=== PATIENT | female | born 1980 | race Caucasian/White ===

== ENCOUNTER 2023-06-21 20:51 | Outpatient (REF) | payer OTHER, SELFPAY ==
[2023-06-25 15:09] LABS: Age Gdln ACOG Testing Note (.); HPV Aptima Negative (Negative); IGP, Aptima HPV, rfx 16/18,45 Note (.)
== END 2023-06-21 20:52 | disposition home or self-care (01) ==
LOC: LAB 20:51
PROVIDERS: PCP Obstetrics & Gynecology; Visit Provider Obstetrics & Gynecology
DX: Z12.4 Encounter for screening for malignant neoplasm of cervix (principal)
CPT/HCPCS: G0145

== ENCOUNTER 2023-08-02 17:57 | Outpatient (OUT) | payer OTHER, SELFPAY ==
--- NOTE | 2023-08-02 | US_ITS ---
The [address] [address] Patient Name: JENNIFER KENDALL MRN: [id number] date: 1980 Sex: F Assigned Patient Location: US Current Patient Location: Accession/Order Number: [id number] Exam Date: 08/02/2023 18:02 Report Date: 08/03/2023 07:18 At the request of: SERGE DUBON Procedure: US pelvis transvaginal EXAM: US pelvis transvaginal HISTORY: Menorrhagia COMPARISON: 10/16/2019. TECHNIQUE: Pelvic sonography was performed utilizing grayscale and color Doppler technique. FINDINGS: Anteverted uterus measures 7.7 x 4.7 x 4.1 cm. Uterine endometrial stripe measures 0.8 cm in thickness. Myometrium is heterogeneous. No discrete mass. Right ovary measures 2.5 x 1.7 x 2.2 cm. Normal right ovarian parenchyma. Left ovary not visualized. No significant free fluid within the pelvis. US/US pelvis transvaginal IMPRESSION: 1. Nonthickened premenopausal endometrium. 2. Left ovary not visualized. 3. Normal right ovary. Electronically authenticated by: SALINAS ELIZONDO Date: 08/03/2023 07:18
== END 2023-08-02 17:58 | disposition home or self-care (01) ==
PROVIDERS: PCP Obstetrics & Gynecology; Visit Provider Obstetrics & Gynecology
DX: N92.0 Excessive and frequent menstruation with regular cycle (principal)
CPT/HCPCS: 76830

== ENCOUNTER 2023-08-06 07:55 | Outpatient (OUT) | payer OTHER, SELFPAY ==
--- NOTE | 2023-08-06 08:23 | ECG_ITS ---
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
== END 2023-08-06 07:56 | disposition home or self-care (01) ==
LOC: PST 07:55
PROVIDERS: PCP Obstetrics & Gynecology; Visit Provider Obstetrics & Gynecology
DX: Z01.810 Encounter for preprocedural cardiovascular examination (principal); N92.0 Excessive and frequent menstruation with regular cycle; N93.9 Abnormal uterine and vaginal bleeding, unspecified; R10.2 Pelvic and perineal pain
CPT/HCPCS: 93005

== ENCOUNTER 2023-08-20 06:56 | Day surgery (SDC) | payer OTHER, SELFPAY ==
[2023-08-06 08:30] VITALS: BP 105/64; PULSE 66; RESP 18; TEMP 36.2; O2SAT 98; BMI 32.5
[2023-08-20] VITALS (11 sets, daily range): BP systolic 90–124; BP diastolic 55–78; PULSE 68–87; RESP 12–18; TEMP 36.1–36.2; O2SAT 92–97; BMI 33.2
[2023-08-20 07:09] LABS: Hematocrit 41.9 % (36.0-48.0); Hemoglobin 13.3 g/dL (12.0-16.0); Mean Corpuscular HGB Conc 31.7 g/dL (29.9-35.2); Mean Corpuscular Hemoglobin 30.6 pg (26.7-34.0); Mean Corpuscular Volume 96.5 fL (81.0-99.0); Mean Platelet Volume 9.5 fL (9.5-13.5); Platelet Count 285 10^3/uL (150-450); Red Blood Count 4.34 10^6/uL (4.20-5.40); White Blood Count 6.3 10^3/uL (4.0-11.0)
[2023-08-20 07:12] LABS: Red Cell Distribution Width 12.7 % (11.0-15.0)
[2023-08-20 07:24] LABS: HCG Quantitative <1 mIU/mL
[2023-08-20] MEDS: LACTATED RINGER'S SOLUTION 1,000 ML 50 ML IV (07:39)
[2023-08-20 07:44] LABS: Segmented Neut Absolute Manual 3.02 10^3/uL (1.4-6.5)
[2023-08-20 07:45] LABS: Eosinophils Absolute Manual 0.06 10^3/uL (0.00-0.70)
--- NOTE | 2023-08-20 09:22 | PM.ONB ---
Brief Operative Note Date of procedure: 08/20/23 Pre-op diagnosis: menorrhagia, desires permenant sterilization Post-op diagnosis: same as pre-op Procedure: NAME OF PROCEDURE: [ ] Samantha endometrial ablation with hysteroscopy. robotic assisted bilateral laparoscopic salpingectomy PROCEDURE: The patient was taken back to the OR where she was prepped and draped in the normal sterile fashion after being placed in the dorsal lithotomy position, after being placed under general anesthesia without difficulty.? A weighted speculum was placed into the vagina. The anterior lip was grasped with a single tooth tenaculum. The patient was then sounded to approximated 8cm. The patient?s cervix was gently dilated using hegardilators. The hysteroscope was passed through the cervix into the uterus where both ostia were seen. No gross evidence of polyps, fibroids or malignancy. The cervical length was noted to be 4 cm. The total cavity length is 4cm.? The Samantha ablation apparatus was set to approximately 4cm in length. This was placed through the cervix and into the uterus. After the seal was tested, at that time the total ablation of 120 seconds was performed with the Samantha withoutdifficulty. All instruments were removed from the vagina. Excellent hemostasis noted.? A wet sponge stick was placed into the patient's vagina. Attention was then turned to the patient's abdomen, where a scalpel was used to make a small infraumbilical incision. The S retractors were then used to dissect the underlying layers until the fascia could be seen. The fascia was then grasped with Gricel clamps and tented up. A knife was then used to make a small incision to the fascia. The muscle was identified, at that time two sutures of #0 Vicryl on a GI needle was then used and placed through the fascia. the peritoneum was then identified and entered bluntly. The 10-4 Albaro was then placed into the patient's abdomen. This was confirmed with direct visualization of the bowel, using the laparoscope. The patient's abdomen was then insufflated using approximately 4 liters of CO2 gas. Survey of the patient's abdomen demonstrated ovaries were normal in appearance as well as both tubes and uterus. A second and third rt and lt lateral robotic ports which were 8 mm in size, was then placed after the skin incision was made under direct visualization . robotic arms were engaged. The patient's tube on the patient's right side was identified and tented up using a grasper, the ligasure apparatus was then used to come across the mesosalpingx from the fimbriated end to the insertion site at the uterus, the tube was then amputated and removed in its entirety. This was done on the contralateral side. The tubes were the removed from the patients abdomen. Excellent hemostasis was noted. The lateral ports were then moved under direct visualization with excellent hemostasis. All instruments were removed from the patient's abdomen. The fascia was closed using the #0 Vicryl on GI needle. The skin was closed using 4-0 Vicryl subcuticularly. All instruments were removed from the patient's vagina as well. The patient was taken out of the dorsal lithotomy position and placed in the supine position and taken to recovery in stable condition. Sponge, lap and needle counts were correct x2. Anesthesia: MADINA Surgeon: Kris Chan Battery Engineer: Bree Soares Estimated blood loss (mL): 5 Pathology: other (bilateral tubes) Condition: stable Disposition: PACU
[2023-08-20] MEDS: LACTATED RINGER'S SOLUTION 1,000 ML 150 ML IV (10:20)
[2023-08-20] MEDS: HYDROCODONE/ACET 5-325 MG TABLET 1 TAB PO (10:49)
[2023-08-20] MEDS: PROMETHAZINE HCL 25 MG TABLET PO (11:52)
--- NOTE | 2023-08-20 12:15 | PC.NURSE ---
pt voids at 1145 without difficulty. pt has complaint of nausea while ambulating PO phenergan given at 1152,pt wishes to be discharged even with nausea.
== END 2023-08-20 11:55 | disposition home or self-care (01) ==
PROVIDERS: PCP Obstetrics & Gynecology; Visit Provider Obstetrics & Gynecology
PROC: (CPT 58563; principal; 2023-08-20 08:20)
PROC: (CPT 58563; 2023-08-20 08:20)
DX: Z30.2 Encounter for sterilization (principal); N92.0 Excessive and frequent menstruation with regular cycle; N93.9 Abnormal uterine and vaginal bleeding, unspecified; R10.2 Pelvic and perineal pain; R35.0 Frequency of micturition; E88.819 Insulin resistance, unspecified; F32.A Depression, unspecified; E78.2 Mixed hyperlipidemia; E66.9 Obesity, unspecified; N94.10 Unspecified dyspareunia; Z68.37 Body mass index [BMI] 37.0-37.9, adult
CPT/HCPCS: 58563; 58661; 36415; 84702; 85027; 88304; J1170; J2704

== ENCOUNTER 2024-08-25 10:59 | Outpatient (OUT) | payer OTHER, SELFPAY ==
--- OUTSIDE RECORDS SUMMARY | 2024-08-25 11:04 | XMS_ITS | CCD ---
Author Organization [facility] Care Team Providers Care Director Voice Name Role Phone LENKA, CHANEL R Unavailable Unavailable LENKA, CHANEL R Unavailable Unavailable LENKA, CHANEL R Unavailable Unavailable LENKA, CHANEL R Unavailable Unavailable Dk Cummins Primary Care Provider Amina Del Rio Unavailable GANGA ., DR DEAN Admitting Unavailabl e KARASIK ., DR DEAN Attending Unavailabl e MISC, DR LIU Primary Care Unavailable KARASIK ., DR DEAN Consulting Unavailabl e KARASIK ., DR DEAN Admitting Unavailabl e KARASIK ., DR DEAN Attending Unavailabl e KARASIK ., DR DEAN Consulting Unavailabl e KARASIK ., DR DEAN Admitting Unavailabl e KARASIK ., DR DEAN Attending Unavailabl e MISC, DR LIU Primary Care Unavailable KARASIK ., DR DEAN Consulting Unavailabl e ZIEBER, DR ASHVIN Pak Consulting Unavailable Ish Anderson DO Primary Care Provider [phone] DO Ish Anderson Primary Care Provider [phone] CHENG Amaral Attending Provider Maty Amaral Attending Unavailable Maty Amaral Admitting Unavailable Ish Anderson Primary Care Unavailable Ish Anderson DO Primary Care Provider [phone] SERGE CHAN Attending Unavailable ISH ANDERSON Attending Unavailable SERGE CHAN Attending Unavailable ISH ANDERSON Attending Unavailable SERGE CHAN Attending Unavailable IHS ANDERSON Attending Unavailable CHANDANA MACK Attending Unavailable SERGE CHAN Attending Unavailable Medications Current Medications Medication Drug Class(es) Dates Sig (Normalized) Sig (Original) amoxicillin 875 mg oral tablet (1 source) Penicillin-class Antibacterial Start: 05-21-2022 take 1 tablet by mouth every twelve hours Amoxicillin 875 MG 1 capsule Orally Twice a day for 7 day(s) Apr, Active azithromycin 500 mg oral tablet (2 sources) Macrolide Antimicrobial Start: 11-08-2023 azithromycin (Zithromax) 500 MG tablet Indications: Vaginal discharge Take 2 tablets on DAY 1; then 1 tablet daily for 3 days. (2.5g total) 5 tablet 0 11/08/2023 Active biotin 5 mg oral capsule (1 source) take 1 capsule by mouth once daily biotin 5 MG capsule Take 5 mg by mouth Daily Active buPROPion hydrochloride 75 mg oral tablet (1 source) Aminoketone take 2 tablets by mouth every twelve hours buPROPion HCl 75 MG 2 tablets Orally Twice a day Active cetirizine hydrochloride 10 mg oral tablet (5 sources) Histamine-1 Receptor Antagonist Start: 05-21-2022 take 1 tablet by mouth once daily Cetirizine HCl 10 MG 1 tablet Orally Once a day for 14 days Apr, Active citalopram 40 mg oral tablet (1 source) Serotonin Reuptake Inhibitor take 1 tablet by mouth once daily citalopram 40 MG Tab take 40 mg by mouth daily. 0 Active d-biotin 2.5 mg oral tablet (2 sources) biotin 2.5 MG tablet Take by mouth 0 Active ethinyl estradiol 0.02 mg / ferrous fumarate 75 mg / norethindrone 1 mg oral tablet (2 sources) Estrogen Blisovi FE /20 1-20 MG-MCG Oral for 84 Days Active Ethinyl Estradiol / norgestimate (1 source) Progestin, Estrogen take 1 tablet by mouth once daily Norgestimate-Ethiny l Estradiol 0.18/0.215/0.25 MG-35 MCG Tab take 1 Tab by mouth daily. 0 Active fluticasone propionate 0.05 mg/actuat metered dose nasal spray (1 source) Corticosteroid Start: 05-21-2022 take 1 spray(s) nasal route twice daily Flonase Allergy Relief 50 MCG/ACT 1 spray in each nostril Nasally Twice a day for 14 day(s) Apr, Active Ibrexafungerp Citrate (Brexafemme) 150 MG tablet (2 sources) Start: 11-30-2023 End: 12-01-2023 take 2 tablets by mouth in the morning Ibrexafungerp Citrate (Brexafemme) 150 MG tablet Indications: Yeast infection Take 300 mg by mouth in the morning and 300 mg before bedtime. Do all this for 1 day. 4 tablet 0 11/30/2023 12/01/2023 Active naltrexone hydrochloride 50 mg oral tablet (1 source) Opioid Antagonist take 1 tablet by mouth every twenty-four hours Naltrexone HCl 50 MG 1 tablet Orally Once a day Active nitrofurantoin, macrocrystals 25 mg / nitrofurantoin, monohydrate 75 mg oral capsule (1 source) Nitrofuran Antibacterial Start: 02-14-2024 take 1 capsule by mouth every twelve hours at mealtime Nitrofurantoin Monohyd/M-Cryst (Macrobid) 100 mg capsule Active 100 MG PO Every 12 hours 10 February 14, 2024 12:00am must administer with a meal/food phentermine hydrochloride 37.5 mg oral tablet (7 sources) Sympathomimetic Amine Anorectic Start: 08-08-2024 take 33-33.9 tablets by mouth before mealtime phentermine (Adipex-P) 37.5 MG tablet Indications: Class 1 obesity due to excess calories without serious comorbidity with body mass index (BMI) of 33.0 to 33.9 in adult Take 1 tablet (37.5 mg) by mouth in the morning. Take before meals. 30 tablet 08/08/2024 Active Start: 02-14-2024 Phentermine Ac tive MG PO February 14, 2024 12:00am Start: 11-04-2023 End: 12-04-2023 take 33-33.9 tablets by mouth before mealtime phentermine (Adipex-P) 37.5 MG tablet Indications: Class 1 obesity due to excess calories without serious comorbidity with body mass index (BMI) of 33.0 to 33.9 in adult Take 1 tablet (37.5 mg) by mouth in the morning. Take before meals. 30 tablet 0 11/04/2023 12/04/2023 Active take 1 tablet by lillian once daily Phentermine HCl 37.5 MG take 1 tablet by mouth once daily Oral for 30 Days Not-Taking topiramate 50 mg oral tablet (3 sources) Start: 06-09-2024 topiramate 50 MG tablet Indications: Class 1 obesity due to excess calories without serious comorbidity with body mass index (BMI) of 33.0 to 33.9 in adult Take 50 mg by mouth Daily 90 tablet 1 06/09/2024 Active Start: 02-14-2024 Topiramate Act aurora MG PO February 14, 2024 12:00am Completed/Discontinued Medications Medication Drug Class(es) Dates Sig (Normalized) Sig (Original) terconazole 4 mg/ml vaginal cream (2 sources) Azole Antifungal Terconazole 0.4 % Vaginal for 7 Days Not-Taking Problems Active Problems Problem Classification Problem Date Documented Date Episodic/Chronic Abdominal pain (1 source) Pain in female pelvis; Translations: [Pelvic and perineal pain] 08-09-2024 Episodic Disorders of lipid metabolism (3 sources) Mixed hyperlipidemia; Translations: [Mixed hyperlipidemia] Onset: 05-26-2023 05-26-2023 Chronic Menstrual disorders (8 sources) Amenorrhea; Translations: [Amenorrhea, unspecified] Onset: 05-26-2023 Resolved: 03-06-2024 05-26-2023 Chronic Mood disorders (7 sources) Depressive disorder; Translations: [Single episode of major depression in full remission] Onset: 05-26-2023 Resolved: 03-06-2024 06-25-2015 Chronic Mycoses (2 sources) Mycosis; Translations: [Candidiasis, unspecified] 11-25-2023 Episodic Other female genital disorders (4 sources) Pain in female genitalia on intercourse; Translations: [Unspecified dyspareunia] Onset: 05-26-2023 Resolved: 03-06-2024 05-26-2023 Chronic Other female genital disorders (5 sources) Other specified noninflammatory disorders of vagina; Translations: [OTH SPEC NONINFLAMMATORY D/O VAGINA] Onset: 05-28-2022 Episodic Other female genital disorders (2 sources) Vaginal discharge; Translations: [Other specified noninflammatory disorders of vagina] 11-25-2023 Episodic Other nutritional; endocrine; and metabolic disorders (3 sources) Body mass index 30+ - obesity; Translations: [Obesity, unspecified] Onset: 05-26-2023 05-26-2023 Chronic Other screening for suspected conditions (not mental disorders or infectious disease) (8 sources) Encounter for screening mammogram for malignant neoplasm of breast; Translations: [Encounter for screening for malignant neoplasm of cervix] Onset: 05-25-2022 Episodic Other upper respiratory infections (2 sources) Acute pharyngitis, unspecified; Translations: [Acute nasopharyngitis [common cold]] Episodic Unclassified (2 sources) UTI SITE NOT SPECIFIED / N39.0(ICD-10) Onset: 09-13-2017 Urinary tract infections (2 sources) Acute urinary tract infection; Translations: [Urinary tract infection, site not specified] 02-14-2024 Episodic Past or Other Problems Problem Classification Problem Date Documented Date Episodic/Chronic Genitourinary symptoms and ill-defined conditions (8 sources) Dysuria; Translations: [Dysuria] Onset: 05-26-2023 Resolved: 03-06-2024 Episodic Immunizations and screening for infectious disease (1 source) Encounter for screening for human papillomavirus (HPV); Translations: [ENC SCREENING HUMAN PAPILLOMAVIRUS] Onset: 05-28-2022 Episodic Other eye disorders (4 sources) Strabismus; Translations: [Unspecified strabismus] Onset: 05-27-2023 06-25-2015 Episodic Other nutritional; endocrine; and metabolic disorders (3 sources) Insulin resistance; Translations: [Insulin resistance] Onset: 05-26-2023 Resolved: 03-06-2024 05-26-2023 Chronic Other nutritional; endocrine; and metabolic disorders (3 sources) Obesity caused by energy imbalance; Translations: [Other obesity due to excess calories] Onset: 05-26-2023 Resolved: 03-06-2024 05-26-2023 Chronic Other nutritional; endocrine; and metabolic disorders (3 sources) Body mass index 40+ - severely obese; Translations: [Body mass index (BMI) 40.0-44.9, adult] Onset: 01-18-2019 Resolved: 03-06-2024 05-27-2023 Chronic Otitis media and related conditions (1 source) Other acute nonsuppurative otitis media, left ear Onset: 05-21-2022 Resolved: 05-21-2022 Episodic Unclassified (1 source) UTI SITE NOT SPECIFIED; Translations: [UTI SITE NOT SPECIFIED] Onset: 09-06-2017 Results Test Name Value Interpretation Reference Range Facility Urine Cultureon 02-14-2024 Bacteria identified Cx Nom (U) 50,000 colonies/ml mixed bacterial skin contaminants 2 Days PERFORMED BY: [facility] [address] [place] [address] PATHOLOGIST SERVICENOW ADMINISTRATOR ELROY MANDUJANO M.D. Normal [facility] Comment on above: Performed By: #### C UU #### [facility] [address] [id number] [facility] Quick Strepon 03-23-2023 S. pyogenes Org specific cx Ql (Throat) Negative [employer] Other Quick Strep [employer] Other Urinalysis - AUTOMATEDon Appearance (U) clouy [employer] Other Bilirubin Ql (U) Negative [employer] Other Color (U) yellow [employer] Other Glucose Ql (U) Negative [employer] Other Hemoglobin Ql (U) Negative [employer] Other Ketones Ql (U) Negative [employer] Other Leukocyte esterase Test strip Ql (U) trace [employer] Other Nitrite Ql (U) Negative [employer] Other pH (U) 5.5 [pH] [employer] Other Protein Ql (U) Negative [employer] Other Specific gravity (U) [Rel density] 1.020 [employer] Other Urobilinogen (U) [Mass/Vol] 0.2 mg/dL [employer] Other Urinalysis - AUTOMATED [employer] Other VAGINITIS/VAGINOSIS DNA PROB Allan 01-10-2023 Krystin species Negative Normal Negative [facility] Comment on above: Performed By: #### V AGINT #### [facility] [address] [address] [address] Richard George Gardnerella vaginalis Negative Normal Negative [facility] Comment on above: Performed By: #### V AGINT #### [facility] [address] [address] [address] Richard George Trichomonas vaginalis Negative Normal Negative [facility] Comment on above: Performed By: #### V AGINT #### [facility] [address] [address] [address] Richard George MG MAMM SCREEN 3D OTONIEL CADon 12-02-2022 MG MAMM SCREEN 3D OTONIEL CAD Patient: CHANEL KENDALL Exam Date: 12/02/2022 : 1980 Gender:F Ordering : DR JERMAINE SCHULER . Admission #: [id number] Family : Order #: [id number] CLICK HERE TO VIEW EXAM RADIOLOGY REPORT PROCEDURE: MAMMOGRAM SCREENING 3D BILATERAL CAD COMPARISON: None. INDICATIONS: Screening mammography Calculator Name NCI Breast Cancer Risk Assessment Tool 5 Year Breast Cancer Risk 0.60% Lifetime Breast Cancer Risk 11.10% Personal Breast Cancer No Personal Ovarian Cancer No Treatments None Family Cancers None LOCATION: [facility] BREAST COMPOSITION: Scattered areas fibroglandular density. FINDINGS: DIAGNOSTIC CATEGORY 2--BENIGN FINDING: RIGHT BREAST: No significant suspicious finding. Scattered benign-appearing lymph nodes are present. LEFT BREAST: No significant suspicious finding. RECOMMENDATIONS: ROUTINE MAMMOGRAM AND CLINICAL EVALUATION IN 12 MONTHS. PLEASE NOTE: A NORMAL MAMMOGRAM DOES NOT EXCLUDE THE POSSIBILITY OF BREAST CANCER. A CLINICALLY SUSPICIOUS PALPABLE LUMP SHOULD BE BIOPSIED. Dictated by: Ashvin Breaux M.D. on 12/03/2022 at 08:32 Approved by: Ashvin Breaux M.D. on 12/03/2022 at 09:41 Normal [facility] PAP ACOG PANEL 2: 30 to 65on 05-29-2022 . . Normal [facility] Comment on above: Result Comment: Perf ormed at: WB Performed By: #### [id number] #### [facility] [address] [address] [address] Richard George Age Gdln ACOG Testing 30-65 Normal [facility] Comment on above: Performed By: #### [id number] #### [facility] [address] [address] [address] Richard George DIAGNOSIS: Comment Normal [facility] Comment on above: Result Comment: NEGA TIVE FOR INTRAEPITHELIAL LESION OR MALIGNANCY. Performed at: WB Performed By: #### [id number] #### [facility] [address] [address] [address] Richard George HPV Aptima Negative Normal Negative [facility] Comment on above: Result Comment: This nucleic acid amplification test detects fourteen high-risk HPV types (16,18,31,33,35,39,45,51,52,56,58,59,66,68) without differentiation. Performed at: =G Performed By: #### [id number] #### [facility] [address] [place] [address] Dr. Richard George Methodology: Comment Normal [facility] Comment on above: Result Comment: This liquid based ThinPrep(R) pap test was screened with the use of an image guided system. Performed at: WB Performed By: #### [id number] #### [facility] [address] [place] [address] Dr. Richard George Note: Comment Normal [facility] Comment on above: Result Comment: The Pap smear is a screening test designed to aid in the detection of premalignant and malignant conditions of the uterine cervix. It is not a diagnostic procedure and should not be used as the sole means of detecting cervical cancer. Both false-positive and false-negative reports do occur. . Performed at: WB Performed By: #### [id number] #### [facility] [address] [address] [address] Richard George Performed by: Comment Normal [facility] Comment on above: Result Comment: [employer] Manager (ASCP) Performed at: WB Performed By: #### [id number] #### [facility] [address] [address] [address] Richard George Specimen adequacy: Comment Normal [facility] Comment on above: Result Comment: Sati sfactory for evaluation. Endocervical and/or squamous metaplastic cells (endocervical component) are present. Performed at: WB Performed By: #### [id number] #### [facility] [address] [place] [address] Dr. Richard George VAGINITIS/VAGINOSIS DNA PROB Allan 05-27-2022 Krystin species Negative Normal Negative [facility] Comment on above: Performed By: #### V AGINT #### [facility] [address] [place] [address] Dr. Richard George Gardnerella vaginalis Positive Abnormal Negative [facility] Comment on above: Performed By: #### V AGINT #### [facility] [address] [place] [address] Dr. Richard George Trichomonas vaginalis Negative Normal Negative [facility] Comment on above: Performed By: #### V AGINT #### [facility] [address] [place] [address] Dr. Richard George Q - T4,TOTALon 10-28-2021 T4 [Mass/Vol] 6.3 ug/dL Normal 5.1-11.9 [facility] Aquatic Scientist Comment on above: Order Comment: [facility] Testing performed at: [place], [address] [place] [address], [address] [place] [address], [phone], Supervisor Heat Treating: Hema Dumont MD [facility] Collection Date/Time: [facility] Results Received Date/Time: [facility] Reported Date/Time: Performed By: #### 3 [id number], TSH reflex FT4 #### [facility] [address] [place] [address] TSH w/ Reflex to Free T4on 0 10-28-2021 TSH W/REFLEX TO FT4 0.84 mIU/L Normal [facility] Aquatic Scientist Comment on above: Order Comment: [facility] Testing performed at: [employer] [facility], [address] [facility], [address] [place] [address], [phone], Supervisor Heat Treating: Hema Dumont MD [facility] Collection Date/Time: [facility] Results Received Date/Time: [facility] Reported Date/Time: Result Comment: Refe rence Range > or = 20 Years 0.40-4.50 Ranges First trimester 0.26-2.66 Second trimester 0.55-2.73 Third trimester 0.43-2.91 Performed By: #### 3 [id number], TSH reflex FT4 #### [facility] [address] [place] [address] CULTURE-URINEon 09-06-2017 CULTURE-URINE PATIENT: CHANEL KENDALL LOCATION: [facility]#: [id number] : 1980 AGE: 37 SEX: F ORDER# [id number] ORDERED BY: CHANEL OG Source: URI Collected: 09/06/17 08:50 Site: UNK Received : 09/06/17 18:36CULTURE-URINE FINAL 09/08/17 06: NO GROWTH AFTER 35 HOURS Normal [facility] Comment on above: Performed By: #### C URIN ####[address] [id number] Vital Signs Date Time Vital Sign Value Performing Clinician Facility 08-09-2024 16:03-0400 Body mass index (BMI) [Ratio] 30.99 kg/m2 Serge Rocio DO Work Phone: [facility] 08-09-2024 16:03-0400 Body weight 87.09 kg Serge Rocio DO Work Phone: [facility] 08-09-2024 16:03-0400 Diastolic blood pressure 70 mm[Hg] Serge Rocio DO Work Phone: [facility] 08-09-2024 16:03-0400 Systolic blood pressure 120 mm[Hg] Serge Rocio DO Work Phone: [facility] 02-14-2024 17:01-0400 Body height 167.64 cm [facility] 02-14-2024 17:01-0400 Body mass index (BMI) [Ratio] 31.4 kg/m2 [facility] 02-14-2024 17:01-0400 Body temperature 97.5 [degF] [facility] 02-14-2024 17:01-0400 Body weight 88.45 kg [facility] 02-14-2024 17:01-0400 Diastolic blood pressure 91 mm[Hg] [facility] 02-14-2024 17:01-0400 Heart rate 81 /min [facility] 02-14-2024 17:01-0400 Respiratory rate 16 /min [facility] 02-14-2024 17:01-0400 SaO2% (BldA) [Mass fraction] 99 % [facility] 02-14-2024 17:01-0400 Systolic blood pressure 133 mm[Hg] [facility] 03-23-2023 17:25-0400 Body height 167.64 cm Amina Del Rio Other [facility] [email or web address] Other 03-23-2023 17:25-0400 Body mass index (BMI) [Ratio] 33.6 kg/m2 Amina Del Rio Other [employer] Other 03-23-2023 17:25-0400 Body temperature 98 [degF] Amina Del Rio Other [employer] Other 03-23-2023 17:25-0400 Body weight 94.44 kg Amina Del Rio Other [employer] Other 03-23-2023 17:25-0400 Respiratory rate 18 /min Amina Del Rio Other [employer] Other 03-23-2023 17:25-0400 SaO2% (BldA) [Mass fraction] 97 % Amina Del Rio Other [employer] Other 01-14-2023 15:35-0400 Body height 167.64 cm Amina Del Rio Other [employer] Other 01-14-2023 15:35-0400 Body mass index (BMI) [Ratio] 35.44 kg/m2 Amina Del Rio Other [employer] Other 01-14-2023 15:35-0400 Body temperature 97.8 [degF] Amina Del Rio Other [employer] Other 01-14-2023 15:35-0400 Body weight 99.61 kg Amina Del Rio Other [employer] Other 01-14-2023 15:35-0400 Diastolic blood pressure 62 mm[Hg] Amina Del Rio Other [employer] Other 01-14-2023 15:35-0400 SaO2% (BldA) [Mass fraction] 99 % Amina Del Rio Other [employer] Other 01-14-2023 15:35-0400 Systolic blood pressure 112 mm[Hg] Amina Del Rio Other [employer] Other 05-21-2022 14:55-0400 Body height 167.64 cm Amina Del Rio Other [employer] Other 05-21-2022 14:55-0400 Body mass index (BMI) [Ratio] 38.25 kg/m2 Amina Del Rio Other [employer] Other 05-21-2022 14:55-0400 Body temperature 97.7 [degF] Amina Del Rio Other [employer] Other 05-21-2022 14:55-0400 Body weight 107.5 kg Amina Del Rio Other [employer] Other 05-21-2022 14:55-0400 Diastolic blood pressure 54 mm[Hg] Amina Del Rio Other [employer] Other 05-21-2022 14:55-0400 Respiratory rate 18 /min Amina Del Rio Other [employer] Other 05-21-2022 14:55-0400 SaO2% (BldA) [Mass fraction] 99 % Amina Del Rio Other [employer] Other 05-21-2022 14:55-0400 Systolic blood pressure 109 mm[Hg] Amina Del Rio Other [employer] Other Encounters Encounter Date Encounter Type Care Provider Facility Start: 08-09-2024 End: 08-09-2024 ambulatory SERGE ROCIO Not Available Start: 08-09-2024 End: 08-09-2024 Office outpatient visit 15 minutes Serge Sanchezo DO Work Phone: [facility] Comment on above: Pre-op examination; Menorrhagia with regular cycle; Pelvic pain in female; Dyspareunia in female; Dysmenorrhea Start: 08-09-2024 End: 08-09-2024 Preprocedural examination done Serge Rocio DO Work Phone: [facility] Start: 06-07-2024 End: 06-07-2024 ambulatory ISH L CUTLER Not Available Start: 03-22-2024 End: 03-22-2024 ambulatory SERGE ROCIO Not Available Start: 03-07-2024 End: 03-07-2024 ambulatory ISH L CUTLER Not Available Start: 02-14-2024 End: 02-14-2024 ambulatory Maty Amaral Facility:[facility] Start: 02-14-2024 End: 02-14-2024 Departed Referred DO Ish Anderson Work Phone: [facility] [place] Work Phone: Start: 02-14-2024 End: 02-14-2024 ambulatory DO Ish Anderson Work Phone: [facility] Work Phone: Start: 02-14-2024 End: 02-14-2024 Patient encounter procedure [facility] Work Phone: Start: 01-05-2024 End: 01-05-2024 ambulatory SERGE ROCIO Not Available Start: 12-08-2023 End: 12-08-2023 ambulatory ISH ANDERSON Not Available Start: 11-30-2023 End: 11-30-2023 Phys/qhp telephone evaluation 5-10 min Serge Rocio DO Work Phone: [facility] Comment on above: Vaginal discharge; Yeast infection Start: 11-08-2023 End: 11-08-2023 ambulatory SERGE ROCIO Not Available Start: 09-06-2023 End: 09-06-2023 ambulatory CHANDANA MACK Not Available Start: 03-23-2023 End: 03-23-2023 ambulatory Amina Del Rio Other [employer] Other Start: 03-23-2023 Office outpatient vi sit 15 minutes Amina Del Rio [facility] Start: 01-14-2023 End: 01-14-2023 ambulatory Amina Del Rio Other [employer] Other Start: 01-14-2023 Office outpatient vi sit 15 minutes Amina Del Rio [facility] Start: 01-08-2023 End: 01-08-[address] JERMAINE SCHULER . Facility:[facility] Start: 12-01-2022 End: 12-02-[address] JERMAINE SCHULER . Facility:[facility] Start: 05-25-2022 End: 05-25-[address] JERMAINE SCHULER . Facility:[facility] Start: 05-21-2022 End: 05-21-2022 ambulatory Amina Del Rio Other [employer] Other Start: 05-21-2022 Office outpatient ne w 20 minutes Amina Del Rio [facility] Start: 12-07-2018 End: 12-07-2018 Letter encounter Dk SELF PROJECT TEAM Start: 09-06-2017 End: 09-07-2017 Ambulatory CHANEL OG Facility:01 Procedures Date Procedure Procedure Detail Performing Clinician Start: 06-21-2023 Microscopic observat ion [Identifier] in Cervix by Cyto stain Serge Rocio DO Work Phone: Start: 12-02-2022 Mammography Serge Fazi o DO Work Phone: Start: 05-27-2022 Microscopic observat ion [Identifier] in Cervix by Cyto stain Serge Rocio DO Work Phone: Plan of Treatment Date Care Activity Detail Author Start: 06-21-2028 Screening for malign ant neoplasm of cervix [facility] Start: 05-27-2027 Screening for malign ant neoplasm of cervix [facility] Start: 08-30-2024 End: 08-30-2024 Patient encounter procedure 08/30/2024 4:20 PM EST Office Visit [facility] [address] [place] [address] Ish Anderson L, DO [address] [place], [place] [id number] [facility] [address] Start: 06-25-2024 Influenza vaccination Influenza Vacc ine (#1) [facility] Start: 02-14-2024 Bacteria identified in Urine by Culture [facility] Start: 12-08-2023 End: 12-08-2023 Patient encounter procedure 12/08/2023 4:40 PM EST Office Visit [facility] [address] [place] [id number] Ish Anderson L, DO [address] [place], [place] [id number] [facility] [address] Start: 12-02-2023 Screening for malign ant neoplasm of breast Mammogram [facility] Start: 06-25-2023 Influenza vaccination Influenza Vacc ine (#1) [facility] Start: 06-25-2018 Influenza vaccination INFLUENZA VACC INE (#1) [facility] Start: 2003 Screening for malign ant neoplasm of cervix PAP SMEAR DISCUSSION [facility] Start: 2001 Third diphtheria, tetanus and acellular pertussis (DTaP) vaccination TDAP (ADULT) [facility] Start: 2000 Tetanus vaccination TETANUS [facility] Start: 1995 HIV screening HIV SCREENING DISCUSSION [facility] Payers Date Payer Category Payer Self-pay [id number] 2019 Private Health Insurance [id number] 2014 Unknown SHELBY MONROY xxxxxxxxxxx 2014-Present xxxxxxxxxxx [id number] 1982 Unknown [id number] .593 1982 Unknown [id number] .593 1982 Unknown [id number] [id number] .593 1982 Unknown [id number] 2.840.1.094573.3.579.2 .1259 1982 Unknown [id number] .1259 1982 Unknown [id number] 2.840.1.136116.3.579.2 .1259 1982 Unknown [id number] [id number] .1258 1982 Unknown [id number] [id number] .1258 1982 Unknown [id number] [id number] .1258 1982 Unknown [id number] [id number] .1258 1982 Unknown [id number] .1259 1959 [facility] [id number] 1959 Private Health Insurance [id number] Unknown HCAP/HFA/FAP Active [id number] Unknown [id number] Social History Date Type Detail Facility Start: 06-25-2015 Tobacco smoking status [facility] Current every day smoker [facility] Start: 2000 End: 08-20-2013 History of tobacco use Cigarette Smoker [facility] Start: 06-25-2015 End: 06-29-2023 Cigarettes smoked current (pack per day) - Reported [facility] Start: 04-02-2015 Tobacco Comment Uses Vuse smokeless tobacco on occasion. [facility] Start: 1980 Sex Assigned At Not on file [facility] Start: 06-29-2023 End: 12-08-2023 Sex Assigned At [facility] Start: 08-31-2023 End: 06-07-2024 Tobacco smoking status DCIS Ex-smoker [facility] Start: 2000 End: 08-20-2013 History of tobacco use Current smoker [facility] Start: 08-31-2023 End: 06-07-2024 Tobacco use and exposure Smokeless tobacco non-user [facility] Start: 11-08-2023 End: 08-09-2024 Alcohol intake Current drinker of alcohol (finding) [facility] Within the last year , have you been afraid of your partner or ex-partner? No [facility] Do you belong to any clubs or organizations such as amish groups, unions, fraternal or athletic groups, or school groups? Yes [facility] Are you now , , , , never or living with a partner? [facility] How often to you hav e a drink containing alcohol? Monthly or less [facility] How many standard dr inks containing alcohol do you have on a typical day? 1 or 2 [facility] How often do you hav e 6 or more drinks on 1 occasion? Less than monthly [facility] How hard is it for y ou to pay for the very basics like food, housing, medical care, and heating Not hard at all [facility] Do you feel stress - tense, restless, nervous, or anxious, or unable to sleep at night because your mind is troubled all the time - these days [OSQ] Rather much [facility] (I/We) worried wheshiloh er (my/our) food would run out before (I/we) got money to buy more. Never true [facility] Start: 06-14-2023 Alcohol Comment Caffeine: 1-2 cups/day [facility] Start: 01-06-2023 Gender identity Identifies as female gender (finding) [facility] Start: 1980 Sex Assigned At Female [facility] History of Present illness Narrative 08-09-2024 Samina Garcia - 08/09/2024 3:50 PM EDT Note Date & Type Note Facility 08-09-2024 History of Presen t illness Narrative Reason for Appointment: Patient ID: Chanel Kendall is a 44 y.o. female who presents for Pre-op Visit Patient presents today for Pre Op appointment. Patient is scheduled to undergo Da Dustin assisted Laparoscopic Hysterectomy, possible exploratory laparotomy, possible BSO, possible cystoscopy on 09/07/[address] Chan at [facility]. MEDICATIONS Current Outpatient Medications Medication Instructions phentermine (ADIPEX-P) 37.5 mg, Oral, Daily before breakfast topiramate 50 mg, Oral, Daily ALLERGIES No Known Allergies PROBLEMS Active Ambulatory Problems Diagnosis Date Noted Major depressive disorder with single episode, in full remission ([facility]) 05/26/2023 Menstrual cramp 05/26/2023 Mixed hyperlipidemia ([facility]) 05/26/2023 Obesity (BMI 30-39.9) 05/26/2023 Strabismus 05/27/2023 Resolved Ambulatory Problems Diagnosis Date Noted Amenorrhea 05/26/2023 Frequency of urination 05/26/2023 Insulin resistance 05/26/2023 Other obesity due to excess calories 05/26/2023 Pain in female genitalia on intercourse 05/26/2023 Reactive depression ([facility]) 05/26/2023 Body mass index 40.0-44.9, adult ([facility]) 01/18/2019 Past Medical History: Diagnosis Date Allergic rhinitis 1989 BMI 37.0-37.9, adult Body mass index (BMI) of 40.1 to 44.9 in adult ([facility]) Breast cancer screening by mammogram 12/02/2022 Dyspareunia in female Pneumonia HISTORY PAST MEDICAL HISTORY SOCIAL HISTORY Past Medical History: Diagnosis Date Allergic rhinitis 1989 Amenorrhea BMI 37.0-37.9, adult Body mass index (BMI) of 40.1 to 44.9 in adult ([facility]) Breast cancer screening by mammogram 12/02/2022 neg Dyspareunia in female Frequency of urination Insulin resistance Major depressive disorder with single episode, in full remission ([facility]) Menstrual cramp Mixed hyperlipidemia ([facility]) Obesity (BMI 30-39.9) Other obesity due to excess calories Pneumonia Reactive depression ([facility]) Social History Tobacco Use Smoking status: Former Current packs/day: 0.00 Average packs/day: 1 pack/day for 13.2 years (13.2 ttl pk-yrs) Types: Cigarettes Start date: 2000 Quit date: 08/20/2013 Years since quittin.9 Smokeless tobacco: Never Substance Use Topics Alcohol use: Yes Alcohol/week: 1.0 standard drink of alcohol Types: 1 Glasses of wine per week Comment: Caffeine: 1-2 cups/day Drug use: Never FAMILY HISTORY Family History Problem Relation Name Age of Onset Diabetes Mother Helene Del Toro No Known Problems Father Diabetes Sister Ericka Del Toro Asthma Sister Ericka Grieger Asthma Son Jaspal Kendall Heart disease Paternal Grandfather Brandon Del Toro SURGICAL HISTORY Past Surgical History: Procedure Laterality Date SECTION, CLASSIC x 2 SECTION, LOW TRANSVERSE 05/24/2007 08/20/2009 ENDOMETRIAL ABLATION 08/20/2023 EYE SURGERY 1985 PAP SMEAR (05/25/22) Normal, pending , (11/17/17) Neg DARIEL; HPV Neg TONSILLECTOMY WISDOM TOOTH EXTRACTION REVIEW OF SYSTEMS Review of Systems: Review of Systems Constitutional: Negative. HENT: Negative. Eyes: Negative. Respiratory: Negative. Cardiovascular: Negative. Gastrointestinal: Negative. Genitourinary: Positive for dyspareunia, menstrual problem and pelvic pain. Musculoskeletal: Negative. Skin: Negative. Neurological: Negative. All other systems reviewed and are negative. Hematological: Negative. Endocrine: Negative. Allergic/Immunologic: Negative. OBJECTIVE Objective: Physical Exam Constitutional: Appearance: Normal appearance. She is well-developed. Cardiovascular: Rate and Rhythm: Normal rate and regular rhythm. Pulmonary: Effort: Pulmonary effort is normal. Breath sounds: Normal breath sounds. Abdominal: General: Bowel sounds are normal. There is no distension. Palpations: Abdomen is soft. Tenderness: There is no abdominal tenderness. There is no guarding or rebound. Musculoskeletal: General: No swelling. Normal range of motion. Right lower leg: No edema. Left lower leg: No edema. Neurological: Mental Status: She is alert and oriented to person, place, and time. Skin: General: Skin is warm and dry. Psychiatric: Mood and Affect: Mood normal. Behavior: Behavior normal. Vitals and nursing note reviewed. Exam conducted with a green promotions specialist present. Vitals: Estimated body mass index is 31.22 kg/m as calculated from the following: Height as of 06/07/24: 5' 6 . Weight as of 06/07/24: 193 lb 6.4 oz. BP: No LMP recorded. ASSESSMENT & PLAN ICD-10-CM 1. Pre-op examination Z01.818 2. Menorrhagia with regular cycle N92.0 3. Pelvic pain in female R10.2 4. Dyspareunia in female N94.10 5. Dysmenorrhea N94.6 Pre Op: Patient is doing well but has complaints of pelvic pain, menorrhagia, dyspareunia, dysmenorrhea. I have discussed conservative management vs. surgical management with the patient in detail and patient desires surgical management at this time. Patient will undergo Da Dustin assisted Laparoscopic Hysterectomy, possible exploratory laparotomy, possible BSO, possible cystoscopy on 09/07/2024. Surgical consents were signed, mmc was reviewed, and patient is to proceed to [facility] OR. Follow Up: Patient is to follow up at 1 & 6 weeks post operative to assess proper healing and recovery from procedure. Documented by Marcy Elliott LPN on behalf of: Serge Chan DO documented in this encounter [facility] History of Present illness Narrative 11-30-2023 Marcy Elliott LPN - 11/30/2023 3:10 PM EST Note Date & Type Note Facility 11-30-2023 History of Presen t illness Narrative Reason for Appointment: Patient ID: Chanel Kendall is a 43 y.o. female who presents for Vaginitis/Bacterial Vaginosis Patient presents today via telephone call for a telehealth appointment. Patients Phone #: [phone] (mobile) Current Medications: has a current medication list which includes the following prescription(s): azithromycin, biotin, cetirizine, and phentermine. Medical History: Active Ambulatory Problems Diagnosis Date Noted Amenorrhea 05/26/2023 Frequency of urination 05/26/2023 Insulin resistance 05/26/2023 Major depressive disorder with single episode, in full remission ([facility]) 05/26/2023 Menstrual cramp 05/26/2023 Mixed hyperlipidemia ([facility]) 05/26/2023 Obesity (BMI 30-39.9) 05/26/2023 Other obesity due to excess calories 05/26/2023 Pain in female genitalia on intercourse 05/26/2023 Reactive depression ([facility]) 05/26/2023 Strabismus 05/27/2023 Body mass index 40.0-44.9, adult ([facility]) 01/18/2019 Resolved Ambulatory Problems Diagnosis Date Noted No Resolved Ambulatory Problems Past Medical History: Diagnosis Date Allergic rhinitis 1989 BMI 37.0-37.9, adult Body mass index (BMI) of 40.1 to 44.9 in adult ([facility]) Breast cancer screening by mammogram 12/02/2022 Dyspareunia in female Pneumonia Family History Problem Relation Name Age of Onset Diabetes Mother Helene Del Toro No Known Problems Father Diabetes Sister Ericka Del Toro Asthma Sister Ericka Del Toro Asthma Son Jaspal Kendall Heart disease Paternal Grandfather Brandon Del Toro Social History Tobacco Use Smoking status: Former Packs/day: 1.00 Years: 10.00 Additional pack years: 0.00 Total pack years: 10.00 Types: Cigarettes Start date: 2000 Quit date: 08/20/2013 Years since quittin.2 Smokeless tobacco: Never Substance Use Topics Alcohol use: Yes Alcohol/week: 1.0 standard drink of alcohol Types: 1 Glasses of wine per week Comment: Caffeine: 1-2 cups/day Drug use: Never Past Surgical History: Procedure Laterality Date SECTION, CLASSIC x 2 SECTION, LOW TRANSVERSE 05/24/2007 08/20/2009 ENDOMETRIAL ABLATION 08/20/2023 EYE SURGERY 1985 PAP SMEAR (05/25/22) Normal, pending , (11/17/17) Neg DARIEL; HPV Neg TONSILLECTOMY WISDOM TOOTH EXTRACTION No Known Allergies Vitals: Estimated body mass index is 32.89 kg/m as calculated from the following: Height as of 08/31/23: 5' 6 . Weight as of 11/08/23: 203 lb 12.8 oz. BP: No LMP recorded. Assessment/Plan Encounter Diagnoses Name Primary? Vaginal discharge Yeast infection Pt consented to telehealth- pt doing well on current medication regimen. Pt to try Brexafemme- rx faxed to pharmacy. Documented by Marcy Elliott LPN on behalf of: Serge Chan DO documented in this encounter [facility] Evaluation note 03-23-2023 Note Date & Type Note Facility 03-23-2023 Evaluation note Encounter Date Diagnosis Assessment Notes February, Sore throat (ICD-10 - J02.9) February, Acute nasopharyngitis (ICD-10 - J00) Rapid strep negative.Discus sed with patient exam and history is consistent with viral infection. Discussed viral nature of illness and typical duration of 7 to 14 days. Advised antibiotics unfortunately do not treat viral illnesses. May use symptomatic treatment such as Cepacol throat sprays or throat lozenges, warm salt water gargles, continue Zyrtec which will help with any postnasal drip. May use Tylenol/ibuprof en for any pain/fever. Follow-up with PCP if not improving over the next 7 days, sooner if significantly worsening symptoms. [facility] Other Evaluation note 01-14-2023 Note Date & Type Note Facility 01-14-2023 Evaluation note Encounter Date Diagnosis Assessment Notes Dec, Dysuria (ICD-10 - R30.0) Discussed diagnosis and dipstick findings with patient. Will hold off on treatment at this time. Patient does not wish to have culture sent. Refuses pelvic, STI testing. Patient instructed to push fluids. Patient symptoms should improve in the next 48 hours, if symptoms persist follow up with PCP or [facility]. Immediate eval by ER if back or flank pain, fever, chills, N/V, or any other concerning symptoms arise. Patient verbalizes understanding and is agreeable to treatment plan [facility] Other Evaluation note 05-21-2022 Note Date & Type Note Facility 05-21-2022 Evaluation note Encounter Date Diagnosis Assessment Notes Apr, Acute otitis media with effusion of left ear (ICD-10 - H65.192) Discussed diagnosis with patient. Take antibiotics as directed, complete entire course even if feeling better. Use rx Flonase and Cetirizine as directed. Supportive care, Tylenol/Motrin as needed for aches/fever, warm compress to affected ear, push fluids and rest. Follow up with PCP if symptoms do not improve in the next 2-3 days. Immediate eval for severe ear pain, severe headache, neck pain/stiffness, pain, erythema, or redness behind the ear, fever, N/V, hearing loss, fever, or any other new or concerning symptoms. Patient verbalizes understanding and is agreeable to treatment plan [facility] Other Evaluation note Note Date & Type Note Facility Evaluation note Diagnosis Vaginal discharge Leukorrhea, not specified as infective Yeast infection documented in this encounter [facility] Evaluation note Note Date & Type Note Facility Evaluation note No assessment information availa [facility] Work Phone: Evaluation note Note Date & Type Note Facility Evaluation note Diagnosis Onset Date Acute UTI (urinary tract infection) acute Frequency of urination nonea ctive [facility] Work Phone: Evaluation note Note Date & Type Note Facility Evaluation note Diagnosis Pre-op examination Menorrhagia with regular cycle Pelvic pain in female Unspecified symptom associated with female genital organs Dyspareunia in female Dysmenorrhea documented in this encounter [facility] Summary Purpose Family History No Family History Records Found Relationship Condition Age at Onset Recorded Date/T alyse brother Unknown sister Unknown Advance Directives No Advanced Directives Records Found Advance Directive Response Recorded Date/ Time Advance Directives No August 02, 2018 11:08am Chief Complaint and Reason for Visit Chief Complaint Dysuria Chief Complaint Dysuria Reason for Visit Acute UTI (urinary t ract infection) Frequency of urination Additional Source Comments INFORMATION SOURCE (unrecogn ized section and content) DATE CREATED AUTHOR 04/19/2018 [facility] DATE CREATED AUTHOR AUTHOR'S ORGANIZ ATION 10/31/2021 [facility] DATE CREATED AUTHOR AUTHOR'S ORGANIZ ATION 01/17/2023 [facility] DATE CREATED AUTHOR AUTHOR'S ORGANIZ ATION 02/22/2024 [facility] DATE CREATED AUTHOR AUTHOR'S ORGANIZ ATION 08/12/2024 [facility] dical Specialists EPIC REASON FOR VISIT (unrecogniz ed section and content) Reason Comments Vaginitis/Bacterial Vaginosis Reason Comments Pre-op Visit Care Teams (unrecognized sec tion and content) Director Voice Relationship Specialty Start Date End Date Ish Anderson DO PCP - General Family Medicine 05/24/23 Team Status: Active Member Role Status Dates Ish Anderson DO Primary Care Provider Active Team Status: Inactive Member Role Status Dates Maty Amaral APRN Attending Provider Active Start: February 14, 2024 End: February 14, 2024 Ish Anderson DO Primary Care Provider Active Start: February 14, 2024 End: February 14, 2024 Team Status: Inactive Member Role Status Dates Ish Anderson DO Primary Care Provider Active Start: February 14, 2024 End: February 14, 2024 Maty Amaral APRN Attending Provider Active Start: February 14, 2024 End: February 14, 2024 Director Voice Relationship Specialty Start Date End Date Ish Anderson DO [address] [place] [address] PCP - General Family Medicine 05/24/23 Goals (unrecognized section and content) Goals may be documented in a n alternate section FOR RECORDS PERTAINING TO PATIENTS WHO ARE OR HAVE BEEN ENROLLED IN A CHEMICAL DEPENDENCY/SUBSTANCEABUSE PROGRAM, SOME INFORMATION MAY BE OMITTED. This clinical summary was aggregated from multiple sources. Caution should be exercised in using it in the provision of clinical care. This summary normalizes information from multiple sources, and as a consequence, information in this document may materially change the coding, format and clinical context of patient data. In addition, data may be omitted in some cases. CLINICAL DECISIONS SHOULD BE BASED ON THE PRIMARY CLINICAL RECORDS. [employer] provides no warranty or guarantee of the accuracy or completeness of information in this document.
[2024-08-25 11:44] LABS: Basophils Percent Auto 0.8 % (0.2-2.0); Eosinophils Absolute Auto 0.1 10^3/uL (0.0-0.7); Hematocrit 42.6 % (36.0-48.0); Hemoglobin 13.7 g/dL (12.0-16.0); Immature Granulocytes Abs Auto 0.01 10^3/uL (0.00-0.03); Immature Granulocytes Pct Auto 0.2 % (0.0-0.5); Lymphocytes Percent Auto 38.1 % (20.5-60.0); Mean Corpuscular HGB Conc 32.2 g/dL (29.9-35.2); Mean Corpuscular Hemoglobin 31.2 pg (26.7-34.0); Mean Platelet Volume 9.4 fL (9.5-13.5); Monocytes Absolute Auto 0.4 10^3/uL (0.3-0.8); Monocytes Percent Auto 7.4 % (1.7-12.0); Neutrophils Absolute Auto 2.6 10^3/uL (1.4-6.5); Neutrophils Percent Auto 51.5 % (43.0-75.0); Platelet Count 268 10^3/uL (150-450); Red Blood Count 4.39 10^6/uL (4.20-5.40); White Blood Count 5.1 10^3/uL (4.0-11.0)
[2024-08-25 12:09] LABS: Alanine Aminotransferase 16 U/L (14-59); Albumin Level 3.5 g/dL (3.4-5.0); Alkaline Phosphatase 47 U/L (46-116); Aspartate Amino Transferase 19 U/L (15-37); BUN Creatinine Ratio 12.7; Bilirubin Direct 0.1 mg/dL (0.0-0.2); Bilirubin Total 0.4 mg/dL (0.2-1.0); Calcium 8.6 mg/dL (8.5-10.1); Chloride 106 mmol/L (98-107); Estimated GFR (African America >60 (>=60 mL/min/1.73m^2); Estimated GFR (Non-African Ame 54 (>=60 mL/min/1.73m^2); Globulin 3.6 g/dL; Glucose 89 mg/dL (74-106); Sodium 143 mmol/L (136-145); Total Protein 7.1 g/dL (6.4-8.2)
[2024-08-25 12:17] LABS: INR 0.98; Partial Thromboplastin Time 27.6 sec (22.3-36.2); Prothrombin Time 10.4 sec (9.0-11.6)
== END 2024-08-25 11:00 | disposition home or self-care (01) ==
LOC: PST 11:01
PROVIDERS: PCP Family Medicine; Visit Provider Obstetrics & Gynecology
DX: Z01.812 Encounter for preprocedural laboratory examination (principal); N92.0 Excessive and frequent menstruation with regular cycle; R10.2 Pelvic and perineal pain; N94.6 Dysmenorrhea, unspecified; N94.10 Unspecified dyspareunia
CPT/HCPCS: 36415; 80048; 80076; 85025; 85610; 85730; 86850; 86900; 86901

== ENCOUNTER 2024-09-07 18:35 | Inpatient (IN) | payer OTHER, SELFPAY ==
[2024-08-25 11:38] VITALS: BP 121/78; PULSE 75; TEMP 36.2; O2SAT 99; BMI 30.9
[2024-09-07] VITALS (16 sets, daily range): BP systolic 97–122; BP diastolic 63–77; PULSE 50–77; TEMP 36.3–36.8; O2SAT 89–100; BMI 31.6
[2024-09-07 14:04] LABS: Basophils Percent Auto 0.6 % (0.2-2.0); Eosinophils Absolute Auto 0.2 10^3/uL (0.0-0.7); Eosinophils Percent Auto 2.2 % (0.9-7.0); Hematocrit 39.8 % (36.0-48.0); Immature Granulocytes Abs Auto 0.02 10^3/uL (0.00-0.03); Immature Granulocytes Pct Auto 0.3 % (0.0-0.5); Lymphocytes Absolute Auto 2.5 10^3/uL (1.2-3.8); Lymphocytes Percent Auto 36.7 % (20.5-60.0); Mean Corpuscular HGB Conc 32.7 g/dL (29.9-35.2); Mean Corpuscular Hemoglobin 31.9 pg (26.7-34.0); Mean Corpuscular Volume 97.8 fL (81.0-99.0); Mean Platelet Volume 9.5 fL (9.5-13.5); Monocytes Absolute Auto 0.5 10^3/uL (0.3-0.8); Monocytes Percent Auto 7.3 % (1.7-12.0); Neutrophils Absolute Auto 3.6 10^3/uL (1.4-6.5); Neutrophils Percent Auto 52.9 % (43.0-75.0); Platelet Count 273 10^3/uL (150-450); Red Blood Count 4.07 10^6/uL (4.20-5.40); Red Cell Distribution Width 12.9 % (11.0-15.0); White Blood Count 6.9 10^3/uL (4.0-11.0)
--- OUTSIDE RECORDS SUMMARY | 2024-09-07 14:12 | XMS_ITS | CCD ---
Author Organization [facility] Care Team Providers Care Retirement Benefits Specialist Name Role Phone LENKA, CHANEL R Unavailable Unavailable LENKA, CHANEL R Unavailable Unavailable LENKA, CHANEL R Unavailable Unavailable LENKA, CHANEL R Unavailable Unavailable Dk Cummins Primary Care Provider [phone] Amina Del Rio Unavailable GANGA ., DR [...] KARASIK ., DR DEAN Consulting Unavailabl e ZIEBFLORA, DR ASHVIN Pak Consulting Unavailable Ish Anderson DO Primary Care Provider [phone] DO Ish Anderson Primary Care Provider CHENG Amaral Attending Provider [phone] Maty Amaral Attending Unavailable Maty Amaral Admitting Unavailable Ish Anderson Primary Care Unavailable Ish Anderson DO Primary Care Provider SERGE CHAN Attending Unavailable ISH ANDERSON Attending Unavailable SERGE CHAN Attending Unavailable ISH ANDERSON Attending Unavailable SERGE CHAN Attending Unavailable ISH ANDERSON Attending Unavailable CHANDANA MACK Attending Unavailable SERGE CHAN Attending Unavailable ISH ANDERSON Attending Unavailable ISH ANDERSON Referring Unavailable Medications Current Medications Medication Drug Class(es) [...] 11/08/2023 Active biotin 5 mg oral capsule (5 sources) take 1 capsule by mouth once daily [...] oral tablet (2 sources) Estrogen Blisovi FE 11/13 1-20 MG-MCG Oral for 84 Days Active [...] day. 4 tablet 0 11/30/2023 12/01/2023 Active metroNIDAZOLE 0.0075 mg/mg vaginal gel (1 source) Nitroimidazole Antimicrobial Start: 08-21-2024 End: 08-26-2024 metroNIDAZOLE (Metrogel) 0.75 % vaginal gel Indications: BV (bacterial vaginosis) Insert into the vagina Daily for 5 days 70 g 08/21/2024 08/26/2024 Active naltrexone hydrochloride 50 mg oral tablet [...] 100 MG PO Every 12 hours 10 5 February 14, 2024 12:00am must administer with a meal/food topiramate 50 mg oral tablet (7 sources) Start: 06-09-2024 topiramate 50 MG tablet Indications: Class 1 obesity due to excess calories without serious comorbidity with body mass index (BMI) of 33.0 to 33.9 in adult Take 50 mg by mouth Daily 90 tablet 1 06/09/2024 Active Start: 02-14-2024 Topiramate Act aurora MG PO February 14, 2024 12:00am Completed/Discontinued Medications Medication Drug Class(es) Dates Sig (Normalized) Sig (Original) phentermine hydrochloride 37.5 mg oral tablet (15 sources) Sympathomimetic Amine Anorectic Start: 08-08-2024 End: 08-31-2024 take 33-33.9 tablets by mouth before mealtime phentermine (Adipex-P) 37.5 MG tablet Indications: Class 1 obesity due to excess calories without serious comorbidity with body mass index (BMI) of 33.0 to 33.9 in adult Take 1 tablet (37.5 mg) by mouth in the morning. Take before meals. 30 tablet 08/30/2024 08/31/2024 Discontinued (Reorder) Start: 02-14-2024 Phentermine Ac tive MG PO [...] 11/04/2023 12/04/2023 Active take 1 tablet by once daily Phentermine HCl 37.5 MG take 1 tablet by mouth once daily Oral for 30 Days Not-Taking terconazole 4 mg/ml vaginal cream (2 sources) Azole Antifungal Terconazole 0.4 % Vaginal for 7 Days Not-Taking Problems Active Problems Problem Classification Problem Date Documented Date Episodic/Chronic Abdominal pain (1 source) Pain in female pelvis; Translations: [Pelvic and perineal pain] 08-09-2024 Episodic Disorders of lipid metabolism (7 sources) Mixed hyperlipidemia; Translations: [Mixed hyperlipidemia] Onset: 05-26-2023 05-26-2023 Chronic Menstrual disorders (16 sources) Amenorrhea; Translations: [Amenorrhea, unspecified] Onset: 05-26-2023 Resolved: 03-06-2024 05-26-2023 Chronic Mood disorders (15 sources) Depressive disorder; Translations: [Single episode of major depression in full remission] Onset: 05-26-2023 Resolved: 03-06-2024 06-25-2015 Chronic Mycoses (2 sources) Mycosis; Translations: [Candidiasis, unspecified] 11-25-2023 Episodic Other ear and sense organ disorders (2 sources) Otalgia, right ear; Translations: [Otalgia, unspecified] 09-03-2024 Episodic Other female genital disorders (5 sources) Other specified noninflammatory disorders of vagina; Translations: [OTH SPEC NONINFLAMMATORY D/O VAGINA] Onset: 08-04-2022 Episodic Other female genital disorders (2 sources) Vaginal discharge; Translations: [Other specified noninflammatory disorders of vagina] 11-25-2023 Episodic Other nutritional; endocrine; and metabolic disorders (7 sources) Body mass index 30+ - obesity; Translations: [Obesity, unspecified] Onset: 05-26-2023 05-26-2023 Chronic Other nutritional; endocrine; and metabolic disorders (9 sources) Obesity caused by energy imbalance; Translations: [Other obesity due to excess calories] Onset: 05-26-2023 Resolved: 03-06-2024 05-26-2023 Chronic Other screening for suspected conditions [...] Date Episodic/Chronic Genitourinary symptoms and ill-defined conditions (12 sources) Dysuria; Translations: [Dysuria] Onset: 05-26-2023 Resolved: 03-06-2024 Episodic Immunizations and screening for infectious disease (1 source) Encounter for screening for human papillomavirus (HPV); Translations: [ENC SCREENING HUMAN PAPILLOMAVIRUS] Onset: 05-28-2022 Episodic Other eye disorders (8 sources) Strabismus; Translations: [Unspecified strabismus] Onset: 05-27-2023 06-25-2015 Episodic Other female genital disorders (8 sources) Pain in female genitalia on intercourse; Translations: [Unspecified dyspareunia] Onset: 05-26-2023 Resolved: 03-06-2024 05-26-2023 Chronic Other nutritional; endocrine; and metabolic disorders (7 sources) Insulin resistance; Translations: [Insulin resistance] Onset: 05-26-2023 Resolved: 03-06-2024 05-26-2023 Chronic Other nutritional; endocrine; and metabolic disorders (7 sources) Body mass index 40+ - severely obese; Translations: [Body mass index (BMI) 40.0-44.9, adult] Onset: 01-18-2019 Resolved: 03-06-2024 05-27-2023 Chronic Otitis media and related conditions (1 source) Other acute nonsuppurative otitis media, left ear Onset: 05-21-2022 Resolved: 05-21-2022 Episodic Unclassified (1 source) UTI SITE NOT SPECIFIED; Translations: [UTI SITE NOT SPECIFIED] Onset: 09-06-2017 Results Test Name Value Interpretation Reference Range Facility ALL CBC WITH AUTO DIFFon BASOPHILS ABSOLUTE AUTO 0 [facility] Basophils/100 WBC (Bld) 0.8 % 0.2 - 2.0 % [facility] Eosinophils/100 WBC (Bld) 2 % 0.9 - 7.0 % [facility] Erythrocyte distribution width (RBC) [Ratio] 13 % 11.0 - 15.0 % [facility] Hematocrit (Bld) [Volume fraction] 42.6 % 36.0 - 48.0 % [facility] Hem[facility] (Bld) [Mass/Vol] 13.7 g/dL 12.0 - 16.0 g/dL [facility] IMMATURE GRANULOCYTES ABS AUTO 0.01 [facility] Immature granulocytes/100 WBC (Bld) 0.2 % 0.0 - 0.5 % [facility] Interpretation and review of laboratory results Abnormal [facility] LYMPHOCYTES ABSOLUTE AUTO 2 [facility] Lymphocytes/100 WBC (Bld) 38.1 % 20.5 - 60.0 % [facility] MCH (RBC) [Entitic mass] 31.2 pg 26.7 - 34.0 pg [facility] MCHC (RBC) [Mass/Vol] 32.2 g/dL 29.9 - 35.2 g/dL [facility] MCV (RBC) [Entitic vol] 97 fL 81.0 - 99.0 fL [facility] MONOCYTES ABSOLUTE AUTO 0.4 [facility] Monocytes/100 WBC (Bld) 7.4 % 1.7 - 12.0 % [facility] NEUTROPHILS ABSOLUTE AUTO 2.6 [facility] Neutrophils/100 WBC (Bld) 51.5 % 43.0 - 75.0 % [facility] Platelet mean volume (Bld) [Entitic vol] 9.4 fL Low 9.5 - 13.5 fL [facility] EO # 0.1 [facility] PLT 268 [facility] RBC 4.39 [facility] WBC 5.1 [facility] Urine Cultureon 02-14-2024 Bacteria identified Cx Nom (U) 50,000 colonies/ml mixed bacterial skin contaminants 2 Days PERFORMED BY: [facility] [address] [place] [address] PATHOLOGIST TRAFFIC ENUMERATOR ELROY MANDUJANO M.D. [place] [facility] Comment on above: Performed By: #### C UU #### [facility] [address] [place], [place] [id number] [facility] Quick Strepon 03-23-2023 S. pyogenes Org specific cx Ql (Throat) Negative [facility] Other Quick Strep [facility] Other Urinalysis - AUTOMATEDon Appearance (U) clouy [employer] Other Bilirubin Ql (U) Negative Geno Other Color (U) yellow [facility] Other Glucose Ql (U) Negative [employer] Other Hemoglobin Ql (U) Negative [employer] Other Ketones Ql (U) Negative [employer] Other Leukocyte esterase Test strip Ql (U) trace [facility] Other Nitrite Ql (U) Negative [employer] Other pH (U) 5.5 [pH] [facility] Other Protein Ql (U) Negative [employer] Other Specific gravity (U) [Rel density] 1.020 [facility] Other Urobilinogen (U) [Mass/Vol] 0.2 mg/dL [facility] Other Urinalysis - AUTOMATED [facility] Other VAGINITIS/VAGINOSIS DNA PROB Allan 01-10-2023 Krystin species Negative Normal Negative [facility] Comment on above: Performed By: #### V AGINT #### [facility] [address] [address] [address] Richard George Gardnerella vaginalis Negative Normal Negative [facility] Comment on above: Performed By: #### V AGINT #### [facility] [address] [address] [address] Richard George Trichomonas vaginalis Negative Normal Negative [facility] Comment on above: Performed By: #### V AGINT #### [facility] [address] [address] [address] Richard George MG MAMM SCREEN 3D OTONIEL CADon 12-02-2022 MG MAMM SCREEN 3D OTONIEL CAD Patient: CHANEL KENDALL Exam Date: 12/02/2022 : 1980 Gender:F Ordering : DR JERMAINE SCHULER . Admission #: [id number] Family : Order #: [id number] CLICK HERE TO VIEW EXAM RADIOLOGY REPORT PROCEDURE: MAMMOGRAM SCREENING 3D BILATERAL CAD COMPARISON: None. INDICATIONS: Screening mammography Calculator Name NCI Breast Cancer Risk Assessment Tool 5 Year Breast Cancer Risk 0.60% Lifetime Breast Cancer Risk 11.10% Personal Breast Cancer No Personal Ovarian Cancer No Treatments None Family Cancers None LOCATION: [facility] BREAST COMPOSITION: Scattered areas fibroglandular density. [...] Breaux M.D. on 12/03/2022 at 09:41 Normal [facility] PAP ACOG PANEL 2: 30 to 65on 05-29-2022 . . Normal [facility] Comment on above: Result Comment: Perf ormed at: WB Performed By: #### [id number] #### [facility] [address] [address] [address] Richard George Age Gdln ACOG Testing 30-65 Normal [facility] Comment on above: Performed By: #### [id number] #### [facility] [address] [address] [address] Richard George DIAGNOSIS: Comment Normal [facility] Comment on above: Result Comment: NEGA TIVE FOR INTRAEPITHELIAL LESION OR MALIGNANCY. Performed at: WB Performed By: #### [id number] #### [facility] [address] [address] [address] Richard George HPV Aptima Negative Normal Negative [facility] Comment on above: Result Comment: This nucleic acid amplification test detects fourteen high-risk HPV types (16,18,31,33,35,39,45,51,52,56,58,59,66,68) without differentiation. Performed at: =G Performed By: #### 4 [id number] #### [facility] [address] [address] [address] Richard George Methodology: Comment [facility] Comment on above: Result Comment: This liquid based ThinPrep(R) pap test was screened with the use of an image guided system. Performed at: WB Performed By: #### 4 [id number] #### [facility] [address] [address] [address] Richard George Note: Comment Normal [facility] Comment on above: Result Comment: The Pap smear is a screening test designed to aid in the detection of premalignant and malignant conditions of the uterine cervix. It is not a diagnostic procedure and should not be used as the sole means of detecting cervical cancer. Both false-positive and false-negative reports do occur. . Performed at: WB Performed By: #### [id number] #### [facility] [address] [address] [address] Richard George Performed by: Comment Normal [facility] Comment on above: Result Comment: Mark Knight Eyelet Operator (ASCP) Performed at: WB Performed By: #### [id number] #### [facility] [address] [place] [address] Dr. Richard George Specimen adequacy: Comment Normal [facility] Comment on above: Result Comment: Sati sfactory for evaluation. Endocervical and/or squamous metaplastic cells (endocervical component) are present. Performed at: WB Performed By: #### [id number] #### [facility] [address] [address] [address] Richard George VAGINITIS/VAGINOSIS DNA PROB Allan 05-27-2022 Krystin species Negative Normal Negative [facility] Comment on above: Performed By: #### V AGINT #### [facility] [address] [place] [address] Dr. Richard George Gardnerella vaginalis Positive Abnormal Negative [facility] Comment on above: Performed By: #### V AGINT #### [facility] [address] [place] [address] Dr. Richard George Trichomonas vaginalis Negative Normal Negative [facility] Comment on above: Performed By: #### V AGINT #### [facility] [address] [place] [address] Dr. Richard George Q - T4,TOTALon 10-28-2021 T4 [Mass/Vol] 6.3 ug/dL Normal 5.1-11.9 [facility] Dietitian Teacher Comment on above: Order Comment: [facility] Testing performed at: QPT, [facility], [address], [address] [facility], [place], [address], Director Of Business Continuity: Hema Dumont MD [facility] Collection Date/Time: [facility] Results Received Date/Time: [facility] Reported Date/Time: Performed By: #### 3 [id number], TSH reflex FT4 #### [facility] [address] [place] [address] TSH w/ Reflex to Free T4on 0 10-28-2021 TSH W/REFLEX TO FT4 0.84 mIU/L Normal [facility] Dietitian Teacher Comment on above: Order Comment: [facility] Testing performed at: QPT, [facility], [address], [address] [facility], [place], [address], Director Of Business Continuity: Hema Dumont MD [facility] Collection Date/Time: [id number] [facility] Results Received Date/Time: [facility] Reported Date/Time: Result Comment: Refe rence Range > or = 20 Years 0.40-4.50 Ranges First trimester 0.26-2.66 Second trimester 0.55-2.73 Third trimester 0.43-2.91 Performed By: #### 3 [id number], TSH reflex FT4 #### [facility] [address] [place] [address] CULTURE-URINEon 09-06-2017 CULTURE-URINE PATIENT: CHANEL KENDALL LOCATION: [facility]#: [id number] : 1980 AGE: 37 SEX: F ORDER# [id number] ORDERED BY: CHANEL OG Source: URI Collected: 09/06/17 08:50 Site: UNK Received : 09/06/17 18:36CULTURE-URINE FINAL 09/08/17 06: NO GROWTH AFTER [address] [facility] Comment on above: Performed By: #### C URIN ####[address] [id number] Vital Signs Date Time Vital Sign Value Performing Clinician Facility 08-30-2024 16:36-0500 Body height 167.6 cm Ish Greenville DO Work Phone: [facility] 08-30-2024 16:36-0500 Body mass index (BMI) [Ratio] 30.8 kg/m2 Ish Greenville DO Work Phone: [facility] 08-30-2024 16:36-0500 Body temperature 97.9 [degF] Ish Greenville DO Work Phone: [facility] 08-30-2024 16:36-0500 Body weight 86.55 kg Ish Greenville DO Work Phone: [facility] 08-30-2024 16:36-0500 Diastolic blood pressure 82 mm[Hg] Ish Greenville DO Work Phone: [facility] 08-30-2024 16:36-0500 Heart rate 92 /min Ish Greenville DO Work Phone: [facility] 08-30-2024 16:36-0500 SaO2% (BldA) [Mass fraction] 100 % Ish Greenville DO Work Phone: [facility] 08-30-2024 16:36-0500 Systolic blood pressure 124 mm[Hg] Ish Greenville DO Work Phone: [facility] 08-09-2024 16:03-0400 Body mass index (BMI) [Ratio] 30.99 kg/m2 Serge Rocio DO Work Phone: [facility] 08-09-2024 16:03-0400 Body weight 87.09 kg Serge Rocio DO Work Phone: [facility] 08-09-2024 16:03-0400 Diastolic blood pressure 70 mm[Hg] Serge Rocio DO Work Phone: [facility] 08-09-2024 16:03-0400 Systolic blood pressure 120 mm[Hg] Serge Rocio DO Work Phone: [facility] 02-14-2024 17:01-0400 Body height 167.64 cm [facility] 02-14-2024 17:01-0400 Body mass index (BMI) [Ratio] 31.4 kg/m2 [facility] 02-14-2024 17:01-0400 Body temperature 97.5 [degF] [facility] 02-14-2024 17:01-0400 Body weight 88.45 kg [facility] 02-14-2024 17:01-0400 Diastolic blood pressure 91 mm[Hg] [facility] 02-14-2024 17:01-0400 Heart rate 81 /min [facility] 02-14-2024 17:01-0400 Respiratory rate 16 /min [facility] 02-14-2024 17:01-0400 SaO2% (BldA) [Mass fraction] 99 % [facility] 02-14-2024 17:01-0400 Systolic blood pressure 133 mm[Hg] [facility] 03-23-2023 17:25-0400 Body height 167.64 cm Amina Del Rio Other [facility] [employer] Other 03-23-2023 17:25-0400 Body mass index (BMI) [Ratio] 33.6 kg/m2 Amina Del Rio Other [facility] Other 03-23-2023 17:25-0400 Body temperature 98 [degF] Amina Del Rio Other [facility] Other 03-23-2023 17:25-0400 Body weight 94.44 kg Amina Del Rio Other [facility] Other 03-23-2023 17:25-0400 Respiratory rate 18 /min Amina Del Rio Other [facility] Other 03-23-2023 17:25-0400 SaO2% (BldA) [Mass fraction] 97 % Amina Del Rio Other [facility] Other 01-14-2023 15:35-0400 Body height 167.64 cm Amina Del Rio Other [facility] Other 01-14-2023 15:35-0400 Body mass index (BMI) [Ratio] 35.44 kg/m2 Amina Del Rio Other [facility] Other 01-14-2023 15:35-0400 Body temperature 97.8 [degF] Amina Del Rio Other [facility] Other 01-14-2023 15:35-0400 Body weight 99.61 kg Amina Del Rio Other [facility] Other 01-14-2023 15:35-0400 Diastolic blood pressure 62 mm[Hg] Amina Del Rio Other [facility] Other 01-14-2023 15:35-0400 SaO2% (BldA) [Mass fraction] 99 % Amina Del Rio Other [facility] Other 01-14-2023 15:35-0400 Systolic blood pressure 112 mm[Hg] Amina Del Rio Other [facility] Other 05-21-2022 14:55-0400 Body height 167.64 cm Amina Del Rio Other [facility] Other 05-21-2022 14:55-0400 Body mass index (BMI) [Ratio] 38.25 kg/m2 Amina Del Rio Other [facility] Other 05-21-2022 14:55-0400 Body temperature 97.7 [degF] Amina Del Rio Other [facility] Other 05-21-2022 14:55-0400 Body weight 107.5 kg Amina Del Rio Other [facility] Other 05-21-2022 14:55-0400 Diastolic blood pressure 54 mm[Hg] Amina Del Rio Other [facility] Other 05-21-2022 14:55-0400 Respiratory rate 18 /min Amina Del Rio Other [facility] Other 05-21-2022 14:55-0400 SaO2% (BldA) [Mass fraction] 99 % Amina Del Rio Other [facility] Other 05-21-2022 14:55-0400 Systolic blood pressure 109 mm[Hg] Amina Del Rio Other [facility] Other Encounters Encounter Date Encounter Type Care Provider Facility Start: 08-30-2024 End: 08-30-2024 Office outpatient visit 15 minutes Ish L Greenville DO Work Phone: [facility] Comment on above: Otalgia of right ear (Primary Dx); Class 1 obesity due to excess calories without serious comorbidity with body mass index (BMI) of 33.0 to 33.9 in adult Start: 08-30-2024 End: 08-30-2024 ambulatory ISH L CUTLER Not Available Start: 08-30-2024 End: 08-30-2024 Bamboo flowsheet Ish L Greenville DO Work Phone: [facility] Start: 08-30-2024 End: 08-30-2024 Bamboo flowsheet Ish L Greenville DO Work Phone: [facility] Start: 08-25-2024 End: 08-25-2024 Clinisync Result Encounter Serge Rocio DO Work Phone: [facility] Unsolicited Start: 08-25-2024 End: 08-25-2024 Clinisync Result Encounter Serge Rocio DO Work Phone: [facility] Unsolicited Start: 08-09-2024 End: 08-09-2024 ambulatory SERGE ROCIO Not Available Start: 08-09-2024 End: 08-09-2024 Office outpatient visit 15 minutes Serge Rocio DO Work Phone: [facility] Comment on above: Pre-op examination; Menorrhagia with regular cycle; Pelvic pain in female; Dyspareunia in female; Dysmenorrhea Start: 08-09-2024 End: 08-09-2024 Preprocedural examination done Serge Rocio DO Work Phone: [facility] Start: 06-07-2024 End: 06-07-2024 ambulatory ISH L CUTLER Not Available Start: 03-22-2024 End: 03-22-2024 ambulatory SERGE ROCIO Not Available Start: 03-07-2024 End: 03-07-2024 ambulatory ISH L CUTLER Not Available Start: 02-14-2024 End: 02-14-2024 ambulatory Maty Amaral Facility:[facility] Start: 02-14-2024 End: 02-14-2024 Departed Referred DO Ish Greenville Work Phone: [facility] [place] Work Phone: Start: 02-14-2024 End: 02-14-2024 ambulatory DO Ish L Greenville Work Phone: [facility] Work Phone: Start: 02-14-2024 End: 02-14-2024 Patient encounter procedure [facility] Work Phone: Start: 01-05-2024 End: 01-05-2024 ambulatory SERGE ROCIO Not Available Start: 12-08-2023 End: 12-08-2023 ambulatory ISH L CUTLER Not Available Start: 11-30-2023 End: 11-30-2023 Phys/qhp telephone evaluation 5-10 min Serge Rocio DO Work Phone: [facility] Comment on above: Vaginal discharge; Yeast infection Start: 11-08-2023 End: 11-08-2023 ambulatory SERGE ROCIO Not Available Start: 09-06-2023 End: 09-06-2023 ambulatory CHANDANA MACK Not Available Start: 03-23-2023 End: 03-23-2023 ambulatory Amina Del Rio Other [facility] Other Start: 03-23-2023 Office outpatient vi sit 15 minutes Amina Del Rio [facility] Start: 01-14-2023 End: 01-14-2023 ambulatory Amina Del Rio Other [facility] Other Start: 01-14-2023 Office outpatient vi sit 15 minutes Amina Del Rio [facility] Start: 01-08-2023 End: 01-08-[address] JERMAINE SCHULER . Facility:[facility] Start: 12-01-2022 End: 12-02-[address] JERMAINE SCHULER . Facility:[facility] Start: 05-25-2022 End: 05-25-[address] JERMAINE SCHULER . Facility: Start: 05-21-2022 End: 05-21-2022 ambulatory Amina Del Rio Other [facility] Other Start: 05-21-2022 Office outpatient ne w 20 minutes Amina Del Rio [facility] Start: 12-07-2018 End: 12-07-2018 Letter encounter Dk Placido [employer] Start: 09-06-2017 End: 09-07-2017 Ambulatory CHANEL OG Facility:01 Procedures Date Procedure Procedure Detail Performing Clinician Start: 08-25-2024 ALL CBC WITH AUTO DIFF Serge Rocio DO Work Phone: Start: 06-21-2023 Microscopic observat ion [Identifier] in Cervix by Cyto stain Serge Rocio DO Work Phone: Start: 12-02-2022 Mammography Serge Fazi o DO Work Phone: Start: 05-27-2022 Microscopic observat ion [Identifier] in Cervix by Cyto stain Serge Rocio DO Work Phone: Plan of Treatment Date Care Activity Detail Author Start: 06-21-2028 Screening for malign ant neoplasm of cervix [facility] Start: 05-27-2027 Screening for malign ant neoplasm of cervix [facility] Start: 12-27-2024 End: 12-27-2024 Patient encounter procedure 12/27/2024 5:00 PM EST Office Visit [facility] [address] [place] [id number] Ish Anderson, DO [address] [place] [address] [facility] 230 Start: 08-30-2024 End: 08-30-2024 Patient encounter procedure [facility] 230 Comment on above: Arrived Start: 06-25-2024 Influenza vaccination Influenza Vacc ine (#1) [facility] Start: 02-14-2024 Bacteria identified in Urine by Culture [facility] Start: 12-08-2023 End: 12-08-2023 Patient encounter procedure 12/08/2023 4:40 PM EST Office Visit [facility] [address] [place] [id number] Ish Anderson, DO [address] [place] [address] [facility] 230 Start: 12-02-2023 Screening for malign ant neoplasm of breast Mammogram [facility] Start: 06-25-2023 Influenza vaccination Influenza Vacc ine (#1) [facility] Start: 06-25-2018 Influenza vaccination INFLUENZA VACC INE (#1) [facility] Start: 2003 Screening for malign ant neoplasm of cervix PAP SMEAR DISCUSSION [facility] Start: 2001 Third diphtheria, tetanus and acellular pertussis (DTaP) vaccination TDAP (ADULT) [facility] Start: 2000 Tetanus vaccination TETANUS [facility] Start: 1995 HIV screening HIV SCREENING DISCUSSION [facility] Payers Date Payer Category Payer Self-pay [id number] 2019 Private Health Insurance [id number] 2014 Unknown [employer] xxxxxxxxxxx 2014-Present xxxxxxxxxxx [id number] 1982 Unknown [id number] 1982 Unknown [id number] [id number] .593 1982 Unknown [id number] [id number] .593 1982 Unknown [id number] [id number] .1259 1982 Unknown [id number] [id number] .1259 1982 Unknown [id number] [id number] .1259 1982 Unknown [id number] .1259 1982 Unknown [id number] [id number] .1259 1982 Unknown [id number] [id number] .1259 1982 Unknown [id number] [id number] .1259 1982 Unknown [id number] [id number] .1259 1982 Unknown [id number] [id number] .1259 1957 [facility] [id number] 1959 Private Health Insurance [id number] Unknown HCAP/HFA/FAP Active [id number] Unknown [id number] Social History Date Type Detail Facility Start: 06-25-2015 Tobacco smoking status PAIS Current every day smoker [facility] Start: 2000 End: 08-20-2013 History of tobacco use Cigarette Smoker [facility] Start: 06-25-2015 End: 06-29-2023 Cigarettes smoked current (pack per day) - Reported [facility] Start: 04-02-2015 Tobacco Comment Uses Vuse smokeless tobacco on occasion. [facility] Start: 1980 Sex Assigned At Not on file [facility] Start: 06-29-2023 End: 12-08-2023 Sex Assigned At [facility] Start: 08-31-2023 End: 06-07-2024 Tobacco smoking status PAIS Ex-smoker [facility] Start: 2000 End: 08-20-2013 History of tobacco use Current smoker [facility] Start: 08-31-2023 End: 06-07-2024 Tobacco use and exposure Smokeless tobacco non-user [facility] Start: 11-08-2023 End: 08-09-2024 Alcohol intake Current drinker of alcohol (finding) [facility] Within the last year , have you been afraid of your partner or ex-partner? No [facility] Do you belong to any clubs or organizations such as worship groups, unions, fraternal or athletic groups, or [...] [OSQ] Rather much [facility] (I/We) worried [facility] er (my/our) food would run out before (I/we) got money to buy more. Never true [facility] Start: 06-14-2023 Alcohol Comment Caffeine: 1-2 cups/day [facility] Start: 01-06-2023 Gender identity Identifies as female gender (finding) [facility] Start: 1980 Sex Assigned At Female [facility] Clinical Notes 05-21-2022 to 08-30-2024 Ish Anderson, - 08/30/2024 4:20 PM ESTMijuan carlos Garcia - 08/09/2024 3:50 PM Chung Elliott LPN - 11/30/2023 3:10 PM EST Note Date & Type Note Facility 08-30-2024 History of Presen t illness Narrative Images from the original note were not included. [facility] REHANA Nieto SUBJECTIVE: HPI: Chanel Kendall is a 44 y.o. female who presents with chief complaint of No chief complaint on file. Pt presents for her medication check in for Adipex and Toprimate. Pt states that she is doing well with these medications and has no concerns. Pt notes that she is having some pain in her left ear and would like to have this checked. I have reviewed and reconciled the history and medication list with the patient today. Depression: Not at risk (12/08/2023) PHQ-2 PHQ-2 Score: 0 reports that she quit smoking about 11 years ago. Her smoking use included cigarettes. She started smoking about 24 years ago. She has a 13.2 pack-year smoking history. She has never used smokeless tobacco. She reports current alcohol use of about 1.0 standard drink of alcohol per week. She reports that she does not use drugs. OBJECTIVE: 12/08/2023 4:43 PM 01/05/2024 11:05 AM 03/07/2024 3:59 PM 03/22/2024 2:22 PM 06/07/2024 4:26 PM 08/09/2024 4:03 PM 08/30/2024 4:36 PM Vitals BMI 33.18 kg/m2 32.12 kg/m2 31.8 kg/m2 31.54 kg/m2 31.22 kg/m2 30.99 kg/m2 30.8 kg/m2 BSA (m2) 2.08 m2 2.05 m2 2.04 m2 2.03 m2 2.02 m2 2.01 m2 2.01 m2 Systolic 120 124 122 120 110 120 124 Diastolic 78 80 86 70 80 70 82 Heart Rate 83 98 89 92 SpO2 100 % 100 % 99 % 100 % Temp 98.8 F 97.3 F 98.9 F 97.9 F Height (in) 5' 6 5' 6 5' 6 5' 6 Weight (lb) 205.6 199 197 195.4 193.4 192 190.8 Visit Report Report Report Report Report Report Report Physical Exam Constitutional: General: She is not in acute distress. Appearance: She is not ill-appearing. HENT: Head: Normocephalic. Right Ear: Tympanic membrane and ear canal normal. Left Ear: Tympanic membrane and ear canal normal. Cardiovascular: Rate and Rhythm: Normal rate and regular rhythm. Heart sounds: No murmur heard. Pulmonary: Effort: Pulmonary effort is normal. Breath sounds: Normal breath sounds. No wheezing. Abdominal: General: Abdomen is flat. There is no distension. Tenderness: There is no abdominal tenderness. Musculoskeletal: General: No deformity. Normal range of motion. Cervical back: Normal range of motion. Skin: General: Skin is warm and dry. Neurological: General: No focal deficit present. Mental Status: She is alert and oriented to person, place, and time. Psychiatric: Mood and Affect: Mood normal. Behavior: Behavior normal. Thought Content: Thought content normal. Judgment: Judgment normal. Recent Results (from the past 4 weeks) ALL CBC WITH AUTO DIFF Collection Time: 08/25/24 11:40 AM Result Value Ref Range [facility] WBC 5.1 4.0 - 11.0 10 3/uL [facility] RBC 4.39 4.20 - 5.40 10 6/uL [facility] HGB 13.7 12.0 - 16.0 g/dL [facility] HCT 42.6 36.0 - 48.0 % [facility] MCV 97.0 81.0 - 99.0 fL [facility] MCH 31.2 26.7 - 34.0 pg [facility] MCHC 32.2 29.9 - 35.2 g/dL [facility] RDW 13.0 11.0 - 15.0 % [facility] PLT 268 150 - 450 10 3/uL [facility] MPV 9.4 (L) 9.5 - 13.5 fL NEUTROPHILS PERCENT AUTO 51.5 43.0 - 75.0 % LYMPHOCYTES PERCENT AUTO 38.1 20.5 - 60.0 % MONOCYTES PERCENT AUTO 7.4 1.7 - 12.0 % TBH EO % 2.0 0.9 - 7.0 % BASOPHILS PERCENT AUTO 0.8 0.2 - 2.0 % IMMATURE GRANULOCYTES PCT AUTO 0.2 0.0 - 0.5 % NEUTROPHILS ABSOLUTE AUTO 2.6 1.4 - 6.5 10 3/uL LYMPHOCYTES ABSOLUTE AUTO 2.0 1.2 - 3.8 10 3/uL MONOCYTES ABSOLUTE AUTO 0.4 0.3 - 0.8 10 3/uL TBH EO # 0.1 0.0 - 0.7 10 3/uL BASOPHILS ABSOLUTE AUTO 0.0 0.0 - 0.1 10 3/uL IMMATURE GRANULOCYTES ABS AUTO 0.01 0.00 - 0.03 10 3/uL [facility] LIVER PANEL Collection Time: 08/25/24 11:40 AM Result Value Ref Range BILIRUBIN TOTAL 0.4 0.2 - 1.0 mg/dL BILIRUBIN DIRECT 0.1 0.0 - 0.2 mg/dL ASPARTATE AMINO TRANSFERASE 19 15 - 37 U/L ALANINE AMINOTRANSFERASE 16 14 - 59 U/L ALKALINE PHOSPHATASE 47 46 - 116 U/L TOTAL PROTEIN 7.1 6.4 - 8.2 g/dL ALBUMIN LEVEL 3.5 3.4 - 5.0 g/dL GLOBULIN 3.6 g/dL ALBUMIN GLOBULIN RATIO 1.0 ALL BASIC METABOLIC PANEL Collection Time: 08/25/24 11:40 AM Result Value Ref Range SODIUM 143 136 - 145 mmol/L POTASSIUM 4.0 3.5 - 5.1 mmol/L CHLORIDE 106 98 - 107 mmol/L CARBON DIOXIDE 26.0 21.0 - 32.0 mmol/L ANION GAP 15.0 GLUCOSE 89 74 - 106 mg/dL BLOOD UREA NITROGEN 14.0 7.0 - 18.0 mg/dL CREATININE 1.10 (H) 0.55 - 1.02 mg/dL [facility] EGFR-AF [place] >60 >=60 mL/min/1.73m 2 TB EGFR-NON AF [place] 54 (L) >=60 mL/min/1.73m 2 BUN CREATININE RATIO 12.7 CALCIUM 8.6 8.5 - 10.1 mg/dL [facility] PROTHROMBIN TIME INR W/O COUM Collection Time: 08/25/24 11:40 AM Result Value Ref Range PROTHROMBIN TIME 10.4 9.0 - 11.6 sec TBH INR 0.98 [facility] APTT Collection Time: 08/25/24 11:40 AM Result Value Ref Range PARTIAL THROMBOPLASTIN TIME 27.6 22.3 - 36.2 sec ALL TYPE AND SCREEN Collection Time: 08/25/24 11:40 AM Result Value Ref Range BLOOD TYPE AB Positive ANTIBODY SCREEN NEGATIVE ASSESSMENT AND PLAN: Assessment/Plan Diagnoses and all orders for this visit: Class 1 obesity due to excess calories without serious comorbidity with body mass index (BMI) of 33.0 to 33.9 in adult - phentermine (Adipex-P) 37.5 MG tablet; Take 1 tablet (37.5 mg) by mouth in the morning. Take before meals. After review of vitals including weight trend and discussion of board of pharmacy regulations, the patient is making satisfactory progress in weight loss on adipex. @GENDER@ will continue on the current tx. No intolerable side effects noted. Discussed continued lifestyle modifications to ensure she continues to lose weight. No infectious etiology noted of ears - allergies possible, also discussed TMJ Ish Anderson DO Patient Active Problem List Diagnosis Major depressive disorder with single episode, in full remission (CMS/HCC) Menstrual cramp Mixed hyperlipidemia (CMS/HCC) Obesity (BMI 30-39.9) Strabismus Past Medical History: Diagnosis Date Allergic rhinitis 1989 Amenorrhea BMI 37.0-37.9, adult Body mass index (BMI) of 40.1 to 44.9 in adult (CMS/HCC) Breast cancer screening by mammogram 12/02/2022 neg Dyspareunia in female Frequency of urination Insulin resistance Major depressive disorder with single episode, in full remission (CMS/HCC) Menstrual cramp Mixed hyperlipidemia (CMS/HCC) Obesity (BMI 30-39.9) Other obesity due to excess calories Pneumonia Reactive depression (CMS/HCC) documented in this encounter [facility] 08-09-2024 History of Presen t illness Narrative Reason for Appointment: Patient ID: Chanel Kendall is a 44 y.o. female who presents for Pre-op Visit Patient presents today for Pre Op appointment. Patient is scheduled to undergo Da Dustin assisted Laparoscopic Hysterectomy, possible exploratory laparotomy, possible BSO, possible cystoscopy on 09/07/[address] Chan at [facility]. MEDICATIONS Current Outpatient Medications Medication Instructions phentermine (ADIPEX-P) 37.5 mg, Oral, Daily before breakfast topiramate 50 mg, Oral, Daily ALLERGIES No Known Allergies PROBLEMS Active Ambulatory Problems Diagnosis Date Noted Major depressive disorder with single episode, in full remission ([facility]) 05/26/2023 Menstrual cramp 05/26/2023 Mixed hyperlipidemia ([facility]) 05/26/2023 Obesity (BMI 30-39.9) 05/26/2023 Strabismus 05/27/2023 Resolved Ambulatory Problems Diagnosis Date Noted Amenorrhea 05/26/2023 Frequency of urination 05/26/2023 Insulin resistance 05/26/2023 Other obesity due to excess calories 05/26/2023 Pain in female genitalia on intercourse 05/26/2023 Reactive depression ([facility]) 05/26/2023 Body mass index 40.0-44.9, adult ([facility]) 01/18/2019 Past Medical History: Diagnosis Date Allergic rhinitis 1989 BMI 37.0-37.9, adult Body mass index (BMI) of 40.1 to 44.9 in adult ([facility]) Breast cancer screening by mammogram 12/02/2022 Dyspareunia in female Pneumonia HISTORY PAST MEDICAL HISTORY SOCIAL HISTORY Past Medical History: Diagnosis Date Allergic rhinitis 1989 Amenorrhea BMI 37.0-37.9, adult Body mass index (BMI) of 40.1 to 44.9 in adult ([facility]) Breast cancer screening by mammogram 12/02/2022 neg Dyspareunia in female Frequency of urination Insulin resistance Major depressive disorder with single episode, in full remission ([facility]) Menstrual cramp Mixed hyperlipidemia ([facility]) Obesity (BMI 30-39.9) Other obesity due to excess calories Pneumonia Reactive depression ([facility]) Social History Tobacco Use Smoking status: Former [...] Sister Ericka Del Toro Asthma Son Jaspal [place] Heart disease Paternal Grandfather Brandon Del Toro [...] nursing note reviewed. Exam conducted with a mechanic chief present. Vitals: Estimated body mass index is [...] reviewed, and patient is to proceed to [facility]. Follow Up: Patient is to follow up at 1 & 6 weeks post operative to assess proper healing and recovery from procedure. Documented by Marcy Elliott LPN on behalf of: Serge Chan DO documented in this encounter [facility] 11-30-2023 History of Presen t illness Narrative Reason for Appointment: Patient ID: Chanel Kendall is a 43 y.o. female who presents for Vaginitis/Bacterial Vaginosis Patient presents today via telephone call for a telehealth appointment. Patients Phone #: [phone] (mobile) Current Medications: has a current medication list which includes the following prescription(s): azithromycin, biotin, cetirizine, and phentermine. Medical History: Active Ambulatory Problems Diagnosis Date Noted Amenorrhea 05/26/2023 Frequency of urination 05/26/2023 Insulin resistance 05/26/2023 Major depressive disorder with single episode, in full remission ([facility]) 05/26/2023 Menstrual cramp 05/26/2023 Mixed hyperlipidemia ([facility]) 05/26/2023 Obesity (BMI 30-39.9) 05/26/2023 Other obesity due to excess calories 05/26/2023 Pain in female genitalia on intercourse 05/26/2023 Reactive depression ([facility]) 05/26/2023 Strabismus 05/27/2023 Body mass index 40.0-44.9, adult ([facility]) 01/18/2019 Resolved Ambulatory Problems Diagnosis Date Noted No Resolved Ambulatory Problems Past Medical History: Diagnosis Date Allergic rhinitis 1989 BMI 37.0-37.9, adult Body mass index (BMI) of 40.1 to 44.9 in adult ([facility]) Breast cancer screening by mammogram 12/02/2022 Dyspareunia [...] Serge Chan DO documented in this encounter [facility] 03-23-2023 Evaluation note Encounter Date Diagnosis Assessment [...] 7 days, sooner if significantly worsening symptoms. [facility] 03-23-2023 Evaluation note* Encounter Date Diagnosis Assessment Notes Treatment Notes Treatment Clinical Notes Dec, Dysuria (ICD-10 - R30.0) Discussed diagnosis and dipstick findings with patient. Will hold off on treatment at this time. Patient does not wish to have culture sent. Refuses pelvic, STI testing. Patient instructed to push fluids. Patient symptoms should improve in the next 48 hours, if symptoms persist follow up with PCP or OPERATOR HELPER. Immediate eval by ER if back or flank pain, fever, chills, N/V, or any other concerning symptoms arise. Patient verbalizes understanding and is agreeable to treatment plan [facility] Other 07-28-2022 Evaluation note* Encounter Date Diagnosis Assessment Notes Treatment Notes Treatment Clinical Notes Apr, Acute otitis media with effusion [...] understanding and is agreeable to treatment plan [facility] Other Evaluation note* Diagnosis Vaginal discharge Leukorrhea, not specified as infective Yeast infection [facility] noteNo assessment information available[facility] Work Phone: Evaluation note* Diagnosis Onset Date Resolution Status Acute UTI (urinary tract infection) acute Frequency of urination nonea ctive [facility] Work Phone: Evaluation note* Diagnosis Pre-op examination Menorrhagia with regular cycle Pelvic pain in female Unspecified symptom associated with female genital organs Dyspareunia in female Dysmenorrhea documented in this encounter [facility] Diagnosis Otalgia of right ear- Primary Class 1 obesity due to excess calories without serious comorbidity with body mass index (BMI) of 33.0 to 33.9 in adult documented in this encounter [facility] Summary Purpose Family History Relationship Condition Age at Onset Recorded Date/T alyse brother Unknown sister Unknown Advance Directives Advance Directive Response Recorded Date/ Time Advance Directives No August 02, 2018 11:08am Chief Complaint and Reason for Visit Chief Complaint Dysuria Chief Complaint Dysuria Reason for Visit Acute UTI (urinary t ract infection) Frequency of urination Additional Source Comments INFORMATION SOURCE (unrecogn ized section and content) DATE CREATED AUTHOR 04/19/2018 [facility] DATE CREATED AUTHOR AUTHOR'S ORGANIZ ATION 10/31/2021 [facility] dical Specialist DATE CREATED AUTHOR AUTHOR'S ORGANIZ ATION 01/17/2023 [facility] pital DATE CREATED AUTHOR AUTHOR'S ORGANIZ ATION 02/22/2024 [facility] y[facility] DATE CREATED AUTHOR AUTHOR'S ORGANIZ ATION 09/01/2024 [facility] dical Specialists EPIC REASON FOR VISIT (unrecogniz ed section and content) Reason Comments Vaginitis/Bacterial Vaginosis Reason Comments Pre-op Visit Care Teams (unrecognized sec tion and content) Retirement Benefits Specialist Relationship Specialty Start Date End Date Ish [...] 2024 End: February 14, 2024 Maty Amaral , ENTRY LEVEL ACCOUNT EXECUTIVE Attending Provider Active Start: February 14, 2024 End: February 14, 2024 Retirement Benefits Specialist Relationship Specialty Start Date End Date Ish Anderson DO [address] [place] [address] PCP - General Family Medicine 05/24/23 Retirement Benefits Specialist Relationship Specialty Start Date End Date Ish Anderson DO [address] [place] [address] PCP - General Family Medicine 05/24/23 Retirement Benefits Specialist Relationship Specialty Start Date End Date Ish Anderson DO [address] [place] [address] PCP - General Family Medicine 05/24/23 Retirement Benefits Specialist Relationship Specialty Start Date End Date Ish Anderson DO [address] [place] [address] PCP - General Family Medicine 05/24/23 Goals [...] BE BASED ON THE PRIMARY CLINICAL RECORDS. [employer] [facility]. provides no warranty or guarantee of the accuracy or completeness of information in this document.
[2024-09-07] MEDS: SCOPOLAMINE 1 MG/3 DAYS TRANSDERM PATCH 1 PATCH TD (15:13)
[2024-09-07] MEDS: LACTATED RINGER'S SOLUTION 1,000 ML 50 ML IV ×2 (15:14→16:37)
[2024-09-07 15:33] LABS: HCG Quantitative <1 mIU/mL
[2024-09-07] MEDS: CEFAZOLIN SODIUM 2 GM/50 ML D5W PREMIX IV (15:33)
--- NOTE | 2024-09-07 17:19 | PM.ONB ---
Brief Operative Note Date of procedure: 09/07/24 Pre-op diagnosis general: menorrhagia, dysmenorrhea, failed ablation, dyspareunia Post-op diagnosis: same as pre-op Procedure: NAME OF PROCEDURE: [ ]Total abdominal hysterectomy, with cystoscopy. PROCEDURE: Patient was taken back to the Operating Room where she was given general anesthesia without difficulty. She was then prepped and draped in the normal sterile fashion. A Pfannenstiel skin incision was then made 2 cm above the symphysis and pubis and carried down to underlying rectus fascia using a Bovie. The fascia was incised in the midline and extended bilaterally using Combs scissors. Two Gricel clamps were placed on the superior aspect of the fascia and dissected off the underlying rectus muscle. The same was performed on the inferior aspect as well. The muscle was then in the midline. The peritoneum was identified and entered bluntly. Peritoneum was then extended superiorly and inferiorly with good visualization of the bladder. An O'Kubufdwf-F-Gtxtfd retractor was placed into the patient's abdomen. The bowel was packed away with moist laparotomy sponges and the bladder blade was inserted. A Leahey tenaculum was placed on the patient's uterus and used for retraction. LigaSure apparatus was then used to come across the uteroovarian ligament on the patient's right side which was then cauterized and transected. This was carried down serially through the broad ligament and across the round ligament. The bladder flap was then created using the Metzenbaum scissors, and thebladder was easily dissected off the patient's lower uterine segment. A curved Medardo was placed across the uterine artery on the right side which was clamped, transected, and suture ligated using #0 Monocryl. This was performed on the contralateral side as well. The bladder was further dissected and a Zeppelin clamp was then placed across the uterosacral and cardinal ligaments. This was transected and suture ligated using #0 Monocryl. This was performed on the contralateral side as well. The uterus was then amputated using Carson scissors. The patient's cuff was closed using #0 PDS in a running locked fashion and this was transfixed to the ipsilateral uterosacral and cardinal ligaments. Excellent hemostasis was assured. The patient's abdomen wascopiously irrigated using warm saline. Cystoscopy was performed. Bladder was intact. Efflux was noted from both ostia. Cystoscope was removed.After excellent hemostasis was assured, all instruments were removed from the patient's abdomen. The patient's peritoneum was closed using 3-0 Vicryl in a running fashion. The patient's fascia was closed using #0 Vicryl in a running fashion. The patient's skin was closed using 4-0 vicryl on a marcos needle. The patient tolerated the procedure well. Sponge, lap, and needle counts were correct times two. Patient taken to the Recovery Room in stable condition Anesthesia: MADINA Surgeon: Kris Chan Flight Control Tower Operator: Lisa Saxena Estimated blood loss (mL): 150 Pathology: other (uterus and cervix) Condition: stable Disposition: PACU Urinary Catheter Management Urinary Catheter Management Urethral: Cath placed during this visit: no
[2024-09-07] MEDS: KETOROLAC TROMETHAMINE 30 MG/ML VIAL IVP (17:56)
[2024-09-07] MEDS: HYDROMORPHONE HCL 0.5 MG/0.5 ML SYRINGE IV (18:02)
--- NOTE | 2024-09-07 18:06 | PC.NURSE ---
1806: pt resting comfortably.
[2024-09-07] MEDS: LACTATED RINGER'S SOLUTION 1,000 ML 125 ML IV (18:10)
[2024-09-07] MEDS: OXYCODONE HCL/ACETAMINOPHEN 5MG/325MG 2 TAB PO (18:28)
[2024-09-07] MEDS: CEFAZOLIN SODIUM/DEXTROSE,ISO 2 GM/50 ML PIGGYBACK IV (21:05)
[2024-09-07] MEDS: IBUPROFEN 400 MG TABLET 800 MG PO (21:11)
[2024-09-08] VITALS (7 sets, daily range): BP systolic 101–134; BP diastolic 59–77; PULSE 57–91; TEMP 36.8–37.2; O2SAT 95–98
[2024-09-08] MEDS: TEMAZEPAM 15 MG CAPSULE 30 MG PO ×2 (00:42→21:18)
[2024-09-08] MEDS: OXYCODONE HCL/ACETAMINOPHEN 5MG/325MG 2 TAB PO (00:42)
[2024-09-08] MEDS: IBUPROFEN 400 MG TABLET 800 MG PO (03:43)
[2024-09-08] MEDS: CEFAZOLIN SODIUM/DEXTROSE,ISO 2 GM/50 ML PIGGYBACK IV (03:44)
[2024-09-08] MEDS: LACTATED RINGER'S SOLUTION 1,000 ML 125 ML IV (03:44)
[2024-09-08] MEDS: ENOXAPARIN SODIUM 40 MG/0.4 ML SYRINGE SUBQ (06:02)
[2024-09-08 06:05] LABS: Basophils Percent Auto 0.2 % (0.2-2.0); Hematocrit 33.4 % (36.0-48.0); Hemoglobin 10.7 g/dL (12.0-16.0); Immature Granulocytes Abs Auto 0.03 10^3/uL (0.00-0.03); Immature Granulocytes Pct Auto 0.3 % (0.0-0.5); Lymphocytes Absolute Auto 1.2 10^3/uL (1.2-3.8); Lymphocytes Percent Auto 10.7 % (20.5-60.0); Mean Corpuscular Hemoglobin 31.1 pg (26.7-34.0); Mean Corpuscular Volume 97.1 fL (81.0-99.0); Mean Platelet Volume 9.9 fL (9.5-13.5); Monocytes Absolute Auto 0.8 10^3/uL (0.3-0.8); Monocytes Percent Auto 7.6 % (1.7-12.0); Neutrophils Absolute Auto 8.9 10^3/uL (1.4-6.5); Neutrophils Percent Auto 81.2 % (43.0-75.0); Platelet Count 238 10^3/uL (150-450); Red Blood Count 3.44 10^6/uL (4.20-5.40); Red Cell Distribution Width 12.7 % (11.0-15.0)
--- OUTSIDE RECORDS SUMMARY | 2024-09-08 06:36 | XMS_ITS | CCD ---
Author Organization [facility] Care Team Providers Care Pipe Chipper Name Role Phone LENKA, CHANEL R Unavailable [...] Unavailable Ish Anderson DO Primary Care Provider DO Ish Anderson Primary Care Provider CHENG Amaral Attending Provider Maty Amaral Attending [...] WITH AUTO DIFFon BASOPHILS ABSOLUTE AUTO 0 [facility] Basophils/100 WBC (Bld) 0.8 % 0.2 - 2.0 % [facility] Eosinophils/100 WBC (Bld) 2 % 0.9 - 7.0 % [facility] Erythrocyte distribution width (RBC) [Ratio] 13 % 11.0 - 15.0 % [facility] Hematocrit (Bld) [Volume fraction] 42.6 % 36.0 - 48.0 % [facility] Hem[facility] (Bld) [Mass/Vol] 13.7 g/dL 12.0 - 16.0 g/dL [facility] IMMATURE GRANULOCYTES ABS AUTO 0.01 [facility] Immature granulocytes/100 WBC (Bld) 0.2 % 0.0 - 0.5 % [facility] Interpretation and review of laboratory results Abnormal [facility] LYMPHOCYTES ABSOLUTE AUTO 2 [facility] Lymphocytes/100 WBC (Bld) 38.1 % 20.5 - 60.0 % [facility] MCH (RBC) [Entitic mass] 31.2 pg 26.7 - 34.0 pg [facility] MCHC (RBC) [Mass/Vol] 32.2 g/dL 29.9 - 35.2 g/dL [facility] MCV (RBC) [Entitic vol] 97 fL 81.0 - 99.0 fL [facility] MONOCYTES ABSOLUTE AUTO 0.4 [facility] Monocytes/100 WBC (Bld) 7.4 % 1.7 - 12.0 % [facility] NEUTROPHILS ABSOLUTE AUTO 2.6 [facility] Neutrophils/100 WBC (Bld) 51.5 % 43.0 - 75.0 % [facility] Platelet mean volume (Bld) [Entitic vol] 9.4 fL Low 9.5 - 13.5 fL [facility] EO # 0.1 [facility] PLT 268 [facility] RBC 4.39 [facility] WBC 5.1 [facility] Urine Cultureon 02-14-2024 Bacteria identified Cx Nom (U) 50,000 colonies/ml mixed bacterial skin contaminants 2 Days PERFORMED BY: [facility] [address] [place] [address] PATHOLOGIST DATA TECHNICAL LEAD ELROY MANDUJANO M.D. [place] [facility] Comment on above: Performed By: #### C UU #### [facility] [address] [place], [place] [id number] [facility] Quick Strepon 03-23-2023 S. pyogenes Org specific cx Ql (Throat) Negative [facility] Other Quick Strep [facility] Other Urinalysis - AUTOMATEDon Appearance (U) clouy [employer] Other Bilirubin Ql (U) Negative [email or web address] Other Color (U) yellow [facility] Other Glucose Ql (U) Negative [employer] Other Hemoglobin Ql (U) Negative [employer] Other Ketones Ql (U) Negative [employer] Other Leukocyte esterase Test strip Ql (U) trace [facility] Other Nitrite Ql (U) Negative [employer] Other pH (U) 5.5 [pH] [facility] Other Protein Ql (U) Negative [employer] Other Specific gravity (U) [Rel density] 1.020 [facility] Other Urobilinogen (U) [Mass/Vol] 0.2 mg/dL [facility] Other Urinalysis - AUTOMATED [facility] Other VAGINITIS/VAGINOSIS DNA PROB Allan 01-10-2023 Krystin species Negative Normal Negative [facility] Comment on above: Performed By: #### V AGINT #### [facility] [address] [address] [address] Richard George Gardnerella vaginalis Negative Normal Negative [facility] Comment on above: Performed By: #### V AGINT #### [facility] [address] [address] [address] Richard George Trichomonas vaginalis Negative Normal Negative [facility] Comment on above: Performed By: #### V AGINT #### [facility] [address] [address] [address] Richard George MG MAMM SCREEN 3D OTONIEL CADon 12-02-2022 MG MAMM SCREEN 3D OTONIEL CAD Patient: CHANEL KENDALL Exam Date: 12/02/2022 : 1980 Gender:F Ordering : DR JERMAINE SCHULER . Admission #: [id number] Family : Order #: [id number] CLICK HERE TO VIEW EXAM RADIOLOGY REPORT PROCEDURE: MAMMOGRAM SCREENING 3D BILATERAL CAD COMPARISON: None. INDICATIONS: Screening mammography Calculator Name NCI Breast Cancer Risk Assessment Tool 5 Year Breast Cancer Risk 0.60% Lifetime Breast Cancer Risk 11.10% Personal Breast Cancer No Personal Ovarian Cancer No Treatments None Family Cancers None LOCATION: [facility] BREAST COMPOSITION: Scattered areas fibroglandular density. FINDINGS: [...] M.D. on 12/03/2022 at 09:41 Normal [facility] PAP ACOG PANEL 2: 30 to 65on 05-29-2022 . . Normal [facility] Comment on above: Result Comment: Perf ormed at: WB Performed By: #### [id number] #### [facility] [address] [address] [address] Richard George Age Gdln ACOG Testing 30-[address] [facility] Comment on above: Performed By: #### [id number] #### [facility] [address] [address] [address] Richard George DIAGNOSIS: Comment Normal [facility] Comment on above: Result Comment: NEGA TIVE FOR INTRAEPITHELIAL LESION OR MALIGNANCY. Performed at: WB Performed By: #### 4 [id number] #### [facility] [address] [address] [address] Richard George HPV Aptima Negative Normal Negative [facility] Comment on above: Result Comment: This nucleic acid amplification test detects fourteen high-risk HPV types (16,18,31,33,35,39,45,51,52,56,58,59,66,68) without differentiation. Performed at: =G Performed By: #### 4 [id number] #### [facility] [address] [address] [address] Richard George Methodology: Comment [facility] Comment on above: Result Comment: This liquid based ThinPrep(R) pap test was screened with the use of an image guided system. Performed at: WB Performed By: #### 4 [id number] #### [facility] [address] [address] [address] Richard George Note: Comment Normal [facility] Comment on above: Result Comment: The Pap smear is a screening test designed to aid in the detection of premalignant and malignant conditions of the uterine cervix. It is not a diagnostic procedure and should not be used as the sole means of detecting cervical cancer. Both false-positive and false-negative reports do occur. . Performed at: WB Performed By: #### [id number] #### [facility] [address] [address] [address] Richard George Performed by: Comment Normal [facility] Comment on above: Result Comment: Mark Knight Patient Registration Rep (ASCP) Performed at: WB Performed By: #### [id number] #### [facility] [address] [place] [address] Dr. Richard George Specimen adequacy: Comment Normal [facility] Comment on above: Result Comment: Sati sfactory for evaluation. Endocervical and/or squamous metaplastic cells (endocervical component) are present. Performed at: WB Performed By: #### 4 [id number] #### [facility] [address] [address] [address] Richard George VAGINITIS/VAGINOSIS DNA PROB Allan 05-27-2022 Krystin species Negative Normal Negative [facility] Comment on above: Performed By: #### V AGINT #### [facility] [address] [place] [address] Dr. Richard George Gardnerella vaginalis Positive Abnormal Negative [facility] Comment on above: Performed By: #### V AGINT #### [facility] [address] [place] [address] Dr. Richard George Trichomonas vaginalis Negative Normal Negative [facility] Comment on above: Performed By: #### V AGINT #### [facility] [address] [place] [address] Dr. Richard George Q - T4,TOTALon 10-28-2021 T4 [Mass/Vol] 6.3 ug/dL Normal 5.1-11.9 [facility] Security Systems Engineer Comment on above: Order Comment: [facility] Testing performed at: QPT, [facility], [address] [facility], [address] [facility], [place], [address], Knife Sharpener: Hema Dumont MD [facility] Collection Date/Time: [facility] Results Received Date/Time: [facility] Reported Date/Time: Performed By: #### 3 [id number], TSH reflex FT4 #### [facility] [address] [place] [address] TSH w/ Reflex to Free T4on 0 10-28-2021 TSH W/REFLEX TO FT4 0.84 mIU/L Normal [facility] Security Systems Engineer Comment on above: Order Comment: [facility] Testing performed at: QPT, [facility], [address], [address] [facility], [place], [address], Knife Sharpener: Hema Dumont MD [facility] Collection Date/Time: [id number] [facility] Results Received Date/Time: [facility] Reported Date/Time: Result Comment: Refe rence Range > or = 20 Years 0.40-4.50 Ranges First trimester 0.26-2.66 Second trimester 0.55-2.73 Third trimester 0.43-2.91 Performed By: #### 3 [id number], TSH reflex FT4 #### [facility] [address] [place] [address] CULTURE-URINEon 09-06-2017 CULTURE-URINE PATIENT: CHANEL KENDALL LOCATION: [facility]#: [id number] : 1980 AGE: 37 SEX: F ORDER# [id number] ORDERED BY: CHANEL OG Source: URI Collected: 09/06/17 08:50 Site: UNK Received : 09/06/17 18:36CULTURE-URINE FINAL 09/08/17 06: NO GROWTH AFTER 35 HOURS Normal [facility] Comment on above: Performed By: #### C URIN ####[address] [id number] Vital Signs Date Time Vital Sign Value Performing Clinician Facility 08-30-2024 16:36-0500 Body height 167.6 cm Ish Horton DO Work Phone: [facility] 08-30-2024 16:36-0500 Body mass index (BMI) [Ratio] 30.8 kg/m2 Ish Horton DO Work Phone: [facility] 08-30-2024 16:36-0500 Body temperature 97.9 [degF] Ish Horton DO Work Phone: [facility] 08-30-2024 16:36-0500 Body weight 86.55 kg Ish Horton DO Work Phone: [facility] 08-30-2024 16:36-0500 Diastolic blood pressure 82 mm[Hg] Ish Horton DO Work Phone: [facility] 08-30-2024 16:36-0500 Heart rate 92 /min Ish Horton DO Work Phone: [facility] 08-30-2024 16:36-0500 SaO2% (BldA) [Mass fraction] 100 % Ish Horton DO Work Phone: [facility] 08-30-2024 16:36-0500 Systolic blood pressure 124 mm[Hg] Ish Horton DO Work Phone: [facility] 08-09-2024 16:03-0400 Body mass index (BMI) [Ratio] 30.99 kg/m2 Serge Rocio DO Work Phone: [facility] 08-09-2024 16:03-0400 Body weight 87.09 kg Serge Rocio DO Work Phone: [facility] 08-09-2024 16:03-0400 Diastolic blood pressure 70 mm[Hg] Serge Rocio DO Work Phone: [facility] 08-09-2024 16:03-0400 Systolic blood pressure 120 mm[Hg] Serge Rocio DO Work Phone: [facility] 02-14-2024 17:01-0400 Body height 167.64 cm [facility] 02-14-2024 17:01-0400 Body mass index (BMI) [Ratio] 31.4 kg/m2 [facility] 02-14-2024 17:01-0400 Body temperature 97.5 [degF] [facility] 02-14-2024 17:01-0400 Body weight 88.45 kg [facility] 02-14-2024 17:01-0400 Diastolic blood pressure 91 mm[Hg] [facility] 02-14-2024 17:01-0400 Heart rate 81 /min [facility] 02-14-2024 17:01-0400 Respiratory rate 16 /min [facility] 02-14-2024 17:01-0400 SaO2% (BldA) [Mass fraction] 99 % [facility] 02-14-2024 17:01-0400 Systolic blood pressure 133 mm[Hg] [facility] 03-23-2023 17:25-0400 Body height 167.64 cm Amina Del Rio Other [facility] [employer] Other 03-23-2023 17:25-0400 Body mass index (BMI) [Ratio] 33.6 kg/m2 Amina Del Rio Other [facility] Other 03-23-2023 17:25-0400 Body temperature 98 [degF] Amina Del Rio Other [facility] Other 03-23-2023 17:25-0400 Body weight 94.44 kg Amina Del Rio Other [facility] Other 03-23-2023 17:25-0400 Respiratory rate 18 /min Amina Del Rio Other [facility] Other 03-23-2023 17:25-0400 SaO2% (BldA) [Mass fraction] 97 % Amina Del Rio Other [facility] Other 01-14-2023 15:35-0400 Body height 167.64 cm Amina Del Rio Other [facility] Other 01-14-2023 15:35-0400 Body mass index (BMI) [Ratio] 35.44 kg/m2 Amina Del Rio Other [facility] Other 01-14-2023 15:35-0400 Body temperature 97.8 [degF] Amina Del Rio Other [facility] Other 01-14-2023 15:35-0400 Body weight 99.61 kg Amina Del Rio Other [facility] Other 01-14-2023 15:35-0400 Diastolic blood pressure 62 mm[Hg] Amina Del Rio Other [facility] Other 01-14-2023 15:35-0400 SaO2% (BldA) [Mass fraction] 99 % Amina Del Rio Other [facility] Other 01-14-2023 15:35-0400 Systolic blood pressure 112 mm[Hg] Amina Del Rio Other [facility] Other 05-21-2022 14:55-0400 Body height 167.64 cm Amina Del Rio Other [facility] Other 05-21-2022 14:55-0400 Body mass index (BMI) [Ratio] 38.25 kg/m2 Amina Del Rio Other [facility] Other 05-21-2022 14:55-0400 Body temperature 97.7 [degF] Amina Del Rio Other [facility] Other 05-21-2022 14:55-0400 Body weight 107.5 kg Amina Del Rio Other [facility] Other 05-21-2022 14:55-0400 Diastolic blood pressure 54 mm[Hg] Amina Del Rio Other [facility] Other 05-21-2022 14:55-0400 Respiratory rate 18 /min Amina Del Rio Other [facility] Other 05-21-2022 14:55-0400 SaO2% (BldA) [Mass fraction] 99 % Amina Del Rio Other [facility] Other 05-21-2022 14:55-0400 Systolic blood pressure 109 mm[Hg] Amina Del Rio Other [facility] Other Encounters Encounter Date Encounter Type Care Provider Facility Start: 08-30-2024 End: 08-30-2024 Office outpatient visit 15 minutes Ihs L Horton DO Work Phone: [facility] 230 Comment on above: Otalgia of right ear (Primary Dx); Class 1 obesity due to excess calories without serious comorbidity with body mass index (BMI) of 33.0 to 33.9 in adult Start: 08-30-2024 End: 08-30-2024 ambulatory ISH L CUTLER Not Available Start: 08-30-2024 End: 08-30-2024 Bamboo flowsheet Ish L Horton DO Work Phone: [facility] [address] Start: 08-30-2024 End: 08-30-2024 Bamboo flowsheet Ish L Horton DO Work Phone: [facility] Start: 08-25-2024 End: 08-25-2024 Clinisync [...] examination done Serge Rocio DO Work Phone: [facility] Start: 06-07-2024 End: 06-07-2024 ambulatory ISH L CUTLER Not Available Start: 03-22-2024 End: 03-22-2024 ambulatory SERGE ROCIO Not Available Start: 03-07-2024 End: 03-07-2024 ambulatory ISH L CUTLER Not Available Start: 02-14-2024 End: 02-14-2024 ambulatory Maty Amaral Facility:[facility] Start: 02-14-2024 End: 02-14-2024 Departed Referred DO Ish Horton Work Phone: [facility] [place] Work Phone: Start: 02-14-2024 End: 02-14-2024 ambulatory DO Ish L Horton Work Phone: [facility] Work Phone: Start: 02-14-2024 End: 02-14-2024 Patient encounter procedure [facility] [place] Work Phone: Start: 01-05-2024 End: 01-05-2024 ambulatory SERGE ROCIO Not Available Start: 12-08-2023 End: 12-08-2023 ambulatory ISH L CUTLER Not Available Start: 11-30-2023 End: 11-30-2023 Phys/qhp telephone evaluation 5-10 min Serge Rocio DO Work Phone: [facility] OB Comment on above: Vaginal discharge; Yeast infection Start: 11-08-2023 End: 11-08-2023 ambulatory SERGE ROCIO Not Available Start: 09-06-2023 End: 09-06-2023 ambulatory CHANDANA MACK Not Available Start: 03-23-2023 End: 03-23-2023 ambulatory Amina Del Rio Other [facility] Other Start: 03-23-2023 Office outpatient vi sit 15 minutes Amina Del Rio [facility] Start: 01-14-2023 End: 01-14-2023 ambulatory Amina Del Rio Other [facility] Other Start: 01-14-2023 Office outpatient vi sit 15 minutes Amina Del Rio [facility] Start: 01-08-2023 End: 01-08-[address] JERMAINE SCHULER . Facility:[facility] Start: 12-01-2022 End: 12-02-[address] JERMAINE SCHULER . Facility:[facility] Start: 05-25-2022 End: 05-25-[address] JERMAINE SCHULER . Facility: Start: 05-21-2022 End: 05-21-2022 ambulatory Amina Del Rio Other [facility] Other Start: 05-21-2022 Office outpatient ne w [...] 12/27/2024 5:00 PM EST Office Visit [facility] [address] [place] [phone] Ish Anderson, DO [address] [place] [address] [facility] 230 Start: 08-30-2024 End: 08-30-2024 Patient encounter procedure [facility] 230 Comment on above: Arrived Start: 06-25-2024 Influenza vaccination Influenza Vacc ine (#1) [facility] Start: 02-14-2024 Bacteria identified in Urine by Culture [facility] Start: 12-08-2023 End: 12-08-2023 Patient encounter procedure 12/08/2023 4:40 PM EST Office Visit [facility] [address] [place] [id number] Ish Anderson, DO [address] [place] [address] [facility] 230 Start: 12-02-2023 Screening for malign ant neoplasm of breast Mammogram [facility] Start: 06-25-2023 Influenza vaccination Influenza Vacc ine (#1) [facility] Start: 06-25-2018 Influenza vaccination INFLUENZA VACC INE (#1) [facility] Start: 2003 Screening for malign ant neoplasm of cervix PAP SMEAR DISCUSSION [facility] Start: 2001 Third diphtheria, tetanus and acellular pertussis (DTaP) vaccination TDAP (ADULT) [facility] Start: 2000 Tetanus vaccination TETANUS [facility] Start: 1995 HIV screening HIV SCREENING DISCUSSION [facility] Payers Date Payer Category Payer Self-pay [id number] 2019 Private Health Insurance [id number] 2014 Unknown [employer] xxxxxxxxxxx 2014-Present xxxxxxxxxxx [id number] 1980 Unknown [id number] .593 1980 Unknown [id number] [id number] .593 1980 Unknown [id number] [id number] .593 1980 Unknown [id number] [id number] .1259 1980 Unknown [id number] [id number] .1259 1980 Unknown [id number] [id number] .1259 1980 Unknown [id number] [id number] .1259 1980 Unknown [id number] [id number] .1259 1980 Unknown [id number] [id number] .1259 1980 Unknown [id number] [id number] .1259 1980 Unknown [id number] [id number] .1259 1980 Unknown [id number] [id number] .1259 1957 [facility] [id number] 1957 Private Health Insurance [id number] Unknown HCAP/HFA/FAP Active [id number] Unknown [id number] Social History Date Type Detail Facility Start: 06-25-2015 Tobacco smoking status CAIS Current every day smoker [facility] Start: 2000 End: 08-20-2013 History of tobacco use Cigarette Smoker [facility] Start: 06-25-2015 End: 06-29-2023 Cigarettes smoked current (pack per day) - Reported [facility] Start: 04-02-2015 Tobacco Comment Uses Vuse smokeless tobacco on occasion. [facility] Start: 1980 Sex Assigned At Not on file [facility] Start: 06-29-2023 End: 12-08-2023 Sex Assigned At [facility] Start: 08-31-2023 End: 06-07-2024 Tobacco smoking status CAIS Ex-smoker [facility] Start: 2000 End: 08-20-2013 [...] to any clubs or organizations such as yazidism groups, unions, fraternal or athletic groups, or [...] [OSQ] Rather much [facility] (I/We) worried [facility] (my/our) food would run out before (I/we) got money to buy more. Never true [facility] Start: 06-14-2023 Alcohol Comment Caffeine: 1-2 cups/day [facility] Start: 01-06-2023 Gender identity Identifies as female gender (finding) [facility] Start: 1980 Sex Assigned At Female [facility] Clinical Notes 05-21-2022 to 08-30-2024 Ish Anderson, - 08/30/2024 4:20 PM ESTMijuan carlos Garcia - 08/09/2024 3:50 PM Chung Elliott LPN - 11/30/2023 3:10 PM EST Note Date & Type Note Facility 08-30-2024 History of Presen t illness Narrative Images from the original note were not included. [facility] REHANA Nieto SUBJECTIVE: HPI: Chanel Kendall is [...] AUTO 0.01 0.00 - 0.03 10 3/uL [facility] LIVER PANEL Collection Time: 08/25/24 [...] CREATININE 1.10 (H) 0.55 - 1.02 mg/dL [facility] EGFR-AF AFGHAN >60 >=60 mL/min/1.73m 2 TB EGFR-NON AF AFGHAN 54 (L) >=60 mL/min/1.73m 2 BUN CREATININE [...] Reactive depression (CMS/HCC) documented in this encounter [facility] 08-09-2024 History of Presen t illness Narrative Reason for Appointment: Patient ID: Chanel Kendall is a 44 y.o. female who presents for Pre-op Visit Patient presents today for Pre Op appointment. Patient is scheduled to undergo Da Dustin assisted Laparoscopic Hysterectomy, possible exploratory laparotomy, possible BSO, possible cystoscopy on 09/07/[address] Chan at [facility]. MEDICATIONS Current Outpatient Medications Medication Instructions phentermine (ADIPEX-P) 37.5 mg, Oral, Daily before breakfast topiramate 50 mg, Oral, Daily ALLERGIES No Known Allergies PROBLEMS Active Ambulatory Problems Diagnosis Date Noted Major depressive disorder with single episode, in full remission ([facility]) 05/26/2023 Menstrual cramp 05/26/2023 Mixed hyperlipidemia ([facility]) 05/26/2023 Obesity (BMI 30-39.9) 05/26/2023 Strabismus 05/27/2023 Resolved Ambulatory Problems Diagnosis Date Noted Amenorrhea 05/26/2023 Frequency of urination 05/26/2023 Insulin resistance 05/26/2023 Other obesity due to excess calories 05/26/2023 Pain in female genitalia on intercourse 05/26/2023 Reactive depression ([facility]) 05/26/2023 Body mass index 40.0-44.9, adult ([facility]) 01/18/2019 Past Medical History: Diagnosis Date Allergic rhinitis 1989 BMI 37.0-37.9, adult Body mass index (BMI) of 40.1 to 44.9 in adult ([facility]) Breast cancer screening by mammogram 12/02/2022 Dyspareunia in female Pneumonia HISTORY PAST MEDICAL HISTORY SOCIAL HISTORY Past Medical History: Diagnosis Date Allergic rhinitis 1989 Amenorrhea BMI 37.0-37.9, adult Body mass index (BMI) of 40.1 to 44.9 in adult ([facility]) Breast cancer screening by mammogram 12/02/2022 neg Dyspareunia in female Frequency of urination Insulin resistance Major depressive disorder with single episode, in full remission ([facility]) Menstrual cramp Mixed hyperlipidemia ([facility]) Obesity (BMI 30-39.9) Other obesity due to excess calories Pneumonia Reactive depression ([facility]) Social History Tobacco Use Smoking status: Former [...] Sister Ericka Del Toro Asthma Son Jaspal Callender Heart disease Paternal Grandfather Brandon Del Toro [...] nursing note reviewed. Exam conducted with a photograph printer present. Vitals: Estimated body mass index is [...] reviewed, and patient is to proceed to [facility]. Follow Up: Patient is to follow up at 1 & 6 weeks post operative to assess proper healing and recovery from procedure. Documented by Marcy Elliott LPN on behalf of: Serge Chan DO documented in this encounter [facility] 11-30-2023 History of Presen t illness Narrative Reason for Appointment: Patient ID: Chanel Kendall is a 43 y.o. female who presents for Vaginitis/Bacterial Vaginosis Patient presents today via telephone call for a telehealth appointment. Patients Phone #: [phone] (mobile) Current Medications: has a current medication list which includes the following prescription(s): azithromycin, biotin, cetirizine, and phentermine. Medical History: Active Ambulatory Problems Diagnosis Date Noted Amenorrhea 05/26/2023 Frequency of urination 05/26/2023 Insulin resistance 05/26/2023 Major depressive disorder with single episode, in full remission ([facility]) 05/26/2023 Menstrual cramp 05/26/2023 Mixed hyperlipidemia ([facility]) 05/26/2023 Obesity (BMI 30-39.9) 05/26/2023 Other obesity due to excess calories 05/26/2023 Pain in female genitalia on intercourse 05/26/2023 Reactive depression ([facility]) 05/26/2023 Strabismus 05/27/2023 Body mass index 40.0-44.9, adult ([facility]) 01/18/2019 Resolved Ambulatory Problems Diagnosis Date Noted No Resolved Ambulatory Problems Past Medical History: Diagnosis Date Allergic rhinitis 1989 BMI 37.0-37.9, adult Body mass index (BMI) of 40.1 to 44.9 in adult ([facility] Breast cancer screening by mammogram 12/02/2022 Dyspareunia [...] Serge Chan DO documented in this encounter [facility] 03-23-2023 Evaluation note Encounter Date Diagnosis Assessment [...] 7 days, sooner if significantly worsening symptoms. [facility] Other 03-23-2023 Evaluation note* Encounter Date Diagnosis [...] symptoms persist follow up with PCP or BRANCH OPERATION EVALUATION MANAGER. Immediate eval by ER if back or flank pain, fever, chills, N/V, or any other concerning symptoms arise. Patient verbalizes understanding and is agreeable to treatment plan [facility] Other 07-28-2022 Evaluation note* Encounter Date Diagnosis [...] understanding and is agreeable to treatment plan [facility] Other Evaluation note* Diagnosis Vaginal discharge Leukorrhea, not specified as infective Yeast infection documented in this encounter [facility]* Diagnosis Onset Date Resolution Status Acute UTI (urinary tract infection) acute Frequency of urination nonea ctive [facility] Work Phone: Evaluation note* Diagnosis Pre-op examination Menorrhagia with regular cycle Pelvic pain in female Unspecified symptom associated with female genital organs Dyspareunia in female Dysmenorrhea documented in this encounter [facility] HealthcareEvaluation note* Diagnosis Otalgia of right ear- Primary Class 1 obesity due to excess calories without serious comorbidity with body mass index (BMI) of 33.0 to 33.9 in adult documented in this encounter [facility] Healthcare Summary Purpose Family History Relationship Condition [...] section and content) DATE CREATED AUTHOR 04/19/2018 [facility] DATE CREATED AUTHOR AUTHOR'S ORGANIZ ATION 10/31/2021 [facility] dical Specialist DATE CREATED AUTHOR AUTHOR'S ORGANIZ ATION 01/17/2023 [facility] pital DATE CREATED AUTHOR AUTHOR'S ORGANIZ ATION 02/22/2024 [facility] y[facility] DATE CREATED AUTHOR AUTHOR'S ORGANIZ ATION 09/01/2024 [facility] dical Specialists EPIC REASON FOR VISIT (unrecogniz ed section and content) Reason Comments Vaginitis/Bacterial Vaginosis Reason Comments Pre-op Visit Care Teams (unrecognized sec tion and content) Pipe Chipper Relationship Specialty Start Date End Date Ish [...] End: February 14, 2024 Maty Amaral , SECOND CLASS WELDER Attending Provider Active Start: February 14, 2024 End: February 14, 2024 Pipe Chipper Relationship Specialty Start Date End Date Ish Anderson DO [address] [place] [address] PCP - General Family Medicine 05/24/23 Pipe Chipper Relationship Specialty Start Date End Date Ish Anderson DO [address] [place] [address] PCP - General Family Medicine 05/24/23 Pipe Chipper Relationship Specialty Start Date End Date Ish Anderson DO [address] [place] [address] PCP - General Family Medicine 05/24/23 Pipe Chipper Relationship Specialty Start Date End Date Ish Anderson DO [address] [place] [address] PCP - General Family Medicine 05/24/23 Goals [...] BE BASED ON THE PRIMARY CLINICAL RECORDS. [facility]. provides no warranty or guarantee of the accuracy or completeness of information in this document.
[2024-09-08] MEDS: MAGNESIUM HYDROXIDE 2,400 MG/10 ML ORAL.SUSP 2400 MG PO (08:54)
[2024-09-08] MEDS: KETOROLAC TROMETHAMINE 30 MG/ML VIAL IVP ×3 (09:29→21:17)
[2024-09-08] MEDS: OXYCODONE HCL/ACETAMINOPHEN 5MG/325MG 1 TAB PO ×2 (09:29→15:18)
--- NOTE | 2024-09-08 11:24 | PM.GYNPN2 ---
RETAIL SHIFT SUPERVISOR - PN: Subj Post-Op Interval history: pt denies cp sob ct ambulating and tolerating diet well denies cp sob ct neg flatus neg bm Subjective: patient has no complaints, pain is well controlled and patient is tolerating oral intake Exam Constitutional Vital Signs, click to edit/add: Last Vital Signs Temp 98.8 F 09/08/24 07:39 Pulse 91 H 09/08/24 07:39 Resp 16 09/08/24 04:00 BP 101/61 09/08/24 07:39 Pulse Ox 95 09/08/24 07:39 O2 Del Method Room Air 09/08/24 07:39 Documenting provider has reviewed patient's vital signs: yes Common normals: no apparent distress Respiratory Common normals: normal respiratory effort and clear to auscultation bilaterally Cardio Common normals: regular rate and regular rhythm GI Common normals: Normal to inspection, nondistended, normoactive bowel sounds present Extremity Common normals: no calf tenderness Results Labs Labs: Short CBC 09/07/24 09/08/24 Range/Units 14:00 05:43 WBC 6.9 11.0 (4.0-11.0) 10^3/uL Hgb 13.0 10.7 L (12.0-16.0) g/dL Hct 39.8 33.4 L (36.0-48.0) % Plt Count 273 238 (150-450) 10^3/uL RETAIL SHIFT SUPERVISOR - A/P Postoperative Procedures: Procedures Operation Date: 09/07/24 12:30 Actual Procedure Side Surgeon p WALE,Cysto Not Applicable Kris Chan DO Postoperative day: 1 Postoperative status RETAIL SHIFT SUPERVISOR: doing well and other (will dc home once passing gas, precautions given, rx on chart, fu 1wk) Post-operative plan RETAIL SHIFT SUPERVISOR: routine post-op care Fall Risk Details Schmitt fall scale risk level: Low Fall Risk Current medications: Current Medications Docusate Sodium (Docusate Sodium 100 Mg Capsule) 100 mg PO BID PRN PRN Reason: Constipation Enoxaparin Sodium (Enoxaparin Sodium 40 Mg/0.4 Ml Syringe) 40 mg SUBQ Q24H [facility] Last Admin: 09/08/24 06:02 Dose: 40 mg Lactated Ringer's (Lactated Ringers) 1,000 mls @ 50 mls/hr IV .Q20H [facility] Last Admin: 09/08/24 02:14 Dose: Not Given Lactated Ringer's (Lactated Ringers) 1,000 mls @ 125 mls/hr IV .Q8H [facility] Last Infusion: 09/08/24 11:15 Dose: Infused Promethazine HCl 25 mg/ Sodium (Chloride) 51 mls @ 204 mls/hr IV Q6H PRN PRN Reason: Nausea And Vomiting Ibuprofen (Ibuprofen 400 Mg Tablet) 800 mg PO Q6H PRN PRN Reason: Pain Last Admin: 09/08/24 03:43 Dose: 800 mg Ketorolac Tromethamine (Ketorolac Tromethamine 30 Mg/Ml Vial) 30 mg IVP Q6H PRN PRN Reason: Pain Last Admin: 09/08/24 09:29 Dose: 30 mg Ondansetron HCl (Ondansetron Pf 4 Mg/2 Ml Vial) 4 mg IV Q6H PRN PRN Reason: Nausea Oxycodone/Acetaminophen (Oxycodone Hcl/Acetaminophen 5mg/325mg) 2 tab PO Q6H PRN PRN Reason: Pain Last Admin: 09/08/24 00:42 Dose: 2 tab Oxycodone/Acetaminophen (Oxycodone Hcl/Acetaminophen 5mg/325mg) 1 tab PO Q6H PRN PRN Reason: Pain Last Admin: 09/08/24 09:29 Dose: 1 tab Simethicone (Simethicone 80 Mg Tab.Chew) 80 mg PO PCHS PRN PRN Reason: Abdominal Distention Temazepam (Temazepam 15 Mg Capsule) 30 mg PO QHS PRN PRN Reason: Sleep Last Admin: 09/08/24 00:42 Dose: 30 mg Time Spent With Patient Time: Total time spent is greater than 50% in coordination of care (as documented) at patient's floor/unit and/or counseling patient: Time with patient: less than 15 minutes Urinary Catheter Management Urinary Catheter Management Urethral: Cath placed during this visit: yes, but has since been removed by the nurse Removal date: 09/08/24 Removal time: 09:09
--- NOTE | 2024-09-08 17:07 | PC.NURSE ---
Rx for percocet, zofran ,and Ibuprofen given to ...is taking them to [facility] now in case is discharged tonight
[2024-09-08] MEDS: ONDANSETRON PF 4 MG/2 ML VIAL IV (21:17)
[2024-09-08] MEDS: DOCUSATE SODIUM 100 MG CAPSULE PO (21:18)
[2024-09-09] MEDS: KETOROLAC TROMETHAMINE 30 MG/ML VIAL IVP (03:31)
[2024-09-09] MEDS: ONDANSETRON PF 4 MG/2 ML VIAL IV (03:32)
[2024-09-09 03:35] VITALS: BP 130/86; PULSE 84; TEMP 37; O2SAT 94
[2024-09-09 08:29] VITALS: BP 100/70; PULSE 76; TEMP 37.1; O2SAT 95
--- NOTE | 2024-09-09 09:54 | P.GYNPN_ITS ---
TANNING WHEEL FILLER - PN: Subj Non-OR Interval history: pt denies cp sob ct ambulating and tolerating diet well denies cp sob ct neg flatus neg bm Post-Op Interval history: pt denies cp sob ct ambulating and tolerating diet well denies cp sob ct neg flatus neg bm Subjective: patient reports feeling better, patient has no complaints, patient desires discharge, pain is well controlled and patient is tolerating oral intake (positive flatus, positive bm) Exam Constitutional Vital Signs, click to edit/add: Last Vital Signs Temp 98.8 F 09/09/24 08:29 Pulse 76 09/09/24 08:29 Resp 18 09/09/24 08:29 BP 100/70 09/09/24 08:29 Pulse Ox 95 09/09/24 08:29 O2 Del Method Room Air 09/09/24 08:29 Documenting provider has reviewed patient's vital signs: yes Common normals: no apparent distress Respiratory Common normals: normal respiratory effort and clear to auscultation bilaterally Cardio Common normals: regular rate and regular rhythm GI Common normals: Normal to inspection, nondistended, normoactive bowel sounds present Extremity Common normals: no calf tenderness TANNING WHEEL FILLER - A/P Postoperative Procedures: Procedures Operation Date: 09/07/24 12:30 Actual Procedure Side Surgeon p WALE,Sydnee Not Applicable Kris Chan DO Postoperative day: 2 Postoperative status TANNING WHEEL FILLER: doing well Post-operative plan TANNING WHEEL FILLER: routine post-op care and discharge Fall Risk Details Schmitt fall scale risk level: Low Fall Risk Current medications: Current Medications Docusate Sodium (Docusate Sodium 100 Mg Capsule) 100 mg PO BID PRN PRN Reason: Constipation Last Admin: 09/08/24 21:18 Dose: 100 mg Enoxaparin Sodium (Enoxaparin Sodium 40 Mg/0.4 Ml Syringe) 40 mg SUBQ Q24H [facility] Last Admin: 09/08/24 06:02 Dose: 40 mg Lactated Ringer's (Lactated Ringers) 1,000 mls @ 125 mls/hr IV .Q8H [facility] Last Admin: 09/09/24 03:12 Dose: Not Given Promethazine HCl 25 mg/ Sodium (Chloride) 51 mls @ 204 mls/hr IV Q6H PRN PRN Reason: Nausea And Vomiting Ibuprofen (Ibuprofen 400 Mg Tablet) 800 mg PO Q6H PRN PRN Reason: Pain Last Admin: 09/08/24 03:43 Dose: 800 mg Ketorolac Tromethamine (Ketorolac Tromethamine 30 Mg/Ml Vial) 30 mg IVP Q6H PRN PRN Reason: Pain Last Admin: 09/09/24 03:31 Dose: 30 mg Ondansetron HCl (Ondansetron Pf 4 Mg/2 Ml Vial) 4 mg IV Q6H PRN PRN Reason: Nausea Last Admin: 09/09/24 03:32 Dose: 4 mg Oxycodone/Acetaminophen (Oxycodone Hcl/Acetaminophen 5mg/325mg) 2 tab PO Q6H PRN PRN Reason: Pain Last Admin: 09/08/24 00:42 Dose: 2 tab Oxycodone/Acetaminophen (Oxycodone Hcl/Acetaminophen 5mg/325mg) 1 tab PO Q6H PRN PRN Reason: Pain Last Admin: 09/08/24 15:18 Dose: 1 tab Simethicone (Simethicone 80 Mg Tab.Chew) 80 mg PO PCHS PRN PRN Reason: Abdominal Distention Temazepam (Temazepam 15 Mg Capsule) 30 mg PO QHS PRN PRN Reason: Sleep Last Admin: 09/08/24 21:18 Dose: 30 mg Time Spent With Patient Time: Total time spent is greater than 50% in coordination of care (as documented) at patient's floor/unit and/or counseling patient: Time with patient: less than 15 minutes Urinary Catheter Management Urinary Catheter Management Urethral: Cath placed during this visit: yes, but has since been removed by the nurse Removal date: 09/08/24 Removal time: 09:09
[2024-09-09] MEDS: IBUPROFEN 400 MG TABLET 800 MG PO (10:11)
[2024-09-09] MEDS: ENOXAPARIN SODIUM 40 MG/0.4 ML SYRINGE SUBQ (10:12)
[2024-09-09] MEDS: OXYCODONE HCL/ACETAMINOPHEN 5MG/325MG 1 TAB PO (10:12)
[2024-09-09] MEDS: SIMETHICONE 80 MG TAB.CHEW PO (10:12)
[2024-09-09] MEDS: DOCUSATE SODIUM 100 MG CAPSULE PO (10:12)
--- NOTE | 2024-09-09 10:52 | DS_ITS ---
DISCHARGE DATE: ??09/09/2024 ? PRIMARY DIAGNOSES: 1.? Menorrhagia. 2.? Dysmenorrhea. 3.? Failed ablation. 4.? Dyspareunia. ? PROCEDURE:? Total abdominal hysterectomy with cystoscopy. ? HOSPITAL COURSE: ?As expected.? Please see chart for full details.? ? LABORATORY DATA:? Please see chart. ? COMPLICATIONS:? None. ? DISCHARGE CONDITION:? Stable. ? CONSULTATION:? Anesthesia. ? DISCHARGE INSTRUCTIONS: 1.? Diet:? Regular. 2.? Medications: a.? Percocet 5/325 one to two p.o. every 4-6 hours p.r.n. pain. b.? Motrin 800 one p.o. every 8 hours p.r.n. pain. 3.? Followup in one week.Restrictions:? Pelvic rest for 6 weeks.? No heavy lifting.? May drive when pain free and no longer on narcotics. MTDD
== END 2024-09-09 10:52 | disposition home or self-care (01) | DRG 743 ==
LOC: MS 09-08 06:33
PROVIDERS: Admitting Provider Obstetrics & Gynecology; PCP Family Medicine; Visit Provider Obstetrics & Gynecology
PROC: 0UT90ZZ Resection of Uterus, Open Approach (ICD-10-PCS; principal; 2024-09-07 12:30)
DX: N92.0 Excessive and frequent menstruation with regular cycle (principal); N94.6 Dysmenorrhea, unspecified; N94.10 Unspecified dyspareunia; Z87.891 Personal history of nicotine dependence; R10.2 Pelvic and perineal pain; Z98.890 Other specified postprocedural states
CPT/HCPCS: 36415; 84702; 85025; 88307; 94667; 94668; J0690; J1100; J1171; J1650; J1885; J2250; J2405; J2704; J3010

== ENCOUNTER 2024-09-12 09:58 | Outpatient (OUT) | payer OTHER, SELFPAY ==
--- NOTE | 2024-09-12 10:00 | MM_ITS ---
Patient Name: JENNIFER KENDALL MR#: [id number] : 1980 Exam Date: 09/12/2024 Ordering Doctor: Ish Anderson RADIOLOGY REPORT PROCEDURE: MM TOMOSYNTHESIS SCREENING BI COMPARISON: MG MAMM SCREEN 3D OTONIEL CAD, 12/02/2022. INDICATIONS: Screening Calculator Name NCI Breast Cancer Risk Assessment Tool 5 Year Breast Cancer Risk 0.70% Lifetime Breast Cancer Risk 10.90% Personal Breast Cancer No Personal Ovarian Cancer No Treatments None Family Cancers None LOCATION: [facility] BREAST COMPOSITION: There are scattered areas of fibroglandular density. FINDINGS: DIAGNOSTIC CATEGORY 2--BENIGN FINDING. NO CHANGE FROM COMPARISON. Scattered benign-appearing calcifications are present. Scattered benign-appearing lymph nodes are present. RIGHT BREAST: No significant suspicious finding. LEFT BREAST: No significant suspicious finding. RECOMMENDATIONS: ROUTINE MAMMOGRAM AND CLINICAL EVALUATION IN 12 MONTHS. PLEASE NOTE: A NORMAL MAMMOGRAM DOES NOT EXCLUDE THE POSSIBILITY OF BREAST CANCER. A CLINICALLY SUSPICIOUS PALPABLE LUMP SHOULD BE BIOPSIED. Dictated by: Zaheer Velez MD on 09/13/2024 at 08:17 Approved by: Zaheer Velez MD on 09/13/2024 at 08:18
--- OUTSIDE RECORDS SUMMARY | 2024-09-12 10:11 | XMS_ITS | CCD ---
Author Organization [facility] Team Providers Care Gastroenterologist Name Role Phone LENKA, CHANEL R Unavailable Unavailable LENKA, CHANEL R Unavailable Unavailable LENKA, CHANEL R Unavailable Unavailable LENKA, CHANEL R Unavailable Unavailable Dk Cummins Primary Care Provider Amina Del iRo Unavailable GANGA ., DR DEAN Admitting Unavailabl [...] e ZIEBFLORA, DR ASHVIN Pak Consulting Unavailable Napoleon DO Ish L Primary Care Provider DO Justin Ish L Primary Care Provider CHENG Amaral Attending Provider Napoleonjess CRUZ Ish L Primary Care Provider SERGE CHAN Attending Unavailable CUTLER, ISH L Attending Unavailable ROCIO, SERGE Attending Unavailable CUTLER, ISH L Attending Unavailable ROCIO, SERGE Attending Unavailable CUTLER, ISH L Attending Unavailable CHANDANA MACK Attending Unavailable ROCIO, SERGE Attending Unavailable CUTLER, ISH L Attending Unavailable CUTLER, ISH L Referring Unavailable Napoleon DO Ish L Primary Care Provider [phone] Serge Chan DO Attending Provider Serge Chan Admitting Unavailable Ish Anderson Primary Care Unavailable Serge Chan Attending Unavailable Maty Amaral Attending Unavailable Maty Amaral Admitting Unavailable Ish Anderson Primary Care Unavailable Medications Current Medications Medication Drug Class(es) [...] / nitrofurantoin, monohydrate 75 mg oral capsule (2 sources) Nitrofuran Antibacterial Start: 02-14-2024 take 1 capsule by mouth every twelve hours at mealtime Nitrofurantoin Monohyd/M-Cryst (Macrobid) 100 mg capsule Active 100 MG PO Every 12 hours 10 5 February 13, 2024 11:00pm must administer with a meal/food topiramate 50 mg oral tablet (8 sources) Start: 02-14-2024 topiramate 50 MG tablet Indications: Class 1 [...] (Original) phentermine hydrochloride 37.5 mg oral tablet (16 sources) Sympathomimetic Amine Anorectic Start: 02-14-2024 End: 08-31-2024 take 33-33.9 tablets by mouth [...] / N39.0(ICD-10) Onset: 09-13-2017 Urinary tract infections (3 sources) Acute urinary tract infection; Translations: [Urinary [...] WITH AUTO DIFFon BASOPHILS ABSOLUTE AUTO 0 [facility] Basophils/100 WBC (Bld) 0.8 % 0.2 - 2.0 % [facility] Eosinophils/100 WBC (Bld) 2 % 0.9 - 7.0 % [facility] Erythrocyte distribution width (RBC) [Ratio] 13 % 11.0 - 15.0 % [facility] Hematocrit (Bld) [Volume fraction] 42.6 % 36.0 - 48.0 % [facility] (Bld) [Mass/Vol] 13.7 g/dL 12.0 - 16.0 g/dL [facility] IMMATURE GRANULOCYTES ABS AUTO 0.01 [facility] Immature granulocytes/100 WBC (Bld) 0.2 % 0.0 - 0.5 % [facility] Interpretation and review of laboratory results Abnormal [facility] LYMPHOCYTES ABSOLUTE AUTO 2 [facility] Lymphocytes/100 WBC (Bld) 38.1 % 20.5 - 60.0 % [facility] MCH (RBC) [Entitic mass] 31.2 pg 26.7 - 34.0 pg [facility] MCHC (RBC) [Mass/Vol] 32.2 g/dL 29.9 - 35.2 g/dL [facility] MCV (RBC) [Entitic vol] 97 fL 81.0 - 99.0 fL [facility] MONOCYTES ABSOLUTE AUTO 0.4 [facility] Monocytes/100 WBC (Bld) 7.4 % 1.7 - 12.0 % [facility] NEUTROPHILS ABSOLUTE AUTO 2.6 [facility] Neutrophils/100 WBC (Bld) 51.5 % 43.0 - 75.0 % [facility] Platelet mean volume (Bld) [Entitic vol] 9.4 fL Low 9.5 - 13.5 fL [facility] EO # [facility].1 [facility] PLT 268 [facility] RBC 4.39 [facility] WBC 5.1 [facility] Urine Cultureon 02-14-2024 Bacteria identified Cx Nom (U) 50,000 colonies/ml mixed bacterial skin contaminants 2 Days PERFORMED BY: [place] [address] PATHOLOGIST RN NEW GRADUATE ELROY MANDUJANO M.D. Normal [facility] Comment on above: Performed By: #### C UU #### [address] Quick Strepon 03-23-2023 S. pyogenes Org specific cx Ql (Throat) Negative [employer] Other Quick Strep [employer] Other Urinalysis - AUTOMATEDon Appearance (U) clouy [employer] Other Bilirubin Ql (U) Negative Mo[employer] Other Color (U) yellow [employer] Other Glucose Ql (U) Negative [employer] Other Hemoglobin Ql (U) Negative [employer] Other Ketones Ql (U) Negative [employer] Other Leukocyte esterase Test strip Ql (U) trace [employer] Other Nitrite Ql (U) Negative [employer] Other pH (U) 5.5 [pH] [employer] Other Protein Ql (U) Negative [employer] Other Specific gravity (U) [Rel density] 1.020 [employer] [facility] [employer] Other Urobilinogen (U) [Mass/Vol] 0.2 mg/dL [employer] Other Urinalysis - AUTOMATED [employer] [facility] [employer] Other VAGINITIS/VAGINOSIS DNA PROB Allan 01-10-2023 Krystin species Negative Normal Negative [facility] Comment on above: Performed By: #### V AGINT #### [facility] [address] [place] [address] Dr. Richard George Gardnerella vaginalis Negative Normal Negative [facility] Comment on above: Performed By: #### V AGINT #### [facility] [address] [place] [address] Dr. Richard George Trichomonas vaginalis Negative Normal Negative [facility] Comment on above: Performed By: #### V AGINT #### [facility] [address] [place] [address] Dr. Richard George MG MAMM SCREEN 3D OTONIEL CADon 12-02-2022 MG MAMM SCREEN 3D OTONIEL CAD Patient: CHANEL KENDALL Exam Date: 12/02/2022 : 1980 Gender:F Ordering : DR JERMAINE SCHULER . Admission #: [id number] Family : Order #: [id number] CLICK HERE TO VIEW EXAM RADIOLOGY REPORT PROCEDURE: MAMMOGRAM SCREENING 3D BILATERAL CAD COMPARISON: None. INDICATIONS: Screening mammography Calculator Name NCI Breast Cancer Risk Assessment Tool 5 Year Breast Cancer Risk 0.60% Lifetime Breast Cancer Risk 11.10% Personal Breast Cancer No Personal Ovarian Cancer No Treatments None Family Cancers None LOCATION: [facility] BREAST COMPOSITION: Scattered areas fibroglandular density. [...] Breaux M.D. on 12/03/2022 at 09:41 Normal [facility] PAP ACOG PANEL 2: 30 to 65on 05-29-2022 . . Normal [facility] Comment on above: Result Comment: Perf ormed at: WB Performed By: #### [id number] #### [facility] [address] [place] [address] Dr. Richard George Age Gdln ACOG Testing 30-65 Normal [facility] Comment on above: Performed By: #### 4 [id number] #### [facility] [address] [place] [address] Dr. Richard George DIAGNOSIS: Comment Normal [facility] Comment on above: Result Comment: NEGA TIVE FOR INTRAEPITHELIAL LESION OR MALIGNANCY. Performed at: WB Performed By: #### 4 [id number] #### [facility] [address] [place] [address] Dr. Richard George HPV Aptima Negative Normal [facility] Comment on above: Result Comment: This nucleic acid amplification test detects fourteen high-risk HPV types (16,18,31,33,35,39,45,51,52,56,58,59,66,68) without differentiation. Performed at: =G Performed By: #### 4 [id number] #### [facility] [address] [place] [address] Dr. Richard George Methodology: Comment Normal [facility] Comment on above: Result Comment: This liquid based ThinPrep(R) pap test was screened with the use of an image guided system. Performed at: WB Performed By: #### 4 [id number] #### [facility] [address] [place] [address] Dr. Richard George Note: Comment Normal [facility] Comment on above: Result Comment: The Pap smear is a screening test designed to aid in the detection of premalignant and malignant conditions of the uterine cervix. It is not a diagnostic procedure and should not be used as the sole means of detecting cervical cancer. Both false-positive and false-negative reports do occur. . Performed at: WB Performed By: #### [id number] #### [facility] [address] [place] [address] Dr. Richard George Performed by: Comment Normal [facility] Comment on above: Result Comment: [employer] Operations Manager (ASCP) Performed at: WB Performed By: #### 4 [id number] #### [facility] [address] [place] [address] Dr. Richard George Specimen adequacy: Comment Normal [facility] Comment on above: Result Comment: Sati sfactory for evaluation. Endocervical and/or squamous metaplastic cells (endocervical component) are present. Performed at: WB Performed By: #### 4 [id number] #### [facility] [address] [place] [address] Dr. Richard George VAGINITIS/VAGINOSIS DNA PROB Allan 05-27-2022 Krystin species Negative Normal Negative [facility] Comment on above: Performed By: #### V AGINT #### [facility] [address] [place] [address] Dr. iRchard George Gardnerella vaginalis Positive Abnormal Negative [facility] Comment on above: Performed By: #### V AGINT #### [facility] [address] [place] [address] Dr. Richard George Trichomonas vaginalis Negative Normal Negative [facility] Comment on above: Performed By: #### V AGINT #### [facility] [address] [place] [address] Dr. Richard George Q - T4,TOTALon 10-28-2021 T4 [Mass/Vol] 6.3 ug/dL Normal 5.1-11.9 [facility] [employer] Comment on above: Order Comment: [facility] Testing performed at: QPT, [facility], [address], [address] [place] [address], [place], [address], Climatologist: Hema Dumont MD [facility] Collection Date/Time: [id number] [facility] Results Received Date/Time: [facility] Reported Date/Time: Performed By: #### 3 [id number], TSH reflex FT4 #### [facility] [address] [place] [address] TSH w/ Reflex to Free T4on 0 10-28-2021 TSH W/REFLEX TO FT4 0.84 mIU/L Normal [facility] [employer] Comment on above: Order Comment: [facility] Testing performed at: [facility], [facility], [address], [address] [place], [address], Climatologist: Hema Dumont MD [facility] Collection Date/Time: [id number] [facility] Results Received Date/Time: [facility] Reported Date/Time: Result Comment: Refe rence Range > or = 20 Years 0.40-4.50 Ranges First trimester 0.26-2.66 Second trimester 0.55-2.73 Third trimester 0.43-2.91 Performed By: #### 3 0262E, TSH reflex FT4 #### [facility] [address] [place] [address] CULTURE-URINEon 09-06-2017 CULTURE-URINE PATIENT: CHANEL KENDALL LOCATION: [facility]#: [id number] : 1980 AGE: 37 SEX: F ORDER# [id number] ORDERED BY: CHANEL OG Source: URI Collected: 09/06/17 08:50 Site: [facility] Received : 09/06/17 18:36CULTURE-URINE FINAL 09/08/17 06: NO GROWTH AFTER 35 HOURS Normal [facility] Comment on above: Performed By: #### C URIN ####[address] [address] Vital Signs Date Time Vital Sign Value Performing Clinician Facility 08-30-2024 16:36-0500 Body height 167.6 cm Ish Nuxeo DO Work Phone: [facility] 08-30-2024 16:36-0500 Body mass index (BMI) [Ratio] 30.8 kg/m2 Ish Napoleon DO Work Phone: [facility] 08-30-2024 16:36-0500 Body temperature 97.9 [degF] Ish Napoleon DO Work Phone: [facility] 08-30-2024 16:36-0500 Body weight 86.55 kg Ish Napoleon DO Work Phone: [facility] 08-30-2024 16:36-0500 Diastolic blood pressure 82 mm[Hg] Ish Napoleon DO Work Phone: [facility] 08-30-2024 16:36-0500 Heart rate 92 /min Ish Napoleon DO Work Phone: [facility] 08-30-2024 16:36-0500 SaO2% (BldA) [Mass fraction] 100 % Ish Napoleon DO Work Phone: [facility] 08-30-2024 16:36-0500 Systolic blood pressure 124 mm[Hg] Ish Napoleon DO Work Phone: [facility] 08-09-2024 16:03-0400 Body mass index (BMI) [Ratio] 30.99 kg/m2 Serge Rocio DO Work Phone: [facility] 08-09-2024 16:03-0400 Body weight 87.09 kg Serge Rocio DO Work Phone: [facility] 08-09-2024 16:03-0400 Diastolic blood pressure 70 mm[Hg] Serge Rocio DO Work Phone: [facility] 08-09-2024 16:03-0400 Systolic blood pressure 120 mm[Hg] Serge Rocio DO Work Phone: [facility] 02-14-2024 17:01-0400 Body height 167.64 cm [facility] 02-14-2024 17:01-0400 Body mass index (BMI) [Ratio] 31.4 kg/m2 [facility] 02-14-2024 17:01-0400 Body temperature 97.5 [degF] [facility] 02-14-2024 17:010400 Body weight 88.45 kg [facility] 02-14-2024 17:01-0400 Diastolic blood pressure 91 mm[Hg] [facility] 02-14-2024 17:01-0400 Heart rate 81 /min [facility] 02-14-2024 17:01-0400 Respiratory rate 16 /min [facility] 02-14-2024 17:01-0400 SaO2% (BldA) [Mass fraction] 99 % [facility] 02-14-2024 17:01-0400 Systolic blood pressure 133 mm[Hg] [facility] 03-23-2023 17:25-0400 Body height 167.64 cm Amina Del Rio Other [facility] [employer] Other 03-23-2023 17:25-0400 Body mass index (BMI) [Ratio] 33.6 kg/m2 Amina Del Rio Other [employer] Other 03-23-2023 17:25-0400 Body temperature 98 [degF] Amina Del Rio Other [employer] Other 03-23-2023 17:25-0400 Body weight 94.44 kg Amina Del Rio Other [employer] Other 03-23-2023 17:25-0400 Respiratory rate 18 /min Amina Del Rio Other [employer] Other 03-23-2023 17:25-0400 SaO2% (BldA) [Mass fraction] 97 % Amina Del Rio Other [employer] Other 01-14-2023 15:35-0400 Body height 167.64 cm Amina Del Rio Other [employer] Other 01-14-2023 15:35-0400 Body mass index (BMI) [Ratio] 35.44 kg/m2 Amina Del Rio Other [employer] Other 01-14-2023 15:35-0400 Body temperature 97.8 [degF] Amina Del Rio Other [employer] Other 01-14-2023 15:35-0400 Body weight 99.61 kg Amina Del Rio Other [employer] Other 01-14-2023 15:35-0400 Diastolic blood pressure 62 mm[Hg] Amina Del Rio Other [employer] Other 01-14-2023 15:35-0400 SaO2% (BldA) [Mass fraction] 99 % Amina Del Rio Other [employer] Other 01-14-2023 15:35-0400 Systolic blood pressure 112 mm[Hg] Amina Del Rio Other [employer] Other 05-21-2022 14:55-0400 Body height 167.64 cm Amina Del Rio Other [employer] Other 05-21-2022 14:55-0400 Body mass index (BMI) [Ratio] 38.25 kg/m2 Amina Del Rio Other [employer] Other 05-21-2022 14:55-0400 Body temperature 97.7 [degF] Amina Del Rio Other [employer] Other 05-21-2022 14:55-0400 Body weight 107.5 kg Amina Del Rio Other [employer] Other 05-21-2022 14:55-0400 Diastolic blood pressure 54 mm[Hg] Amina Del Rio Other [employer] Other 05-21-2022 14:55-0400 Respiratory rate 18 /min Amina Del Rio Other [employer] Other 05-21-2022 14:55-0400 SaO2% (BldA) [Mass fraction] 99 % Amina Del Rio Other [employer] Other 05-21-2022 14:55-0400 Systolic blood pressure 109 mm[Hg] Amina Del Rio Other [employer] Other Encounters Encounter Date Encounter Type Care Provider Facility Start: 09-07-2024 End: 09-07-2024 ambulatory Ish L Napoleon DO Work Phone: [facility] Work Phone: Start: 09-07-2024 End: 09-07-2024 Departed Referred Ish Napoleon DO Work Phone: [facility] Start: 08-30-2024 End: 08-30-2024 Office outpatient visit 15 minutes Ish L Napoleon DO Work Phone: [facility] Comment on above: Otalgia of right ear (Primary Dx); Class 1 obesity due to excess calories without serious comorbidity with body mass index (BMI) of 33.0 to 33.9 in adult Start: 08-30-2024 End: 08-30-2024 ambulatory ISH L CUTLER Not Available Start: 08-30-2024 End: 08-30-2024 Bamboo flowsheet Ish L Napoleon DO Work Phone: [facility] Start: 08-30-2024 End: 08-30-2024 Bamboo flowsheet Ish L Napoleon DO Work Phone: [facility] Start: 08-25-2024 End: 08-25-2024 Clinisync [...] examination done Serge Rocio DO Work Phone: [facility] Start: 06-07-2024 End: 06-07-2024 ambulatory ISH L CUTLER Not Available Start: 03-22-2024 End: 03-22-2024 ambulatory SERGE ROCIO Not Available Start: 03-07-2024 End: 03-07-2024 ambulatory ISH L CUTLER Not Available Start: 02-14-2024 End: 02-14-2024 Departed Referred DO Ish Napoleon Work Phone: [facility] [place] Work Phone: Start: 02-14-2024 End: 02-14-2024 ambulatory DO Ish L Napoleon Work Phone: [facility] Work Phone: Start: 02-14-2024 End: 02-14-2024 Patient encounter procedure [facility] Work Phone: Start: 01-05-2024 End: 01-05-2024 ambulatory SERGE ROCIO Not Available Start: 12-08-2023 End: 12-08-2023 ambulatory ISH L CUTLER Not Available Start: 11-30-2023 End: 11-30-2023 Phys/qhp telephone evaluation 5-10 min Serge Rocio DO Work Phone: [facility] Comment on above: Vaginal discharge; Yeast infection Start: 11-08-2023 End: 11-08-2023 ambulatory SERGEMart LOPESO Not Available Start: 09-06-2023 End: 09-06-2023 ambulatory CHANDANA MACK Not Available Start: 03-23-2023 End: 03-23-2023 ambulatory Amina Del Rio Other [employer] Other Start: 03-23-2023 Office outpatient vi sit 15 minutes Amina Del Rio [facility] Start: 01-14-2023 End: 01-14-2023 ambulatory Amina Del Rio Other [employer] Other Start: 01-14-2023 Office outpatient vi sit 15 minutes Amina Quang [facility] Start: 01-08-2023 End: 01-08-[address] JERMAINE SCHULER . Facility:[facility] Start: 12-01-2022 End: 12-02-[address] JERMAINE SCHULER . Facility:[facility] Start: 05-25-2022 End: 05-25-[address] JERMAINE SCHULER . Facility:[facility] Start: 05-21-2022 End: 05-21-2022 ambulatory Amina Del Rio Other [employer] Other Start: 05-21-2022 Office outpatient ne w 20 minutes Amina Del Rio [facility] Start: 12-07-2018 End: 12-07-2018 Letter encounter Dk SELF [employer] TEAM Start: 09-06-2017 End: 09-07-2017 Ambulatory CHANEL OG Facility: Procedures Date Procedure Procedure Detail Performing Clinician Start: 08-25-2024 ALL CBC WITH AUTO DIFF Serge Rocio DO Work Phone: Start: 06-21-2023 Microscopic observat ion [Identifier] in Cervix by Cyto stain Serge Rocio DO Work Phone: Start: 12-02-2022 Mammography Serge Fazi o DO Work Phone: Start: 05-27-2022 Microscopic observat ion [Identifier] in Cervix by Cyto stain Serge Chan DO Work Phone: Plan of Treatment Date Care Activity Detail Author Start: 06-21-2028 Screening for malign ant neoplasm of cervix [facility] Start: 05-27-2027 Screening for malign ant neoplasm of cervix [facility] Start: 12-27-2024 End: 12-27-2024 Patient encounter procedure 12/27/2024 5:00 PM EST Office Visit [facility] [address] [place] [address] NapoleonIsh mercado L, DO [address] [place] [address] [facility] Start: 08-30-2024 End: 08-30-2024 Patient encounter procedure [facility] 230 Comment on above: Arrived Start: 06-25-2024 Influenza vaccination Influenza Vacc ine (#1) [facility] Start: 02-14-2024 Bacteria identified in Urine by Culture [facility] Start: 12-08-2023 End: 12-08-2023 Patient encounter procedure 12/08/2023 4:40 PM EST Office Visit [facility] [address] [place] [address] Tee Andersonothy L, DO [address] [place] [address] [facility] 230 Start: 12-02-2023 Screening for malign ant neoplasm of breast Mammogram [facility] Start: 06-25-2023 Influenza vaccination Influenza Vacc ine (#1) [facility] Start: 06-25-2018 Influenza vaccination INFLUENZA VACC INE (#1) [facility] Start: 2003 Screening for malign ant neoplasm of cervix PAP SMEAR DISCUSSION [facility] Start: 2001 Third diphtheria, tetanus and acellular pertussis (DTaP) vaccination TDAP (ADULT) [facility] Start: 2000 Tetanus vaccination TETANUS [facility] Start: 1995 HIV screening HIV SCREENING DISCUSSION [facility] Payers Date Payer Category Payer Self-pay [id number] 2019 Private Health Insurance [id number] 2014 Unknown SHELBY MONROY xxxxxxxxxxx 2014-Present xxxxxxxxxxx [id number] 1980 Unknown [id number] [id number] .593 1980 Unknown [id number] 2..[id number] .593 1980 Unknown [id number] 2..840.1.666497.3.579.2 .593 1980 Unknown [id number] 2.16.840.1.115757.3.579.2 .1259 1980 Unknown [id number] 2.16.840.1.725820.3.579.2 .1259 1980 Unknown [id number] 2.16.840.1.427193.3.579.2 .1259 1980 Unknown [id number] 2.16.840.1.546912.3.579.2 .1259 1980 Unknown [id number] 2.16.840.1.335674.3.579.2 .1259 1980 Unknown [id number] 2.16.840.1.621537.3.579.2 .1259 1980 Unknown [id number] 2.16.840.1.120680.3.579.2 .1259 1980 Unknown [id number] 2.16.840.1.138046.3.579.2 .1259 1982 Unknown [id number] 2.16.840.1.336048.3.579.2 .1259 1957 [facility] AMILCAR [id number] 1957 Private Health Insurance [id number] Unknown HCAP/HFA/FAP Active [id number] Unknown [id number] [id number] .531 Unknown [id number] [id number] .531 Social History Date Type Detail Facility Start: 06-25-2015 Tobacco smoking status [facility] Current every day smoker [facility] Start: 2000 End: 08-20-2013 History of tobacco use Cigarette Smoker [facility] Start: 06-25-2015 End: 06-29-2023 Cigarettes smoked current (pack per day) - Reported [facility] Start: 04-02-2015 Tobacco Comment Uses Vuse smokeless tobacco on occasion. [facility] Start: 1980 Sex Assigned At Not on file [facility] Start: 06-29-2023 End: 12-08-2023 Sex Assigned At [facility] Start: 08-31-2023 End: 02-14-2024 Tobacco smoking status [facility] Ex-smoker [facility] Start: 2000 End: 08-20-2013 History of [...] to any clubs or organizations such as islam groups, unions, fraternal or athletic groups, or [...] time - these days [OSQ] Rather much [facility] (I/We) worried wheth er (my/our) food would run out before (I/we) got money to buy more. Never true [facility] Start: 06-14-2023 Alcohol Comment Caffeine: 1-2 cups/day [facility] Start: 01-06-2023 Gender identity Identifies as female gender (finding) [facility] Start: 1980 Sex Assigned At Female [facility] Start: 09-09-2024 Sex Female (finding) [facility] Clinical Notes 05-21-2022 to 08-30-2024 Ish Anderson, - 08/30/2024 4:20 PM Vazquez Garcia - 08/09/2024 3:50 PM Chung Elliott LPN - 11/30/2023 3:10 PM EST Note Date & Type Note Facility 08-30-2024 History of Presen t illness Narrative Images from the original note were not included. [facility] REHANA Nieto SUBJECTIVE: HPI: Chanel Kendall is [...] AUTO 0.01 0.00 - 0.03 10 3/uL [facility] LIVER PANEL Collection Time: 08/25/24 11:40 AM [...] CREATININE 1.10 (H) 0.55 - 1.02 mg/dL TB EGFR-AF [place]IZ[place] >60 >=60 mL/min/1.73m 2 TBH EGFR-NON AF [place]IZ[place] 54 (L) >=60 mL/min/1.73m 2 BUN CREATININE RATIO 12.7 CALCIUM 8.6 8.5 - 10.1 mg/dL [facility] PROTHROMBIN TIME INR W/O COUM Collection Time: 08/25/24 11:40 AM Result Value Ref Range PROTHROMBIN TIME 10.4 9.0 - 11.6 sec [facility] INR 0.98 [facility] APTT Collection Time: 08/25/24 [...] Past Medical History: Diagnosis Date Allergic rhinitis 1990 Amenorrhea BMI 37.0-37.9, adult Body mass index (BMI) of 40.1 to 44.9 in adult ([facility]) Breast cancer screening by mammogram 12/02/2022 neg Dyspareunia in female Frequency of urination Insulin resistance Major depressive disorder with single episode, in full remission ([facility]) Menstrual cramp Mixed hyperlipidemia ([facility]) Obesity (BMI 30-39.9) Other obesity due to excess calories Pneumonia Reactive depression ([facility]) documented in this encounter [facility] 08-09-2024 History of Presen t illness Narrative Reason for Appointment: Patient ID: Chanel Kendall is a 44 y.o. female who presents for Pre-op Visit Patient presents today for Pre Op appointment. Patient is scheduled to undergo Da Dustin assisted Laparoscopic Hysterectomy, possible exploratory laparotomy, possible BSO, possible cystoscopy on 09/07/[address] [facility]. MEDICATIONS Current Outpatient Medications Medication Instructions phentermine (ADIPEX-P) 37.5 mg, Oral, Daily before breakfast topiramate 50 mg, Oral, Daily ALLERGIES No Known Allergies PROBLEMS Active Ambulatory Problems Diagnosis Date Noted Major depressive disorder with single episode, in full remission ([facility]) 05/26/2023 Menstrual cramp 05/26/2023 Mixed hyperlipidemia ([facility]) 05/26/2023 Obesity (BMI 30-39.9) 05/26/2023 Strabismus 05/27/2023 Resolved Ambulatory Problems Diagnosis Date Noted Amenorrhea 05/26/2023 Frequency of urination 05/26/2023 Insulin resistance 05/26/2023 Other obesity due to excess calories 05/26/2023 Pain in female genitalia on intercourse 05/26/2023 Reactive depression ([facility]) 05/26/2023 Body mass index 40.0-44.9, adult ([facility]) 01/18/2019 Past Medical History: Diagnosis Date Allergic rhinitis 1989 BMI 37.0-37.9, adult Body mass index (BMI) of 40.1 to 44.9 in adult ([facility]) Breast cancer screening by mammogram 12/02/2022 Dyspareunia in female Pneumonia HISTORY PAST MEDICAL HISTORY SOCIAL HISTORY Past Medical History: Diagnosis Date Allergic rhinitis 1989 Amenorrhea BMI 37.0-37.9, adult Body mass index (BMI) of 40.1 to 44.9 in adult ([facility]) Breast cancer screening by mammogram 12/02/2022 neg Dyspareunia in female Frequency of urination Insulin resistance Major depressive disorder with single episode, in full remission ([facility]) Menstrual cramp Mixed hyperlipidemia ([facility]) Obesity (BMI 30-39.9) Other obesity due to excess calories Pneumonia Reactive depression ([facility]) Social History Tobacco Use Smoking [...] Sister Ericka Del Toro Asthma Son Jaspal [place] Heart disease Paternal Grandfather Brandon Del Toro [...] nursing note reviewed. Exam conducted with a insurance salesperson present. Vitals: Estimated body mass index is [...] reviewed, and patient is to proceed to [facility]. Follow Up: Patient is to follow up at 1 & 6 weeks post operative to assess proper healing and recovery from procedure. Documented by Marcy Elliott LPN on behalf of: Serge Chan DO documented in this encounter [facility] 11-30-2023 History of Presen t illness Narrative Reason for Appointment: Patient ID: Chanel Kendall is a 43 y.o. female who presents for Vaginitis/Bacterial Vaginosis Patient presents today via telephone call for a telehealth appointment. Patients Phone #: [phone] (mobile) Current Medications: has a current medication list which includes the following prescription(s): azithromycin, biotin, cetirizine, and phentermine. Medical History: Active Ambulatory Problems Diagnosis Date Noted Amenorrhea 05/26/2023 Frequency of urination 05/26/2023 Insulin resistance 05/26/2023 Major depressive disorder with single episode, in full remission ([facility]) 05/26/2023 Menstrual cramp 05/26/2023 Mixed hyperlipidemia ([facility]) 05/26/2023 Obesity (BMI 30-39.9) 05/26/2023 Other obesity due to excess calories 05/26/2023 Pain in female genitalia on intercourse 05/26/2023 Reactive depression ([facility]) 05/26/2023 Strabismus 05/27/2023 Body mass index 40.0-44.9, adult ([facility]) 01/18/2019 Resolved Ambulatory Problems Diagnosis Date Noted No Resolved Ambulatory Problems Past Medical History: Diagnosis Date Allergic rhinitis 1989 BMI 37.0-37.9, adult Body mass index (BMI) of 40.1 to 44.9 in adult ([facility]) Breast cancer screening by mammogram 12/02/2022 Dyspareunia in female Pneumonia Family History Problem Relation Name Age of Onset Diabetes Mother Helene Del Toro No Known Problems Father Diabetes Sister Ericka Del Toro Asthma Sister Ericka Del Toro Asthma Son Jaspal [place] Heart disease Paternal Grandfather Brandon Del Toro [...] Serge Chan DO documented in this encounter [facility] 03-23-2023 Evaluation note Encounter Date Diagnosis [...] 7 days, sooner if significantly worsening symptoms. [employer] Other 03-23-2023 Evaluation note* Encounter Date Diagnosis [...] symptoms persist follow up with PCP or [employer]. Immediate eval by ER if back or flank pain, fever, chills, N/V, or any other concerning symptoms arise. Patient verbalizes understanding and is agreeable to treatment plan [employer] Other 07-28-2022 Evaluation note* Encounter Date Diagnosis [...] understanding and is agreeable to treatment plan [employer] Other Evaluation note* Diagnosis Vaginal discharge Leukorrhea, not specified as infective Yeast infection documented in this encounter [facility] HealthcareEvaluation noteNo assessment information [facility] Work Phone: evaluation note* Diagnosis Onset Date Resolution Status Acute UTI (urinary tract infection) acute Frequency of urination nonea [facility] Work Phone: Evaluation note* Diagnosis Pre-op examination Menorrhagia with regular cycle Pelvic pain in female Unspecified symptom associated with female genital organs Dyspareunia in female Dysmenorrhea documented in this encounter [facility] HealthcareEvaluation note* Diagnosis Otalgia of right ear- Primary Class 1 obesity due to excess calories without serious comorbidity with body mass index (BMI) of 33.0 to 33.9 in adult documented in this encounter [facility] Healthcare Summary Purpose Family History No Family History Records Found Relationship Condition Age at Onset Recorded Date/T alyse brother Unknown sister Unknown Advance Directives No Advanced Directives Records Found Advance Directive Response Recorded Date/ Time Advance Directives No August 02, 2018 11:08am Advance Directive Response Recorded Date/ Time Advance Directives No August 02, 2018 10:08am Chief Complaint and Reason for Visit Chief Complaint Dysuria Chief Complaint Dysuria Reason for Visit Acute UTI (urinary t ract infection) Frequency of urination Chief Complaint Admit Date Unknown September 07, 2024 5:18pm Additional Source Comments INFORMATION SOURCE (unrecogn ized section and content) DATE CREATED AUTHOR 04/19/2018 [facility] DATE CREATED AUTHOR AUTHOR'S ORGANIZ ATION 10/31/2021 [facility] DATE CREATED AUTHOR AUTHOR'S ORGANIZ ATION 01/17/2023 [facility] DATE CREATED AUTHOR AUTHOR'S ORGANIZ ATION 09/01/2024 [facility] EPIC DATE CREATED AUTHOR AUTHOR'S ORGANIZ ATION 09/11/2024 [facility] REASON FOR VISIT (unrecogniz ed section and content) Reason Comments Vaginitis/Bacterial Vaginosis Reason Comments Pre-op Visit Care Teams (unrecognized sec tion and content) Gastroenterologist Relationship Specialty Start Date End Date NapoleonIsh mercadoDO PCP - General Family Medicine 05/24/23 Team [...] February 14, 2024 End: February 14, 2024 Gastroenterologist Relationship Specialty Start Date End Date NapoleonIsh mercadoDO [address] [place] [address] PCP - General Family Medicine 05/24/23 Gastroenterologist Relationship Specialty Start Date End Date NapoleonIsh mercadoDO [address] [place] [address] PCP - General Family Medicine 05/24/23 Gastroenterologist Relationship Specialty Start Date End Date NapoleonIsh mercadoDO [address] [place] [address] PCP - General Family Medicine 05/24/23 Gastroenterologist Relationship Specialty Start Date End Date Ish Anderson DO [address] [place] [address] PCP - General Family Medicine 05/24/23 Team Status: Inactive Member Role Status Dates Ish Anderson DO Primary Care Provider Active Start: September 07, 2024 End: September 07, 2024 Serge Chan DO Attending Provider Active Start : September 07, 2024 End: September 07, 2024 Goals (unrecognized section and content) Goals may [...] BE BASED ON THE PRIMARY CLINICAL RECORDS. [employer] [facility]. provides no warranty or guarantee of the accuracy or completeness of information in this document.
== END 2024-09-12 09:59 | disposition home or self-care (01) ==
LOC: MAMMO 09:58
PROVIDERS: PCP Family Medicine; Visit Provider Family Medicine
DX: Z12.31 Encounter for screening mammogram for malignant neoplasm of breast (principal)
CPT/HCPCS: 77063; 77067

== ENCOUNTER 2025-05-16 15:16 | Outpatient (REF) | payer OTHER, SELFPAY ==
--- OUTSIDE RECORDS SUMMARY | 2025-05-16 10:00 | XMS_ITS | Encounter Summary ---
Author Organization [facility] Address [address] [place] [address] Care Team Providers Care Forms Builder Name Role Phone Ish Anderson DO Primary Care Provider Reason for Visit * Reason Comments Well Women Visit Encounter Details Date Type Department Care Team (Late st Contact Info) Description 05/16/2025 10:00 AM EDT Office Visit [facility] [address] [place] [id number] Mary Faulkner PA [address] [place] [address] Well woman exam with routine gynecological exam; Breast cancer screening by mammogram; Exposure to STD; Vaginal discharge Social History Tobacco Use Types Packs/Day Years Used Date Smoking Tobacco: Former Cigarettes 1 13.2 0 2000 - 08/20/2013 Smokeless Tobacco: Never Alcohol Use Standard Drinks/Week Comments Yes 1 (1 standard drink = 0.6 oz pur e alcohol) Caffeine: 1-2 cups/day Humiliation, Afraid, Rape, and Kick questionnair e Answer Date Recorded Within the last year, have y ou been afraid of your partner or ex-partner? No 06/29/2023 Within the last year, have y ou been humiliated or emotionally abused in other ways by your partner or ex-partner? No Within the last year, have y ou been kicked, hit, slapped, or otherwise physically hurt by your partner or ex-partner? No 06/29/2023 Within the last year, have y ou been raped or forced to have any kind of sexual activity by your partner or ex-partner? No 06/29/2023 Social Connection and Isolat ion Panel [NHANES] Answer Date Recorded In a typical week, how many times do you talk on the phone with family, friends, or neighbors? Three times a week 06/29/2023 How often do you get togethe r with friends or relatives? Once a week 06/29/2023 How often do you attend chur ch or confucianism services? More than 4 times per year 06/29/2023 Do you belong to any clubs o r organizations such as confucianism groups, unions, fraternal or athletic groups, or school groups? Yes 06/29/2023 How often do you attend meet ings of the clubs or organizations you belong to? More than 4 times per year 06/29/2023 Are you , , di vorced, , never , or living with a partner? 06/29/2023 AUDIT-C Answer Date Recorded Q1: How often do you have a drink containing alc ohol? Monthly or less 06/29/2023 Q2: How many drinks containi ng alcohol do you have on a typical day when you are drinking? 1 or 2 06/29/2023 Q3: How often do you have si x or more drinks on one occasion? Less than monthly 06/29/2023 Overall Financial Resource Strain (CARDIA) Answe r Date Recorded How hard is it for you to pa y for the very basics like food, housing, medical care, and heating? Not hard at all 06/29/2023 PHQ-2 Answer Date Recorded Patient Health Questionnaire-2 Score 0 [facility] Answer Date Recorded Do you feel stress - tense, restless, nervous, or anxious, or unable to sleep at night because your mind is troubled all the time - these days? Rather much 06/29/2023 Exercise Vital Sign Answer Date Recorde d On average, how many days pe r week do you engage in moderate to strenuous exercise (like a brisk walk)? 3 days 06/29/2023 On average, how many minutes do you engage in exercise at this level? 30 min 06/29/2023 Hunger Vital Sign Answer Date Recorded Within the past 12 months, y ou worried that your food would run out before you got the money to buy more. Never true 06/29/20 Within the past 12 months, t he food you bought just didn't last and you didn't have money to get more. Never true 06/29/2023 PRAPARE - Transportation Answer Date Re corded In the past 12 months, has l ack of transportation kept you from medical appointments or from getting medications? No 02/2023 In the past 12 months, has l ack of transportation kept you from meetings, work, or from getting things needed for daily living? No 06/29/2023 Housing Stability Vital Sign Answer Gareth e Recorded In the last 12 months, was t here a time when you were not able to pay the mortgage or rent on time? No 06/29/2023 In the last 12 months, how many places have you lived? 1 06/29/2023 In the last 12 months, was t here a time when you did not have a steady place to sleep or slept in a residential (including now)? No 06/29/2023 Comments No Sex and Gender Information Value Date Recorded Sex Assigned at Not on file Legal Sex Female 7:10 PM EDT Gender Identity Female 01/06/2023 7:10 PM EDT Sexual Orientation Not on file documented as of this encounter Last Filed Vital Signs Vital Sign Reading Time Taken Comments Blood Pressure 120/70 05/16/2025 10:15 AM EDT Pulse - - Temperature - - Respiratory Rate - - Oxygen Saturation - - Inhaled Oxygen Concentration - - Weight 89.7 kg (197 lb 12.8 oz) 025 10:15 AM EDT Height - - Body Mass Index 31.93 03/28/2025 4:45 PM EDT documented in this encounter Progress Notes * NEO Tam - 05/16/2025 10:00 AM EDT Reason for Appointment: Patient ID: Chanel Bullock is a 44 y.o. female who presents for Well Women Visit Patient presents today for Annual Exam. MEDICATIONS Current Outpatient Medications Medication Instructions phentermine (ADIPEX-P) 37.5 mg, Oral, Daily before breakfast topiramate 50 mg, Oral, Daily ALLERGIES Allergies Allergen Reactions Oxycodone Other Intolerance PROBLEMS Active Ambulatory Problems Diagnosis Date Noted Major depressive disorder with single episode, in full remission 05/26/2023 Menstrual cramp 05/26/2023 Mixed hyperlipidemia 05/26/2023 Obesity (BMI 30-39.9) 05/26/2023 Strabismus 05/27/2023 Resolved Ambulatory Problems Diagnosis Date Noted Amenorrhea 05/26/2023 Frequency of urination 05/26/2023 Insulin resistance 05/26/2023 Other obesity due to excess calories 05/26/2023 Pain in female genitalia on intercourse 05/26/2023 Reactive depression 05/26/2023 Body mass index 40.0-44.9, adult ([facility] 01/18/2019 Past Medical History: Diagnosis Date Allergic rhinitis 1989 BMI 37.0-37.9, adult Body mass index (BMI) of 40.1 to 44.9 in adult ([facility]) Breast cancer screening by mammogram 12/02/2022 Dyspareunia in female Pneumonia HISTORY PAST MEDICAL HISTORY SOCIAL HISTORY Past Medical History: Diagnosis Date Allergic rhinitis 1989 Amenorrhea BMI 37.0-37.9, adult Body mass index (BMI) of 40.1 to 44.9 in adult ([facility]) Breast cancer screening by mammogram 12/02/2022 neg Dyspareunia in female Frequency of urination Insulin resistance Major depressive disorder with single episode, in full remission Menstrual cramp Mixed hyperlipidemia Obesity (BMI 30-39.9) Other obesity due to excess calories Pneumonia Reactive depression Social History Tobacco Use Smoking status: Former Current packs/day: 0.00 Average packs/day: 1 pack/day for 13.2 years (13.2 ttl pk-yrs) Types: Cigarettes Start date: 2000 Quit date: 08/20/2013 Years since quittin.7 Smokeless tobacco: Never Substance Use Topics Alcohol use: Yes Alcohol/week: 1.0 standard drink of alcohol Types: 1 Glasses of wine per week Comment: Caffeine: 1-2 cups/day Drug use: Never FAMILY HISTORY Family History Problem Relation Name Age of Onset Diabetes Mother Helene Del Toro No Known Problems Father Diabetes Sister Ericka Del Toro Asthma Sister Ericka Del Toro Asthma Son Jaspal [place] Heart disease Paternal Grandfather Brandon Del Toro SURGICAL HISTORY Past Surgical History: Procedure Laterality Date SECTION, CLASSIC x 2 SECTION, LOW TRANSVERSE 05/24/2007 08/20/2009 ENDOMETRIAL ABLATION 08/20/2023 EYE SURGERY 1986 HYSTERECTOMY 09/07/2024 PAP SMEAR (05/25/22) Normal, pending , (11/17/17) Neg DARIEL; HPV Neg TONSILLECTOMY WISDOM TOOTH EXTRACTION REVIEW OF SYSTEMS Review of Systems: Review of Systems Constitutional: Negative. HENT: Negative. Eyes: Negative. Respiratory: Negative. Cardiovascular: Negative. Gastrointestinal: Negative. Genitourinary: Negative. Musculoskeletal: Negative. Skin: Negative. Neurological: Negative. All other systems reviewed and are negative. Hematological: Negative. Endocrine: Negative. Allergic/Immunologic: Negative. OBJECTIVE Objective: Physical Exam Constitutional: Appearance: Normal appearance. Genitourinary: Right Adnexa: not tender and no mass present. Left Adnexa: not tender and no mass present. Cervix is absent. Uterus is absent. Breasts: Breasts are soft. Right: Normal. Left: Normal. HENT: Head: Normocephalic. Nose: Nose normal. Mouth/Throat: Mouth: Mucous membranes are moist. Cardiovascular: Rate and Rhythm: Normal rate. Pulmonary: Effort: Pulmonary effort is normal. Abdominal: General: Bowel sounds are normal. Palpations: Abdomen is soft. Musculoskeletal: General: Normal range of motion. Cervical back: Normal range of motion. Neurological: General: No focal deficit present. Mental Status: She is alert. Skin: General: Skin is warm and dry. Psychiatric: Mood and Affect: Mood normal. Vitals and nursing note reviewed. Exam conducted with a guest request runner present. Vitals: Estimated body mass index is 31.93 kg/m?? as calculated from the following: Height as of 03/28/25: 5' 6 . Weight as of this encounter: 197 lb 12.8 oz. BP: 120/70 No LMP recorded (lmp unknown). Patient has had a hysterectomy. ASSESSMENT & PLAN ICD-10-CM 1. Well woman exam with routine gynecological exam Z01.419 THIN PREP TIS PAP AND HR HPV DNA 2. Breast cancer screening by mammogram Z12.31 Bilateral screening mammogram Bilateral screening mammogram 3. Exposure to STD Z20.2 SURESWAB(R) ADVANCED VAGINITIS PLUS, TMA CHLAMYDIA TRACHOMATIS (GENITO/STI) Neisseria gonorrhea DNA probe, direct 4. Vaginal discharge N89.8 SURESWAB(R) ADVANCED VAGINITIS PLUS, TMA CHLAMYDIA TRACHOMATIS (GENITO/STI) Neisseria gonorrhea DNA probe, direct Annual Exam: Patient presents today for an annual exam. Patient states she is doing well and has no complaints. Pap was obtained without difficulty. Orders Placed This Encounter Procedures Bilateral screening mammogram CHLAMYDIA TRACHOMATIS (GENITO/STI) Neisseria gonorrhea DNA probe, direct Cultures obtained to rule out yeast infection, pt asymptomatic at this time Follow Up: Patient is to return in one year for annual unless needed otherwise. Documented by NEO Tam on behalf of: NEO Tam documented in this encounter Plan of Treatment Upcoming Encounters Date Type Department Care Team (Late st Contact Info) Description 06/27/2025 4:40 PM EDT Office Visit [facility] [address] [place] [address] Ish Anderson DO [address] [place] [address] Scheduled Orders Name Type Priority Associated Diagnoses Orde r Schedule Bilateral screening mammogram Imaging Routine Breast cancer screening by mammogram Expected: 05/16/2025 (Approximate), Expires: 07/17/2026 THIN PREP TIS PAP AND HR HPV DNA Pathology and Cytology Routine Well woman exam with routine gynecological exam Ordered: 05/16/2025 SURESWAB(R) ADVANCED VAGINITIS PLUS, TMA Pathology and Cytology Routine Exposure to STD Vaginal discharge Ordered: 05/16/2025 CHLAMYDIA TRACHOMATIS (GENITO/STI) Lab Routine Exposure to STD Vaginal discharge Ordered: 05/16/2025 Neisseria gonorrhea DNA probe, direct Lab Routine Exposure to STD Vaginal discharge Ordered: 05/16/2025 documented as of this encounter Visit Diagnoses Diagnosis Well woman exam with routine gynecological exam Routine gynecological examination Breast cancer screening by mammogram Exposure to STD Vaginal discharge Leukorrhea, not specified as infective documented in this encounter Care Teams Forms Builder Relationship Specialty Start Date End Date Ish Anderson DO [address] [place] [address] PCP - General Family Medicine 05/24/23 documented as of this encounter
--- OUTSIDE RECORDS SUMMARY | 2025-05-16 15:26 | XMS_ITS | Encounter Summary ---
Author Organization [facility] Address [address] [place] [address] Care Team Providers Care Director Security Management Name Role Phone Ish Anderson Primary Care Provider Encounter Details Date Type Department Care Team (Late st Contact Info) Description 09/07/2024 Abstract [facility] [address] [place] [id number] Kris Chan DO [address] [place], [place] [id number] Social History Tobacco Use Types Packs/Day Years [...] often do you attend chur ch or presybeterian services? More than 4 times per year 06/29/2023 Do you belong to any clubs o r organizations such as shinto groups, unions, fraternal or athletic groups, or [...] Date Recorded Patient Health Questionnaire-2 Score 0 12/08/2023 [facility] Occupational Stress Questionnaire Answer Date Recorded [...] money to buy more. Never true 06/29/20 23 Within the past 12 months, t he [...] place to sleep or slept in a jail (including now)? No 06/29/2023 Comments No Sex and Gender Information Value Date Recorded Sex Assigned at Not on file Legal Sex Female 7:10 PM EDT Gender Identity Female 01/06/2023 7:10 PM EDT Sexual Orientation Not on file documented as of this encounter Plan of Treatment Upcoming Encounters Date Type Department Care Team (Late st Contact Info) Description 06/27/2025 4:40 PM EDT Office Visit [facility] [address] [place] [address] Ish Anderson DO [address] [place] [address] documented as of this encounter Visit Diagnoses Not on filedocumented in this encounter Care Teams Director Security Management Relationship Specialty Start Date End Date Ish Anderson DO [address] [place] [address] PCP - General Family Medicine 05/24/23 documented as of this encounter
--- OUTSIDE RECORDS SUMMARY | 2025-05-16 15:26 | XMS_ITS | Encounter Summary ---
Author Organization [facility] Address [address] [place] [address] Care Team Providers Care Water Manager Name Role Phone Ish Anderson DO Primary Care Provider Encounter Details Date Type Department Care Team (Late st Contact Info) Description 03/15/2025 Abstract [facility] FM [address] [facility] [address] [place] [address] Ish Anderson DO [address] [facility] [address] [place] [address] Social History Tobacco Use Types Packs/Day Years [...] often do you attend chur ch or jehovah's witness services? More than 4 times per year 06/29/2023 Do you belong to any clubs o r organizations such as mu-ism groups, unions, fraternal or athletic groups, or [...] Date Recorded Patient Health Questionnaire-2 Score 0 03/05/2025 [facility] - Occupational Stress Questionnaire Answer Date [...] place to sleep or slept in a prison (including now)? No 06/29/2023 Comments No Sex [...] [address] [place] [phone] Ish Anderson DO [address] [place] [address] documented as of this encounter Visit Diagnoses Not on filedocumented in this encounter Care Teams Water Manager Relationship Specialty Start Date End Date Ish Anderson DO [address] [place] [address] PCP - General Family Medicine 05/24/23 documented as of this encounter
--- OUTSIDE RECORDS SUMMARY | 2025-05-16 15:26 | XMS_ITS | Encounter Summary ---
Author Organization [facility] Address [address] [place] [address] Care Team Providers Care Plant Health Care Technician Name Role Phone Ish Anderson Primary Care Provider [phone] Encounter Details Date Type Department Care Team (Late st Contact Info) Description 09/07/2024 Abstract [facility] OB [address] [place] [phone] Kris Chan DO [address] [facility] [address] [place] [place], [place] [id number] Social History Tobacco Use Types Packs/Day Years [...] often do you attend chur ch or jew services? More than 4 times per year 06/29/2023 Do you belong to any clubs o r organizations such as religion groups, unions, fraternal or athletic groups, or [...] Recorded Patient Health Questionnaire-2 Score 0 12/08/2023 [facility] Occupational Stress Questionnaire Answer Date [...] place to sleep or slept in a intermediate (including now)? No 06/29/2023 Comments No Sex [...] [address] [place] [address] Ish Anderson DO [address] [place] [address] documented as of this encounter Visit Diagnoses Not on filedocumented in this encounter Care Teams Plant Health Care Technician Relationship Specialty Start Date End Date Ish Anderson DO [address] [place] [address] PCP - General Family Medicine 05/24/23 documented as of this encounter
--- OUTSIDE RECORDS SUMMARY | 2025-05-16 15:26 | XMS_ITS | Encounter Summary ---
Author Organization [facility] Address [address] [place] [address] Care Team Providers Care Furnace Operator Name Role Phone Ish Anderson Primary Care Provider Encounter Details Date Type Department Care Team (Late st Contact Info) Description 01/06/2024 Abstract [facility] [address] [place] [phone] Sejal Ashton LPN [address] [place], [place] [id number] Social History Tobacco Use Types Packs/Day Years [...] often do you attend chur ch or voodoo services? More than 4 times per year 06/29/2023 Do you belong to any clubs o r organizations such as sikhism groups, unions, fraternal or athletic groups, or [...] Recorded Patient Health Questionnaire-2 Score 0 12/08/2023 [facility] - Occupational Stress Questionnaire Answer Date [...] place to sleep or slept in a fci (including now)? No 06/29/2023 Comments No Sex [...] [address] [place] [address] Ish Anderson DO [address] [place] [address] documented as of this encounter Visit Diagnoses Not on filedocumented in this encounter Care Teams Furnace Operator Relationship Specialty Start Date End Date Ish Anderson DO [address] [place] [address] PCP - General Family Medicine 05/24/23 documented as of this encounter
--- OUTSIDE RECORDS SUMMARY | 2025-05-16 15:26 | XMS_ITS | Encounter Summary ---
Author Organization [facility] Address [address] [place] [address] Care Team Providers Care Neurology Stroke Physician Name Role Phone Ish Anderson DO Primary Care Provider [phone] Encounter Details Date Type Department Care Team (Late Contact Info) Description 05/27/2023 Abstract [facility] FM [address] [facility] [address] [place] [address] Ish Anderson DO [address] [facility] [address] [place] [address] Social History Tobacco Use Types Packs/Day Years Used Date Smoking Tobacco: Never Smokeless Tobacco: Never Alcohol Use Standard Drinks/Week Comments Yes 0 (1 standard drink = 0.6 oz pur e alcohol) PHQ-2 Answer Date Recorded Patient Health Questionnaire-2 Score 0 05/27/2023 Comments Unknown Sex and Gender Information Value Date Recorded Sex Assigned at Not on file Legal Sex Female 7:10 PM EDT Gender Identity Female 01/06/2023 7:10 PM EDT Sexual Orientation Not on file documented as of this encounter Functional Status * Over the past 2 weeks, how often have you been bothered by any of the following problems? Question Answer Date of Assessment Author Little interest or pleasure in doing things Not at all 05/27/2023 4:19 PM EDT Bettina Powers MA Feeling down, depressed, or hopeless Not at all 05/27/2023 4:19 PM EDT Bettina Powers MA Patient Health Questionnaire-2 Score 0 05/27/2023 4:19 PM EDT Jason Powers MA documented as of this encounter Plan of Treatment Upcoming Encounters Date Type Department Care Team (Late Contact Info) Description 06/27/2025 4:40 PM EDT Office Visit [facility] FM [address] [facility] 230 [place] [phone] Ish Anderson DO [address] [facility] [address] [place] [address] documented as of this encounter Visit Diagnoses Not on filedocumented in this encounter Care Teams Neurology Stroke Physician Relationship Specialty Start Date End Date Ish Anderson DO [address] [facility] 230 [place] [address] PCP - General Family Medicine 05/24/23 documented as of this encounter
--- OUTSIDE RECORDS SUMMARY | 2025-05-16 15:26 | XMS_ITS | Encounter Summary ---
Author Organization [facility] Address [address] [place] [address] Care Team Providers Care Senior It Project Manager Name Role Phone Ish Anderson DO Primary Care Provider [phone] Reason for Visit * Reason Comments Med Refill Encounter Details Date Type Department Care Team (Late st Contact Info) Description 01/29/2025 Refill [facility] FM [address] [facility] [address] [place] [address] Ish Anderson DO [address] [facility] 230 [place] [address] Class 1 obesity due to excess calories without serious comorbidity with body mass index (BMI) of 33.0 to 33.9 in adult Social History Tobacco Use Types Packs/Day Years [...] often do you attend chur ch or pentecostalism services? More than 4 times per year 06/29/2023 Do you belong to any clubs o r organizations such as protestant groups, unions, fraternal or athletic groups, or [...] Date Recorded Patient Health Questionnaire-2 Score 0 12/27/2024 [facility] Answer Date [...] place to sleep or slept in a custodial (including now)? No 06/29/2023 Comments No Sex [...] [address] [place] [address] Ish Anderson DO [address] [place] [address] documented as of this encounter Visit Diagnoses Diagnosis Class 1 obesity due to excess calories without serious comorbidity with body mass index (BMI) of 33.0 to 33.9 in adult documented in this encounter Care Teams Senior It Project Manager Relationship Specialty Start Date End Date Ish Anderson DO [address] [place] [address] PCP - General Family Medicine 05/24/23 documented as of this encounter
--- OUTSIDE RECORDS SUMMARY | 2025-05-16 15:26 | XMS_ITS | Encounter Summary ---
Author Organization [facility] Address [address] [place] [address] Care Team Providers Care Insurance Marketing Specialist Name Role Phone Ish Anderson Primary Care Provider [phone] Encounter Details Date Type Department Care Team (Late st Contact Info) Description 08/06/2023 Clinisync Result Encounter [facility] External Department Unsolicited Serge Chan DO [address] [facility] [place] [address] Social History Tobacco Use Types Packs/Day Years [...] often do you attend chur ch or religion services? More than 4 times per year 06/29/2023 Do you belong to any clubs o r organizations such as orthodox groups, unions, fraternal or athletic groups, or [...] Date Recorded Patient Health Questionnaire-2 Score 0 06/29/2023 [facility] - Occupational Stress Questionnaire Answer [...] place to sleep or slept in a [facility] (including now)? No 06/29/2023 Comments No Sex and Gender Information Value Date Recorded Sex Assigned at Not on file Legal Sex Female 7:10 PM EDT Gender Identity Female 01/06/2023 7:10 PM EDT Sexual Orientation Not on file COVID-19 Exposure Response Date Recorded In the last 10 days, have yo u been in contact with someone who was confirmed or suspected to have Coronavirus/COVID-19? No / Unsure 07/26/2023 12:10 PM EDT documented as of this encounter Plan of Treatment Upcoming Encounters Date Type Department Care Team (Late st Contact Info) Description 06/27/2025 4:40 PM EDT Office Visit [facility] [address] [place] [phone] Ish Anderson, DO [address] [place] [address] documented as of this encounter Procedures Procedure Name Priority Date/Time Associated Diagnosis Comments ECG 12-LEAD 08/06/2023 8:31 AM EDT documented in this encounter Results * ECG 12-LEAD (08/06/2023 8:31 AM EDT) Anatomical Region Laterality Modality Other 08/06/2023 8:31 AM EDT Narrative 08/06/2023 8:31 AM EDT The [address] [address] Electrocardiograph Report Signed Patient: JENNIFER BULLOCK MR#: [id number] : 1980 Acct:[id number] Age/Sex: 43 / F ADM Date: 08/06/23 Loc: PST Attending Dr: Serge Chan D.O. Ordering Physician: Serge Chan D.O. Date of Service: 08/06/23 Procedure(s): ECG 12 lead Accession Number(s): [id number] cc: [facility] Test Date: 2023-08-06 Pat Name: JENNIFER BULLOCK Department: Room: - Gender: Female Rn Urgent Care: : 1980 Requested By: SERGE CHAN Order Number: [id number] Reading MD: EVERETT EPPS Measurements Intervals [place] Rate: 57 P: 60 NH: 154 QRS: 42 QRSD: 94 T: 26 QT: 396 QTc: 387 Interpretive Statements SINUS BRADYCARDIA No previous ECG available for comparison Electronically Signed On 08-08-2023 9:14:07 EDT by EVERETT EPPS Dictated By: Everett Epps D.O. Signed By: 08/08/2314 DD/ 0831 TD/TT: Box Coverer Hand: Procedure Note Radiology, Radiologist, MD - 08/08/2023 [place] [address] Electrocardiograph Report Signed Patient: JENNIFER BULLOCK SMR#: [id number] : 1980Acct:[id number] Age/Sex: 43 / FADM Date: 08/06/23 Loc: PST Attending Dr: Serge Chan D.O. Ordering Physician: Serge Chan D.O. Date of Service: 08/06/23 Procedure(s): ECG 12 lead Accession Number(s): [id number] cc: [facility] Test Date: 2023-08-06 Pat Name: JENNIFER BULLOCK Department: Room: - Gender: Female Rn Urgent Care: : 1980 Requested By: SERGE CHAN Order Number: [id number] Reading MD: EVERETT EPPS Measurements Intervals [place] Rate: 57 P: 60 NH: 154 QRS: 42 QRSD: 94 T: 26 QT: 396 QTc: 387 Interpretive Statements SINUS BRADYCARDIA No previous ECG available for comparison Electronically Signed On 08-08-2023 9:14:07 EDT by EVERETT EPPS Dictated By: Everett Epps D.O. Signed By:08/08/23913 DD/ 0 TD/TT: Box Coverer Hand: us Serge Chan DO [facility] Final Result documented in this encounter Visit Diagnoses Not on filedocumented in this encounter Care Teams Insurance Marketing Specialist Relationship Specialty Start Date End Date Ish nAderson DO [address] [place] [id number] PCP - General Family Medicine 05/24/23 documented as of this encounter
--- OUTSIDE RECORDS SUMMARY | 2025-05-16 15:26 | XMS_ITS | Clinical Summary ---
Author Organization [facility] Healthcare Address [address] [place] [address] Care Team Providers Care Barber Instructor Name Role Phone [place]ucketIsh mercado DO Primary Care Provider Allergies Active Allergy Reactions Criticality Noted Date Comments Oxycodone Other 12/27/2024 Intolerance Medications topiramate 50 MG tabletIndication s:Class 1 obesity due to excess calories without serious comorbidity with body mass index (BMI) of 33.0 to 33.9 in adult Take 50 mg by mouth Daily 90 tablet 1 5 Active phentermine (Adipex-P) 37.5 MG tabletIndication s:Class 1 obesity due to excess calories without serious comorbidity with body mass index (BMI) of 33.0 to 33.9 in adult Take 1 tablet (37.5 mg) by mouth in the morning. Take before meals. 30 tablet 5 Active phentermine (Adipex-P) 37.5 MG tabletIndication s:Class 1 obesity due to excess calories without serious comorbidity with body mass index (BMI) of 33.0 to 33.9 in adult Take 1 tablet (37.5 mg) by mouth in the morning. Take before meals. 30 tablet 5 05/07/20 25 Discontinue d(Reorder) fluconazole (Diflucan) 150 MG tabletIndication s:Yeast infection Take 1 tablet (150 mg) by mouth 1 (one) time for 1 dose This is a 1 time dose, take single tablet by mouth. 1 tablet 1 5 04/30/20 25 Active Problems Problem Noted Date Diagnosed Date Strabismus 05/27/2023 Major depressive disorder wi th single episode, in full remission 05/26/2023 Menstrual cramp 05/26/2023 Mixed hyperlipidemia 05/26/2023 Obesity (BMI 30-39.9) 05/26/2023 Resolved Problems Problem Noted Date Diagnosed Date Resolved Date Amenorrhea 05/26/2023 03/06/2024 Frequency of urination 05/26/202303/06 Insulin resistance 05/26/2023 Other obesity due to excess calories 05/26/2023 03/06/2024 Pain in female genitalia on intercourse 05/26/2023 03/06/2024 Reactive depression 05/26/2023 03/06/20 24 Body mass index 40.0-44.9, adult 01/18/2019 03/06/2024 Encounters Date Type Department Care Team Description 05/16/2025 10:00 AM EDT Office Visit [facility] [address] [place] [address] Mary Faulkner PA Well woman exam with routine gynecological exam; Breast cancer screening by mammogram; Exposure to STD; Vaginal discharge 05/16/2025 Bamboo flowsheet [facility] [address] [place] [address] Mary Faulkner PA 05/07/2025 Refill [facility] [address] [place] [address] Bettina Powers MA Class 1 obesity due to excess calories without serious comorbidity with body mass index (BMI) of 33.0 to 33.9 in adult 04/30/[address] [facility] [address] [place] [address] Iza Wilson MA 04/24/2025 Telephone [facility] [address] [place] [phone] Bettina Powers MA Error (VOID this visit) 04/03/20[address] [facility] [address] [place] [address] Iza Wilson MA 03/28/2025 5:00 PM EDT Office Visit [facility] [address] [place] [phone] Ish Anderson, DO Class 1 obesity due to excess calories without serious comorbidity with body mass index (BMI) of 33.0 to 33.9 in adult 03/28/2025 10:00 AM EDT Office Visit [facility] [address] [place] [address] Yeltiza Coleman NP Urination frequency; Hematuria, unspecified type; Vaginal discomfort; Vaginal discharge; STD exposure 03/28/2025 Travel 03/28/2025 Results Follow-Up [facility] [address] [place] [address] Nara Dallas MA 03/26/[address] [facility] [address] [place] [address] Kris Chan DO 03/24/2025 10:35 AM EDT Office Visit [facility] [address] [place] [phone] Yony Jean DO Acute cystitis without hematuria; Urinary frequency 03/24/2025 Travel 03/20/2025 Telephone [facility] [address] [place] [phone] Ceci Doherty MA 03/15/2025 Abstract [facility] [address] [place] [phone] Ish Anderson DO 03/15/2025 Results Follow-Up [facility] [address] [place] [phone] Jennifer Hickey NP 03/05/2025 11:40 AM EDT Office Visit [facility] [address] [place] [address] Jennifer Hickey, МАРИЯ Acute cystitis with hematuria (Primary Dx); Flank pain 03/05/2025 Refill [facility] [address] [place] [address] Ish Anderson DO Class 1 obesity due to excess calories without serious comorbidity with body mass index (BMI) of 33.0 to 33.9 in adult 03/05/2025 Telephone [facility] [address] [place] [address] Jennifer Hickey, ENGINE REPAIRER Medication Question 03/05/2025 Bamboo flowsheet [facility] [address] [place] [address] Jennifer Hickey, ENGINE REPAIRER 03/05/2025 Travel 02/26/[address] [facility] [address] [place] [address] Kris Chan DO from Last 3 Months Family History Medical History Relation Name Comments No Known Problems Father Diabetes Mother Helene Murphyger Heart disease Paternal Grandfather Brandon Del Toro Asthma Sister Ericka Del Toro Diabetes Sister Ericka Murphyger Asthma Son Jaspal Bullock Relation Name Status Comments Brother 1 Daughter 1 Father Alive Mother Helene Del Toro Alive Paternal Grandfather Brandon Murphyger Sister Ericka Del Toro Son Jaspal Bullock Social History Tobacco Use Types Packs/Day Years Used Date Smoking Tobacco: Former Cigarettes 1 13.2 0 2000 - 08/20/2013 Smokeless Tobacco: Never Tobacco Cessation:Counseling Given: Yes Alcohol Use Standard Drinks/Week Comments Yes 1 [...] often do you attend chur ch or buddhist services? More than 4 times per year [...] Recorded Patient Health Questionnaire-2 Score 0 [facility] Questionnaire Answer Date [...] place to sleep or slept in a nursing home (including now)? No 06/29/2023 Comments No Sex and Gender Information Value Date Recorded Sex Assigned at Not on file Legal Sex Female 7:10 PM EDT Gender Identity Female 01/06/2023 7:10 PM EDT Sexual Orientation Not on file Last Filed Vital Signs Vital Sign Reading Time Taken Comments Blood Pressure 120/70 05/16/2025 10:15 AM EDT Pulse 92 03/28/2025 4:45 PM EDT Temperature 36.9 C (98.5 F) 03/28/2025 4:45 PM EDT Respiratory Rate - - Oxygen Saturation 99% 03/28/2025 4:45 PM EDT Inhaled Oxygen Concentration - - Weight 89.7 kg (197 lb 12.8 oz) 025 10:15 AM EDT Height 167.6 cm (5' 6 ) 03/28/2025 4:45 PM EDT Body Mass Index 31.93 03/28/2025 4:45 PM EDT Plan of Treatment Upcoming Encounters Date Type Department Care Team (Late st Contact Info) Description 06/27/2025 4:40 PM EDT Office Visit [facility] [address] [place] [address] Ish Anderson DO [address] [place] [address] Health Maintenance Due Date Last Done Comments Mammogram 12/02/2023 12/02/2022 Influenza Vaccine (#1) 2025 Cervical Cancer Screening Discontinued Pap Smear Discontinued 06/21/2023, 05/27/2022, 04/0 02/2016 HPV/Cotest Discontinued Procedures Procedure Name Priority Date/Time Associated Diagnosis Comments RECURRENT VAGINITIS (HTRX) Routine 03/28/2025 12:12 PM EDT URINARY TRACT INFECTION (HTRX) Routine 03/24/2025 11:11 AM EDT Acute cystitis without hematuria URINALYSIS ANALYZER TEST Routine 03/24/2025 11:10 AM EDT Urinary frequency POCT URINALYSIS DIPSTICK Routine 03/05/2025 12:05 PM EDT Flank pain URINE CULTURE CLEAN CATCH REFLEX Routine 03/05/2025 12:00 AM EDT CULTURE, URINE, ROUTINE Routine 03/05/2025 12:00 AM EDT Flank pain PAP SMEAR Routine 06/21/2023 12:00 AM EDT BI MAMMOGRAM SCREENING TOMOSYNTHESIS BILATERAL Routine 12/02/2022 from Last 3 Months or Most Recently Relevant to Health Maintenance Results * RECURRENT VAGINITIS (HTRX) (03/28/2025 12:12 PM EDT) ATOPOBIUM VAGINAE 0.000 19.961 - 24.689 ppm 03/29/2025 7:23 AM EDT [facility] ATOPOBIUM VAGINAE Not Detected 19.961 - 24.689 ppm 03/29/2025 7:23 AM EDT [facility] BVAB 2,3 (BACTERIAL VAGINOSIS ASSOCIATED BACTERIA 2, 3); MOBILUNCUS SPP 0.000 19.961 - 24.689 ppm 03/29/2025 7:23 AM EDT [facility] BVAB 2,3 (BACTERIAL VAGINOSIS ASSOCIATED BACTERIA 2, 3); MOBILUNCUS SPP Not Detected 19.961 - 24.689 ppm 03/29/2025 7:23 AM EDT [facility] TIERRA ALBICANS, PARAPSILOSIS, TROPICALIS 0.000 19.961 - 30.770 ppm 03/29/2025 7:23 AM EDT [facility] TIERRA ALBICANS, PARAPSILOSIS, TROPICALIS Not Detected 19.961 - 30.770 ppm 03/29/2025 7:23 AM EDT [facility] TIERRA GLABRATA 0.000 23.000 - 32.138 ppm 03/29/2025 7:23 AM EDT [facility] TIERRA GLABRATA Not Detected 23.000 - 32.138 ppm 03/29/2025 7:23 AM EDT [facility] TIERRA KRUSEI 0.000 23.000 - 32.271 ppm 03/29/2025 7:23 AM EDT [facility] TIERRA KRUSEI Not Detected 23.000 - 32.271 ppm 03/29/2025 7:23 AM EDT [facility] CHLAMYDIA TRACHOMATIS 0.000 23.000 - 31.467 ppm 03/29/2025 7:23 AM EDT [facility] CHLAMYDIA TRACHOMATIS Not Detected 23.000 - 31.467 ppm 03/29/2025 7:23 AM EDT [facility] GARDNERELLA VAGINALIS 0.000 19.961 - 24.689 ppm 03/29/2025 7:23 AM EDT [facility] GARDNERELLA VAGINALIS Not Detected 19.961 - 24.689 ppm 03/29/2025 7:23 AM EDT [facility] MEGASPHAERA (TYPES 1, 2) 0.000 19.961 - 24.689 ppm 03/29/2025 7:23 AM EDT [facility] MEGASPHAERA (TYPES 1, 2) Not Detected 19.961 - 24.689 ppm 03/29/2025 7:23 AM EDT [facility] NEISSERIA GONORRHOEAE 0.000 23.000 - 32.117 ppm 03/29/2025 7:23 AM EDT [facility] NEISSERIA GONORRHOEAE Not Detected 23.000 - 32.117 ppm 03/29/2025 7:23 AM EDT [facility] TRICHOMONAS VAGINALIS 0.000 23.000 - 32.119 ppm 03/29/2025 7:23 AM EDT [facility] TRICHOMONAS VAGINALIS Not Detected 23.000 - 32.119 ppm 03/29/2025 7:23 AM EDT [facility] MYCOPLASMA GENITALIUM 0.000 19.961 - 24.689 ppm 03/29/2025 7:23 AM EDT [facility] MYCOPLASMA GENITALIUM Not Detected 19.961 - 24.689 ppm 03/29/2025 7:23 AM EDT [facility] Tissue 03/28/2025 12:1 2 PM EDT 03/29/2025 2:09 AM EDT us Yelitza Coleman ENGINE REPAIRER LAB BLOOD ORDERABLES Final Re sult [facility] [address] [place] [address] * URINARY TRACT INFECTION (HTRX) (03/24/2025 11:11 AM EDT) Pathologist [facility] ACINETOBACTER BAUMANII 0.000 19.961 - 24.689 ppm 03/27/2025 7:52 AM EDT [facility] ACINETOBACTER BAUMANII Not Detected 19.961 - 24.689 ppm 03/27/2025 7:52 AM EDT [facility] CITROBACTER FREUNDII 0.000 23.000 - 31.881 ppm 03/27/2025 7:52 AM EDT [facility] CITROBACTER FREUNDII Not Detected 23.000 - 31.881 ppm 03/27/2025 7:52 AM EDT [facility] ENTEROBACTER AEROGENES, CLOACAE 0.000 23.000 - 31.535 ppm 03/27/2025 7:52 AM EDT [facility] ENTEROBACTER AEROGENES, CLOACAE Not Detected 23.000 - 31.535 ppm 03/27/2025 7:52 AM EDT [facility] ENTEROCOCCUS FAECALIS, FAECIUM 0.000 26.000 - 31.575 ppm 03/27/2025 7:52 AM EDT [facility] ENTEROCOCCUS FAECALIS, FAECIUM Not Detected 26.000 - 31.575 ppm 03/27/2025 7:52 AM EDT [facility] ESCHERICHIA COLI 0.000 23.000 - 28.500 ppm 03/27/2025 7:52 AM EDT [facility] ESCHERICHIA COLI Not Detected 23.000 - 28.500 ppm 03/27/2025 7:52 AM EDT [facility] KLEBSIELLA PNEUMONIAE, OXYTOCA 0.000 23.000 - 30.500 ppm 03/27/2025 7:52 AM EDT [facility] KLEBSIELLA PNEUMONIAE, OXYTOCA Not Detected 23.000 - 30.500 ppm 03/27/2025 7:52 AM EDT [facility] MORGANELLA MORGANII 0.000 19.961 - 24.689 ppm 03/27/2025 7:52 AM EDT [facility] MORGANELLA MORGANII Not Detected 19.961 - 24.689 ppm 03/27/2025 7:52 AM EDT [facility] PROTEUS MIRABILIS, VULGARIS 0.000 23.000 - 28.500 ppm 03/27/2025 7:52 AM EDT [facility] PROTEUS MIRABILIS, VULGARIS Not Detected 23.000 - 28.500 ppm 03/27/2025 7:52 AM EDT [facility] PSEUDOMONAS AERUGINOSA 0.000 23.000 - 28.500 ppm 03/27/2025 7:52 AM EDT [facility] PSEUDOMONAS AERUGINOSA Not Detected 23.000 - 28.500 ppm 03/27/2025 7:52 AM EDT [facility] STAPHYLOCOCCUS AUREUS 0.000 26.000 - 30.902 ppm 03/27/2025 7:52 AM EDT [facility] STAPHYLOCOCCUS AUREUS Not Detected 26.000 - 30.902 ppm 03/27/2025 7:52 AM EDT [facility] STREPTOCOCCUS AGALACTIAE (GROUP B STREP) 0.000 26.000 - 32.222 ppm 03/27/2025 7:52 AM EDT [facility] STREPTOCOCCUS AGALACTIAE (GROUP B STREP) Not Detected 26.000 - 32.222 ppm 03/27/2025 7:52 AM EDT [facility] TIERRA ALBICANS, PARAPSILOSIS, TROPICALIS 0.000 19.961 - 30.770 ppm 03/27/2025 7:52 AM EDT [facility] TIERRA ALBICANS, PARAPSILOSIS, TROPICALIS Not Detected 19.961 - 30.770 ppm 03/27/2025 7:52 AM EDT [facility] TIERRA GLABRATA 0.000 23.000 - 32.138 ppm 03/27/2025 7:52 AM EDT [facility] TIERRA GLABRATA Not Detected 23.000 - 32.138 ppm 03/27/2025 7:52 AM EDT [facility] TIERRA KRUSEI 0.000 23.000 - 32.271 ppm 03/27/2025 7:52 AM EDT [facility] TIERRA KRUSEI Not Detected 23.000 - 32.271 ppm 03/27/2025 7:52 AM EDT [facility] SERRATIA MARCESCENS 0.000 23.000 - 31.204 ppm 03/27/2025 7:52 AM EDT [facility] SERRATIA MARCESCENS Not Detected 23.000 - 31.204 ppm 03/27/2025 7:52 AM EDT [facility] STREPTOCOCCUS PYOGENES (GROUP A STREP) 0.000 19.961 - 24.689 ppm 03/27/2025 7:52 AM EDT [facility] STREPTOCOCCUS PYOGENES (GROUP A STREP) Not Detected 19.961 - 24.689 ppm 03/27/2025 7:52 AM EDT [facility] STAPHYLOCOCCUS EPIDERMIDIS, HAEMOLYTICUS, LUGDUNENSIS, SAPROPHYTICUS (URINA 0.000 19.961 - 24.689 ppm 03/27/2025 7:52 AM EDT [facility] STAPHYLOCOCCUS EPIDERMIDIS, HAEMOLYTICUS, LUGDUNENSIS, SAPROPHYTICUS (URINA Not Detected 19.961 - 24.689 ppm 03/27/2025 7:52 AM EDT [facility] STAPHYLOCOCCUS EPIDERMIDIS, HAEMOLYTICUS, LUGDUNENSIS, SAPROPHYTICUS (URINA 0.000 19.961 - 24.689 ppm 03/27/2025 7:52 AM EDT [facility] STAPHYLOCOCCUS EPIDERMIDIS, HAEMOLYTICUS, LUGDUNENSIS, SAPROPHYTICUS (URINA Not Detected 19.961 - 24.689 ppm 03/27/2025 7:52 AM EDT [facility] Urine 03/24/2025 11:1 1 AM EDT 03/27/2025 2:45 AM EDT Yony Jean DO LAB BLOOD ORDERABLES Final Result [facility] [address] [place] [address] * URINALYSIS ANALYZER TEST (03/24/2025 11:10 AM EDT) LEUKOCYTES negative Negative NITRITES negative Negative UROBILINOGEN negative 0.2 - 1.0 PROTEIN negative Negative PH 6.0 5.0 - 6.0 BLOOD negative Negative SPECIFIC GRAVITY 1.015 1.001 - 1.035 KETONES negative Negative BILIRUBIN negative Negative GLUCOSE negative Negative Urine 03/24/2025 11:1 0 AM EDT Yony Jean DO POINT OF CARE TEST ENTER/ED IT ORDERABLES Final Result * (ABNORMAL) POCT urinalysis dipstick manually resulted (03/05/2025 12:05 PM EDT) Color, UA Sarpy Clarity, UA Turbid Glucose, UA Negative Negative - 2000(110) ++++ mg/dL Bilirubin, UA Positive Negative - 4(70) +++ mg/dL Comment:small Ketones, UA Positive Negative - 160(16) ++++ mg/dL Comment:small Spec Grav, UA 1.015 1 - 1.03 Blood, UA Positive Negative - 50 Som/mcL Comment:trace pH, UA 6.0 5 - 9 Protein, UA Positive Negative - 2000(20) ++++ mg/dL Comment:30 Urobilinogen, UA 0.2 0.2 - 12 mg/dL Leukocytes, UA Positive Negative - 500+++ Harpreet/mcL Comment:trace Nitrite, UA Negative Negative - Positive Urine 03/05/2025 12:0 5 PM EDT Jennifer Hickey NP POINT OF CARE TEST ENTER/EDIT OR DERABLES Final Result * Urine Culture Clean Catch Reflex (03/05/2025 12:00 AM EDT) Ur Cult 1 Comment [facility] Comment: Mixed urogenital jackelyn 10,000-25,000 colony forming units per mL 03/05/2025 03/05/2025 Narrative [facility] - 03/15/2025 9:07 AM EDT Performed at: [address] [place] [id number] Lithographic Proofer Apprentice: Chuck Nichols PhD, Phone: [phone] us Jennifer Hickey NP LAB URINE ORDERABLES Final Resul t [facility] * Urine culture (03/05/2025 12:00 AM EDT) Urine Cult Rt Status Final report [facility] Urine Urine specimen obtained by clean catch procedure / Unknown 03/05/2025 03/05/2025 Comment:URINE Narrative [facility] - 03/15/2025 9:07 AM EDT Performed at: - [facility] [address] [id number] Lithographic Proofer Apprentice: Chuck Nichols PhD, Phone: [phone] Specimen Comment: A courtesy copy of this report has been sent to [phone] us Jennifer Hickey ENGINE REPAIRER LAB MICROBIOLOGY - GENERAL ORDER INDIGO Final Result [facility] * Pap Smear (06/21/2023 12:00 AM EDT) Swab Cervical swab / Unknown us Kris Chan DO LAB CYTOLOGY ORDERABLES Final Re sult Performing Organization Address City/[facility] Co de Phone Number EXTERNAL LAB * Bilateral screening mammogram with tomosynthesis (12/02/2022) Anatomical Region Laterality Modality Breast Bilateral Mammography Narrative 12/02/2022 12:00 AM EST PERFORMED AT W LOCATION:[address] Patient: FAIZA Gomez Exam Date: 12/02/2022 : 1980 Gender:F Ordering : DR GIOVANI BRUNER . Admission #: [id number] Family : Order #: [id number] CLICK HERE TO VIEW EXAM RADIOLOGY REPORT PROCEDURE: MAMMOGRAM SCREENING 3D BILATERAL CAD COMPARISON: None. INDICATIONS: Screening mammography Calculator Name NCI Breast Cancer Risk Assessment Tool 5 Year Breast Cancer Risk 0.60% Lifetime Breast Cancer Risk 11.10% Personal Breast Cancer No Personal Ovarian Cancer No Treatments None Family Cancers None LOCATION: [facility] BREAST COMPOSITION: Scattered areas fibroglandular density. [...] Ashvin Breaux M.D. on 12/03/2022 at 09:41 Procedure Note CONVERSION, GENERIC - 04/30/2023 PERFORMED AT [facility] LOCATION:[address] Patient: FAIZA Cornejo. Exam Date: 12/02/2022 : 1980 Gender:F Ordering : DR GIOVANI BRUNER . Admission #: [id number] Family : Order #: [id number] CLICK HERE TO VIEW EXAM RADIOLOGY REPORT PROCEDURE: MAMMOGRAM SCREENING 3D BILATERAL CAD COMPARISON: None. INDICATIONS: Screening mammography Calculator Name NCI Breast Cancer Risk Assessment Tool 5 Year Breast Cancer Risk 0.60% Lifetime Breast Cancer Risk 11.10% Personal Breast Cancer No Personal Ovarian Cancer No Treatments None Family Cancers None LOCATION: [facility] BREAST COMPOSITION: Scattered areas fibroglandular density. FINDINGS: DIAGNOSTIC CATEGORY 2--BENIGN FINDING: RIGHT BREAST: No significant suspicious finding. Scatteredbenign-appearing lymph nodes are present. LEFT BREAST: No significant suspicious finding. RECOMMENDATIONS: ROUTINE MAMMOGRAM AND CLINICAL EVALUATION IN 12 MONTHS. PLEASE NOTE: A NORMAL MAMMOGRAM DOES NOT EXCLUDE THE POSSIBILITY OFBREAST CANCER. A CLINICALLY SUSPICIOUS PALPABLE LUMP SHOULD BE BIOPSIED. Dictated by: Ashvin Breaux M.D. on 12/03/2022 at 08:32 Approved by: Ashvin Breaux M.D. on 12/03/2022 at 09:41 Giovani Bruner MD IMG BI PROCEDURES Final Resul t from Last 3 Months or Most Recently Relevant to Health Maintenance Insurance [employer] Care Teams Barber Instructor Relationship Specialty Start Date End Date Ish Anderson DO [address] [place] [address] PCP - General Family Medicine 05/24/23
--- OUTSIDE RECORDS SUMMARY | 2025-05-16 15:26 | XMS_ITS | Encounter Summary ---
Author Organization [facility] Address [address] [place] [address] Care Team Providers Care Senior Product Development Engineer Name Role Phone Ish Anderson Primary Care Provider [phone] Encounter Details Date Type Department Care Team (Late st Contact Info) Description 05/07/2025 Refill [facility] [address] [facility] [address] [place] [address] Bettina Powers MA Class 1 obesity due [...] 06/29/2023 How often do you attend chur or anglican services? More than 4 times per year [...] Recorded Patient Health Questionnaire-2 Score 0 03/28/2025 [facility] - Occupational Stress [...] place to sleep or slept in a correction (including now)? No 06/29/2023 Comments No Sex and Gender Information Value Date Recorded Sex Assigned at Not on file Legal Sex Female 7:10 PM EDT Gender Identity Female 01/06/2023 7:10 PM EDT Sexual Orientation Not on file documented as of this encounter Miscellaneous Notes * Addendum Note - Bettina Powers MA - 05/07/2025 2:15 PM EDTAddended by: BETTINA POWERS on: 05/07/2025 02:15 PM Modules accepted: Orders * Telephone Encounter - Bettina Powers MA - 05/07/2025 2:13 PM EDT Pt left a requesting her phentermine sent to [facility] in [place] documented in this encounter Plan of Treatment Upcoming Encounters Date Type Department Care Team (Late st Contact Info) Description 06/27/2025 4:40 PM EDT Office Visit [facility] [address] [place] [address] Ish Anderson, [address] [place] [address] documented as of this encounter Visit Diagnoses Diagnosis Class 1 obesity due to excess calories without serious comorbidity with body mass index (BMI) of 33.0 to 33.9 in adult documented in this encounter Care Teams Senior Product Development Engineer Relationship Specialty Start Date End Date Ish Anderson DO [address] [place] [address] PCP - General Family Medicine 05/24/23 documented as of this encounter
--- OUTSIDE RECORDS SUMMARY | 2025-05-16 15:26 | XMS_ITS | Encounter Summary ---
Author Organization [facility] Address [address] [place] [address] Care Team Providers Care Nuclear Spectroscopist Name Role Phone Ish Anderson Primary Care Provider [phone] Encounter Details Date Type Department Care Team (Late st Contact Info) Description 08/03/2023 Clinisync Result Encounter [facility] External Department Unsolicited Serge Chan DO [address] [facility] [place] [address] Social History Tobacco Use Types Packs/Day Years [...] any clubs o r organizations such as yazidi groups, unions, fraternal or athletic groups, or [...] Recorded Patient Health Questionnaire-2 Score 0 06/29/2023 [facility] - Occupational Stress [...] place to sleep or slept in a fpc (including now)? No 06/29/2023 Comments No Sex [...] [facility] [address] [facility] 230 [place] [phone] Ish Anderson, DO [address] [place] [address] documented as of this encounter Procedures Procedure Name Priority Date/Time Associated Diagnosis Comments US PELVIS TRANSVAGINAL 08/03/2023 7:18 AM EDT documented in this encounter Results * US PELVIS TRANSVAGINAL (08/03/2023 7:18 AM EDT) Anatomical Region Laterality Modality Other 08/03/2023 7:18 AM EDT Narrative 08/03/2023 7:18 AM EDT The [address] [address] Ultrasound Report Signed Patient: JENNIFER BULLOCK MR#: [id number] : 1980 Acct:[id number] Age/Sex: 43 / F ADM Date: 08/02/23 Loc: US Attending Dr: Serge Chan D.O. Ordering Physician: Serge Chan D.O. Date of Service: 08/02/23 Procedure(s): US pelvis transvaginal Accession Number(s): [id number] cc: Serge Chan D.O. The [place] [address] Patient Name: JENNIFER BULLOCK MRN: [id number] date: 1980 Sex: F Assigned Patient Location: US Current Patient Location: Accession/Order Number: [id number] Exam Date: 08/02/2023 18:02 Report Date: 08/03/2023 07:18 At the request of: SERGE CHAN Procedure: US pelvis transvaginal EXAM: US pelvis transvaginal HISTORY: Menorrhagia COMPARISON: 10/16/2019. TECHNIQUE: Pelvic sonography was performed utilizing grayscale and color Doppler technique. FINDINGS: Anteverted uterus measures 7.7 x 4.7 x 4.1 cm. Uterine endometrial stripe measures 0.8 cm in thickness. Myometrium is heterogeneous. No discrete mass. Right ovary measures 2.5 x 1.7 x 2.2 cm. Normal right ovarian parenchyma. Left ovary not visualized. No significant free fluid within the pelvis. US/US pelvis transvaginal IMPRESSION: 1. Nonthickened premenopausal endometrium. 2. Left ovary not visualized. 3. Normal right ovary. Electronically authenticated by: SALINAS STILES Date: 08/03/2023 07:18 Dictated By: Salinas Stiles Signed By: 08/03/23719 DD/ 7 TD/TT: C Software Developer: Procedure Note Radiology, Radiologist, MD - 08/03/2023 [place] [address] Ultrasound Report Signed Patient: JENNIFER BULLOCK SMR#: [id number] : 1980Acct:[id number] Age/Sex: 43 / FADM Date: 08/02/23 Loc: US Attending Dr: Serge Chan D.O. Ordering Physician: Serge Chan D.O. Date of Service: 08/02/23 Procedure(s): US pelvis transvaginal Accession Number(s): [id number] cc: Serge Chan D.O. [place] [id number] Patient Name: JENNIFER BULLOCK MRN: [id number] date: 1980 Sex: F Assigned Patient Location: US Current Patient Location: Accession/Order Number: [id number] Exam Date: 08/02/2023 18:02 Report Date: 08/03/2023 07:18 At the request of: SERGE CHAN Procedure: US pelvis transvaginal EXAM: US pelvis transvaginal HISTORY: Menorrhagia COMPARISON: 10/16/2019. TECHNIQUE: Pelvic sonography was performed utilizing grayscale and color Doppler technique. FINDINGS: Anteverted uterus measures 7.7 x 4.7 x 4.1 cm. Uterineendometrial stripe measures 0.8 cm in thickness. Myometrium is heterogeneous. Nodiscrete mass. Right ovary measures 2.5 x 1.7 x 2.2 cm. Normal right ovarian parenchyma. Left ovary not visualized. No significant free fluid within the pelvis. US/US pelvis transvaginal IMPRESSION: 1. Nonthickened premenopausal endometrium. 2. Left ovary not visualized. 3. Normal right ovary. Electronically authenticated by: SALINAS STILES Date: 08/03/2023 07:18 Dictated By: Salinas Stiles Signed By:08/03/23719 DD/ 7 TD/TT: C Software Developer: us Serge Chan DO [facility] Final Result documented in this encounter Visit Diagnoses Not on filedocumented in this encounter Care Teams Nuclear Spectroscopist Relationship Specialty Start Date End Date Ish Anderson DO [address] [facility] 230 [place] [id number] PCP - General Family Medicine 05/24/23 documented as of this encounter
--- OUTSIDE RECORDS SUMMARY | 2025-05-16 15:26 | XMS_ITS | Encounter Summary ---
Author Organization [facility] Address [address] [place] [address] Care Team Providers Care Asset Coordinator Name Role Phone Ish Anderson DO Primary Care Provider Encounter Details Date Type Department Care Team (Late st Contact Info) Description 06/08/2024 Orders Only [facility] FM [address] [facility] [address] [place] [address] Ish Anderson DO [address] [facility] 230 [place] [address] Social History Tobacco Use Types Packs/Day Years [...] often do you attend chur ch or shinto services? More than 4 times per year [...] Recorded Patient Health Questionnaire-2 Score 0 12/08/2023 [facility]ational Stress Questionnaire Answer [...] place to sleep or slept in a skilled nursing (including now)? No 06/29/2023 Comments No Sex [...] [address] [place] [address] Ish Anderson DO [address] [place] [address] documented as of this encounter Visit Diagnoses Not on filedocumented in this encounter Care Teams Asset Coordinator Relationship Specialty Start Date End Date Ish Anderson DO [address] [place] [address] PCP - General Family Medicine 05/24/23 documented as of this encounter
--- OUTSIDE RECORDS SUMMARY | 2025-05-16 15:26 | XMS_ITS | Encounter Summary ---
Author Organization [facility] Address [address] [place] [address] Care Team Providers Care Real Estate Accountant Name Role Phone Ish Anderson DO Primary Care Provider Encounter Details Date Type Department Care Team (Late st Contact Info) Description 05/16/2025 Bamboo flowsheet [facility] OB [address] [place] [phone] Mary Faulkner PA [address] [facility] [address] [place], [facility] Social History Tobacco Use Types Packs/Day Years [...] How often do you attend chur or uatsdin services? More than 4 times per year 06/29/2023 Do you belong to any clubs o r organizations such as hindu groups, unions, fraternal or athletic groups, or [...] Recorded Patient Health Questionnaire-2 Score 0 03/28/2025 [facility] of Occupat ional [facility] - Occupational Stress Questionnaire Answer Date [...] place to sleep or slept in a group home (including now)? No 06/29/2023 Comments No [...] [address] [place] [address] Ish Anderson DO [address] [place] [address] documented as of this encounter Visit Diagnoses Not on filedocumented in this encounter Care Teams Real Estate Accountant Relationship Specialty Start Date End Date Ish Anderson DO [address] [place] [address] PCP - General Family Medicine 05/24/23 documented as of this encounter
--- OUTSIDE RECORDS SUMMARY | 2025-05-16 15:26 | XMS_ITS | Data Portability ---
Author Organization [facility] Address [address] [address] Assessment Encounter Date Assessment Date Assessment LastModified by Organization Details LastModified Time 04/09/2021 04/09/2021 Pt with obesity related to undesirable food choices as evidenced by food recall of several processed/conven ience foods. Intervention: not discussed- pt had to leave call early. Will f/up Wednesday for diet education. carol ann Not available 04/10/2021 16:16:21 04/11/2021 04/11/2021 Pt with obesity related to undesirable food choices as evidenced by food recall of several processed/conven ience foods. Intervention: Discussed IP [employer] Healthy Plate for building healthy meals consisting of carbohydrates, proteins and fats. Emphasized high fiber foods for increased satiety. Monitoring/Evalu ation: weight, food recall, energy levels, exercise routine. Pt expressed understanding of the education provided. Pt felt confident that she could increase vegetables at lunch and dinner. Encouraged pt to f/u in two weeks. [email or web address] Not available 04/11/2021 15:07:53 04/24/2021 04/24/2021 Pt with obesity related to undesirable food choices as evidenced by food recall of several processed/conven ience foods. Intervention: Reviewed nutriquiz results together. Obseved categories for improvement: added sugar, vegetables, fruit, healthy fats. Reviewed meal planning feature in brock. Monitoring/Evalu ation: weight, food recall, energy levels, exercise routine. Pt expressed understanding of the education provided. Pt felt confident that she could increase vegetables at lunch and dinner. Encouraged pt to f/u in two weeks. [email or web address] Not available 04/24/2021 17:28:29 05/29/2021 05/29/2021 Pt with obesity related to undesirable food choices as evidenced by food recall of several processed/conven ience foods. Intervention: Discussed strategies for choosing healthy meals when eating out. Talked through options at frequent restaurants: cracker barrel, Kyler Culp, Kirk. Reviewed mindfulness strategies for eating larger meals and options of sharing or taking half a meal home. Monitoring/Evalu ation: weight, food recall, energy levels, exercise routine. Pt expressed understanding of the education provided. Pt felt confident that she could increase vegetables at lunch and dinner. Encouraged pt to f/u in two weeks. carol ann Not available 05/29/2021 17:53:17 06/12/2021 06/12/2021 Pt with obesity related to undesirable food choices as evidenced by food recall of several processed/conven ience foods. Intervention: Discussed strategies for choosing healthy meals when eating out. Reviewed benefits of high fiber meals. Monitoring/Evalu ation: weight, food recall, energy levels, exercise routine. Pt expressed understanding of the education provided. Pt felt confident that she could increase vegetables at lunch and dinner. Encouraged pt to f/u in two weeks. carol ann Not available 06/12/2021 17:28:08 Plan of Treatment Reminders Order Date Submit Date Provider Last Modified By Organization Details Last Modified Time Details Appointments None record ed. Lab None record ed. Referral None record ed. Procedures None record ed. Surgeries None record ed. Imaging None record ed. Medication Orders None record ed. Patient Targets Encounter Date Encounter Id Patient Goals Patient Target Last Modified By Organization Details Last Modified Time 04/11/2021 [id number] 1. I will increase my vegetables to fill half of my plate with vegetables at lunch and dinner 2. I will continue to go to the gym at least 3 days per week and do aerobic and strength training 3. I will download the [employer] brock and complete the Nutriquiz carol ann Not available 04/11/2021 08:51:35 04/24/2021 [id number] 1. I will increase my vegetables to fill half of my plate with vegetables at lunch and dinner 2. I will continue to go to the gym at least 3 days per week and do aerobic and strength training carol ann Not available 04/24/2021 17:31:07 05/29/2021 [id number] 1. I will increase my vegetables to fill half of my plate with vegetables at lunch and dinner. 2. When eating out I will pause care home through the meal to assess hunger fullness and consider taking half home. 3. I will continue to go to the gym at least 3 days per week and do aerobic and strength training. carol ann Not available 05/29/2021 17:24:22 06/12/2021 8030 1. I will increase my vegetables to fill half of my plate with vegetables at lunch and dinner. 2. When eating out I will pause care home through the meal to assess hunger fullness and consider taking half home. 3. I will continue to go to the gym at least 2 days per week and do aerobic and strength training. 4. I will walk 20 minutes per day 2 times per week. carol ann Not available 06/12/2021 17:20:05 Patient Instructions Encounter Date Encounter Id Patient Instructions Last Modified By Organization Details Last Modified Time 04/09/2021 [id number] 1. Complete Nutritquiz in [employer] brock 2. Follow up call scheduled for 04/10 to complete initial assessment carol ann Not available 04/10/2021 16:17:06 04/11/2021 [id number] [employer] y Plate carol ann Not available 04/11/2021 09:03:43 1. Download the [employer] brock and complete the Nutriquiz. See the recommended recipes for recipes specific to your Nutriquiz results. 2. Follow healthy plate guidelines for balanced meals: -- 1/2 plate non-starchy vegetables -- 1/4 plate lean protein -- 1/4 plate carbs -- Small serving healthy fat (thumbtip size) carol ann Not available 04/11/2021 15:12:56 04/24/2021 6300 1. Utilize the meal planning and grocery list feature in the [employer] brock. See the recommended recipes for recipes specific to improve your Nutrquiz results. 2. Follow healthy plate guidelines for balanced meals: -- 1/2 plate non-starchy vegetables -- 1/4 plate lean protein -- 1/4 plate carbs -- Small serving healthy fat (thumbtip size) carol ann Not available 04/24/2021 17:32:42 05/29/2021 [id number] 1. Utilize the meal planning and grocery list feature in the [employer] brock. See the recommended recipes for recipes specific to improve your Nutrquiz results. 2. Follow healthy plate guidelines for balanced meals: -- 1/2 plate non-starchy vegetables -- 1/4 plate lean protein -- 1/4 plate carbs -- Small serving healthy fat (thumbtip size) 3. Try adding an extra veggie side and limiting carbohydrate appetizers when eating out. Assess hunger and fullness care home through meals. 4. Try different dip recipes. You can make a big batch and enjoy throughout the week for lunches or at snacks. Nonfat Belizean yogurt and beans often make a good base for various dips. Below are some dip recipes found on the [employer] Brock: - Creamy Spinach Dip - Edamame-Frida Dip - Spinach-Artichoke Dip - Roasted Eggplant Dip - Roasted Eggplant Feta Dip - Carrot with Hummus Dip - Ranch Dip & Crunchy Vegetables - Belizean Yogurt Spinach Dip [email or web address] Not available 05/29/2021 17:50:59 06/12/2021 8030 [employer] y Plate [email or web address] Not available 06/12/2021 17:28:35 1. Utilize the meal planning and grocery list feature in the [employer] brock. See the recommended recipes for recipes specific to improve your Nutrquiz results. 2. Follow healthy plate guidelines for balanced meals: -- 1/2 plate non-starchy vegetables -- 1/4 plate lean protein -- 1/4 plate carbs -- Small serving healthy fat (thumbtip size) 3. Try adding an extra veggie side and limiting carbohydrate appetizers when eating out. Assess hunger and fullness care home through meals. 4. Try different dip recipes. You can make a big batch and enjoy throughout the week for lunches or at snacks. Nonfat Belizean yogurt and beans often make a good base for various dips. Below are some dip recipes found on the [employer] Brock: - Creamy Spinach Dip - Edamame-Frida Dip - Spinach-Artichoke Dip - Roasted Eggplant Dip - Roasted Eggplant Feta Dip - Carrot with Hummus Dip [email or web address] Not available 06/12/2021 17:21:08 Reason for Referral None Reported. Medical Equipment None Reported. Medications Name Sig Start Date Stop Date Status Note LastModified by Organization Details LastModified Time fluconazole 150 mg tablet active Not Available Not Available No t Available metronidazole 500 mg tablet active Not Available Not Availabl e Not Available Estarylla 0.25 mg-0.035 mg tablet active Not Available Not Available Not Available Volnea (28) 0.15 mg-0.02 mg (21)/0.01 mg (5) tablet active Not Available Not Available N ot Available Vitals Date Recorded Body height Body mass index (BMI) Body weight Provider Name and Address Organization Details Last Updated DateTime 04/09/2021 167.64 cm 39.5 kg/m2 145571.[address] [facility], [place], [address] 04/09/2021 16:43:00 Social History Question Answer Notes LastModified by Organizat ion Details LastModified Time Tobacco Smoking Status Former Smoker Mi Walsh RD [address] [place] [place] [address], [place], [address], [facility] 04/09/2021 16:45:13 How Many Years Have You Smoked Tobacco? 6 [email or web address] Information not available 04/09/2021 Sex: Unknown Functional Status None recorded. Mental Status None recorded. Family History Relationship Description Onset Age of this Age Resolved Age Notes LastModified by Organization Details LastModified Time Mother Type 2 diabetes mellitus [email or web address] Not available 2020 16:44:51 Father Heart disease [email or web address] Not available 2020 16:45:02 Medical History No medical history recorded. Gynecological HistoryNo gynecological history recorded. Obstetrics History GPAL:G 0 P 0 0 0 0 Past Encounters Encounter ID Performer Location Encounter Start Date Encounter Closed Date Diagnosis/Indication Diagnosis SNOMED-CT Code Diagnosis ICD10 Code Diagnosis Note [id number] [facility] [place] [address] [facility],[address] [place] [address] 04/09/2021 16:30:43 04/09/2021 17:06:59 Diet education 84572572 Z71.3 [id number] [facility] [place] [address] [facility],[address] [place] [address] 04/11/2021 08:31:23 04/11/2021 09:05:27 Diet education 64596764 Z71.3 Reviewed [employer] Healthy plate method for building balanced meals [id number] [facility] [place] [address] [facility],[address] [address] 04/24/2021 16:31:38 05/09/2021 10:30:37 Diet education 29577509 Z71.3 Reviewed [employer] Healthy plate method for building balanced meals [id number] [facility] [place] [address] [facility],[address] [place] [address] 05/29/2021 16:58:51 05/29/2021 18:02:25 Diet education 34445561 Z71.3 Reviewed [employer] Healthy plate method for building balanced meals [id number] [facility] [place] [address] [facility],[address] [address] 06/12/2021 16:50:04 06/12/2021 17:29:07 Diet education 39340445 Z71.3 Reviewed [employer] Healthy plate method for building balanced meals Health Concerns Section Related Observation LastModified by Organization Detai ls LastModified Time None Recorded Concern Status LastModified by Organization Details LastModified Time None Recorded Advance Directives Directive None Recorded Payers Insurance Date Sequence Insurance Name Policy Number Policy Zhao Covered Member ID Zhao Member ID Guarantor Name 06/12/2021 1 [facility] [id number] Chanel Bullock [id number] Chanel Bullock Notes Date Note Type Note Provider Name and Address Organization Details Recorded Time 04/09/2021 text/html [employer] ADIMEReported bypatient.Labs:all good at last blood work, had A1c and thyroid checked Diet Recall:breakfast notes: (2 cups coffee, 2 teaspoon splenda, cream fat free, sometimes skips or toast with PB, white bread, boiled egg, protein bars (low fat, gama or aldi brand)); lunch notes: (usually leftovers: serving beef stroganoff, turkey burger, musroom soup, with broccoli etc); PM snack notes: (nuts or cheezits, fig newtons); dinner notes: (shrimp pasta with zucchini and garlic sauce); evening snack notes: (snacks before bed- popsicles); beverage notes: (coffee, does not feel thirst- makes herself drink water); eats out 2x per week Appetite:good Food Allergies or Intolerances:no food allergies; no aversions/dislikes (does not like tropical fruit, brussels);lactose intolerance(has hemmorhoids and watches her dairy, tries to keep her fiber up) GI:constipation Supplements:current ly taking dietary supplement (ran out of probiotic) Activity:exercises 3 times per week (walks dog, weight and elliptical); active gym membership Social:cooks meals Pt seen by RD regarding nutrition counseling for weight loss. Pt reports a roller coaster of weight changes recently. She wants to lose 30-50lbs. She has tried several diets in the past but none have led to lasting weight loss. Mi Walsh RD [address] [facility], [place], [address], [place] [employer] 04/10/2021 16:17:20 04/11/2021 text/html [employer] ADIMEReported bypatient.Labs:all good at last blood work, had A1c and thyroid checked Diet Recall:breakfast notes: (2 cups coffee, 2 teaspoon splenda, cream fat free, sometimes skips or toast with PB, white bread, boiled egg, protein bars (low fat, gama or aldi brand)); lunch notes: (usually leftovers: serving beef stroganoff, turkey burger, musroom soup, with broccoli etc); PM snack notes: (nuts or cheezits, fig newtons); dinner notes: (shrimp pasta with zucchini and garlic sauce); evening snack notes: (snacks before bed- popsicles); beverage notes: (coffee, does not feel thirst- makes herself drink water); eats out 2x per week Appetite:good Food Allergies or Intolerances:no food allergies; no aversions/dislikes (does not like tropical fruit, brussels);lactose intolerance(has hemmorhoids and watches her dairy, tries to keep her fiber up) GI:constipation Supplements:current ly taking dietary supplement (ran out of probiotic) Activity:exercises 3 times per week (walks dog, weight and elliptical); active gym membership Social:cooks meals Pt seen by RD regarding nutrition counseling for weight loss. Pt reports a roller coaster of weight changes recently. She wants to lose 30-50lbs. She has tried several diets in the past but none have led to lasting weight loss. Mi Walsh RD [address] [place] [place] [address], [place], [address], [facility] [employer] 04/11/2021 15:13:10 04/24/2021 text/html Pt seen by RD regarding nutrition counseling for weight loss. Pt reports using the plate method consistently for her lunches and dinners. She has increased her overall vegetable intake. She did not get to the gym as much this week but she is trying to at least walk for some movement. Mi Walsh RD [address] [facility], [place], [address], [facility] [employer] 04/24/2021 17:33:25 05/29/2021 text/html Pt seen by RD regarding nutrition counseling for weight loss. Pt reports some bowel movement issues related to control. She feels ok with her health goals, did not eat the best while on vacation. They walked alot on vacation but also ate out. She feels better about exercise this week, consistently walking or going to gym. Mi Walsh RD [address] [facility], [place], [address], [facility] - [employer] 05/29/2021 18:02:13 06/12/2021 text/html Pt seen by RD regarding nutrition counseling for weight loss. Pt reports maybe stopping her control soon. She has felt in a funk the past few weeks. She has been taking a dog for 20 minute walks. They went to [place] this weekend and did a lot of walking. She is still stocking up on fresh produce. She went to [employer] and brought half of her meal home. She is paying attention to serving sizes and trying to add in more plant based foods. Mi Walsh, RD [address] [facility], [place], [address], [place] 06/12/2021 17:28:59 OBGyn Episode No OBEpisode recorded.
--- OUTSIDE RECORDS SUMMARY | 2025-05-16 15:27 | XMS_ITS | Encounter Summary ---
Author Organization [facility] Address [address] [place] [address] Care Team Providers Care Sand Molder Name Role Phone Ish Anderson DO Primary Care Provider Encounter Details Date Type Department Care Team (Late st Contact Info) Description 09/08/2024 Abstract [facility] [address] [facility] [address] [place] [address] Ish Anderson DO [address] [facility] [address] [place] [address] Social History Tobacco Use Types Packs/Day Years [...] often do you attend chur ch or worship services? More than 4 times per year 06/29/2023 Do you belong to any clubs o r organizations such as oriental orthodox groups, unions, fraternal or athletic groups, [...] Recorded Patient Health Questionnaire-2 Score 0 12/08/2023 [facility] - Occupational Stress Questionnaire [...] place to sleep or slept in a retirement (including now)? No 06/29/2023 Comments No Sex [...] [address] [place] [phone] Ish Anderson DO [address] [place] [address] documented as of this encounter Visit Diagnoses Not on filedocumented in this encounter Care Teams Sand Molder Relationship Specialty Start Date End Date Ish Anderson DO [address] [place] [address] PCP - General Family Medicine 05/24/23 documented as of this encounter
--- OUTSIDE RECORDS SUMMARY | 2025-05-16 15:27 | XMS_ITS | Encounter Summary ---
Author Organization [facility] Address [address] [place] [address] Care Team Providers Care Gasoline Power Shovel Operator Name Role Phone Ish Anderson Primary Care Provider Encounter Details Date Type Department Care Team (Late st Contact Info) Description 09/08/2024 Abstract [facility] [address] [place] [id number] Kris Chan DO [address] [place], [place] [id number] Social History Tobacco Use Types Packs/Day Years [...] any clubs o r organizations such as jehovah's witness groups, unions, fraternal or athletic groups, or [...] Recorded Patient Health Questionnaire-2 Score 0 12/08/2023 [facility] - Occupational Stress Questionnaire [...] place to sleep or slept in a long-term (including now)? No 06/29/2023 Comments No Sex [...] [address] [place] [address] Ish Anderson DO [address] [place] [address] documented as of this encounter Visit Diagnoses Not on filedocumented in this encounter Care Teams Gasoline Power Shovel Operator Relationship Specialty Start Date End Date Ish Anderson DO [address] [place] [address] PCP - General Family Medicine 05/24/23 documented as of this encounter
--- OUTSIDE RECORDS SUMMARY | 2025-05-16 15:27 | XMS_ITS | Clinical Summary ---
Author Organization [facility] Address [address] [place] [address] Care Team Providers Care Engine Assembler Name Role Phone Dk Cummins MD Primary Care Provider [phone] Allergies No known active allergies Medications Norgestimate-Eth inyl Estradiol 0.18/0.215/0.25 MG-35 MCG Tab take 1 Tab by mouth daily. Active cetirizine 10 MG Tab take 10 mg by mouth daily. Active citalopram 40 MG Tab take 40 mg by mouth daily. Active Active Problems Patient Care Coordination No te Formatting of this note migh t be different from the original. Changing PCP's to [facility] [address] [place] [address] Problem Noted Date Diagnosed Date Depression Strabismus Family History Medical History Relation Name Comments Other - Specify Father + Snores, sl eep study ruled out sleep apnea. Diabetes Mother Insomnia Mother Heart Disease - Other Paternal Grandfather Diabetes Sister Hypertension Sister Relation Name Status Comments Father Mother Paternal Grandfather Sister Social History Tobacco Use Types Packs/Day Years Used Date Smoking Tobacco: Every Day Cigarettes Smokeless Tobacco: Current Tobacco Cessation:Ready to Q uit: No; Counseling Given: No Comments:Uses Vuse smokeless tobacco on occasion. Alcohol Use Standard Drinks/Week Comments Yes 0.8 (1 standard drink = 0.6 oz p ure alcohol) Comments No Sex and Gender Information Value Date Recorded Sex Assigned at Not on file Legal Sex Female 12:50 PM EDT Gender Identity Not on file Sexual Orientation Not on file Last Filed Vital Signs Vital Sign Reading Time Taken Comments Blood Pressure 116/78 06/25/2015 1:52 PM EDT left arm large cuff Pulse 74 06/25/2015 1:52 PM EDT pulse ox Temperature - - Respiratory Rate 16 04/02/2015 11:3 4 AM EDT Oxygen Saturation 97% 06/25/2015 1:5 2 PM EDT Inhaled Oxygen Concentration - - Weight 123 kg (271 lb 3.2 oz) 06/25/2015 1:52 PM EDT Height 165.1 cm (5' 5 ) 06/25/2015 1:52 PM EDT Body Mass Index 45.13 06/25/2015 1:52 PM EDT Plan of Treatment Health Maintenance Due Date Last Done Comments HEPATITIS C VIRUS SCREENING 1982 TETANUS 1982 HIV SCREENING DISCUSSION 1997 HEP B VACCINE (1 of 3 - 19+ 3-dose series) 2001 TDAP (ADULT) 2001 CERVICAL CANCER SCREENING DISCUSSION 01/27/2017 01/28/2016 LIPID SCREENING 2022 MAMMOGRAM SCREENING DISCUSSION 2022 COVID-19 VACCINE ( - 2023-2 5 season) 2024 INFLUENZA VACCINE (#1) 2025 HPV VACCINE Aged Out No longer eligi ble based on patient's age to complete this topic PNEUMOCOCCAL VACCINE SERIES Aged Out No longer eligible based on patient's age to complete this topic Procedures Procedure Name Priority Date/Time Associated Diagnosis Comments CYTOLOGY-VICE PRESIDENT NETWORK DEVELOPMENT, LIQUID BASED Routine 01/28/2016 1:05 PM EDT from Last 3 Months or Most Recently Relevant to Health Maintenance Results * CYTOLOGY-VICE PRESIDENT NETWORK DEVELOPMENT, LIQUID BASED (01/28/2016 1:05 PM EDT) Historical Case Report Cytology Report Patient Name: JENNIFER KENDALL Med. Rec. #: [id number] Submitting Physician: JENNIFER OG Clinical History: Date of Last Menstrual Period: NA Treatment History: HPV HR with genotype if ASCUS Source of Specimen(s): A: Cytology, VICE PRESIDENT NETWORK DEVELOPMENT, Site Not Specified, Surepath Pap Stain x 4 Statement of Adequacy: Satisfactory For Evaluation; Endocervical/Trans formation Zone Component Absent. ---Cytologic Interpretation--- - Negative For Intraepithelial Lesion Or Malignancy. - HPV Testing Was Not Performed Due To The Results Of This Pap Test. vsg/VS01/31/2016 Electronically Signed Out By SHUKRI Beach (ASCP) Procedures/Ad denda HPV High Risk, with Genotyping Date Ordered: 02/04/2016 Status: Signed Out Date Reported: 02/05/2016 Interpretation HPV Genotype 16: Negative HPV Genotype 18: Negative HPV other High Risk types, PCR: Negative HPV DNA detection performed by Real-Time PCR. The assay detects HPV 16, 18, 31, 33, 35, 39, 45, 51, 52, 56, 58, 59, 66, 68. The [employer] [address]00 is FDA approved for Thin Prep sample testing. Sure Path sample testing was developed and its performance characteristics determined by the [facility] at [facility]. This assay has not been cleared or approved by the FDA for Sure Path samples. The laboratory is regulated under CLIA as qualified to perform high complexity testing. This test is used for clinical purposes. It should not be regarded as investigational or for research. CLINICAL LABORATORY Pathologic Diagnosis Statement of Adequacy: Satisfactory For Evaluation; Endocervical/Trans formation Zone Component Absent. ---Cytologic Interpretation--- - Negative For Intraepithelial Lesion Or Malignancy. - HPV Testing Was Not Performed Due To The Results Of This Pap Test. CLINICAL LABORATORY SURG PATH 01/28/2016 1:05 PM EDT 01/30/2016 1:05 PM EDT us Other Other CYTOLOGY Final Result Performing Organization Address City/State/[facility] Co de Phone Number CLINICAL LABORATORY [address] [address] from Last 3 Months or Most Recently Relevant to Health Maintenance Care Teams Engine Assembler Relationship Specialty Start Date End Date Dk Cummins MD PCP - General Internal Medicine 03/27/15
--- OUTSIDE RECORDS SUMMARY | 2025-05-16 15:27 | XMS_ITS | Clinical Summary ---
Author Organization [facility] Address [address] [place] [address], [address] [place] [address] Care Team Providers Care Hatchery Attendant Name Role Phone Chanel Bailey Primary Care Provider [phone] Allergies No known active allergies Medications amoxicillin (AMOXIL) 500 MG capsule Take 500 mg by mouth 3 times daily Active FLUoxetine (PROZAC) 20 MG capsule Take 20 mg by mouth daily Active Norgestim-Eth Estrad Triphasic (ORTHO TRI-CYCLEN, 28, PO) Take by mouth Active cetirizine (ZYRTEC) 10 MG tablet Take 10 mg by mouth daily Active ibuprofen (ADVIL;MOTRIN) 200 MG tablet Take 400 mg by mouth every 6 hours as needed for Pain Active HYDROcodone-acet aminophen (NORCO) 5-325 MG per tablet Take 1 tablet by mouth every 4 hours as needed for Pain 4 tablet 07/06/2016 Active Social History Tobacco Use Types Packs/Day Years Used Date Smoking Tobacco: Never Smokeless Tobacco: Never Alcohol Use Standard Drinks/Week Comments Yes 0 (1 standard drink = 0.6 oz pur e alcohol) occassionally Comments No Sex and Gender Information Value Date Recorded Sex Assigned at Not on file Legal Sex Female 4:01 PM EST Gender Identity Not on file Sexual Orientation Not on file Last Filed Vital Signs Vital Sign Reading Time Taken Comments Blood Pressure 128/83 09/09/2016 3:07 PM EST Pulse 82 09/09/2016 3:07 PM EST Temperature 37.6 C (99.6 F) 07/06/2016 12:35 AM EDT Respiratory Rate 16 07/06/2016 12:35 AM EDT Oxygen Saturation 96% 07/06/2016 12:35 AM EDT Inhaled Oxygen Concentration - - Weight 113.4 kg (250 lb) 09/09/2016 3:07 PM EST Height 167.6 cm (5' 6 ) 09/09/2016 3:07 PM EST Body Mass Index 40.35 09/09/2016 3:07 PM EST Plan of Treatment Not on file Insurance Care Teams Hatchery Attendant Relationship Specialty Start Date End Date Chanel Bailey PA PCP - General 07/06/16
--- OUTSIDE RECORDS SUMMARY | 2025-05-16 15:27 | XMS_ITS | Encounter Summary ---
Author Organization [facility] Address [address] [place] [address] Care Team Providers Care Architectural Job Captain Name Role Phone Ish Anderson Primary Care Provider Encounter Details Date Type Department Care Team (Late st Contact Info) Description 03/24/2024 Abstract [facility] [address] [place] [phone] Kris Chan DO [address] [facility] [address] [place], [place] [id number] Social History Tobacco Use Types Packs/Day Years [...] often do you attend chur ch or bahai services? More than 4 times per year 06/29/2023 Do you belong to any clubs o r organizations such as anabaptist groups, unions, fraternal or athletic groups, or [...] Recorded Patient Health Questionnaire-2 Score 0 12/08/2023 [facility] - Occupational Stress Questionnaire Answer Date [...] place to sleep or slept in a mcc (including now)? No 06/29/2023 Comments No Sex [...] [address] [place] [address] Ish Anderson DO [address] [place] [address] documented as of this encounter Visit Diagnoses Not on filedocumented in this encounter Care Teams Architectural Job Captain Relationship Specialty Start Date End Date Ish Anderson DO [address] [place] [address] PCP - General Family Medicine 05/24/23 documented as of this encounter
[2025-05-18 19:07] LABS: Age Gdln ACOG Testing Note (.); IGP, Aptima HPV, rfx 16/18,45 Note (.)
== END 2025-05-16 15:17 | disposition home or self-care (01) ==
LOC: LAB 15:16
PROVIDERS: PCP Family Medicine; Visit Provider Physician Assistant
DX: Z01.419 Encounter for gynecological examination (general) (routine) without abnormal findings (principal)
CPT/HCPCS: 87624; 88175

== ENCOUNTER 2025-09-25 17:14 | Outpatient (OUT) | payer OTHER, SELFPAY ==
--- OUTSIDE RECORDS SUMMARY | 2025-09-25 17:17 | XMS_ITS | Clinical Summary ---
Author Organization [facility] Healthcare Address [address] [place] [address] Care Team Providers Care Endoscopy Specialty Technician Name Role Phone Ish Anderson Primary Care Provider [phone] Allergies Active AllergyReactionsCriticalityNoted XqcuWhpzjmdmGafmrekaqDuilz51/05/2025 Intolerance Medications MedicationSigDispense QuantityRefillsLast FilledStart DateEnd DateStatus topiramate 50 MG tablet Indications:Class 1 obesity due to excess calories without serious comorbidity with body mass index (BMI) of 33.0 to 33.9 in adultTake 1 tablet by mouth Daily 90 tablet 5Active metroNIDAZOLE (Metrogel) 0.75 % vaginal gel Indications:BV (bacterial vaginosis)Use vaginally nightly for 5 days, then twice weekly thereafter for 3-6 months 140 g 5Active metroNIDAZOLE (Metrogel) 0.75 % vaginal gel Indications:BV (bacterial vaginosis)Insert vaginally twice weekly on Wednesday and for 3-6 months. 70 g 3075111/05/2024Discontinued metroNIDAZOLE (Flagyl) 500 MG tablet Indications:BV (bacterial vaginosis)Take 1 tablet (500 mg) by mouth in the morning and 1 tablet (500 mg) before bedtime. Do all this for 7 days. Do not drink alcohol while taking this medication. 14 tablet /Expired fluconazole (Diflucan) 150 MG tablet Indications:Yeast infectionTake 1 tablet (150 mg) by mouth every 3rd (third) day for 2 doses 2 tablet /Expired Active Problems ProblemNoted DateDiagnosed RwtkGsrgcexoww73/03/2023Major depressive disorder with single episode, in full flpimxsho74/02/2023Menstrual cramp05/26/2023Mixed /02/2023Obesity (BMI 30-39.9)05/26/2023 Resolved Problems ProblemNoted DateDiagnosed DateResolved GthnNrhlphsamc25 Frequency of vcdxhbdcp25Insulin phbroqcxns48 Other obesity due to excess xgkekewp77ain in female genitalia on xvapfjahqlt41eactive ohuvpidpwx17ody mass index 40.0-44.9, adult Encounters DateTypeDepartmentCare ZuljOubjparywtt56/12/2025bstract [facility] [address] [place] [address] Kris Chan DO 09/05/2025Telephone [facility] [address] [place] [address] Iza Wilson MA 09/04/2025 1:50 PM ESTOffice Visit [facility] [address] [place] [address] [place] [address] Mary Faulkner, PA Vaginal itching; Vaginal mcveuwdeb94/11/2025amboo flowsheet [facility] [address] [facility] [place] [address] Mary Faulkner, PA 08/20/2025Telephone [facility] [address] [facility] [address] Jeanie Collado MA 07/13/2025Telephone [facility] [address] [facility] [place] [address] Jeanie Collado MA 06/27/2025 4:40 PM EDTOffice Visit [facility] [address] [place] [address] Ish Anderson, DO Class 1 obesity due to excess calories without serious comorbidity with body mass index (BMI) of 33.0 to 33.9 in adult06/27/2025amboo flowsheet [facility] [address] [place] [address] Ish Anderson, DO 06/27/2025Travelfrom Last 3 Months Family History Medical HistoryRelationNameCommentsNo Known ProblemsFatherDiabetesMotherSusanna GriegerHeart diseasePaternal GrandfatherDonald GriegerAsthmaSisterSara Grieger DiabetesSisterSara GriegerAsthmaSonDominic SholesRelationNameStatusComments Qizswhr9Xznguzpa5VfebgsJsdssDxgrffIhauafk GriegerAlivePaternal GrandfatherDonald GriegerSisterSara GriegerDeceasedSonDominic [place] Social History Tobacco UseTypesPacks/DayYears UsedDateSmoking Tobacco: GnmufeNahawtskxd849.2 2000 - 08/20/2013Smokeless Tobacco: Never Tobacco Cessation:Counseling Given: Yes Alcohol UseStandard Drinks/WeekCommentsYes1 (1 standard drink = 0.6 oz pure alcohol)Caffeine: 1-2 cups/dayHumiliation, Afraid, Rape, and Kick questionnaire AnswerDate RecordedWithin the last year, have you been afraid of your partner or ex-partner?No06/29/2023Within the last year, have you been humiliated or emotionally abused in other ways by your partner or ex-partner?No06/29/2023 Within the last year, have you been kicked, hit, slapped, or otherwise physically hurt by your partner or ex-partner?06/29/2023Within the last year, have you been raped or forced to have any kind of sexual activity by your part ner or ex-partner?No06/29/2023Social Connection and Isolation PanelAnswerDate RecordedIn a typical week, how many times do you talk on the phone with family, friends, or neighbors?Three times a week06/29/2023How often do you get together with friends or relatives?Once a week06/29/2023How often do you attend mandaen or lutheran services?More than 4 times per year06/29/2023o you belong to any clubs or organizations such as mandaen groups, unions, fraternal or athletic mattie ups, or school groups?Yes06/29/2023How often do you attend meetings of the clubs or organizations you belong to?More than 4 times per year06/29/2023re you , , , , never , or living with a partner? Ylkvgwix78/05/2023UDIT-CAnswerDate RecordedQ1: How often do you have a drink containing alcohol?Monthly or less06/29/2023Q2: How many drinks containing alcohol do you have on a typical day when you are drinking?1 or Q3: How often do you have six or more drinks on one occasion?Less than monthly 06/29/2023Overall Financial Resource Strain (CARDIA)AnswerDate RecordedHow hard is it for you to pay for the very basics like food, housing, medical care, and heating?Not hard at all06/29/2023HQ-2AnswerDate RecordedPatient Health Questionnaire-2 [facility]ol815[facility] [place] [facility] - Occupational Stress QuestionnaireAnswerDate RecordedDo you feel stress - tense, restless, nervous, or anxious, or unable to sleep at night because yourmind is troubled all the time - these days?Rather much06/29/2023Exercise Vital Sign AnswerDate RecordedOn average, how many days per week do you engage in moderate to strenuous exercise (like a brisk walk)?3 days06/29/2023On average, how many minutes do you engage in exercise at this level?30 min06/29/2023Hunger Vital SignAnswerDate RecordedWithin the past 12 months, you worried that your food would run out before you got the money to buymore.Never true06/29/2023Within the past 12 months, the food you bought just didn't last and you didn't have money to get more.Never true06/29/2023RAPARE - TransportationAnswerDate RecordedIn the past 12 months, has lack of transportation kept you from medical appointments or from getting medications?No06/29/2023In the past 12 months, has lack of transportation kept you from meetings, work, or from getting things needed for daily living?No06/29/2023Housing Stability Vital SignAnswerDate RecordedIn the last 12 months, was there a time when you were not able to pay the mortgage or rent on time?No06/29/2023In the last 12 months, how many places have you lived?In the last 12 months, was there a time when you did not have a steady place to sleep or slept in ashelter (including now)?No 06/29/2023CommentsNoSex and Gender InformationValueDate RecordedSex Assigned at BirthNot on fileLegal DliMbnqsu94/15/2023 7:10 PM EDTGender Identity Chkqws3601/06/2023 7:10 PM EDTSexual OrientationNot on file Last Filed Vital Signs Vital SignReadingTime TakenCommentsBlood Giwzpsng672/7011 2:02 PM EST Zattm2943 4:42 PM MRARvefncgfsic87.9 ??C (98.4 ??F)06/27/2025 4:42 PM EDTRespiratory Rate--Oxygen Mkfbmkksln09%06/27/2025 4:42 PM EDTInhaled Oxygen Concentration--Nuarba91.1 kg (203 lb)09/04/2025 2:02 PM RVAHkagbd389.6 cm (5' 6 )06/27/2025 4:42 PM EDTBody Mass Index32.7709 4:42 PM EDT Plan of Treatment DateTypeDepartmentCare Team (Latest Contact Info)Eglomxujcct55/21/2026 5:00 PM ESTOffice Visit [facility] [address] [place] [address] Ish Anderson, [address] [place] [address] Health MaintenanceDue DateLast BpnzAycdxfrkLhzbolyti20/08/399012/3COVID-19 Vaccine ( season)2025Influenza Vaccine (#1)5Cervical Cancer ScreeningDiscontinuedPap OmomnEzeuuenwwzwi03/23/2025, 06/21/2023, 05/27/2022, Additional history existsHPV/CotestDiscontinuedPneumococcal Vaccine: Pediatrics (0 to 5 Years) and At-Risk Patients (6 to 64 Years)Aged OutNo longer eligible based on patient's age to complete this topic Procedures Procedure NamePriorityDate/TimeAssociated DiagnosisCommentsRECURRENT VAGINITIS (HTRX)Sxylaol9709/04/2025 3:06 PM EST PAP CZHUXWskqcpu51/23/2025 12:00 AM EDTBI MAMMOGRAM SCREENING TOMOSYNTHESIS IVUOXHOWVFzzxbvn57/08/2023 from Last 3 Months or Most Recently Relevant to Health Maintenance Results * (ABNORMAL) RECURRENT VAGINITIS (HTRX) (09/04/2025 3:06 PM EST)ComponentValue Ref RangeTest MethodAnalysis TimePerformed AtPathologist SignatureATOPOBIUM JSDUCXM484.961 - 24.689 ppm09/05/2025 7:24 AM ESTHealthTrackRx at [facility]Ind[facility] ATOPOBIUM VAGINAENot Vxodunss46.961 - 24.689 ppm09/05/2025 7:24 AM EST [facility] HospitalBVAB 2,3 (BACTERIAL VAGINOSIS ASSOCIATED BACTERIA 2, 3); MOBILUNCUS SPP20.971(A)19.961 - 24.689 ppm09/05/2025 7:24 AM EST [facility] at LabPortBVAB 2,3 (BACTERIAL VAGINOSIS ASSOCIATED BACTERIA 2, 3); MOBILUNCUS SPPDetected(A)19.961 - 24.689 ppm09/05/2025 7:24 AM EST [facility] ALBICANS, PARAPSILOSIS, AVIKOQAZBT512.000 - 30.347 ppm09/05/2025 7:24 AM ESTHealthTrackRx at LabPortCANDIDA ALBICANS, PARAPSILOSIS, TROPICALISNot Aroqitdh79.000 - 30.347 ppm09/05/2025 7:24 AM EST [facility] at LabPortCANDIDA GDSFXCQX342.000 - 31.618 ppm09/05/2025 7:24 AM ESTHealthTrackRx at LabPortCANDIDA GLABRATANot Pcnyacux23.000 - 31.618 ppm 09/05/2025 7:24 AM ESTHealthTrackRx at LabPortCANDIDA GVZPHA593.000 - 30.873 ppm09/05/2025 7:24 AM ESTHealthTrackRx at LabPortCANDIDA KRUSEINot Detected 23.000 - 30.873 ppm09/05/2025 7:24 AM ESTHealthTrackRx at LabPortCHLAMYDIA EEBEAKLJBIM684.000 - 31.586 ppm09/05/2025 7:24 AM ESTHealthTrackRx at LabPort CHLAMYDIA TRACHOMATISNot Oypqxpbs01.000 - 31.586 ppm09/05/2025 7:24 AM EST [facility] at LabPortGARDNERELLA QRARCQBSH735.961 - 24.689 ppm09/05/2025 7:24 AM ESTHealthTrackRx at LabPortGARDNERELLA VAGINALISNot Nsuphpbi25.961 - 24.689 ppm09/05/2025 7:24 AM ESTHealthTrackRx at LabPortMEGASPHAERA (TYPES 1, 2)019.961 - 24.689 ppm09/05/2025 7:24 AM ESTHealthTrackRx at LabPort MEGASPHAERA (TYPES 1, 2)Not Tvqinpji47.961 - 24.689 ppm11 7:24 AM EST [facility] at LabPortNEISSERIA PJZQUQFVRMG414.000 - 32.587 ppm09/05/2025 7:24 AM ESTHealthTrackRx at LabPortNEISSERIA GONORRHOEAENot Hmuqrrml56.000 - 32.587 ppm09/05/2025 7:24 AM ESTHealthTrackRx at LabPortTRICHOMONAS VAGINALIS0 23.000 - 31.995 ppm09/05/2025 7:24 AM ESTHealthTrackRx at LabPortTRICHOMONAS VAGINALISNot Cxbqirtw87.000 - 31.995 ppm09/05/2025 7:24 AM ESTHealthTrackRx at LabPortMYCOPLASMA WYQUDBRCCR404.961 - 24.689 ppm09/05/2025 7:24 AM EST [facility] at LabPortMYCOPLASMA GENITALIUMNot Nkelubvh44.961 - 24.689 ppm 09/05/2025 7:24 AM ESTHealthTrackRx at LabPortSpecimen (Source)Anatomical Location / LateralityCollection Method / VolumeCollection TimeReceived Time Pnrndk4109/04/2025 3:06 PM EST09/05/2025 2:22 AM EST Narrative Authorizing ProviderResult TypeResult StatusAmy Lucie PALAB BLOOD ORDERABLES Final ResultPerforming OrganizationAddressCity/State/ZIP CodePhone Number [facility] [address] [place] [address] * Pap Smear (05/16/2025 12:00 AM EDT)Specimen (Source)Anatomical Location / LateralityCollection Method / VolumeCollection TimeReceived TimeSwabCervical swab / Unknown Narrative Authorizing ProviderResult TypeResult StatusAmy Lucie PALAB CYTOLOGY ORDERABLES Final ResultPerforming OrganizationAddressCity/State/ZIP CodePhone Number EXTERNAL LAB * Bilateral screening mammogram with tomosynthesis (12/02/2022)Anatomical Region LateralityModalityBreastBilateralMammographySpecimen (Source)Anatomical Location / LateralityCollection Method / VolumeCollection TimeReceived Time Narrative 12/02/2022 12:00 AM EST PERFORMED AT [facility] LOCATION:[address] Patient: ? FAIZA Gomez ? Exam Date: ? 12/02/2022 : ? 1980 ?Gender:F ? Ordering : ? DR JERMAINE BRUNER . ? Admission #: ? [id number] Family : ?Order #: ? [id number] ? CLICK HERE TO VIEW EXAM RADIOLOGY REPORT PROCEDURE: ? MAMMOGRAM SCREENING 3D BILATERAL CAD COMPARISON: ? None. INDICATIONS: ? Screening mammography Calculator Name ? NCI Breast Cancer Risk Assessment Tool 5 Year Breast Cancer Risk ? 0.60% Lifetime Breast Cancer Risk ? 11.10% Personal Breast Cancer ?No Personal Ovarian Cancer ? No Treatments ? None Family Cancers ? None LOCATION: ? [facility] BREAST COMPOSITION: ? Scattered areas fibroglandular density. FINDINGS: DIAGNOSTIC CATEGORY 2--BENIGN FINDING: RIGHT BREAST: ??No significant suspicious finding. ??Scattered benign-appearing lymph nodes are present. LEFT BREAST: ??No significant suspicious finding. RECOMMENDATIONS: ROUTINE MAMMOGRAM AND CLINICAL EVALUATION IN 12 MONTHS. PLEASE NOTE: ??A NORMAL MAMMOGRAM DOES NOT EXCLUDE THE POSSIBILITY OF BREAST CANCER. ??A CLINICALLY SUSPICIOUS PALPABLE LUMP SHOULD BE BIOPSIED. Dictated by: Ashvin Breaux M.D. on 12/03/2022 at 08:32 Approved by: Ashvin Breaux M.D. on 12/03/2022 at 09:41 Procedure Note CONVERSION, GENERIC - 04/30/2023 PERFORMED AT [facility] LOCATION:[address] Patient: FAIZA Gomez Exam Date: 12/02/2022 : 1980 Gender:F Ordering : DR JERMAINE BRUNER . Admission #: [id number] Family : Order #: [id number] CLICK HERE TO VIEW EXAM RADIOLOGY REPORT PROCEDURE: MAMMOGRAM SCREENING 3D BILATERAL CAD COMPARISON: None. INDICATIONS: Screening mammography Calculator Name NCI Breast Cancer Risk Assessment Tool 5 Year Breast Cancer Risk 0.60% Lifetime Breast Cancer Risk 11.10% Personal Breast Cancer No Personal Ovarian Cancer No Treatments None Family Cancers None LOCATION: [facility] BREAST COMPOSITION: Scattered areas fibroglandular [...] Ashvin Breaux M.D. on 12/03/2022 at 09:41 Authorizing ProviderResult TypeResult StatusDiamond Grove Centerlolly Bruner MDMary BI PROCEDURES Final Result from Last 3 Months or Most Recently Relevant to Health Maintenance Insurance Care Teams Team MemberRelationshipSpecialtyStart DateEnd Date Ish Anderson DO [address] [place] [address] PCP - GeneralFamily Medicine05/24/23
--- OUTSIDE RECORDS SUMMARY | 2025-09-25 17:17 | XMS_ITS | Clinical Summary ---
Author Organization [facility] Address [address] [place] [address] Care Team Providers Care Document Analyst Name Role Phone Dk Cummins MD Primary Care Provider [phone] Allergies No known active allergies Medications MedicationSigDispense QuantityRefillsLast FilledStart DateEnd DateStatus Norgestimate-Ethinyl Estradiol 0.18/0.215/0.25 MG-35 MCG Tab take 1 Tab by mouth daily.Active cetirizine 10 MG Tab take 10 mg by mouth daily.Active citalopram 40 MG Tab take 40 mg by mouth daily.Active Active Problems Patient Care Coordination No te Formatting of this note migh t be different from the original. Changing PCP's to NE[facility] Andres [address] [place] [address] ProblemNoted DateDiagnosed DateDepressionStrabismus Family History Medical HistoryRelationNameCommentsOther - SpecifyFather+ Snores, sleep study ruled out sleep apnea.DiabetesMotherInsomniaMotherHeart Disease - OtherPaternal GrandfatherDiabetesSisterHypertensionSisterRelationNameStatusCommentsFather MotherPaternal GrandfatherSister Social History Tobacco UseTypesPacks/DayYears UsedDateSmoking Tobacco: Every DayCigarettes Smokeless Tobacco: Current Tobacco Cessation:Ready to Q uit: No; Counseling Given: No Comments:Uses Vuse smokeless tobacco on occasion. Alcohol UseStandard Drinks/WeekCommentsYes0.8 (1 standard drink = 0.6 oz pure alcohol)CommentsNoSex and Gender InformationValueDate RecordedSex Assigned at BirthNot on fileLegal JbxHgsotz33/03/2015 12:50 PM EDTGender IdentityNot on fileSexual OrientationNot on file Last Filed Vital Signs Vital SignReadingTime TakenCommentsBlood Szefsbfh525/7809 1:52 PM EDT left arm large izmjBrdtv1992/01/2015 1:52 PM EDTpulse oxTemperature--Respiratory Ghsj6139 11:34 AM EDTOxygen Dnyorylmmq78%06/25/2015 1:52 PM EDTInhaled Oxygen Concentration--Kyotld810 kg (271 lb 3.2 oz)06/25/2015 1:52 PM EDTHeight 165.1 cm (5' 5 )06/25/2015 1:52 PM EDTBody Mass Index45.1309 1:52 PM EDT Plan of Treatment Health MaintenanceDue DateLast DoneCommentsHEPATITIS C VIRUS FRYYRZGHR1982 WICZYUV45 1982HIV SCREENING ZJEKEJNKBE49/29/1997HEP B VACCINE (1 of 3 - 19+ 3-dose series)2001TDAP (ADULT)2001HPV VACCINE (1 - 3-dose SCDM series)2009CERVICAL CANCER SCREENING RXLTWQMFZA63LIPID EZDTFATBV25/29/2022MAMMOGRAM SCREENING EWJZZUGKFM34/29/2022OVID-19 VACCINE (2024- season)2025INFLUENZA VACCINE (#1)2025PNEUMOCOCCAL VACCINE SERIESAged OutNo longer eligible based on patient's age to complete this topic Procedures Procedure NamePriorityDate/TimeAssociated DiagnosisCommentsCYTOLOGY-FEDERAL LAW CLERK, LIQUID CQBEHJafsdox75/05/2016 1:05 PM EDT from Last 3 Months or Most Recently Relevant to Health Maintenance Results * CYTOLOGY-FEDERAL LAW CLERK, LIQUID BASED (01/28/2016 1:05 PM EDT)ComponentValueRef RangeTest MethodAnalysis TimePerformed AtPathologist SignatureHistorical Case Report Cytology Report Patient Name: JENNIFER KENDALL Med. Rec. #: [id number] Submitting Physician: ??JENNIFER OG Clinical History: Date of Last Menstrual Period: ??NA Treatment History: HPV HR with genotype if ASCUS Source of Specimen(s): A: Cytology, FEDERAL LAW CLERK, Site Not Specified, Surepath ? Pap Stain x 4 Statement of Adequacy: ? Satisfactory For Evaluation; Endocervical/Transformation Zone Component Absent. ---Cytologic Interpretation--- ? - ??Negative For Intraepithelial Lesion Or Malignancy. ? - ??HPV Testing Was Not Performed Due To The Results Of This Pap Test. vsg/VS01/31/2016 Electronically Signed Out By SHUKRI Beach (ASCP) ? Procedures/Addenda HPV High Risk, with Genotyping ? Date Ordered: ? 02/04/2016 ? Status: Signed Out ?Date Reported: ? 02/05/2016 ? Interpretation HPV Genotype 16: Negative HPV Genotype 18: Negative HPV other High Risk types, PCR: Negative HPV DNA detection performed by Real-Time PCR. The assay detects HPV 16, 18, 31, 33, 35, 39, 45, 51, 52, 56, 58, 59, 66, 68. The [employer] [address] is FDA approved for Thin Prep sample testing. ??Sure Path sample testing was developed and its performance characteristics determined by the [facility] at [facility]. This assay has not been cleared or approved by the FDA for Sure Path samples. The laboratory is regulated under CLIA as qualified to perform high complexity testing. This test is used for clinical purposes. It should not be regarded as investigational or for research. ? CLINICAL LABORATORY UHPathologic DiagnosisStatement of Adequacy: ? Satisfactory For Evaluation; Endocervical/Transformation Zone Component Absent. ---Cytologic Interpretation--- ? - ??Negative For Intraepithelial Lesion Or Malignancy. ? - ??HPV Testing Was Not Performed Due To The Results Of This Pap Test. CLINICAL LABORATORY UHSpecimen (Source)Anatomical Location / Laterality Collection Method / VolumeCollection TimeReceived TimeSURG PATH01/28/2016 1:05 PM EDT01/30/2016 1:05 PM EDT Narrative Authorizing ProviderResult TypeResult StatusOther OtherCYTOLOGYFinal Result Performing OrganizationAddressCity/State/ZIP CodePhone Number CLINICAL LABORATORY [address] [phone] from Last 3 Months or Most Recently Relevant to Health Maintenance Care Teams Team MemberRelationshipSpecialtyStart DateEnd Date Dk Cummins MD PCP - GeneralInternal Medicine03/27/15
--- OUTSIDE RECORDS SUMMARY | 2025-09-25 17:17 | XMS_ITS | Clinical Summary ---
Author Organization [facility] Address [address] [place] [address], [address] [place] [address] Care Team Providers Care Urinalysis Technician Name Role Phone Chanel Bailey Primary Care Provider [phone] Allergies No known active allergies Medications MedicationSigDispense QuantityRefillsLast FilledStart DateEnd DateStatus amoxicillin (AMOXIL) 500 MG capsule Take 500 mg by mouth 3 times dailyActive FLUoxetine (PROZAC) 20 MG capsule Take 20 mg by mouth dailyActive Norgestim-Eth Estrad Triphasic (ORTHO TRI-CYCLEN, 28, PO) Take by mouthActive cetirizine (ZYRTEC) 10 MG tablet Take 10 mg by mouth dailyActive ibuprofen (ADVIL;MOTRIN) 200 MG tablet Take 400 mg by mouth every 6 hours as needed for PainActive HYDROcodone-acetaminophen (NORCO) 5-325 MG per tablet Take 1 tablet by mouth every 4 hours as needed for Pain 4 tablet 07/06/2016Active Social History Tobacco UseTypesPacks/DayYears UsedDateSmoking Tobacco: NeverSmokeless Tobacco: NeverAlcohol UseStandard Drinks/WeekCommentsYes0 (1 standard drink = 0.6 oz pure alcohol)occassionallyCommentsNoSex and Gender InformationValueDate RecordedSex Assigned at BirthNot on fileLegal HpkUhdyxo20/20/2015 4:01 PM EST Gender IdentityNot on fileSexual OrientationNot on file Last Filed Vital Signs Vital SignReadingTime TakenCommentsBlood Mwvdkkmn848/8311 3:07 PM EST Ifdrw2334 3:07 PM VQXYfehazubvrv18.6 ??C (99.6 ??F)07/06/2016 12:35 AM EDTRespiratory Qytw6043/09/2016 12:35 AM EDTOxygen Cducnyvzbn77%07/06/2016 12:35 AM EDTInhaled Oxygen Concentration--Ejxtvd235.4 kg (250 lb)09/09/2016 3:07 PM HHODudbdo081.6 cm (5' 6 )09/09/2016 3:07 PM ESTBody Mass Index40.35111/09/2015 3:07 PM EST Plan of Treatment Not on file Insurance Care Teams Team MemberRelationshipSpecialtyStart DateEnd Chanel Bailey PA [facility]07/06/16
--- OUTSIDE RECORDS SUMMARY | 2025-09-25 17:18 | XMS_ITS | CCD ---
Author Organization [facility] CliniSyma Care Team Providers Care Sr Account Executive Name Role Phone LENKA, JENNIFER R Unavailable Unavailable LENKA, JENNIFER R Unavailable Unavailable LENKA, JENNIFER R Unavailable Unavailable LENKA, JENNIFER R Unavailable Unavailable Dk Cummins Primary Care [...] DR DEAN Consulting Unavailabl e ZIEBFLORA, DR CÉSAR Pak Consulting Unavailable [place] DO, Henrry L Primary Care Provider [phone] DO Henrry Anderson L Primary Care Provider [phone] CHENG Amaral Attending Provider [phone] [place] DO, Henrry L Primary Care Provider [place] DO, Henrry L Primary Care Provider Kris Chan DO Attending Provider Kris Chan Admitting Unavailable Kris Chan Attending Unavailable [place], Henrry L Primary Care Unavailable Maty Amaral Admitting Unavailable Maty Amaral Attending Unavailable [place], Henrry L Primary Care Unavailable MARGARET SWENSON Attending Unavailable MARY MACK Attending Unavailable CUTZENA, HENRRY Casiano Attending Unavailable JENNIFER THORPE Attending Unavailable YONY JEAN Attending Unavailable MARIA DEL CARMEN COLEMAN Attending Unavailable HENRRY ANDERSON Attending Unavailable LUCIE, MARY Attending Unavailable HENRRY ANDERSON Attending Unavailable HENRRY ANDERSON Referring Unavailable MARY MACK Attending Unavailable LUCIE, MARY Attending Unavailable LUCIE, MARY Attending Unavailable Allergies Allergy ClassificationReported Allergen(s)Allergy TypeDate of OnsetReaction(s) Facility (20 sources)oxyCODONEDrug [id number] Healthcare Work Phone: Medications Current Medications MedicationDrug Class(es)DatesSig (Normalized)Sig (Original)amoxicillin 875 mg oral tablet (1 source)Penicillin-class AntibacterialStart: 00-17-9728vtkr 1 tablet by mouth every twelve hoursAmoxicillin 875 MG 1 capsule Orally Twice a day for 7 day(s) Apr, Activeamoxicillin 875 mg / clavulanate 125 mg oral tablet (4 sources)Penicillin-class AntibacterialStart: 12-12-2024 End: 67-51-8920igbi 1 tablet by mouth in the morningamoxicillin-clavulanate (Augmentin) 875-125 MG tablet Indications: Acute non-recurrent frontal sinusitis Take 1 tablet (875 mg) by mouth in the morning and 1 tablet (875 mg) before bedtime. Do all this for 10 days. 20 tablet 12/12/2024 12/25/2024 Discontinued ()azithromycin 500 mg oral tablet (2 sources)Macrolide AntimicrobialStart: 89-78-2768bltchhixctpl (Zithromax) 500 MG tablet Indications: Vaginal discharge Take 2 tablets on DAY 1; then1 tablet daily for 3 days. (2.5g total) 5 tablet 0 11/08/2023 Activebiotin 5 mg oral capsule (18 sources) End: 17-72-3844jqer 1 capsule by mouth once dailybiotin 5 MG capsule Take 5 mg by mouth Daily 12/25/2024 Discontinued (Other)bisacodyl 10 mg rectal suppository (3 sources)Stimulant LaxativeStart: 09-13-2024 End: 51-06-4085dmyrnhvot (Dulcolax) 10 MG suppository Indications: Constipation, unspecified constipation type Insert 1 suppository (10 mg) into the rectum Daily for 10 days 12 suppository 09/13/2024 09/23/2024 ActivebuPROPion hydrochloride 75 mg oral tablet (1 source)Aminoketonetake 2 tablets by mouth every twelve hoursbuPROPion HCl 75 MG 2 tablets Orally Twice a day Activecetirizine hydrochloride 10 mg oral tablet (5 sources)Histamine-1 Receptor AntagonistStart: 29-29-0749ojad 1 tablet by mouth once dailyCetirizine HCl 10 MG 1 tablet Orally Once a day for 14 days Apr, Activeciprofloxacin 250 mg oral tablet (3 sources)Quinolone AntimicrobialStart: 03-05-2025 End: 22-41-9351veyb 1 tablet by mouth in the morningciprofloxacin (Cipro) 250 MG tablet Indications: Acute cystitis with hematuria Take 1 tablet (250 mg) by mouth in the morning and 1 tablet (250 mg) before bedtime. Do all this for 5 days. 10 tablet 03/05/2025 03/10/2025 Activecitalopram 40 mg oral tablet (1 source)Serotonin Reuptake Inhibitortake 1 tablet by mouth once daily citalopram 40 MG Tab take 40 mg by mouth daily. 0 Actived-biotin 2.5 mg oral tablet (2 sources)biotin 2.5 MG tablet Take by mouth 0 Activeethinyl estradiol 0.02 mg / ferrous fumarate 75 mg / norethindrone 1 mg oral tablet (2 sources)EstrogenBlisovi FE 11/13 1-20 MG-MCG Oral for 84 Days ActiveEthinyl Estradiol / norgestimate (1 source)Progestin, Estrogentake 1 tablet by mouth once dailyNorgestimate- Ethinyl Estradiol 0.18/0.215/0.25 MG-35 MCG Tab take 1 Tab by mouth daily. 0 Activefluticasone propionate 0.05 mg/actuat metered dose nasal spray (1 source)CorticosteroidStart: 78-51-8175tucd 1 spray(s) nasal route twice daily Flonase Allergy Relief 50 MCG/ACT 1 spray in each nostril Nasally Twice a day for 14 day(s) ActiveIbrexafungerp Citrate (Brexafemme) 150 MG tablet (2 sources)Start: 11-30-2023 End: 25-19-7539eqet 2 tablets by mouth in the morningIbrexafungerp Citrate (Brexafemme) 150 MG tablet Indications: Yeast infection Take 300 mg by mouth in the morning and 300 mg before bedtime. Do all this for 1 day. 4 tablet 0 11/30/2023 12/01/2023 Activeibuprofen 800 mg oral tablet (11 sources)Nonsteroidal Anti-inflammatory DrugStart: 09-08-2024 End: 29-86-2560texw 1 tablet by mouth every eight hoursibuprofen 800 MG tablet Take 800 mg by mouth every 8 (eight) hours 09/08/2024 12/25/2024 Discontinued (Other)metroNIDAZOLE 0.0075 mg/mg vaginal gel (14 sources)Nitroimidazole AntimicrobialStart: 30-19-1224fqjhzLLRIFNID (Metrogel) 0.75 % vaginal gel Indications: BV (bacterial vaginosis) Insert vaginally twice weekly on Wednesday and for 3-6 months. 70 g 3 05/17/2025 ActiveStart: 03-24-2025 End: 74-05-0814mjuv 1 tablet by mouth in the morning, then take 1 tablet by mouth in the evening, then take 1 tablet by mouth at bedtimemetroNIDAZOLE (Flagyl) 500 MG tablet Indications: Acute cystitis without hematuria Take 1 tablet (500 mg) by mouth in the morning and 1 tablet (500 mg) in the evening and 1 tablet (500 mg) before bedtime. Do all this for 10 days. 30 tablet 03/24/2025 04/03/2025 ActiveStart: 08-21-2024 End: 73-96-9697bhjxfVTVATNPJ (Metrogel) 0.75 % vaginal gel Indications: BV (bacterial vaginosis) Insert into the vagina Daily for 5 days 70 g 08/21/2024 08/26/2024 Activenaltrexone hydrochloride 50 mg oral tablet (1 source)Opioid Antagonisttake 1 tablet by mouth every twenty-four hours Naltrexone HCl 50 MG 1 tablet Orally Once a day Activenitrofurantoin, macrocrystals 25 mg / nitrofurantoin, monohydrate 75 mg oral capsule (2 sources)Nitrofuran AntibacterialStart: 68-14-1000mrtc 1 capsule by mouth every twelve hours at mealtimeNitrofurantoin Monohyd/M-Cryst (Macrobid) 100 mg capsule Active 100 MG PO Every 12 hours 10 5 2023 11:00pm must administer with a meal/foodtopiramate 50 mg oral tablet (20 sources)Start: 06-26-2025 End: 33-72-3027esnq 33-33.9 tablets by mouth once dailytopiramate 50 MG tablet Indications: Class 1 obesity due to excess calories without serious comorbidity with body mass index (BMI) of 33.0 to 33.9 in adult Take 1 tablet by mouth Daily 90 tablet 3 06/27/2025 ActiveStart: 85-73-9595tusfrxmffr 50 MG tablet Indications: Class 1 obesity due to excess calories without serious comorbidity with body mass index (BMI) of 33.0 to 33.9 in adult Take 50 mg by mouth Daily 90 tablet 1 12/27/2024 ActiveStart: 54-22-0952Snchvmtodg Active MG PO February 14, 2024 12:00am Completed/Discontinued Medications MedicationDrug Class(es)DatesSig (Normalized)Sig (Original)cefdinir 300 mg oral capsule (6 sources)Cephalosporin AntibacterialStart: 03-24-2025 End: 01-90-1620eiau 1 capsule by mouth in the morningcefdinir (Omnicef) 300 MG capsule Indications: Acute cystitis without hematuria Take 1 capsule (300mg) by mouth in the morning and 1 capsule (300 mg) before bedtime. Do all this for 10 days. 20 capsule 03/24/2025 03/28/2025 Discontinuedclindamycin 300 mg oral capsule (2 sources)Lincosamide AntibacterialStart: 09-01-2024 End: 10-95-2213etec 1 capsule by mouth in the morningclindamycin (Cleocin) 300 MG capsule Indications: Vaginal discharge Take 1 capsule (300 mg) by mouth in the morning and 1 capsule (300 mg) before bedtime. Do all this for 7 days. 14 capsule 09/01/2024 09/08/2024 Expiredfluconazole 150 mg oral tablet (11 sources)Azole AntifungalStart: 03-05-2025 End: 65-81-1208xlxskiktwsi (Diflucan) 150 MG tablet Indications: Yeast infection One tablet today, may repeat in 3days if needed 2 tablet 03/05/2025 03/28/2025 DiscontinuedStart: 02-26-2025 End: 77-90-8005uggc 1 tablet by mouth once, then take 1 tablet by mouth once fluconazole (Diflucan) 150 MG tablet Indications: Yeast infection Take 1 tablet (150 mg) by mouth 1(one) time for 1 dose This is a 1 time dose, take single tablet by mouth. 1 tablet 1 02/26/2025 03/05/2025 ActiveStart: 12-25-2024 End: 14-09-2337bhri 1 tablet by mouth once, then take 1 tablet by mouth once fluconazole (Diflucan) 150 MG tablet Indications: Yeast infection Take 1 tablet (150 mg) by mouth 1(one) time for 1 dose This is a 1 time dose, take single tablet by mouth. 1 tablet 1 12/25/2024 12/25/2024 Activephentermine hydrochloride 37.5 mg oral tablet (20 sources)Sympathomimetic Amine AnorecticStart: 05-07-2025 End: 70-65-3874imtn 33-33.9 tablets by mouth before mealtimephentermine (Adipex- P) 37.5 MG tablet Indications: Class 1 obesity due to excess calories without se rious comorbidity with body mass index (BMI) of 33.0 to 33.9 in adult TAKE 1 TABLET (37.5 MG) BY MOUTH IN THE MORNING. TAKE BEFORE MEALS. 30 tablet 06/06/2025 06/27/2025 DiscontinuedStart: 11-28-2024 End: 89-92-2869xyrq 33-33.9 tablets by mouth before mealtimephentermine (Adipex- P) 37.5 MG tablet Indications: Class 1 obesity due to excess calories without se rious comorbidity with body mass index (BMI) of 33.0 to 33.9 in adult TAKE 1 TABLET BY MOUTH IN THEMORNING BEFORE A MEAL 30 tablet 03/06/2025 ActiveStart: 95-20-8188xoxv 33-33.9 tablets by mouth before mealtimephentermine (Adipex-P) 37.5 MG tablet Indications: Class 1 obesity due to excess calories without se rious comorbidity with body mass index (BMI) of 33.0 to 33.9 in adult Take 1 tablet (37.5 mg) by mouth in the morning. Take before meals. 30 tablet 08/31/2024 ActiveStart: 37-61-9201ukuq 33-33.9 tablets by mouth once daily before mealtimephentermine (Adipex-P) 37.5 MG tablet Indications: Class 1 obesity due to excess calories without serious comorbidity with body mass index (BMI) of 33.0 to 33.9 in adult TAKE 1 TABLET BY MOUTH EVERY MORNING, BEFORE MEALS 30 tablet 07/07/2024 ActiveStart: 02-14-2024 End: 10-71-3904imjg 33-33.9 tablets by mouth before mealtimephentermine (Adipex- P) 37.5 MG tablet Indications: Class 1 obesity due to excess calories without se rious comorbidity with body mass index (BMI) of 33.0 to 33.9 in adult Take 1 tablet (37.5 mg) by mouth in the morning. Take before meals. 30 tablet 06/07/2024 07/07/2024 DiscontinuedStart: 02-69-6812Vzmdepcxqfr Active MG PO February 14, 2024 12:00amStart: 11-04-2023 End: 33-20-8643hxuj 33-33.9 tablets by mouth before mealtimephentermine (Adipex- P) 37.5 MG tablet Indications: Class 1 obesity due to excess calories without se rious comorbidity with body mass index (BMI) of 33.0 to 33.9 in adult Take 1 tablet (37.5 mg) by mouth in the morning. Take before meals. 30 tablet 0 11/04/2023 12/04/2023 Activetake 1 tablet by mouth once dailyPhentermine HCl 37.5 MG take 1 tablet by mouth once daily Oral for 30 Days Not-Takingterconazole 4 mg/ml vaginal cream (2 sources)Azole AntifungalTerconazole 0.4 % Vaginal for 7 Days Not-Taking Problems Active Problems Problem ClassificationProblemDateDocumented DateEpisodic/ChronicAbdominal pain (3 sources)Pain in female pelvis; Translations: [Pelvic and perineal pain] 87-58-1530ImfpuiqwEuluqqruw of lipid metabolism (20 sources)Mixed hyperlipidemia; Translations: [Mixed hyperlipidemia]Onset: 713070-75-2161XerdhynTyulnjavqdevh and screening for infectious disease (5 sources)Encounter for screening for human papillomavirus (HPV); Translations: [Exposure to sexually transmissible disorder]Onset: 636737-07-1515Ccngcsxp Menstrual disorders (20 sources)Amenorrhea; Translations: [Amenorrhea, unspecified]Onset: 05-26-2023 Resolved: 145224-90-2406RhlianqCizu disorders (20 sources)Depressive disorder; Translations: [Single episode of major depression in full remission]Onset: 05-26-2023 Resolved: 371783-34-6593KcmhacqIgzqudi (4 sources)Mycosis; Translations: [Candidiasis, unspecified]58-16-5377Qtaskphw Other aftercare (4 sources)Postoperative visit; Translations: [Encounter for other specified surgical aftercare]94-11-2262UeeensygRzagd ear and sense organ disorders (2 sources)Otalgia, right ear; Translations: [Otalgia, unspecified]09-03-2024 EpisodicOther female genital disorders (5 sources)Other specified noninflammatory disorders of vagina; Translations: [OTH SPEC NONINFLAMMATORY D/O VAGINA]Onset: 66-33-1151WfrfkljrRfzvw female genital disorders (10 sources)Vaginal discharge; Translations: [Other specified noninflammatory disorders of vagina]13-17-9800IbvdbegkLostu female genital disorders (2 sources)Vaginal irritation; Translations: [Other specified noninflammatory disorders of vagina]67-73-3059UaosvaqbKrjyb female genital disorders (2 sources)Vaginal discomfort; Translations: [Unspecified condition associated with female genital organs and menstrual cycle]88-19-8874RqjroucbRmpyf female genital disorders (2 sources)Pruritus of vagina; Translations: [Other specified noninflammatory disorders of vagina]90-01-4317CbbhllwbMyibl nutritional; endocrine; and metabolic disorders (20 sources)Body mass index 30+ - obesity; Translations: [Obesity, unspecified] Onset: 787969-26-4809SnvpnemBglxd screening for suspected conditions (not mental disorders or infectious disease) (10 sources)Encounter for screening mammogram for malignant neoplasm of breast; Translations: [Encounter for screening for malignant neoplasm of cervix]Onset: 25-51-1392ScbcjavaZksvg upper respiratory infections (4 sources)Acute pharyngitis, unspecified; Translations: [Acute nasopharyngitis [common cold]]EpisodicUnclassified (2 sources)UTI SITE NOT SPECIFIED / N39.0(ICD-10)Onset: 28-31-5207Ykyrhhe tract infections (7 sources)Acute urinary tract infection; Translations: [Urinary tract infection, site not specified]54-04-2753Vspqtnui Past or Other Problems Problem ClassificationProblemDateDocumented DateEpisodic/ChronicGenitourinary symptoms and ill-defined conditions (20 sources)Dysuria; Translations: [Dysuria]Onset: 05-26-2023 Resolved: 28-20-0528IofpphvzSgqvy eye disorders (20 sources)Strabismus; Translations: [Unspecified strabismus]Onset: 05-27-2023 81-17-9269LxrruulpPokfl female genital disorders (20 sources)Pain in female genitalia on intercourse; Translations: [Unspecified dyspareunia]Onset: 05-26-2023 Resolved: 120952-50-0958RivdctmLboab nutritional; endocrine; and metabolic disorders (20 sources)Insulin resistance; Translations: [Insulin resistance]Onset: 05-26-2023 Resolved: 163238-73-6898FzfpsyxEcuim nutritional; endocrine; and metabolic disorders (20 sources)Obesity caused by energy imbalance; Translations: [Other obesity due to excess calories]Onset: 05-26-2023 Resolved: 049906-86-1114PdwyihkOcube nutritional; endocrine; and metabolic disorders (20 sources)Body mass index 40+ - severely obese; Translations: [Body mass index (BMI) 40.0-44.9, adult]Onset: 01-18-2019 Resolved: 231880-43-0754PnszjbjRkpneq media and related conditions (1 source)Other acute nonsuppurative otitis media, left earOnset: 05-21-2022 Resolved: 69-56-9273JvmxrmjoSmgzcpgfengo (1 source)UTI SITE NOT SPECIFIED; Translations: [UTI SITE NOT SPECIFIED]Onset: 09-06-2017 Results Test NameValueInterpretationReference RangeFacilityIGP,APTIMA HPV,AGE GDLNon 55-15-4108XPV GDLN ACOG TESTINGNote.NOMS HealthcareComment on above:TESTS RESULT FLAG UNITS REF RANGE LAB Clinician Provided Cytology Information Source.............Vagina No. of containers..01 ThinPrep Vial Age Algo ACOG Shaye... FLAG LEGEND: L-Low Normal,H-High Normal,LL-Alert Low,HH-Alert High <-Panic Low,>-Panic High,A-Abnormal,AA-Critical Abnormal Performed at: 01 =G [address] [address] Eli Campbell MD, HPV APTIMANegativeNegativeNOMS HealthcareComment on above:This nucleic acid amplification test detects fourteen high- risk HPV types (16,18,31,33,35,39,45,51,52,56,58,59,66,68) without differentiation. Performed at: =[address] [id number] [place] Attendant: Eli Campbell MD, Phone: [phone] Performed at: [address] [id number] [place] Attendant: Eli Campbell MD, Phone: [phone] IGP, APTIMA HPV, RFX 16/18,45Note.NOMS HealthcareComment on above:TESTS RESULT FLAG UNITS REF RANGE LAB DIAGNOSIS: 02 NEGATIVE FOR INTRAEPITHELIAL LESION OR MALIGNANCY. Specimen adequacy: 02 Satisfactory for evaluation. Performed by: 02 Analy [employer] Development Consultant ([facility]) . 02 Note: Note 02 The Pap smear is a screening test designed to aid in the detection of premalignant and malignant conditions of the uterine cervix. It is not a diagnostic procedure and should not be used as the sole means of detecting cervical cancer. Both false-positive and false-negative reports do occur. Test Methodology: Note 02 This liquid based ThinPrep(R) pap test was screened with the use of an image guided system. HPV Genotype Reflex Note 02 Criteria not met, HPV Genotype not performed. FLAG LEGEND: L-Low Normal,H-High Normal,LL-Alert Low,HH-Alert High <-Panic Low,>-Panic High,A-Abnormal,AA-Critical Abnormal Performed at: [address] [place] [address] Eli Campbell MD, SPATULA-ALONE VAGINA CLINISYNCNOMS HealthcareLaboratory - Chemistry and Chemistry - challengeon 30-81-5940Lbtqwdqrc Ql (U)NegativeNegativeNOMS HealthcareGlucose [Mass/Vol] NegativeNegativeNOMS HealthcareKetones Ql (U)NegativeNegativeNOMS HealthcarepH (U)6 [pH]5.0 - 6.0NOMS HealthcareSpecific gravity (U) [Rel density]1.0151.001 - 1.035NOKY HealthcareUrobilinogen (U) [Mass/Vol]Negative0.2 - 1.0[facility] Healthcare Laboratory - Hematology and Cell countson 26-86-5833Dqxjjkupqr Ql (U)Negative NegativeNOKY HealthcareLaboratory - Urinalysison 84-96-4721Xwkwivg Ql (U) NegativeNegativeNOMS HealthcareProtein Ql (U)NegativeNegativeNOKY HealthcareNo Panel Informationon 79-56-4113Iebttbscilzlkh and review of laboratory results NormalNOKY HealthcareLEUKOCYTESNegativeNegativeNOTwo Rivers Psychiatric HospitalNOKY Healthcare Urinalysis macro (dipstick) panel (U)on 90-15-9580Cmkrrgado, UAPositiveNegative - 4(70) +++ mg/dLNOKY HealthcareComment on above:smallBlood, UAPositiveNegative - 50 Som/mcLNOKY HealthcareComment on above:traceClarity, UATurbidNOKY HealthcareColor, UAOrangeNOKY HealthcareGlucose, UANegativeNegative - 2000(110) ++++ mg/dLNOKY HealthcareInterpretation and review of laboratory resultsAbnormal NOMS HealthcareKetones, UAPositiveNegative - 160(16) ++++ mg/dLNOKY Healthcare Comment on above:smallLeukocytes, UAPositiveNegative - 500+++ Harpreet/mcLNOMS HealthcareComment on above:traceNitrite, UANegativeNegative - PositiveNOMS HealthcarepH, UA65 - 9NOKY HealthcareProtein, UAPositiveNegative - 2000(20) ++++ mg/dLNOKY HealthcareComment on above:30Spec Grav, UA1.0151 - 1.03NOKY HealthcareUrobilinogen, UA0.20.2 - 12 mg/dLNOKY HealthcareNOKY Healthcare RECURRENT VAGINITIS (HTRX)on 41-61-0079JIOCRQKIG TKPNDYN4AFSZ Healthcare ATOPOBIUM VAGINAENot detectedNOKY HealthcareBVAB 2,3 (BACTERIAL VAGINOSIS ASSOCIATED BACTERIA 2, 3); MOBILUNCUS RIW9JYAE HealthcareBVAB 2,3 (BACTERIAL VAGINOSIS ASSOCIATED BACTERIA 2, 3); MOBILUNCUS SPPNot detectedNOKY Healthcare TIERRA ALBICANS, PARAPSILOSIS, NUWFVQHCDT9MLMC HealthcareCANDIDA ALBICANS, PARAPSILOSIS, TROPICALISNot detectedNOMS HealthcareCANDIDA BHKGGQNL9BLNG HealthcareCANDIDA GLABRATANot detectedNOMS HealthcareCANDIDA FWLUKN9VLYB HealthcareCANDIDA KRUSEINot detectedNOMS HealthcareCHLAMYDIA DARQIXVCIEB7QAJG HealthcareCHLAMYDIA TRACHOMATISNot detectedNOMS HealthcareGARDNERELLA VAGINALIS0 NOMS HealthcareGARDNERELLA VAGINALISNot detectedNOMS HealthcareMEGASPHAERA (TYPES 1, 2)0NOMS HealthcareMEGASPHAERA (TYPES 1, 2)Not detectedNOMS Healthcare MYCOPLASMA WDRYFADRJY6PHHW HealthcareMYCOPLASMA GENITALIUMNot detectedNOMS HealthcareNEISSERIA EXXHSTZEAJL8PTYD HealthcareNEISSERIA GONORRHOEAENot detected NOMS HealthcareTRICHOMONAS KXPUBUBAN4PXDF HealthcareTRICHOMONAS VAGINALISNot detectedNOMS HealthcareNOMS HealthcareALL CBC WITH AUTO DIFFon 09-08-2024 BASOPHILS ABSOLUTE NMBB0KHHGTwo Rivers Psychiatric HospitalBasophils/100 WBC (Bld)0.2 %0.2 - 2.0 % [facility] HospitalEosinophils/100 WBC (Bld)0 %Low0.9 - 7.0 %[facility] Erythrocyte distribution width (RBC) [Ratio]12.7 %11.0 - 15.0 %[facility] Hematocrit (Bld) [Volume fraction]33.4 %Low36.0 - 48.0 %[facility] Hemoglobin (Bld) [Mass/Vol]10.7 g/dLLow12.0 - 16.0 g/dLNOTwo Rivers Psychiatric HospitalIMMATURE GRANULOCYTES ABS AUTO0.03NOTwo Rivers Psychiatric HospitalImmature granulocytes/100 WBC (Bld)0.3 % 0.0 - 0.5 %[facility] HospitalInterpretation and review of laboratory results AbnormalNOTwo Rivers Psychiatric HospitalLYMPHOCYTES ABSOLUTE AUTO1.2N[facility] Healthcare Lymphocytes/100 WBC (Bld)10.7 %Low20.5 - 60.0 %[facility] HospitalMCH (RBC) [Entitic mass]31.1 pg26.7 - 34.0 pgNOTwo Rivers Psychiatric HospitalMCHC (RBC) [Mass/Vol]32 g/dL29.9 - 35.2 g/dLRay County Memorial HospitalMCV (RBC) [Entitic vol]97.1 fL81.0 - 99.0 fLNOMS HealthcareMONOCYTES ABSOLUTE AUTO0.8NOKY HealthcareMonocytes/100 WBC (Bld)7.6 % 1.7 - 12.0 %NOMS HealthcareNEUTROPHILS ABSOLUTE AUTO8.9HighRay County Memorial Hospital Neutrophils/100 WBC (Bld)81.2 %High43.0 - 75.0 %NOMFulton Medical Center- FultonPlatelet mean volume (Bld) [Entitic vol]9.9 fL9.5 - 13.5 fLRay County Memorial HospitalTBH EO #0NOMS [facility] HospitalTBH [id number] Hospital Washington RBC3.44LowNOMercy Hospital Washington SNZ30EUEKTwo Rivers Psychiatric HospitalCLINISYNCNOMS HealthcareALL CBC WITH AUTO DIFFon 04-15-3150AORMOOZWN ABSOLUTE BWST5XQKFTwo Rivers Psychiatric HospitalBasophils/100 WBC (Bld)0.6 %0.2 - 2.0 %NOMS HealthcareEosinophils/100 WBC (Bld)2.2 %0.9 - 7.0 %[facility] HospitalErythrocyte distribution width (RBC) [Ratio]12.9 %11.0 - 15.0 %[facility] HospitalHematocrit (Bld) [Volume fraction]39.8 %36.0 - 48.0 %[facility] HospitalHemoglobin (Bld) [Mass/Vol]13 g/dL12.0 - 16.0 g/dLRay County Memorial HospitalIMMATURE GRANULOCYTES ABS AUTO 0.02NOTwo Rivers Psychiatric HospitalImmature granulocytes/100 WBC (Bld)0.3 %0.0 - 0.5 %[facility] HospitalInterpretation and review of laboratory resultsAbnormalRay County Memorial Hospital LYMPHOCYTES ABSOLUTE AUTO2.5NOTwo Rivers Psychiatric HospitalLymphocytes/100 WBC (Bld)36.7 %20.5 - 60.0 %[facility] CenterH (RBC) [Entitic mass]31.9 pg26.7 - 34.0 pgKansas City VA Medical CenterHC (RBC) [Mass/Vol]32.7 g/dL29.9 - 35.2 g/dLKansas City VA Medical CenterV (RBC) [Entitic vol]97.8 fL81.0 - 99.0 fLRay County Memorial HospitalMONOCYTES ABSOLUTE AUTO0.5NOKY HealthcareMonocytes/100 WBC (Bld)7.3 %1.7 - 12.0 %NOMS HealthcareNEUTROPHILS ABSOLUTE AUTO3.6NOMS HealthcareNeutrophils/100 WBC (Bld)52.9 %43.0 - 75.0 %NOMS HealthcarePlatelet mean volume (Bld) [Entitic vol]9.5 fL9.5 - 13.5 fLNOMS HealthcareTBH EO #0.2NOMS HealthcareTBH [id number] HealthcareTBH RBC4.07LowNOMS HealthcareTBH WBC6.9NOMS HealthcareCLINISYNCNOMS HealthcareLon 09-07-2024 Specimen: [id number] Received: 09/08/24 Status: CLEMENCIA Lazo Num: [id number] Spec Type: Surgical Subm Dr: Kris Chan Tissues: A Uterus w/ or w/o tubes ovaries except neoplastic or prolap (UTERUS) Procedures: EDUARDO/Anahy, Gross/Irina L5 Age/ Patient Sex Location Account Attending Physician Jennifer Kendall 44/F LABELL [id number] Kris Chan SPEC NUM: [id number] RECD: 09/08/24 STATUS: CLEMENCIA LAZO NUM: [id number] JD: 09/07/[address] [facility] [address]: Kris Chan ENTERED: 09/08/[address] [facility] [address]: [place],Lab SPEC TYPE: Surgical DEPT: JOSE PADGETT ENTERED BY: [id number] RECV BY: [id number] ORDERED: HE/7, Gross/Micro L5 ORDERED: HE/7, Gross/Micro L5 Pathological Diagnosis Uterus and cervix, Hysterectomy: Uterus: Unremarkable. Cervix: Unremarkable. Clinical Information Menorrhagia, pelvic pain Gross Description Part A is received in formalin labeled with the patients name, date of , and uterus Is a 96 g hysterectomy specimen, which consists of a uterine corpus with attached cervix, resected without bilateral adnexa. The uterine corpus is symmetrical, 4 cm cornu to cornu, 4 cm anterior to posterior and 9 cm fundus to ectocervical face. The serosa is murrieta-pink, smooth and glistening. The cervix is 0.8 cm in length by up to 2.2 cm in diameter. The ectocervical face exhibits murrieta-pink, with a slitlike cervical os, up to 0.5 cm in diameter. The specimen is opened to reveal a murrieta-pink, wrinkled and glistening endocervical canal with a horizontal linear depression at the anterior lower uterine segment, 0.8 x 0.2 x 0.2 cm, consistent with a section scar The endometrial cavity is murrieta-pink, focally erythematous, glistening, distorted and somewhat triangular, 3 x 1.5 cm with endometrium, up to 0.2 cm in thickness. The myometrium is murrieta- Specimen: [id number] Received: 09/08/24 Status: CLEMENCIA Lazo Num: [id number] Spec Type: Surgical Subm Dr: Kris Chan Tissues: A Uterus w/ or w/o tubes ovaries except neoplastic or prolap (UTERUS) Procedures: Anahy, Gross/Micro L5 Patient: Jennifer Kendall [id number] (Continued) Specimen: [id number] Received: 09/08/24 (Continued) Gross Description (Continued) Signed (signature on file) Corby Gore MD 09/11/24 1616 Specimen: [id number] Received: 09/08/24 Status: CLEMENCIA Lazo Num: [id number] Spec Type: Surgical Subm Dr: Kris Chan Tissues: A Uterus w/ or w/o tubes ovaries except neoplastic or prolap (UTERUS) Procedures: HE/7, Gross/Micro L5 Patient: Jennifer Kendall [id number] (Continued) Specimen: [id number] Received: 09/08/24 (Continued) Gross Description (Continued) pink and trabecular, up to 3 cm in thickness. Cath Lab Technologist sections are submitted. Cassettes: A1 Cervix A2 Anterior lower uterine segment (to include section scar) A3 Serosa (to include posterior cul-de-sac) A4?A5 Full thickness cross section of anterior endomyometrium A6?A7 Full thickness cross sections of posterior endomyometrium (7, , YF52-248 A) CPT Codes 93631 Specimen: [id number] Received: 09/08/24 Status: CLEMENCIA Lazo Num: [id number] Spec Type: Surgical Subm Dr: Kris Chan Tissues: A Uterus w/ or w/o tubes ovaries except neoplastic or prolap (UTERUS) Procedures: HE/Anahy, Gross/Micro L5 Patient: Jennifer Kendall [id number] (Continued) Signed (signature on file) Corby Gore MD 09/11/[address] [place] [address] Physician GroupTB PREG QUANT HCGon 09-07-2024 HCG QUANTITATIVE<1mIU/mLNOMS HealthcareComment on above:5-50 0.2-1 WEEK 50-500 1-2 WEEKS 100-5,000 2-3 WEEKS 500-10,000 3-4 WEEKS 1,000-50,000 4-5 WEEKS 10,000-100,000 5-6 WEEKS 15,000-200,000 6-8 WEEKS 10,000-100,000 2-3 MONTHS CLINISYNCNOMS HealthcareALL CBC WITH AUTO DIFFon 83-73-5541QXFKNDTFQ ABSOLUTE WQGW2YETQ HealthcareBasophils/100 WBC (Bld)0.8 %0.2 - 2.0 %[facility] Eosinophils/100 WBC (Bld)2 %0.9 - 7.0 %[facility] HospitalErythrocyte distribution width (RBC) [Ratio]13 %11.0 - 15.0 %[facility] HospitalHematocrit (Bld) [Volume fraction]42.6 %36.0 - 48.0 %[facility] HospitalHemoglobin (Bld) [Mass/Vol]13.7 g/dL 12.0 - 16.0 g/dLRay County Memorial HospitalIMMATURE GRANULOCYTES ABS AUTO0.01NOMS [facility] Immature granulocytes/100 WBC (Bld)0.2 %0.0 - 0.5 %[facility] HospitalInterpretation and review of laboratory resultsAbnormalNOTwo Rivers Psychiatric HospitalLYMPHOCYTES ABSOLUTE NDXS8UBNOTwo Rivers Psychiatric HospitalLymphocytes/100 WBC (Bld)38.1 %20.5 - 60.0 %[facility] MCH (RBC) [Entitic mass]31.2 pg26.7 - 34.0 pgNOTwo Rivers Psychiatric HospitalMCHC (RBC) [Mass/Vol]32.2 g/dL29.9 - 35.2 g/dLRay County Memorial HospitalMCV (RBC) [Entitic vol]97 fL 81.0 - 99.0 fLRay County Memorial HospitalMONOCYTES ABSOLUTE AUTO0.4NOMS [facility] Monocytes/100 WBC (Bld)7.4 %1.7 - 12.0 %[facility] HospitalNEUTROPHILS ABSOLUTE AUTO 2.6NOMS [facility] HospitalNeutrophils/100 WBC (Bld)51.5 %43.0 - 75.0 %[facility] Platelet mean volume (Bld) [Entitic vol]9.4 fLLow9.5 - 13.5 fLRay County Memorial HospitalTBH EO #0.1NOMS HealthcareTBH [id number] [facility] HospitalTBH RBC4.39NOMS [facility] HospitalTB WBC 5.1NOMS HealthcareCLINISYNCNCOMMUNITY HOSPITAL [facility] HealthcareUrine Cultureon 60-71-6934Znsgullu identified Cx Nom (U)50,000 colonies/ml mixed bacterial skin contaminants 2 Days PERFORMED BY: [address] [place] [address] PATHOLOGIST GAME ATTENDANT ELROY MANDUJANO M.D.[facility] Physician GroupComment on above:Performed By: #### CUU #### [facility] [address] [place] [address] USAQuick Strepon 03-23-2023S. pyogenes Org specific cx Ql (Throat)NegativeReebee Other Quick StrepReebee Other Urinalysis - AUTOMATEDon 54-73-1849Ekknlblyke (U)clouy Reebee Other Bilirubin Ql (U)Warrantly Other Color (U)yellowReebee Other Glucose Ql (U)Warrantly Other Hemoglobin Ql (U)Warrantly Other Ketones Ql (U)Warrantly Other Leukocyte esterase Test strip Ql (U)traceReebee Other Nitrite Ql (U)Warrantly Other pH (U)5.5 [pH][employer] Other Protein Ql (U)Warrantly Other Specific gravity (U) [Rel density]1.020[place] [facility] Other Urobilinogen (U) [Mass/Vol]0.2 mg/dLuControl Phantom Other Urinalysis - AUTOMATEDReebee Other VAGINITIS/VAGINOSIS DNA PROBEon 60-64-1449Dqeeqah speciesNegativeNormalNegativeWood County HospitalComment on above:Performed By: #### VAGINT #### [facility] [address] [place] [address] Dr. Richard haleNegativeNormalNegativeWood County Hospital Comment on above:Performed By: #### VAGINT #### [facility] [address] [address] [address] Richard Solitario vaginalisNegativeNormalNegativeWood County Hospital Comment on above:Performed By: #### VAGINT #### [facility] [address] [address] [address] Richard GeorgeMG MAMM SCREEN 3D OTONIEL CADon [id number] MAMM SCREEN 3D OTONIEL CAD Patient: JENNIFER KENDALL Exam Date: 12/02/2022 : 1980 Gender:F Ordering : DR JERMAINE SCHULER . Admission #: [id number] Family : Order #: [id number] CLICK HERE TO VIEW EXAM RADIOLOGY REPORT PROCEDURE: MAMMOGRAM SCREENING 3D BILATERAL CAD COMPARISON: None. INDICATIONS: Screening mammography Calculator Name NCI Breast Cancer Risk Assessment Tool 5 Year Breast Cancer Risk 0.60% Lifetime Breast Cancer Risk 11.10% Personal Breast Cancer No Personal Ovarian Cancer No Treatments None Family Cancers None LOCATION: [facility] BREAST COMPOSITION: Scattered areas fibroglandular density. FINDINGS: DIAGNOSTIC CATEGORY 2--BENIGN FINDING: RIGHT BREAST: No significant suspicious finding. Scattered benign-appearing lymph nodes are present. LEFT BREAST: No significant suspicious finding. RECOMMENDATIONS: ROUTINE MAMMOGRAM AND CLINICAL EVALUATION IN 12 MONTHS. PLEASE NOTE: A NORMAL MAMMOGRAM DOES NOT EXCLUDE THE POSSIBILITY OF BREAST CANCER. A CLINICALLY SUSPICIOUS PALPABLE LUMP SHOULD BE BIOPSIED. Dictated by: César Breaux M.D. on 12/03/2022 at 08:32 Approved by: César Breaux M.D. on 12/03/2022 at 09:41[facility] Citizens HospitalPA ACOG PANEL 2: 30 to 65on 05-29-2022..NormalWood County Hospital Comment on above:Result Comment: Performed at: WBPerformed By: #### [id number] #### [facility] [address] [address] [address] Richard Farooq Gdln ACOG Broiclu70-21QgvrcqZyiBarberton Citizens HospitalComment on above:Performed By: #### [id number] #### [facility] [address] [place] [address] Dr. Richard GeorgeDIAGNOSIS:CommentNoChildren's Hospital for Rehabilitation on above: Result Comment: NEGATIVE FOR INTRAEPITHELIAL LESION OR MALIGNANCY. Performed at: WBPerformed By: #### [id number] #### [facility] [address] [place] [address] Dr. Richard GeorgeHPV AptimaNegativeNormalNegativeThe [facility] on above:Result Comment: This nucleic acid amplification test detects fourteen high-risk HPV types (16,18,31,33,35,39,45,51,52,56,58,59,66,68) without differentiation. Performed at: =GPerformed By: #### [id number] #### [facility] [address] [place] [address] Dr. Richard GeorgeMethodology:CommentSelect Medical Specialty Hospital - Columbus on above: Result Comment: This liquid based ThinPrep(R) pap test was screened with the use of an image guided system. Performed at: WBPerformed By: #### [id number] #### [facility] [address] [place] [address] Dr. Richard GeorgeNote:CommentNoChildren's Hospital for Rehabilitation on above:Result Comment: The Pap smear is a screening test designed to aid in the detection of premalignant and malignant conditions of the uterine cervix. It is not a diagnostic procedure and should not be used as the sole means of detecting cervical cancer. Both false-positive and false-negative reports do occur. . Performed at: WBPerformed By: #### [id number] #### [facility] [address] [place] [address] Dr. Richard GeorgePerformed by:CommentNoChildren's Hospital for Rehabilitation on above: Result Comment: Lex Knight, Meter Installer And Remover (ASCP) Performed at: WBPerformed By: #### [id number] #### [facility] [address] [place] [address] Dr. Richard GeorgeSpecimen adequacy:CommentNormalThe Clarence HospitalComment on above:Result Comment: Satisfactory for evaluation. Endocervical and/or squamous metaplastic cells (endocervical component) are present. Performed at: WBPerformed By: #### [id number] #### [facility] [address] [place] [address] Dr. Richard GeorgeVAGINITIS/VAGINOSIS DNA PROBEon 97-20-0300Rmofgkm speciesNegative NormalNegativeWood County HospitalComment on above:Performed By: #### VAGINT #### [facility] [address] [place] [address] Dr. Richard Montejodnerelltoni vaginalisPositiveAbnormalNegativeWood County HospitalComment on above:Performed By: #### VAGINT #### [facility] [address] [place] [address] Dr. Richard GeorgeTrichomonas vaginalisNegativeNormalNegativeWood County Hospital Comment on above:Performed By: #### VAGINT #### [facility] [address] [place] [address] Dr. Richard GeorgeQ - T4,TOTALon 78-51-5788J5 [Mass/Vol]6.3 ug/dLNormal5.1-11.9 [facility] SpecialistComment on above:Order Comment: [facility] performed at: [facility], [address] [place] [address], [address] [place] [address], [phone], Senior Budget Analyst: Hema Dumont MD [facility] Collection Date/Time: [id number] [facility] Results Received Date/Time: [facility] Reported Date/Time: [id number] By: #### [id number], TSH reflex FT4 #### [facility] Default [address] [place], [place] [address]ZVF w/ Reflex to Free T4on 50-96-4364BJG W/REFLEX TO FT40.84 mIU/LNormalNorthern [facility]view [facility] SpecialistComment on above:Order Comment: [facility] performed at: [employer], [employer] [facility], [address] [place] [address], [address] [place] [address], [phone], Senior Budget Analyst: Hema Dumont MD [facility] Collection Date/Time: [facility] Results Received Date/Time: [facility] Reported Date/Time: [id number] Comment: Reference Range > or = 20 Years 0.40-4.50 Ranges First trimester 0.26-2.66 Second trimester 0.55-2.73 Third trimester 0.43-2.91Performed By: #### [id number], TSH reflex FT4 #### [facility] Default [address] [place] [place], [place] [address]HROJDOF-TYCFWvk 05-94-8546JZGOKQT-URINEPATIENT: JENNIFER KENDALL LOCATION: [facility]#: [id number] : 1980 AGE: 37 SEX: FORDER# [id number] ORDERED BY: JENNIFER OG Source: URI Collected: 09/06/17 08:50 Site: UNK Received: 09/06/17 18:36CULTURE-URINE FINAL 09/08/17 06: NO GROWTH AFTER 35 HOURSMission Hospital McDowellComment on above:Performed By: #### VANI ####[address] [address] Vital Signs Date TimeVital SignValuePerforming BbvholefvXhumywhd27-34-6793 14:02-0500Body mass index (BMI) [Ratio]32.77 kg/m2Mary LARSON Work Phone: [facility] HospitalQeckydfjjs65-06-7417 14:02-0500Body gazbte90.08 kgMary LARSON Work Phone: [facility] HospitalAqjttyzgzv44-48-7805 14:02-0500Diastolic blood kkrospgf66 mm[Hg]Mary LARSON Work Phone: [facility] HospitalTgqfsiuazu56-01-6381 14:02-0500Systolic blood fylpgecb702 mm[Hg]Mary LARSON Work Phone: [facility] HospitalNuiayenxcp66-55-3638 16:42-0400Body dafasg545.6 cmTimothy [place] DO Work Phone: noTwo Rivers Psychiatric HospitalClbzgqeozy39-18-3043 16:42-0400Body mass index (BMI) [Ratio]31.64 kg/s6Fshsyow [place] DO Work Phone: noTwo Rivers Psychiatric HospitalXhlsovcdnn06-67-2276 16:42-0400Body temperature 98.4 [degF]Henrry [place] DO Work Phone: [facility] HospitalBfzsseesct33-60-7223 16:42-0400Body .91 kgTimothy [place] DO Work Phone: [address] [address]Lexubyrhsx19-44-6290 16:42-0400Diastolic blood dwytmfao86 mm[Hg]Henrry [place] DO Work Phone: noTwo Rivers Psychiatric HospitalExwafjkfnb26-85-6775 16:42-0400Heart rate80 /min Henrry [place] DO Work Phone: [facility] HospitalWucubwvxtz62-35-4515 16:42-3671MsW6% (BldA) [Mass fraction]98 %Henrry [place] DO Work Phone: noTwo Rivers Psychiatric HospitalLudykevolj42-63-2670 16:42-0400Systolic blood tuiaogmt422 mm[Hg]Henrry [place] DO Work Phone: noTwo [facility] Psychiatric HospitalLfkjsxhdfb83-91-8438 10:15-0400Body mass index (BMI) [Ratio]31.93 kg/m2Mary LARSON Work Phone: [facility] HospitalDcoeswgbyx98-18-7295 10:15-0400Body aphaip27.72 kgMary LARSON Work Phone: [facility] HospitalXzvgvdkoup97-46-9321 10:15-0400Diastolic blood khegkiij42 mm[Hg]Mary LARSON Work Phone: [facility] HospitalUnvvtfjwdg39-93-9150 10:15-0400Systolic blood qzmbfele795 mm[Hg]Mary LARSON Work Phone: [facility] HospitalNtncmmbmoq17-67-7439 16:45-0400Body ftrrky225.6 cmTimothy [place] DO Work Phone: [facility] HospitalPfrrzwhpyt56-31-8991 16:45-0400Body mass index (BMI) [Ratio]31.05 kg/f3Kxhkyyc [place] DO Work Phone: [facility] HospitalFzixwoloxf17-57-0965 16:45-0400Body temperature 98.49 [degF]Henrry [place] DO Work Phone: noTwo [facility] Psychiatric HospitalUyazvuncik47-53-2976 16:45-0400Body .27 kgTimothy [place] DO Work Phone: [facility] HospitalOmospvagyk93-28-2612 16:45-0400Diastolic blood icexvjmp76 mm[Hg]Henrry [place] DO Work Phone: [facility] HospitalGzoiesqvon75-24-2185 16:45-0400Heart rate92 /min Henrry [place] DO Work Phone: [facility] HospitalXatwczshpk95-73-8707 16:45-3993AoM5% (BldA) [Mass fraction]99 %Henrry [place] DO Work Phone: [facility] HospitalYmhboukquy66-19-3494 16:45-0400Systolic blood rkfsquty228 mm[Hg]Henrry [place] DO Work Phone: [facility] HospitalOjwomjvalq98-49-8777 10:37-0400Body mass index (BMI) [Ratio]31.12 kg/k7JvdqggbfMaria Del Carmen Coleman JEWELRY SALES Work Phone: [facility] HospitalOgbkeazrnu33-83-5207 10:37-0400Body xabjga76.45 kgMaria Del Carmen Coleman JEWELRY SALES Work Phone: [facility] HospitalGgzascjbxa30-52-1997 10:37-0400Diastolic blood yozxgchq84 mm[Hg]Maria Del Carmen Coleman JEWELRY SALES Work Phone: [facility] HospitalOgwhmjzfqq32-04-0998 10:37-0400Systolic blood fvoqsxvp214 mm[Hg]Maria Del Carmen Coleman JEWELRY SALES Work Phone: [facility] HospitalUrtsoatjbo31-46-8338 10:46-0400Body mass index (BMI) [Ratio]30.99 kg/k7Syxlmbn Shayemond DO Work Phone: [facility] HospitalVjzbwpqnhe29-61-3235 10:46-0400Body temperature 97.59 [degF]Yony Jean DO Work Phone: [facility] HospitalLmqcsyhqsc45-28-9663 10:46-0400Body aryldm46.09 kgYony Jean DO Work Phone: [facility] HospitalZsohkzgqke26-74-4103 10:46-0400Diastolic blood odfqjlqz60 mm[Hg]Yony Jean DO Work Phone: [facility] HospitalIiewiabeli16-16-6640 10:46-0400Heart rate77 /min Yony Jean DO Work Phone: [phone] [place], [place] [address]Iybymkeuvw78-89-6750 10:46-8071ZfV8% (BldA) [Mass fraction]98 %Yony Jean DO Work Phone: [facility] HospitalWbhcrfacyj84-24-5573 10:46-0400Systolic blood qdykprhs334 mm[Hg]Yony Jean DO Work Phone: [facility] HospitalBaxfbbbiiy53-57-1042 12:02-0400Body awciws381.6 cmJeffolivia Thorpe JEWELRY SALES Work Phone: 1(969)942-[address] [place], [place] [address]Fjnvqppjcr92-64-3022 12:02-0400Body mass index (BMI) [Ratio]31.02 kg/y7IjjlqJennifer Thorpe JEWELRY SALES Work Phone: [facility] HospitalIdtrduwfcp60-62-1992 12:02-0400Body temperature 96.01 [degF]Jennifer Thorpe [employer]EW[employer]RY SAL[employer] Work Phone: 1(414)522-[address] [place], [place] [address]Uwudbvicfb20-46-3946 12:02-0400Body yqdmom04.18 kgJennifer Thorpe JEWELRY SALES Work Phone: NOTwo Rivers Psychiatric HospitalZkjcsdcpjw80-76-4806 12:02-0400Diastolic blood ttvzynqg69 mm[Hg]Jennifer Thorpe JEWELRY SALES Work Phone: NOTwo Rivers Psychiatric HospitalIrcgldbtdz80-08-9722 12:02-0400Heart rate80 /min Jennifer Thorpe [employer]EL[employer] SAL[employer] Work Phone: NOTwo Rivers Psychiatric HospitalObciymjpcs01-41-9878 12:02-0910IuI0% (BldA) [Mass fraction]100 %Jennifer Thorpe JEWELRY SALES Work Phone: noTwo [facility] Psychiatric HospitalHwuawdvvej79-98-3102 12:02-0400Systolic blood prgxverf270 mm[Hg]Jennifer Thorpe JEWELRY SALES Work Phone: NOTwo [facility] Psychiatric HospitalLpmrsnhpiw10-03-6086 09:23-0500Body mass index (BMI) [Ratio]31.12 kg/m2Mary Mack PA Work Phone: NOTwo Rivers Psychiatric HospitalHulkdbkocv58-00-9758 09:23-0500Body yrrhcn80.45 kgMary Mack PA Work Phone: NOTwo Rivers Psychiatric HospitalQsjeegwvsd95-43-7898 09:23-0500Diastolic blood aqynmbgi05 mm[Hg]Mary Lopezey PA Work Phone: NOTwo Rivers Psychiatric HospitalSqmmvnkcfq86-19-2909 09:23-0500Systolic blood pmlercua396 mm[Hg]Mary Lopezey PA Work Phone: NOTwo Rivers Psychiatric HospitalVluftdllrv12-16-7305 13:22-0500Body temperature 97.5 [degF]Margaret Swenson JEWELRY SALES Work Phone: [facility] HospitalYzwpwhrouq01-64-0194 13:22-0500Diastolic blood jpwhfped70 mm[Hg]Margaret Swenson [employer] SAL[employer] Work Phone: [facility] HospitalPaiqqntsri12-53-2586 13:22-0500Heart rate71 /min Margaret Swenson [employer] SAL[employer] Work Phone: [facility] HospitalUmxhfwjsev65-63-0752 13:22-5182NzF4% (BldA) [Mass fraction]98 %Margaret Swenson [employer] SAL[employer] Work Phone: [facility] HospitalMfzursgyyb79-27-3252 13:22-0500Systolic blood mzmqejtu532 mm[Hg]Margaret Swenson [employer] SAL[employer] Work Phone: [facility] HospitalLqcbdbhbmu93-23-1613 13:18-0500Body mass index (BMI) [Ratio]31.53 kg/n1TbiqxuhMargaret Swenson JEWELRY SALES Work Phone: [facility] HospitalVgegujynix27-00-3341 13:18-0500Body ssldiz63.6 kg Margaret Swenson [employer] Work Phone: [facility] HospitalExvnnqmqjq83-36-8477 15:57-0500Body mass index (BMI) [Ratio]31.47 kg/m2Mary Mack PA Work Phone: [facility] HospitalVosruskcez16-63-6741 15:57-0500Body zererm26.45 kgMary Mack PA Work Phone: [facility] HospitalAooohegpjh35-95-4942 15:57-0500Diastolic blood npluodzr82 mm[Hg]Mary Lopezey PA Work Phone: [facility] HospitalMygsgyzrlv86-78-2670 15:57-0500Systolic blood rowlftjs296 mm[Hg]Mary Lopezey PA Work Phone: [facility] HospitalDhpoixlyen41-83-0738 09:57-0500Body mass index (BMI) [Ratio]31.15 kg/m2Mary Mack PA Work Phone: [facility] HospitalTbebjvupyl39-57-2153 09:57-0500Body .54 kgMary Mack PA Work Phone: [place] [address]Typxoicnmx08-73-2951 09:57-0500Diastolic blood rocchouz04 mm[Hg]Mary Mack PA Work Phone: [place] [address]Ybslgsduzv91-89-3861 09:57-0500Systolic blood eanfwwqm766 mm[Hg]Mary Mack PA Work Phone: [facility] HospitalVojmxrbnxg74-95-7952 16:36-0500Body hbpojb839.6 cmTimothy [place] DO Work Phone: noTwo Rivers Psychiatric HospitalEkayqqnvbn50-15-3671 16:36-0500Body mass index (BMI) [Ratio]30.8 kg/w6Ueetfui [place] DO Work Phone: [address] [address]Hsajvnhwyk97-43-8025 16:36-0500Body temperature 97.9 [degF]Henrry [place] DO Work Phone: [address] [address]Egznmekflt26-21-8989 16:36-0500Body cyctpz35.55 kgTimothy [place] DO Work Phone: [address] [address]Jmkxqbbyxx06-38-3677 16:36-0500Diastolic blood pxvauymr55 mm[Hg]Henrry [place] DO Work Phone: [facility] HospitalEaawovwukk96-49-0738 16:36-0500Heart rate92 /min Hnerry [place] DO Work Phone: [facility] HospitalFyhtzfyeku75-52-6420 16:36-3570OfA5% (BldA) [Mass fraction]100 %Henrry [place] DO Work Phone: [facility] HospitalHkucuowrqh99-92-1685 16:36-0500Systolic blood dynjlvxp198 mm[Hg]Henrry [place] DO Work Phone: [facility] HospitalNsuzgpdvyi27-18-6277 16:03-0400Body mass index (BMI) [Ratio]30.99 kg/a2Kthjm Rocio DO Work Phone: [facility] HospitalCsqfkkwvmr15-36-8627 16:03-0400Body jwajcd75.09 kgCorey Rocio DO Work Phone: [facility] HospitalPiwtpcrepx85-12-3886 16:03-0400Diastolic blood gzvdelxz11 mm[Hg]Kris Rocio DO Work Phone: [facility] HospitalOlpyqafnlt33-92-8765 16:03-0400Systolic blood sykytcyp715 mm[Hg]Kris Rocio DO Work Phone: [facility] HospitalRxwdsuoytd18-37-1464 17:01-0400Body umestj710.64 cmAcmc Healthcare [facility]04-22-2024 17:01-0400Body mass index (BMI) [Ratio]31.4 kg/b8PqttwzpubAcmc Healthcare System Glen[facility]igh04-22-2024 17:01-0400Body tfylqkkhhjg74.5 [degF][facility]04-22-2024 17:01-0400Body xkojux38.45 kgAcmc Healthcare [facility]04-22-2024 17:01-0400Diastolic blood quiwrowg24 mm[Hg][facility]04-22-2024 17:01-0400 Heart rate81 /[facility]04-22-2024 17:01-0400 Respiratory rate16 /[facility]04-22-2024 17:01-0400 SaO2% (BldA) [Mass fraction]99 %[facility]04-22-2024 17:01-0400Systolic blood mm[Hg][facility] 03-23-2023 17:25-0400Body .64 Marv Del Rio Other [employer] Other 05-30-2023 17:25-0400Body mass index (BMI) [Ratio]33.6 kg/s6QabicAmina Del Rio Other [employer] Other 05-30-2023 17:25-0400Body szwdhrdrurc14 [degF]Amina Del Rio Other [employer] Other 05-30-2023 17:25-0400Body etudvq31.44 kgAmina Del Rio Other [employer] Other 05-30-2023 17:25-0400Respiratory rate18 /minAmina Del Rio Other [employer] Other 05-30-2023 17:25-0758GcI2% (BldA) [Mass fraction]97 % Amina Del Rio Other [employer] Other 03-23-2023 15:35-0400Body hgvgza398.64 Marv Del Rio Other [employer] Other 03-23-2023 15:35-0400Body mass index (BMI) [Ratio] 35.44 kg/v7BedosAmina Del Rio Other [employer] Other 03-23-2023 15:35-0400Body vlzcleodzlr78.8 [degF]Amina Del Rio Other [employer] Other 03-23-2023 15:35-0400Body kdqwio29.61 kgAnastacioer Del Rio Other [employer] Other 03-23-2023 15:35-0400Diastolic blood mm[Hg] Amina Del Rio Other [employer] Other 03-23-2023 15:35-1589CyY0% (BldA) [Mass fraction]99 % Amina Del Rio Other [employer] Other 03-23-2023 15:35-0400Systolic blood bkaecqoe715 mm[Hg] Amina Del Rio Other [employer] Other 07-28-2022 14:55-0400Body wquotb786.64 cmAmber Quang Other [employer] Other 07-28-2022 14:55-0400Body mass index (BMI) [Ratio] 38.25 kg/e4DjkyiAmina Del Rio Other [employer] Other 07-28-2022 14:55-0400Body cxbjeienmnu33.7 [degF]Amina Del Rio Other [employer] Other 07-28-2022 14:55-0400Body nzaixw608.5 kgAmina Quang Other [employer] Other 07-28-2022 14:55-0400Diastolic blood fibrkrnl41 mm[Hg] Amina Del Rio Other [employer] Other 07-28-2022 14:55-0400Respiratory rate18 /minAmina Del Rio Other [facility] Other 07-28-2022 14:55-1557NfS5% (BldA) [Mass fraction]99 % Amina Del [place] Other [facility] Other 07-28-2022 14:55-0400Systolic blood ynexsoyr899 mm[Hg] Amina Del [place] Other [facility] Other Encounters Encounter DateEncounter TypeCare ProviderFacilityStart: 09-04-2025 End: 68-89-9146Utdwuf Mavis LARSON Work Phone: noms [facility] OBGYNStart: 09-04-2025 End: 26-96-8215Zbkpgn Mavis LARSON Work Phone: [facility] OBGYNStart: 09-04-2025 End: 15-17-8358Bpoqyh outpatient visit 15 minutesMary LARSON Work Phone: noms [facility] OBGYNComment on above:Vaginal itching; Vaginal dischargeStart: 09-04-2025 End: 50-08-4890qunpbkmtudKUH JOEEYNot AvailableStart: 06-27-2025 End: 00-62-9473Mkqusn outpatient visit 15 minutesTimothy L [place] DO Work Phone: noms [facility] 230Comment on above: Class 1 obesity due to excess calories without serious comorbidity with body mass index (BMI) of 33.0 to 33.9 in adultStart: 06-27-2025 End: 89-02-5862twcrjauoilODOSNUH L CUTLERNot AvailableStart: 06-27-2025 End: 57-90-0078Hxpbwa flowsheetTimothy L [place] DO Work Phone: noms [facility] 230Start: 06-27-2025 End: 72-11-8506Kolggb flowsheetTimothy L [place] DO Work Phone: noms [facility] 230Start: 06-06-2025 End: 22-15-3319UiycnnKltfymz L [place] DO Work Phone: noms [facility] 230Comment on above: Class 1 obesity due to excess calories without serious comorbidity with body mass index (BMI) of 33.0 to 33.9 in adultStart: 05-16-2025 End: 07-94-5094Jdkijz flowsTriston LARSON Work Phone: noms BCP OBStart: 05-16-2025 End: 18-13-1051Nnkiif flowsheetMary LARSON Work Phone: noms BCP OBStart: 05-16-2025 End: 90-88-5598Eaxunkons Result EncounterMary LARSON Work Phone: noms External Department UnsolicitedStart: 05-16-2025 End: 69-94-0161bymakiluekMTB RAMEYNot AvailableStart: 05-16-2025 End: 61-03-5943Lghhwie encounter procedureMary LARSON Work Phone: [facility] Work Phone: Start: 05-16-2025 End: 61-47-6345Xsxipyvm preventive med est patient 40-64yrsAmy Lucie LARSON Work Phone: noms BCP OBComment on above:Well woman exam with routine gynecological exam; Breast cancer screening by mammogram; Exposure to STD; Vaginal dischargeStart: 03-28-2025 End: 72-06-7953oxrdhttukoWMMIDAT L CUTLERNot AvailableStart: 03-28-2025 End: 89-36-7988Stewuo outpatient visit 15 minutesMaria Del Carmen Coleman NP Work Phone: noms BCP OBComment on above:Urination frequency; Hematuria, unspecified type; Vaginal discomfort; Vaginal discharge; STD exposureClass 1 obesity due to excess calories without serious comorbidity with body mass index (BMI) of 33.0 to 33.9 in adultStart: 03-28-2025 End: 46-00-3737oemijdnppgLBGUAWIR EBERLYNot AvailableStart: 03-24-2025 End: 26-91-8909Astolx outpatient visit 25 minutesYony Jean DO Work Phone: NOMS SWS UCComment on above:Acute cystitis without hematuria; Urinary frequencyStart: 03-24-2025 End: 85-68-7828aedkkxruhxEBTOPEH Mary JEANNot AvailableStart: 03-05-2025 End: 12-49-5858Sndbtv flowsDayana Thorpe [employer] Work Phone: [phone] 230Start: 03-05-2025 End: 73-75-8090Titfah flowsDayana Thorpe [employer] Work Phone: [phone] 230Start: 03-05-2025 End: 23-36-4100CdpfpfGuywekf Stephenie PotterBakers Mills DO Work Phone: [phone] 230Comment on above:Class 1 obesity due to excess calories without serious comorbidity with body mass index (BMI) of 33.0 to 33.9 in adultStart: 03-05-2025 End: 64-89-3307Ikskew outpatient visit 15 minutesJeffolivia Thorpe [employer] Work Phone: [phone] 230Comment on above:Acute cystitis with hematuria (Primary Dx); Flank painStart: 01-29-2025 End: 92-56-0684MtysjaWomnnba Swanson MANOMS [facility]WS FM 230Comment on above:Class 1 obesity due to excess calories without serious comorbidity with body mass index (BMI) of 33.0 to 33.9 in adultStart: 12-27-2024 End: 85-05-6055ohvhcyirelQZWQQBV L RAMSEYLERNot AvailableStart: 12-25-2024 End: 38-08-0321Lmljnz Mavis LARSON Work Phone: NOMS BCP OBStart: 12-25-2024 End: 86-23-2781Blfhao Mavis LARSON Work Phone: NOMS BCP OBStart: 12-25-2024 End: 28-61-4159Aytzjraq Result EncounterMary LARSON Work Phone: NOMS External Department UnsolicitedStart: 12-25-2024 End: 09-14-1626Pplzsj outpatient visit 15 minutesMary LARSON Work Phone: noMS BCP OBComment on above:Vaginal discharge; Vaginal irritation; Yeast infectionStart: 12-25-2024 End: 83-82-8663lmfotczomnMRI RAMEYNot AvailableStart: 12-12-2024 End: 34-37-7054Fwqxje Floyd Swenson [employer] Work Phone: NOMS SWS UCStart: 12-12-2024 End: 57-26-8753Iyltoa flowsheetMargaret Daleys [employer] Work Phone: [facility] UCStart: 12-12-2024 End: 43-41-2943psosegudkaEWADCBF R LACONISNot AvailableStart: 12-12-2024 End: 82-12-0570Xcojwb outpatient visit 25 minutesLinbelkis Swenson [employer] Work Phone: noms SWS UCComment on above:Acute non-recurrent frontal sinusitis (Primary Dx)Start: 10-23-2024 End: 96-39-3191Ficjnz follow up visit related to original Deejay LARSON Work Phone: noMS BCP OBComment on above:Postoperative visit; S/P hysterectomyStart: 10-23-2024 End: 86-21-0470cxnuhzjkjlVRU RAMEYNot AvailableStart: 09-14-2024 End: 18-47-3618Jsafxl Mavis LARSON Work Phone: NOMS BCP OBStart: 09-14-2024 End: 04-31-9263Hsarqg Mavis LARSON Work Phone: NOMS BCP OBStart: 09-14-2024 End: 88-02-6748Pvfoop follow up visit related to original Deejay LARSON Work Phone: NOMS BCP OBComment on above:Postoperative visit; S/P hysterectomyStart: 09-14-2024 End: 62-50-9404zdestyfssnFZV RAMEYNot AvailableStart: 09-08-2024 End: 74-46-8155Tipjixgih Result EncounterCorey Rocio DO Work Phone: NOMS External Department UnsolicitedStart: 09-08-2024 End: 82-53-4152Liiaecqhx Result EncounterCorey Rocio DO Work Phone: NOMS External Department UnsolicitedStart: 09-07-2024 End: 13-00-0220wbkbzswvvlZgpbudb L [place] DO Work Phone: [facility] Work Phone: Start: 09-07-2024 End: 91-23-3522Snwdcwgk ReferredTimothy [place] DO Work Phone: [facility]-LAB Path Spec [facility] HospStart: 09-07-2024 End: 84-52-8457Khhjoiivi Result EncounterCorey Rocio DO Work Phone: [facility] External Department UnsolicitedStart: 09-07-2024 End: 21-57-4351Oiutcgwyw Result EncounterCorey Rocio DO Work Phone: noms External Department UnsolicitedStart: 08-30-2024 End: 86-82-5085Foxvie outpatient visit 15 minutesTimothy L [place] DO Work Phone: [facility] 230Comment on above:Otalgia of right ear (Primary Dx); Class 1 obesity due to excess calories without serious comorbidity with body mass index (BMI) of 33.0 to 33.9 in adultStart: 08-30-2024 End: 60-58-4772Yttkec flowsheetTimothy L [place] DO Work Phone: [facility] 230Start: 08-30-2024 End: 50-70-7067Pvller flowsheetTimothy L [place] DO Work Phone: [facility] 230Start: 08-25-2024 End: 72-17-0566Ecyclozle Result EncounterCorey Rocio DO Work Phone: noms External Department UnsolicitedStart: 08-25-2024 End: 26-36-7834Llrxngbsh Result EncounterCorey Rocio DO Work Phone: noms External Department UnsolicitedStart: 08-09-2024 End: 03-71-9596Otdlvs outpatient visit 15 minutesCorey Rocio DO Work Phone: noms BCP OBComment on above:Pre-op examination; Menorrhagia with regular cycle; Pelvic pain in female; Dyspareunia in female; DysmenorrheaStart: 08-09-2024 End: 77-62-4702Eqfkmesednbdz examination doneCorey Rocio DO Work Phone: noms HealthcareStart: 07-07-2024 End: 57-87-6025AcfrdcSuxydgw L Cutler DO Work Phone: [facility] 230Comment on above:Class 1 obesity due to excess calories without serious comorbidity with body mass index (BMI) of 33.0 to 33.9 in adultStart: 02-14-2024 End: 47-86-4576Poswepwu ReferredDO Henrry Anderson Work Phone: [facility] [place] Work Phone: Start: 02-14-2024 End: 06-96-3563fjgmadjblkXY Timothy L Cutler Work Phone: [facility] Work Phone: Start: 02-14-2024 End: 78-43-6835Exxpyyb encounter procedureCraw[facility] Manuel Work Phone: Start: 11-30-2023 End: 12-28-1641Tysl/qhp telephone evaluation 5-10 minCorey Rocio DO Work Phone: noms BCP OBComment on above:Vaginal discharge; Yeast infectionStart: 03-23-2023 End: 65-44-9346pniwukoimjSphyo Quang [facility] Other Start: 78-11-6267Zqhjwm outpatient visit 15 minutes Amina KellerFPG [facility] Care ClydeStart: 01-14-2023 End: 69-09-3711pmtpesbuehPldwi [place] Other [facility] Other Start: 14-49-9255Jwhzru outpatient visit 15 minutes Amina KellerFPG [facility] Care ClydeStart: 01-08-2023 End: 50-29-7911regbgtrwrqQT JERMAINE SCHULER .Facility:C7Tbvoi: 12-01-2022 End: 49-34-3518erlgmlbuvkDD JERMAINE SCHULER .Facility:P6Lapoz: 05-25-2022 End: 35-47-5367xzhldsdjdxNQ JERMAINE SCHULER .Facility:D4Kqtlx: 05-21-2022 End: 02-97-9758hndekkafejFnczt Keller Other [place] [facility] Other Start: 42-71-7224Itkqyq outpatient new 20 minutesAmber KellerFPG Urgent Care ClydeStart: 12-07-2018 End: 17-01-7846Qbqktr nickDk SELF PROJECT TEAMStart: 09-06-2017 End: 02-62-3511WkzvuzhimrDLSXVMMB R BETZFacility:01 Procedures DateProcedureProcedure DetailPerforming ClinicianStart: 45-36-7732FPW,APTIMA HPV,AGE GDLNAmy Lucie PA Work Phone: Start: 51-28-5536Amwoc dip stick/tablet rgnt auto w/o microscopyYony Jean DO Work Phone: Start: 63-52-9998Mbvwy dip stick/tablet rgnt non-auto w/o micrscpJenna Stephenie Thorpe [employer] Work Phone: Start: 96-18-0498ZRFPXKXZK VAGINITIS (HTRX)Mary LARSON Work Phone: Start: 83-28-6669OLS CBC WITH AUTO DIFFCorey Rocio DO Work Phone: Start: 23-09-2252EHR CBC WITH AUTO DIFFCorey Rocio DO Work Phone: Start: 90-10-0850GAM PREG QUANT HCGCorey Rocio DO Work Phone: Start: 43-43-0610ALT CBC WITH AUTO DIFFCorey Rocio DO Work Phone: Start: 35-71-9522Qrrybpoyali observation [Identifier] in Cervix by Cyto stainTimsofi [place] DO Work Phone: Start: 14-80-7537PserpdohqbhFnfip Rocio DO Work Phone: Start: 17-44-9676Xjukggqwaci observation [Identifier] in Cervix by Cyto stainCorey Rocio DO Work Phone: H/O: hysterectomyS/P hysterectomyAmy Lucie LARSON Work Phone: H/O: hysterectomyS/P hysterectomyMary LARSON Work Phone: Plan of Treatment DateCare ActivityDetailAuthorStart: 00-72-3787Lukvveoac for malignant neoplasm of cervixNOMS HealthcareStart: 13-22-2335Zmjnussbz for malignant neoplasm of cervixNOMS HealthcareStart: 11-14-2025 End: 51-35-0811Sygnzha encounter bjtlkqinx80/21/2026 5:00 PM EST Office Visit [facility] [address] [place] [address] Henrry Anderson DO [address] [place] [address] NOMClemente [facility] 230 Start: 09-04-2025 End: 23-44-5998Ndsudfr encounter aggmdojeb98/11/2025 1:50 PM EST Office Visit NOMClemente SANTAMARIA [address] [place] [address] [place] [address] Mary Mack PA [address] [place] [address] Lora Dangelo OBGYNComment on above:ArrivedStart: 06-27-2025 End: 10-11-2385Jwmeeno encounter procedureNOMS SWS FM 230Comment on above: ArrivedStart: 34-00-8953PTNGJ-19 Vaccine ( season)COVID-19 Vaccine ()NOMS HealthcareStart: 65-55-4742Cbdluvlqf vaccinationNOKY HealthcareStart: 05-16-2025 End: 32-59-1393AG Breast - bilateral ScreeningBilateral screening mammogram Imaging Routine Breast cancer screening by mammogram Expected: 05/16/2025 (Approximate), Expires: 07/17/2026[facility] Work Phone: Comment on above:Expected: 05/16/2025 (Approximate), Expires: 07/17/2026Start: 05-16-2025 End: 12-72-7044Ydgkfzn encounter pdyejrksi76/23/2025 10:00 AM EDT Office Visit [facility] [address] [place] [phone] Mary Mack PA [address] [place] [address] NOMS BCP OBStart: 03-28-2025 End: 15-75-8106Hjbltpl encounter procedureNOMS SWS FM 230Start: 03-05-2025 End: 24-02-6206Xcfxmdis identified in Urine by CultureUrine culture Microbiology Routine Flank pain Expected: 03/05/2025 (Approximate), Expires: 03/05/2026[facility] Work Phone: Comment on above:Expected: 03/05/2025 (Approximate), Expires: 03/05/2026Start: 12-27-2024 End: 54-28-9872Pnogbmt encounter jryoaqfqs00/05/2025 5:00 PM EST Office Visit [facility] [address] [facility] [address] [place] [phone] Henrry Anderson DO [address] [facility] [address] [place] [address] NOMS S[facility] FM 230Start: 12-25-2024 End: 95-94-7453Wvddoox encounter hcboshmlr63/03/2025 9:20 AM EST Office Visit [facility] [address] [place] [phone] Mary Mack, PA [address] [place] [address] [place], [place] [address] ArrivedNOMS BCP OBComment on above:ArrivedStart: 10-23-2024 End: 26-09-2985Fbkhdgq encounter xbamjhbjz71/30/2024 3:30 PM EST Office Visit [facility] [address] [place] [phone] Mary Mack, PA [address] [facility] [address] [place], [place] [address] NOMS BCP OBStart: 09-14-2024 End: 66-38-1978Xueekgr encounter zeexcxonf98/21/2024 9:40 AM EST Office Visit [facility] [address] [place] [phone] Mary Mack, PA [address] [place] [address] Dr [place], [facility] ArrivedNOMS BCP OBComment on above:ArrivedStart: 08-30-2024 End: 32-31-3892Dxgpdti encounter procedureNOMS SWS FM 230Comment on above: ArrivedStart: 08-09-2024 End: 72-94-7892Poplczv encounter spivulefe06/16/2024 3:50 PM EDT Consult [facility] [address] [place] [phone] Kris Chan, DO [address] [place] [address] NOMS BCP OBStart: 13-24-3099Fjaxlujwy vaccinationInfluenza Vaccine (#1)NOM HealthcareStart: 87-87-9653Czpvgqyr identified in Urine by CultureOhioHealth Riverside Methodist Hospitaltart: 12-08-2023 End: 99-68-1059Vbxuarx encounter rqkpofpap45/14/2024 4:40 PM EST Office Visit [facility] FM [address] [place] [phone] Henrry Anderson DO [address] [place] [address] NOMS [facility] FM 230Start: 57-23-7691Ljloqgvle for malignant neoplasm of breastMammogramNOKY HealthcareStart: 19-33-4286Mmxymekxl vaccinationInfluenza Vaccine (#1)[facility] HealthcareStart: 02-92-2926Cadwfraev vaccinationINFLUENZA VACCINE (#1)[facility]ITALtart: 2003 Screening for malignant neoplasm of cervixPAP SMEAR DISCUSSIONOSU PROMEDICA TOLEDO HOSPITALtart: 20-67-6845Sfswg diphtheria, tetanus and acellular pertussis (DTaP) vaccinationTDAP (ADULT)OSUNIVERSITY HOSPITALS GEAUGA MEDICAL CENTERtart: 32-66-2920Wkuhdsp vaccinationTETANUSOSUNIVERSITY HOSPITALS GEAUGA MEDICAL CENTERtart: 85-43-6758UIR screeningHIV SCREENING DISCUSSIONOSU PROMEDICA FOSTORIA COMMUNITY HOSPITALCHLAMYDIA TRACHOMATIS (GENITO/STI) CHLAMYDIA TRACHOMATIS (GENITO/STI) Lab Routine Vaginal discharge Ordered: 03/28/2025[facility] HealthcareComment on above:Ordered: 03/28/2025HLAMYDIA TRACHOMATIS (GENITO/STI)CHLAMYDIA TRACHOMATIS (GENITO/STI) Lab Routine Exposure to STD Vaginal discharge Ordered: 05/16/2025[facility] HealthcareComment on above: Ordered: 5CHLAMYDIA TRACHOMATIS (GENITO/STI)CHLAMYDIA TRACHOMATIS (GENITO/STI) Lab Routine Vaginal itching Vaginal discharge Ordered: 09/04/2025 [facility] HealthcareComment on above:Ordered: 09/04/2025Neisseria gonorrhoeae DNA [Presence] in Unspecified specimen by YVONNE with probe detectionNeisseria gonorrhea DNA probe, direct Lab Routine Vaginal discharge Ordered: 03/28/2025 [facility] HealthcareComment on above:Ordered: 03/28/2025Neisseria gonorrhoeae DNA [Presence] in Unspecified specimen by YVONNE with probe detectionNeisseria gonorrhea DNA probe, direct Lab Routine Exposure to STD Vaginal discharge Ordered: 05/16/2025[facility] HealthcareComment on above:Ordered: 05/16/2025Neisseria gonorrhoeae DNA [Presence] in Unspecified specimen by YVONNE with probe detection Neisseria gonorrhea DNA probe, direct Lab Routine Vaginal itching Vaginal discharge Ordered: 09/04/2025[facility] HealthcareComment on above:Ordered: 09/04/2025 SURESWAB(R) ADVANCED VAGINITIS PLUS, TMASURESWAB(R) ADVANCED VAGINITIS PLUS, TMA Pathology and Cytology Routine Vaginal discomfort Ordered:03/28/2025[facility] Healthcare Work Phone: comment on above:Ordered: 03/28/2025SURESWAB(R) ADVANCED VAGINITIS PLUS, TMASURESWAB(R) ADVANCED VAGINITIS PLUS, TMA Pathology and Cytology Routine Exposure to STD Vaginal discharge Ordered: 05/16/2025[facility] HealthcareComment on above:Ordered: 05/16/2025SURESWAB(R) ADVANCED VAGINITIS PLUS, TMASURESWAB(R) ADVANCED VAGINITIS PLUS, TMA Pathology and Cytology Routine Vaginal itching Vaginal discharge Ordered: 09/04/2025[facility] Healthcare Work Phone: comment on above:Ordered: 09/04/2025THIN PREP TIS PAP AND HR HPV DNATHIN PREP TIS PAP AND HR HPV DNA Pathology and Cytology Routine Well woman exam with routine gynecological exam Ordered: 05/16/2025[facility] HealthcareComment on above:Ordered: 05/16/2025URINARY TRACT INFECTION (HTRX) URINARY TRACT INFECTION (HTRX) Lab Routine Acute cystitis without hematuria Ordered: 03/24/2025[facility] Healthcare Work Phone: comment on above:Ordered: 03/24/2025 Payers DatePayer CategoryPayerPolicy [id number]-[id number] [id number] Health Insurance [id number] CARES[employer] xxxxxxxxxxx 2014-Presentxxxxxxxxxxx [id number] [id number] 2.840.1.023257.3.57[id number] 2.840.1.822969.3.57[id number] 2.840.1.489971.3.57[id number] 2..840.1.377012.3.57[id number] 2.840.1.459089.3.57[id number] 2.840.1.423841.3.579.[id number] 2.16.840.1.191493.3.579.[id number] 2.840.1.639955.3.579.2.63[id number] 2.16840.1.278343.3.579.2.31[id number] 2.16840.1.832652.3.57[id number] 2.0.1.546486.3.579.[id number] 2.840.1.707435.3.57[id number] 2.0.1.509870.3.57[id number] 2.0.1.268233.3.579.[id number] 2..1.303767.3.579.2.097909-39-1505Hexx [facility] State [id number] 65-30-0163Aehnoqf Health [id number] 2..1.345291.19Unknown HCAP/HFA/FAP Mgnkst164npd43-y081-1343-[id number] 2.0.1.394[id number] 2..1.346716.3.579.2.531 Social History DateTypeDetailFacilityStart: 73-24-8162Kmfeiid smoking status NHISCurrent every day smokerMARTINS FERRY HOSPITALtart: 2000 End: 63-46-7012Gnbqxxo of tobacco useCigarette SmokerUNIVERSITY HOSPITALS [facility] Start: 06-25-2015 End: 29-32-2324Xmzviwoxny smoked current (pack per day) - ReportedGARFIELD MEMORIAL HOSPITAL HealthcareStart: 88-42-0064Crtkeec CommentUses Vuse smokeless tobacco on occasion.[facility]ITALtart: 71-98-6399Elp Assigned At BirthNot on fileOSUNIVERSITY HOSPITALS GEAUGA MEDICAL CENTERtart: 06-29-2023 End: 31-55-4497Gnc Assigned At BirthNOKY HealthcareStart: 08-31-2023 End: 83-97-8826Xccbcve smoking status NHISEx-smokerNOMS HealthcareStart: 2000 End: 90-68-2918Imlxoui of tobacco useCurrent smokerNOMS HealthcareStart: 08-31-2023 End: 93-45-3800Yjnjrbq use and exposureSmokeless tobacco non-userNOMS Healthcare Start: 11-08-2023 End: 72-57-6372Tzssimf intakeCurrent drinker of alcohol (finding)[facility] Within the last year, have you been afraid of your partner or ex-partner?NoNOMS HealthcareDo you belong to any clubs or organizations such as pentecostal groups, unions, fraDecaWave or athletic groups, or school groups?YesNOMS HealthcareAre you now , , , , never or living with a partner?DivorcedNOMS HealthcareHow often to you have a drink containing alcohol? Monthly or lessNOMS HealthcareHow many standard drinks containing alcohol do you have on a typical day?1 or 2NOMS HealthcareHow often do you have 6 or more drinks on 1 occasion?Less than monthlyNOMS HealthcareStart: 07-07-9305Zgf hard is it for you to pay for the very basics like food, housing, medical care, and heatingNot hard at allNOMS HealthcareDo you feel stress - tense, restless, nervous, or anxious, or unable to sleep at night because yourmind is troubled all the time - these days [OSQ]Rather muchNOMS Healthcare(I/We) worried whether (my/our) food would run out before (I/we) got money to buy more.Never trueNOMS HealthcareStart: 98-09-3478Aenxepw CommentCaffeine: 1-2 cups/dayNOMS Healthcare Start: 83-64-1450Hamqyn identityIdentifies as female gender (finding)[facility] HospitalStart: 96-97-9239Jls Assigned At [facility] Hospitaltart: 74-18-3320HlpAwxayv (finding)[facility] Functional Status JfptNohfqrxjsvJmphnaEhqjxyid52-86-3000Jtyuvhs Health Questionnaire 2 item (PHQ- 2) [Reported][facility] HospitalFewfsznbtm93-14-7576Gvyalas Health Questionnaire 2 item (PHQ- 2) [Reported][facility] HospitalWpmpcolwkw83-62-6328Rlmxamt Health Questionnaire 2 item (PHQ- 2) [Reported][facility] Clinical Notes 05-21-2022 to 09-04-2025 Note Date & WizfXmaaOhvgzzkv08-07-7201 History of Present illness Narrative* NEO Tam - 09/04/2025 1:50 PM EST Reason for Appointment: Patient ID: Jennifer Kendall is a 45 y.o. female who presents for Follow-up Patient presents today for Acute Visit. MEDICATIONS Current Outpatient Medications Medication Instructions metroNIDAZOLE (Metrogel) 0.75 % vaginal gel Insert vaginally twice weekly on Wednesday and for 3-6 months. topiramate 50 MG tablet 1 tablet, Oral, Daily ALLERGIES Allergies Allergen Reactions Oxycodone [...] depression 05/26/2023 Body mass index 40.0-44.9, adult ([facility]) 01/18/2019 Past Medical History: Diagnosis Date Allergic rhinitis 1989 BMI 37.0-37.9, adult Body mass index (BMI) of 40.1 to 44.9 in adult ([facility]) Breast cancer screening by mammogram 12/02/2022 Dyspareunia in female Pneumonia HISTORY PAST MEDICAL HISTORY SOCIAL HISTORY Past Medical History: Diagnosis Date Allergic rhinitis 1989 Amenorrhea BMI 37.0-37.9, adult Body mass index (BMI) of 40.1 to 44.9 in adult ([facility]) Breast cancer screening by [...] date: 2000 Quit date: 08/20/2013 Years since quittin.0 Smokeless tobacco: Never Substance Use Topics Alcohol [...] Exam Constitutional: Appearance: Normal appearance. She is normal weight. HENT: Head: Normocephalic. Cardiovascular: Rate and Rhythm: Normal rate. Pulses: Normal pulses. Pulmonary: Effort: Pulmonary effort is normal. Breath sounds: Normal breath sounds. Abdominal: Palpations: Abdomen is soft. Musculoskeletal: General: Normal range of motion. Neurological: General: No focal deficit present. Mental Status: She is alert and oriented to person, place, and time. Psychiatric: Mood and Affect: Mood normal. Behavior: Behavior normal. Thought Content: Thought content normal. Judgment: Judgment normal. Vitals and nursing note reviewed. Vitals: Estimated body mass index is 32.77 kg/m as calculated from the following: Height as of 06/27/25: 5' 6 . Weight as of this encounter: 203 lb. BP: 120/70 No LMP recorded (lmp unknown). Patient has had a hysterectomy. Assessment/Plan ICD-10-CM 1. Vaginal itching N89.8 SURESWAB(R) ADVANCED VAGINITIS PLUS, TMA CHLAMYDIA TRACHOMATIS (GENITO/STI) Neisseria gonorrhea DNA probe, direct 2. Vaginal discharge N89.8 SURESWAB(R) ADVANCED VAGINITIS PLUS, TMA CHLAMYDIA TRACHOMATIS (GENITO/STI) Neisseria gonorrhea DNA probe, direct Patient presents for chronic bv follow up. Culture obtained and sent to lab, we will follow up as needed. Suggested to try acidophilus/ lactobacillus to her diet Documented by NEO Tam on behalf of: NEO Tam documented in this encounterRay [facility] [id number] History of Present illness Narrative* Henrry Anderson, DO - 06/27/2025 4:40 PM EDT Images from the original note were not included. [facility] [place], [place] SUBJECTIVE: HPI: Jennifer Kendall is a 45 y.o. female who presents with chief complaint of Weight Check Pt presents for her 3 month Adipex follow up. Pt feels that this might have stopped working at thistime. No other concerns at this time. I have reviewed and reconciled the history and medication list with the patient today. History of Present Illness The patient presents for weight management. She reports that her body has become accustomed to the medication, leading to a plateau in her weight loss. She is currently on Topamax and Adipex. MEDICATIONS - Topamax - Adipex Depression: Not at risk (06/27/2025) PHQ-2 PHQ-2 Score: 0 reports that she quit smoking about 11 years ago. Her smoking use included cigarettes. She started smoking about 25 years ago. She has a 13.2 pack-year smoking history. She has never used smokeless tobacco. She reports current alcohol use of about 1.0 standard drink of alcohol per week. She reportsthat she does not use drugs. OBJECTIVE: 12/27/2024 5:00 PM 03/05/2025 12:02 PM 03/24/2025 10:46 AM 03/28/2025 10:37 AM 03/28/2025 4:45 PM 05/16/2025 10:15 AM 06/27/2025 4:42 PM Vitals BMI 30.99 kg/m2 31.02 kg/m2 30.99 kg/m2 31.12 kg/m2 31.05 kg/m2 31.93 kg/m2 31.64 kg/m2 BSA (m2) 2.01 m2 2.02 m2 2.01 m2 2.02 m2 2.02 m2 2.04 m2 2.03 m2 Systolic 126 118 120 118 114 120 116 Diastolic 74 90 82 76 82 70 70 Heart Rate 94 80 77 92 80 SpO2 100 % 100 % 98 % 99 % 98 % Temp 97.2 F 96 F 97.6 F 98.5 F 98.4 F Height (in) 5' 6 5' 6 5' 6 5' 6 Weight (lb) 192 192.2 192 192.8 192.4 197.8 196 Visit Report Report Report Report Report Report Report Report Report Report Physical Exam Physical Exam General Appearance: Alert, no distress. Vital signs: Vital signs are normal. Respiratory: No respiratory distress, normal work of breathing. CTA bilat without wheezes or ronchi. Skin: Warm and dry, no rash. Neurological: Normal. Psychiatric: normal affect, normal thought content. Results No results found for this or any previous visit (from the past 4 weeks). ASSESSMENT AND PLAN: Assessment/Plan Diagnoses and all orders for this visit: Class 1 obesity due to excess calories without serious comorbidity with body mass index (BMI) of 33.0 to 33.9 in adult - topiramate 50 MG tablet; Take 1 tablet by mouth Daily Assessment & Plan 1. Weight management: Stable. - Continue Topamax to maintain weight. - Discontinue Adipex for 3 to 6 months to restore sensitivity. - Prescription refill for Topamax will be provided. - Maintain a healthy lifestyle with a balanced diet and regular exercise. Follow-up - Contact the office if wishing to resume Adipex after 3 to 4 months. Henrry Anderson DO Patient Active Problem List Diagnosis Major depressive disorder with single episode, in full remission Menstrual cramp Mixed hyperlipidemia Obesity (BMI 30-39.9) Strabismus Past Medical History: Diagnosis Date Allergic rhinitis 1990 Amenorrhea BMI 37.0-37.9, adult Body mass index (BMI) of 40.1 to 44.9 in adult ([facility]) Breast cancer screening by mammogram 12/02/2022 neg Dyspareunia in female Frequency of urination Insulin resistance Major depressive disorder with single episode, in full remission Menstrual cramp Mixed hyperlipidemia Obesity (BMI 30-39.9) Other obesity due to excess calories Pneumonia Reactive depression documented in this encounterRay County Memorial [id number] History of Present illness Narrative* NEO Tam - 05/16/2025 10:00 AM EDT Reason for Appointment: Patient ID: Jennifer Kendall is a 44 y.o. female who presents for [facility] Women Visit Patient presents today for Annual [...] depression 05/26/2023 Body mass index 40.0-44.9, adult ([facility]) 01/18/2019 Past Medical History: Diagnosis Date Allergic rhinitis 1989 BMI 37.0-37.9, adult Body mass index (BMI) of 40.1 to 44.9 in adult ([facility]) Breast cancer screening by mammogram 12/02/2022 Dyspareunia in female Pneumonia HISTORY PAST MEDICAL HISTORY SOCIAL HISTORY Past Medical History: Diagnosis Date Allergic rhinitis 1989 Amenorrhea BMI 37.0-37.9, adult Body mass index (BMI) of 40.1 to 44.9 in adult ([facility]) Breast cancer screening by [...] nursing note reviewed. Exam conducted with a child welfare specialist present. Vitals: Estimated body mass index is 31.93 kg/m as calculated from the following: Height [...] behalf of: NEO Tam documented in this encounterRay County Memorial [id number] History of Present illness Narrative* Henrry Anderson, DO - 03/28/2025 5:00 PM EDT Images from the original note were not included. [facility] REHANA Nieto SUBJECTIVE: HPI: Jennifer Kendall is a 44 y.o. female who presents with chief complaint of Weight Check Pt presents for her 3 month Adipex follow up. Pt is still doing well at this time. No concerns. I have reviewed and reconciled the history and medication list with the patient today. Depression: Not at risk (03/28/2025) PHQ-2 PHQ-2 Score: 0 reports that she quit smoking about 11 years ago. Her smoking use included cigarettes. She started smoking about 24 years ago. She has a 13.2 pack-year smoking history. She has never used smokeless tobacco. She reports current alcohol use of about 1.0 standard drink of alcohol per week. She reportsthat she does not use drugs. OBJECTIVE: 12/12/2024 1:22 PM 12/25/2024 9:23 AM 12/27/2024 5:00 PM 03/05/2025 12:02 PM 03/24/2025 10:46 AM 03/28/2025 10:37 AM 03/28/2025 4:45 PM Vitals BMI 31.12 kg/m2 30.99 kg/m2 31.02 kg/m2 30.99 kg/m2 31.12 kg/m2 31.05 kg/m2 BSA (m2) 2.02 m2 2.01 m2 2.02 m2 2.01 m2 2.02 m2 2.02 m2 Systolic 142 100 126 118 120 118 114 Diastolic 78 74 74 90 82 76 82 Heart Rate 71 94 80 77 92 SpO2 98 % 100 % 100 % 98 % 99 % Temp 97.5 F 97.2 F 96 F 97.6 F 98.5 F Height (in) 5' 6 5' 6 5' 6 Weight (lb) 192.8 192 192.2 192 192.8 192.4 Visit Report Report Report Report Report Report Report Report Report Report Physical Exam Constitutional: General: She is not in acute distress. Appearance: She is not ill-appearing. HENT: Head: Normocephalic. Cardiovascular: Rate and Rhythm: Normal rate and [...] Recent Results (from the past 4 weeks) Urine culture Collection Time: 03/05/25 12:00 AM Specimen: Urine, Clean Catch URINE Result Value Ref Range Urine Cult Rt Status Final report Urine Culture Clean Catch Reflex Collection Time: 03/05/25 12:00 AM Result Value Ref Range Ur Cult 1 Comment POCT urinalysis dipstick manually resulted Collection Time: 03/05/25 12:05 PM Result Value Ref Range Color, UA Franklin Clarity, UA Turbid Glucose, UA Negative Negative - 2000(110) ++++ mg/dL Bilirubin, UA Positive Negative - 4(70) +++ mg/dL Ketones, UA Positive Negative - 160(16) ++++ mg/dL Spec Grav, UA 1.015 1 - 1.03 Blood, UA Positive Negative - 50 Som/mcL pH, UA 6.0 5 - 9 Protein, UA Positive Negative - 2000(20) ++++ mg/dL Urobilinogen, UA 0.2 0.2 - 12 mg/dL Leukocytes, UA Positive Negative - 500+++ Harpreet/mcL Nitrite, UA Negative Negative - Positive URINALYSIS ANALYZER TEST Collection Time: 03/24/25 11:10 AM Result Value Ref Range LEUKOCYTES negative Negative NITRITES negative Negative UROBILINOGEN negative 0.2 - 1.0 PROTEIN negative Negative PH 6.0 5.0 - 6.0 BLOOD negative Negative SPECIFIC GRAVITY 1.015 1.001 - 1.035 KETONES negative Negative BILIRUBIN negative Negative GLUCOSE negative Negative URINARY TRACT INFECTION (HTRX) Collection Time: 03/24/25 11:11 AM Result Value Ref Range ACINETOBACTER BAUMANII 0.000 19.961 - 24.689 ppm ACINETOBACTER BAUMANII Not Detected 19.961 - 24.689 ppm CITROBACTER FREUNDII 0.000 23.000 - 31.881 ppm CITROBACTER FREUNDII Not Detected 23.000 - 31.881 ppm ENTEROBACTER AEROGENES, CLOACAE 0.000 23.000 - 31.535 ppm ENTEROBACTER AEROGENES, CLOACAE Not Detected 23.000 - 31.535 ppm ENTEROCOCCUS FAECALIS, FAECIUM 0.000 26.000 - 31.575 ppm ENTEROCOCCUS FAECALIS, FAECIUM Not Detected 26.000 - 31.575 ppm ESCHERICHIA COLI 0.000 23.000 - 28.500 ppm ESCHERICHIA COLI Not Detected 23.000 - 28.500 ppm KLEBSIELLA PNEUMONIAE, OXYTOCA 0.000 23.000 - 30.500 ppm KLEBSIELLA PNEUMONIAE, OXYTOCA Not Detected 23.000 - 30.500 ppm MORGANELLA MORGANII 0.000 19.961 - 24.689 ppm MORGANELLA MORGANII Not Detected 19.961 - 24.689 ppm PROTEUS MIRABILIS, VULGARIS 0.000 23.000 - 28.500 ppm PROTEUS MIRABILIS, VULGARIS Not Detected 23.000 - 28.500 ppm PSEUDOMONAS AERUGINOSA 0.000 23.000 - 28.500 ppm PSEUDOMONAS AERUGINOSA Not Detected 23.000 - 28.500 ppm STAPHYLOCOCCUS AUREUS 0.000 26.000 - 30.902 ppm STAPHYLOCOCCUS AUREUS Not Detected 26.000 - 30.902 ppm STREPTOCOCCUS AGALACTIAE (GROUP B STREP) 0.000 26.000 - 32.222 ppm STREPTOCOCCUS AGALACTIAE (GROUP B STREP) Not Detected 26.000 - 32.222 ppm TIERRA ALBICANS, PARAPSILOSIS, TROPICALIS 0.000 19.961 - 30.770 ppm TIERRA ALBICANS, PARAPSILOSIS, TROPICALIS Not Detected 19.961 - 30.770 ppm TIERRA GLABRATA 0.000 23.000 - 32.138 ppm TIERRA GLABRATA Not Detected 23.000 - 32.138 ppm TIERRA KRUSEI 0.000 23.000 - 32.271 ppm TIERRA KRUSEI Not Detected 23.000 - 32.271 ppm SERRATIA MARCESCENS 0.000 23.000 - 31.204 ppm SERRATIA MARCESCENS Not Detected 23.000 - 31.204 ppm STREPTOCOCCUS PYOGENES (GROUP A STREP) 0.000 19.961 - 24.689 ppm STREPTOCOCCUS PYOGENES (GROUP A STREP) Not Detected 19.961 - 24.689 ppm STAPHYLOCOCCUS EPIDERMIDIS, HAEMOLYTICUS, LUGDUNENSIS, SAPROPHYTICUS (URINA 0.000 19.961 - 24.689 ppm STAPHYLOCOCCUS EPIDERMIDIS, HAEMOLYTICUS, LUGDUNENSIS, SAPROPHYTICUS (URINA Not Detected 19.961 - 24.689 ppm STAPHYLOCOCCUS EPIDERMIDIS, HAEMOLYTICUS, LUGDUNENSIS, SAPROPHYTICUS (URINA 0.000 19.961 - 24.689 ppm STAPHYLOCOCCUS EPIDERMIDIS, HAEMOLYTICUS, LUGDUNENSIS, SAPROPHYTICUS (URINA Not Detected 19.961 - 24.689 ppm ASSESSMENT AND PLAN: Assessment/Plan Diagnoses and all [...] board of pharmacy regulations, the patient is weight neutral since last OV, her daughter is now on a weight loss journey and these 2 combining efforts should spark more weight loss. she will continue on the current tx. No intolerable side effects noted. Discussed continued lifestyle modifications to ensure she continues to lose weight. Henrry Anderson DO Patient Active Problem List Diagnosis Major depressive disorder with single episode, in full remission (CMS/HCC) Menstrual cramp Mixed hyperlipidemia (CMS/HCC) Obesity (BMI 30-39.9) Strabismus Past Medical History: Diagnosis Date Allergic rhinitis 1989 Amenorrhea BMI 37.0-37.9, adult Body mass index (BMI) of 40.1 to 44.9 in adult ([facility]) Breast cancer screening by mammogram 12/02/2022 neg Dyspareunia in female Frequency of urination Insulin resistance Major depressive disorder with single episode, in full remission (CMS/HCC) Menstrual cramp Mixed hyperlipidemia (CMS/HCC) Obesity (BMI 30-39.9) Other obesity due to excess calories Pneumonia Reactive depression (CMS/HCC) documented in this encounterRay County Memorial [id number] History of Present illness Narrative* Maria Del Carmen Coleman NP - 03/28/2025 10:00 AM EDT Reason for Appointment: Patient ID: Jennifer Kendall is a 44 y.o. female who presents for vaginal issues Patient presents today for Acute Visit. MEDICATIONS Current Outpatient Medications Medication Instructions cefdinir (OMNICEF) 300 mg, Oral, 2 times daily fluconazole (Diflucan) 150 MG tablet One tablet today, may repeat in 3 days if needed metroNIDAZOLE (FLAGYL) 500 mg, Oral, 3 times daily phentermine (Adipex-P) 37.5 MG tablet TAKE 1 TABLET BY MOUTH IN THE MORNING BEFORE A MEAL topiramate 50 mg, Oral, Daily ALLERGIES Allergies Allergen Reactions Oxycodone Other Intolerance PROBLEMS Active Ambulatory Problems Diagnosis Date Noted Major depressive disorder with single episode, in full remission ([facility]) 05/26/2023 Menstrual cramp 05/26/2023 Mixed hyperlipidemia ([facility]) 05/26/2023 Obesity (BMI 30-39.9) 05/26/2023 Strabismus 05/27/2023 Resolved Ambulatory Problems Diagnosis Date Noted Amenorrhea 05/26/2023 Frequency of urination 05/26/2023 Insulin resistance 05/26/2023 Other obesity due to excess calories 05/26/2023 Pain in female genitalia on intercourse 05/26/2023 Reactive depression ([facility]) 05/26/2023 Body mass index 40.0-44.9, adult ([facility]) 01/18/2019 Past Medical History: Diagnosis Date Allergic rhinitis 1989 BMI 37.0-37.9, adult Body mass index (BMI) of 40.1 to 44.9 in adult ([facility]) Breast cancer screening by mammogram 12/02/2022 Dyspareunia in female Pneumonia HISTORY PAST MEDICAL HISTORY SOCIAL HISTORY Past Medical History: Diagnosis Date Allergic rhinitis 1989 Amenorrhea BMI 37.0-37.9, adult Body mass index (BMI) of 40.1 to 44.9 in adult ([facility]) Breast cancer screening by mammogram 12/02/2022 neg Dyspareunia in female Frequency of urination Insulin resistance Major depressive disorder with single episode, in full remission ([facility]) Menstrual cramp Mixed hyperlipidemia ([facility]) Obesity (BMI 30-39.9) Other obesity due to excess calories Pneumonia Reactive depression ([facility]) Social History Tobacco Use Smoking status: Former Current packs/day: 0.00 Average packs/day: 1 pack/day for 13.2 years (13.2 ttl pk-yrs) Types: Cigarettes Start date: 2000 Quit date: 08/20/2013 Years since quittin.6 Smokeless tobacco: Never Substance Use Topics Alcohol [...] SYSTEMS Review of Systems: Review of Systems Genitourinary: Vaginal discharge today. Reports frequency with urination and blood in urine that has since resolved after being treated per PCP with Cipro and then symptoms resumed urine culture was sent per Dr. Jean on Wednesday this week that was negative. She is concerned regarding vaginal discharge today and reports no further urinary symtoms and no complaints of pelvic, abdominal or flank pain OBJECTIVE Objective: Physical Exam Constitutional: Appearance: Normal [...] nursing note reviewed. Exam conducted with a child welfare specialist present. Vitals: Estimated body mass index is 31.12 kg/m as calculated from the following: Height as of 03/05/25: 5' 6 . Weight as of this encounter: 192 lb 12.8 oz. BP: 118/76 No LMP recorded (lmp unknown). Patient has had a hysterectomy. ASSESSMENT & PLAN ICD-10-CM 1. Urination frequency R35.0 2. Hematuria, unspecified type R31.9 3. Vaginal discomfort N94.9 SURESWAB(R) ADVANCED VAGINITIS PLUS, TMA 4. Vaginal discharge N89.8 CHLAMYDIA TRACHOMATIS (GENITO/STI) Neisseria gonorrhea DNA probe, direct 5. STD exposure Z20.2 Patient reports that urinary symptoms have resolved an she took Diflucan on Wednesday and feels discharge symptoms are improving. We did obtain cultures today and will treat based on results. She is advised to follow up with our office if her symptoms do not improve or worsen and she verbalizes under standing. Documented by Maria Del Carmen Coleman NP on behalf of: Maria Del Carmen Coleman NP documented in this encounterRay County Memorial [id number] History of Present illness Narrative* Yony Jean, DO - 03/24/2025 10:35 AM EDT Images from the original note were not included. [address] , [address] [facility] [place], [address] P: [phone] F: [phone] HPI Historian of HPI: patient Jennifer Kendall is a 44 y.o. female who presents today to the Urgent Care with the following complaints and denials which have been present for 1 month(s) C/O Denies Symptom Comments [] [x] Dysuria [x] [] hematuria [x] [] Urinary frequency [] [x] Urinary incontinence [x] [] Urinary urgency [] [x] Genital itching [x] [] Genital discharge [x] [] Back pain [] [x] Abd pain Additional Comments: pt has not taken any OTC medications Pt was treated with cipro for UTI on 03/05, urine sent for C&S and urine came back negative. Pt stated she also given diflucan for what she thought was a yeast infection. Pt has a hx of vaginal infections. IH Testing: An In-House UA has been obtained ROS A complete system ROS was performed and negative aside from the pertinent positives noted in the HPI and PE. PHYSICAL EXAM Examination General Examination: General examination: alert, oriented, normal affect, well-appearing, in no acute distress, well developed, well nourished. Head: normocephalic, atraumatic Eyes: sclera non-icteric Skin: normal Heart: no murmurs, regular rate and rhythm, S1, S2 normal Lungs: clear to auscultation bilaterally, good air movement, no wheezes, rales, rhonchi Abdomen: Suprapubic tenderness, no hepatosplenomegaly, no masses palpable. Musculoskeletal: FROM Extremities: no edema, no cyanosis Neurologic: nonfocal Psych: alert, oriented, cognitive function intact, cooperative with exam. HPI, ROS, and PE reviewed and amended by Dr. Yony Jean as necessary. Written by patricia Dallas MA TREATMENT PLAN 1. Acute cystitis without hematuria DX and TX reviewed. Take meds as directed, push the fluids, follow up with PCP. Reviewed symptoms in detail with pt. Will cover for BV with Flagyl, Must F/U with Gyne. Await Urine C&S results. documented in this encounterRay County Memorial [id number] History of Present illness Narrative* Jennifer Thorpe, МАРИЯ - 03/05/2025 11:40 AM EDT Images from the original note were not included. SUBJECTIVE: Jennifer Kendall is a 44 y.o. female presents with chief complaint of UTI UTI This is a new problem. The current episode started 1 to 4 weeks ago (2 weeks ago). The problem is unchanged. Pt c/o UTI, she is not having any burning at this time, she is having lower back pain on the left side and urinary frequency. Pt thought it was a yeast last week bc she had vaginal discharge and vaginal discomfort. She did take 2 doses of diflucan and that seemed to take care of those vaginal symptoms but the urinary symptoms have continued. She has not been currently taking any OTC medication atthis time Review of Systems: Review of Systems All other systems reviewed and are negative. Current Medications: Current Outpatient Medications on File Prior to Visit Medication Sig Dispense Refill fluconazole (Diflucan) 150 MG tablet Take 1 tablet (150 mg) by mouth 1 (one) time for 1 dose This is a 1 time dose, take single tablet by mouth. 1 tablet 1 phentermine (Adipex-P) 37.5 MG tablet Take 1 tablet (37.5 mg) by mouth in the morning. Take before meals. 30 tablet 0 topiramate 50 MG tablet Take 50 mg by mouth Daily 90 tablet 1 No current facility-administered medications on file prior to visit. I have reviewed and reconciled the history and medication list with the patient today. Problem List: Patient Active Problem List Diagnosis Major depressive disorder with single episode, in full remission (CMS/HCC) Menstrual cramp Mixed hyperlipidemia (CMS/HCC) Obesity (BMI 30-39.9) Strabismus Past Medical History: Past Medical History: Diagnosis Date Allergic rhinitis 1989 Amenorrhea BMI 37.0-37.9, adult Body mass index (BMI) of 40.1 to 44.9 in adult ([facility]) Breast cancer screening by mammogram 12/02/2022 neg Dyspareunia in female Frequency of urination Insulin resistance Major depressive disorder with single episode, in full remission (CMS/HCC) Menstrual cramp Mixed hyperlipidemia (CMS/HCC) Obesity (BMI 30-39.9) Other obesity due to excess calories Pneumonia Reactive depression ([facility]) Family History: Family History Problem Relation Name Age of Onset Diabetes Mother Helene Del oTro No Known Problems Father Diabetes Sister Ericka Del Toro Asthma Sister Ericka Del Toro Asthma Son Jaspal Brogden Heart disease Paternal Grandfather Brandon Del Toro Allergies: Allergies Allergen Reactions Oxycodone Other Intolerance Surgical History: Past Surgical History: Procedure Laterality Date SECTION, CLASSIC x 2 SECTION, LOW TRANSVERSE 05/24/2007 08/20/2009 ENDOMETRIAL ABLATION 08/20/2023 EYE SURGERY 1986 HYSTERECTOMY 09/07/2024 PAP SMEAR (05/25/22) Normal, pending , (11/17/17) Neg DARIEL; HPV Neg TONSILLECTOMY WISDOM TOOTH EXTRACTION Social History: Social Drivers of Health Tobacco Use: Medium Risk (03/05/2025) Patient History Smoking Tobacco Use: Former Smokeless Tobacco Use: Never Passive Exposure: Not on file Alcohol Use: Not At Risk (06/29/2023) AUDIT-C Frequency of Alcohol Consumption: Monthly or less Average Number of Drinks: 1 or 2 Frequency of Binge Drinking: Less than monthly Financial Resource Strain: Low Risk (06/29/2023) Overall Financial Resource Strain (CARDIA) Difficulty of Paying Living Expenses: Not hard at all Food Insecurity: No Food Insecurity (06/29/2023) Hunger Vital Sign Worried About Running Out of Food in the Last Year: Never true Ran Out of Food in the Last Year: Never true Transportation Needs: No Transportation Needs (06/29/2023) PRAPARE - Transportation Lack of Transportation (Medical): No Lack of Transportation (Non-Medical): No Physical Activity: Insufficiently Active (06/29/2023) Exercise Vital Sign Days of Exercise per Week: 3 days Minutes of Exercise per Session: 30 min Stress: Stress Concern Present (06/29/2023) [employer] Cammal of Occupational Health - Occupational Stress Questionnaire Feeling of Stress : Rather much Social Connections: Moderately Integrated (06/29/2023) Social Connection and Isolation Panel [NHANES] Frequency of Communication with Friends and Family: Three times a week Frequency of Social Gatherings with Friends and Family: Once a week Attends [employer] Services: More than 4 times per year Active Member of Clubs or Organizations: Yes Attends Club or Organization Meetings: More than 4 times per year Marital Status: Intimate Partner Violence: Not At Risk (06/29/2023) Humiliation, Afraid, Rape, and Kick questionnaire Fear of Current or Ex-Partner: No Emotionally Abused: No Physically Abused: No Sexually Abused: No Depression: Not at risk (03/05/2025) PHQ-2 PHQ-2 Score: 0 Housing Stability: Low Risk (06/29/2023) Housing Stability Vital Sign Unable to Pay for Housing in the Last Year: No Number of Places Lived in the Last Year: 1 Unstable Housing in the Last Year: No Health Literacy: Not on file OBJECTIVE: Visit Vitals BP 118/90 Pulse 80 Temp 96 F Ht 5' 6 Wt 192 lb 3.2 oz LMP (LMP Unknown) Comment: hysterectomy 09/07/2024 SpO2 100% BMI 31.02 kg/m OB Status Hysterectomy Smoking Status Former BSA 2.01 m Physical Exam Constitutional: Appearance: Normal appearance. HENT: Head: Normocephalic and atraumatic. Eyes: Extraocular Movements: Extraocular movements intact. Cardiovascular: Rate and Rhythm: Normal rate and regular rhythm. Heart sounds: Normal heart sounds. Pulmonary: Effort: Pulmonary effort is normal. Breath sounds: Normal breath sounds. No wheezing, rhonchi or rales. Abdominal: General: Bowel sounds are normal. Palpations: Abdomen is soft. Tenderness: There is generalized abdominal tenderness. There is no right CVA tenderness or left CVAtenderness. Musculoskeletal: Cervical back: Neck supple. Lymphadenopathy: Cervical: No cervical adenopathy. Skin: General: Skin is warm and dry. Neurological: General: No focal deficit present. Mental Status: She is alert and oriented to person, place, and time. Psychiatric: Mood and Affect: Mood normal. Behavior: Behavior normal. Judgment: Judgment normal. Recent Results (from the past 4 weeks) POCT urinalysis dipstick manually resulted Collection Time: 03/05/25 12:05 PM Result Value Ref Range Color, UA Franklin Clarity, UA Turbid Glucose, UA Negative Negative - 2000(110) ++++ mg/dL Bilirubin, UA Positive Negative - 4(70) +++ mg/dL Ketones, UA Positive Negative - 160(16) ++++ mg/dL Spec Grav, UA 1.015 1 - 1.03 Blood, UA Positive Negative - 50 Som/mcL pH, UA 6.0 5 - 9 Protein, UA Positive Negative - 2000(20) ++++ mg/dL Urobilinogen, UA 0.2 0.2 - 12 mg/dL Leukocytes, UA Positive Negative - 500+++ Harpreet/mcL Nitrite, UA Negative Negative - Positive ASSESSMENT AND PLAN: Assessment/Plan Diagnoses and all orders for this visit: Acute cystitis with hematuria - ciprofloxacin (Cipro) 250 MG tablet; Take 1 tablet (250 mg) by mouth in the morning and 1 tablet (250 mg) before bedtime. Do all this for 5 days. Flank pain - POCT urinalysis dipstick manually resulted - Urine culture; Future Start the above medications as directed. Increase water intake, get plenty of rest. Advised patientthat the urine will be sent out for culture. May need to change the antibiotic based on the cultureresults. Cranberry juice ok. Avoid bath tubs and hot tubs, wipe front to back, avoid fragrance soaps in that area, urinate before and after intercourse if sexually active. Discussed if patient develops any N/V, fever/chills, or symptoms dramatically increase, the patient is to go to the ER. Otherwise follow up at our office if no improvement in one week. Follow up if symptoms worsen or fail to improve. documented in this encounterRay County Memorial [id number] History of Present illness Narrative* NEO Tam - 12/25/2024 9:20 AM EST Reason for Appointment: Patient ID: Jennifer Kendall is a 44 y.o. female who presents for Vaginal Discharge Patient presents today for Acute Visit. MEDICATIONS Current Outpatient Medications Medication Instructions fluconazole (DIFLUCAN) 150 mg, Oral, Once, This is a 1 time dose, take single tablet by mouth. phentermine (ADIPEX-P) 37.5 mg, Oral, Daily before breakfast topiramate 50 mg, Oral, Daily ALLERGIES No Known Allergies PROBLEMS Active Ambulatory Problems Diagnosis Date Noted Major depressive disorder with single episode, in full remission ([facility]) 05/26/2023 Menstrual cramp 05/26/2023 Mixed hyperlipidemia ([facility]) 05/26/2023 Obesity (BMI 30-39.9) 05/26/2023 Strabismus 05/27/2023 Resolved Ambulatory Problems Diagnosis Date Noted Amenorrhea 05/26/2023 Frequency of urination 05/26/2023 Insulin resistance 05/26/2023 Other obesity due to excess calories 05/26/2023 Pain in female genitalia on intercourse 05/26/2023 Reactive depression ([facility]) 05/26/2023 Body mass index 40.0-44.9, adult ([facility]) 01/18/2019 Past Medical History: Diagnosis Date Allergic rhinitis 1989 BMI 37.0-37.9, adult Body mass index (BMI) of 40.1 to 44.9 in adult ([facility]) Breast cancer screening by mammogram 12/02/2022 Dyspareunia in female Pneumonia HISTORY PAST MEDICAL HISTORY SOCIAL HISTORY Past Medical History: Diagnosis Date Allergic rhinitis 1989 Amenorrhea BMI 37.0-37.9, adult Body mass index (BMI) of 40.1 to 44.9 in adult ([facility]) Breast cancer screening by mammogram 12/02/2022 neg Dyspareunia in female Frequency of urination Insulin resistance Major depressive disorder with single episode, in full remission ([facility]) Menstrual cramp Mixed hyperlipidemia ([facility]) Obesity (BMI 30-39.9) Other obesity due to excess calories Pneumonia Reactive depression ([facility]) Social History Tobacco Use Smoking status: Former Current packs/day: 0.00 Average packs/day: 1 pack/day for 13.2 years (13.2 ttl pk-yrs) Types: Cigarettes Start date: 2000 Quit date: 08/20/2013 Years since quittin.3 Smokeless tobacco: Never Substance Use Topics Alcohol use: Yes Alcohol/week: 1.0 standard drink of alcohol Types: 1 Glasses of wine per week Comment: Caffeine: 1-2 cups/day Drug use: Never FAMILY HISTORY Family History Problem Relation Name Age of Onset Diabetes Mother Helene Del Toro No Known Problems Father Diabetes Sister Ericka Del Toro Asthma Sister Ericka Del Toro Asthma Son Jaspal Brogden Heart disease Paternal Grandfather Brandon Del Toro [...] Exam Constitutional: Appearance: Normal appearance. She is normal weight. HENT: Head: Normocephalic. Cardiovascular: Rate and Rhythm: Normal rate. Pulses: Normal pulses. Pulmonary: Effort: Pulmonary effort is normal. Breath sounds: Normal breath sounds. Abdominal: Palpations: Abdomen is soft. Musculoskeletal: General: Normal range of motion. Neurological: General: No focal deficit present. Mental Status: She is alert and oriented to person, place, and time. Psychiatric: Mood and Affect: Mood normal. Behavior: Behavior normal. Thought Content: Thought content normal. Judgment: Judgment normal. Vitals and nursing note reviewed. Vitals: Estimated body mass index is 31.12 kg/m as calculated from the following: Height as of 08/30/24: 5' 6 . Weight as of this encounter: 192 lb 12.8 oz. BP: 100/74 No LMP recorded (lmp unknown). Patient has had a hysterectomy. ASSESSMENT & PLAN ICD-10-CM 1. Vaginal discharge N89.8 2. Vaginal irritation N89.8 3. Yeast infection B37.9 fluconazole (Diflucan) 150 MG tablet Patient presents for vaginal irritation and odor. She states she has had multiple yeast infections and feels she may have BV. Patient just completed course of augmentin for sinus infection. Culutres obtained. We will send in diflucan and treat further if necessary. Patient will follow up as needed Documented by NEO Tam on behalf of: NEO Tam documented in this encounterRay County Memorial [id number] History of Present illness Narrative* Margaret Swenson, МАРИЯ - 12/12/2024 1:15 PM EST Images from the original note were not included. [address] , [address] [facility] [place], [address] P: [phone] F: [phone] HPI Historian of HPI: patient Jennifer Kendall is a 44 y.o. female who presents today to the Urgent Care with the following complaints and denials which have been present for 7 day(s) C/O Denies Symptom Comments [] [x] Runny Nose [] [x] Difficulty Swallowing [] [x] Sore Throat [] [x] Cough [] [x] Ear Pain [x] [] Fever [] [x] Chills [x] [] Nasal Congestion [] [x] Myalgia [x] [] Sinus Pain [x] [] Sinus Pressure Additional Comments: pt has taken sudafed OTC medication without relief. Pt ''says her symptoms gets worse at night. Ptdoes not want to get any testing done at this time. Denies or . ROS A complete system ROS was performed and negative aside from the pertinent positives noted in the HPI and PE. PHYSICAL EXAM Examination General Examination: General Examination: in no acute distress, well developed, well nourished Head: normocephalic, atraumatic Eyes: no discharge Ears: BOTH EARS canals normal. TM with mild effusion bilat. Nose:thick clear nasal discharge bilat. Frontal sinus tenderness bilat. Oral Cavity: mucosa moist Throat: pharynx with erythema and PND. No trismus, muffled voice, drooling or protrusion of soft palate. Uvula midline Neck/Thyroid: neck supple, trachea midline Lymph Nodes: no cervical adenopathy Skin: warm and dry Heart: S1, S2 normal, regular rate and rhythm, no S3, S4, no murmurs, rubs, gallops Lungs: clear anteriorly and posteriorly, clear to auscultation bilaterally, good air movement, no wheezes, rales, rhonchi Chest: normal shape and expansion, normal anteroposterior (AP) diameter Psych: alert, oriented. TREATMENT PLAN 1. Acute non-recurrent frontal sinusitis (Primary) Start augmentin-see rx, discussed SE, take with food. Immediate eval if new, worsening sx otherwisefollow up if sx not resolved with course of atb, sooner if not improving over next 3-4 days - amoxicillin-clavulanate (Augmentin) 875-125 MG tablet; Take 1 tablet (875 mg) by mouth in the morning and 1 tablet (875 mg) before bedtime. Do all this for 10 days. Dispense: 20 tablet; Refill: 0 documented in this encounterRay County Memorial [id number] History of Present illness Narrative* NEO Tam - 10/23/2024 3:30 PM EST Reason for Appointment: Patient ID: Jennifer Kendall is a 44 y.o. female who presents for Post-op Visit (Pt present today for a 6 week post operative visit. Pt had a hysterectomy on 09/07/2024.) Patient presents today for [address] [facility] Post Op Follow Up appointment. MEDICATIONS Current Outpatient Medications Medication Instructions biotin 5 mg, Oral, Daily ibuprofen 800 mg, Every 8 hours phentermine (ADIPEX-P) 37.5 mg, Oral, Daily before breakfast topiramate 50 mg, Oral, Daily ALLERGIES No Known Allergies PROBLEMS Active Ambulatory Problems Diagnosis Date Noted Major depressive disorder with single episode, in full remission ([facility]) 05/26/2023 Menstrual cramp 05/26/2023 Mixed hyperlipidemia ([facility]) 05/26/2023 Obesity (BMI 30-39.9) 05/26/2023 Strabismus 05/27/2023 Resolved Ambulatory Problems Diagnosis Date Noted Amenorrhea 05/26/2023 Frequency of urination 05/26/2023 Insulin resistance 05/26/2023 Other obesity due to excess calories 05/26/2023 Pain in female genitalia on intercourse 05/26/2023 Reactive depression ([facility]) 05/26/2023 Body mass index 40.0-44.9, adult ([facility]) 01/18/2019 Past Medical History: Diagnosis Date Allergic rhinitis 1989 BMI 37.0-37.9, adult Body mass index (BMI) of 40.1 to 44.9 in adult ([facility]) Breast cancer screening by mammogram 12/02/2022 Dyspareunia in female Pneumonia HISTORY PAST MEDICAL HISTORY SOCIAL HISTORY Past Medical History: Diagnosis Date Allergic rhinitis 1989 Amenorrhea BMI 37.0-37.9, adult Body mass index (BMI) of 40.1 to 44.9 in adult ([facility]) Breast cancer screening by mammogram 12/02/2022 neg Dyspareunia in female Frequency of urination Insulin resistance Major depressive disorder with single episode, in full remission ([facility]) Menstrual cramp Mixed hyperlipidemia ([facility]) Obesity (BMI 30-39.9) Other obesity due to excess calories Pneumonia Reactive depression ([facility]) Social History Tobacco Use Smoking status: Former Current packs/day: 0.00 Average packs/day: 1 pack/day for 13.2 years (13.2 ttl pk-yrs) Types: Cigarettes Start date: 2000 Quit date: 08/20/2013 Years since quittin.1 Smokeless tobacco: Never Substance Use Topics Alcohol use: Yes Alcohol/week: 1.0 standard drink of alcohol Types: 1 Glasses of wine per week Comment: Caffeine: 1-2 cups/day Drug use: Never FAMILY HISTORY Family History Problem Relation Name Age of Onset Diabetes Mother Helene Del Toro No Known Problems Father Diabetes Sister Ericka Del Toro Asthma Sister Ericka Del Toro Asthma Son Jaspal Brogden Heart disease Paternal Grandfather Brandon Del Toro SURGICAL HISTORY Past Surgical History: Procedure Laterality Date SECTION, CLASSIC x 2 SECTION, LOW TRANSVERSE 05/24/2007 08/20/2009 ENDOMETRIAL ABLATION 08/20/2023 EYE SURGERY 1986 HYSTERECTOMY 09/07/2024 PAP SMEAR (05/25/22) Normal, pending , (11/17/17) Neg DARIEL; HPV Neg TONSILLECTOMY WISDOM TOOTH EXTRACTION REVIEW OF SYSTEMS Review of Systems: Review of Systems All other systems reviewed and are negative. OBJECTIVE Objective: Physical Exam Constitutional: Appearance: Normal appearance. Genitourinary: Right Adnexa: not tender and no mass present. Left Adnexa: not tender and no mass present. No cervical discharge. Breasts: Breasts are soft. Right: Normal. Left: [...] nursing note reviewed. Exam conducted with a child welfare specialist present. Vitals: Estimated body mass index is 31.15 kg/m as calculated from the following: Height as of 08/30/24: 5' 6 . Weight as of 09/14/24: 193 lb. BP: No LMP recorded (lmp unknown). Patient has had a hysterectomy. ASSESSMENT & PLAN ICD-10-CM 1. Postoperative visit Z48.89 2. S/P hysterectomy Z90.710 Post Op Follow Up: Patient presents today for a 6 week postop check following a Da Dustin assisted Laparoscopic Hysterectomy. Surgery execution and pathology results were discussed in great detail with the patient. Pelvic exam was performed and vaginal cuff was noted as healing well. Sutures were present and removed with ring forceps. Patient has been instructed to sustain from sexual intercourse for one more week. All other restrictions have otherwise been lifted. Follow Up: Patient is to return in 1 year for annual exam unless needed otherwise. Documented by Jeanie Collado MA on behalf of: NEO Tam documented in this encounterRay County Memorial [id number] History of Present illness Narrative* NEO Tam - 09/14/2024 9:40 AM EST Reason for Appointment: Patient ID: Jennifer Kendall is a 44 y.o. female who presents for Post-op Visit (Pt present today for post operative visit. Pt had a hysterectomy on 09/07/2024.) Patient presents today for 1 Week Post Op Follow Up appointment. MEDICATIONS Current Outpatient Medications Medication Instructions biotin 5 mg, Oral, Daily bisacodyl (DULCOLAX) 10 mg, Rectal, Daily ibuprofen 800 mg, Every 8 hours phentermine (ADIPEX-P) 37.5 mg, Oral, Daily before breakfast topiramate 50 mg, Oral, Daily ALLERGIES No Known Allergies PROBLEMS Active Ambulatory Problems Diagnosis Date Noted Major depressive disorder with single episode, in full remission ([facility]) 05/26/2023 Menstrual cramp 05/26/2023 Mixed hyperlipidemia ([facility]) 05/26/2023 Obesity (BMI 30-39.9) 05/26/2023 Strabismus 05/27/2023 Resolved Ambulatory Problems Diagnosis Date Noted Amenorrhea 05/26/2023 Frequency of urination 05/26/2023 Insulin resistance 05/26/2023 Other obesity due to excess calories 05/26/2023 Pain in female genitalia on intercourse 05/26/2023 Reactive depression ([facility]) 05/26/2023 Body mass index 40.0-44.9, adult ([facility]) 01/18/2019 Past Medical History: Diagnosis Date Allergic rhinitis 1989 BMI 37.0-37.9, adult Body mass index (BMI) of 40.1 to 44.9 in adult ([facility]) Breast cancer screening by mammogram 12/02/2022 Dyspareunia in female Pneumonia HISTORY PAST MEDICAL HISTORY SOCIAL HISTORY Past Medical History: Diagnosis Date Allergic rhinitis 1989 Amenorrhea BMI 37.0-37.9, adult Body mass index (BMI) of 40.1 to 44.9 in adult ([facility]) Breast cancer screening by mammogram 12/02/2022 neg Dyspareunia in female Frequency of urination Insulin resistance Major depressive disorder with single episode, in full remission ([facility]) Menstrual cramp Mixed hyperlipidemia ([facility]) Obesity (BMI 30-39.9) Other obesity due to excess calories Pneumonia Reactive depression ([facility]) Social History Tobacco Use Smoking status: Former Current packs/day: 0.00 Average packs/day: 1 pack/day for 13.2 years (13.2 ttl pk-yrs) Types: Cigarettes Start date: 2000 Quit date: 08/20/2013 Years since quittin.0 Smokeless tobacco: Never Substance Use Topics Alcohol [...] SYSTEMS Review of Systems: Review of Systems All other systems reviewed and are negative. OBJECTIVE Objective: Physical Exam Constitutional: Appearance: Normal [...] nursing note reviewed. Exam conducted with a child welfare specialist present. Vitals: Estimated body mass index is 30.8 kg/m as calculated from the following: Height as of 08/30/24: 5' 6 . Weight as of 08/30/24: 190 lb 12.8 oz. BP: No LMP recorded. ASSESSMENT & PLAN ICD-10-CM 1. Postoperative visit Z48.89 2. S/P hysterectomy Z90.710 Post Op Follow Up: Patient presents today for a one week postop check after having a Hysterectomy. Patient is doing well but has minor complaints of pain and bleeding from incision and vagina since she left hospital. Pt has concerns if how much longer this is going to continue on. Pt has had some issues w/constipation, however she was sent a suppository yesterday to use along w/Miralax. Pt states she did have a bowel movement yesterday and would like to know how long she should continue the Miralax. Pt was advised Mary Mack will be in to answer her questions/issues. Incisions has been noted as healing well withno signs and symptoms of infection. 2 small areas of incision open, silver nitrate applied and steri strip placed, pt doing well and constipation improving Follow Up: Patient is to return in 5 weeks for 6 week post operative evaluation Documented by Jeanie Collado MA on behalf of: NEO Tam documented in this encounterRay County Memorial [id number] History of Present illness Narrative* Henrry Anderson, DO - 08/30/2024 4:20 PM EST Images from the original note were not included. [facility] REHANA Nieto SUBJECTIVE: HPI: Jennifer Kendall is a 44 y.o. female who [...] standard drink of alcohol per week. She reportsthat she does not use drugs. OBJECTIVE: 12/08/2023 [...] TBH MCH 31.2 26.7 - 34.0 pg TB MCHC 32.2 29.9 - 35.2 g/dL TB RDW 13.0 11.0 - 15.0 % TBH [...] AUTO 0.01 0.00 - 0.03 10 3/uL [facility] LIVER PANEL Collection Time: 08/25/24 11:40 AM [...] [facility] EGFR-AF LITHUANIAN >60 >=60 mL/min/1.73m 2 TBH EGFR-NON AF LITHUANIAN 54 (L) >=60 mL/min/1.73m 2 BUN CREATININE [...] ears - allergies possible, also discussed TMJ Henrry Anderson DO Patient Active Problem List Diagnosis [...] Pneumonia Reactive depression (CMS/HCC) documented in this encounterRay County Memorial [id number] History of Present illness Narrative* Samina Garcia - 08/09/2024 3:50 PM EDT Reason for Appointment: Patient ID: Jennifer Kendall is a 44 y.o. female who presents for Pre-op Visit Patient presents today for Pre Op appointment. Patient is scheduled to undergo Da Dustin assisted Laparoscopic Hysterectomy, possible exploratory laparotomy, possible BSO, possible cystoscopy on 09/07/[address] [facility]. MEDICATIONS Current Outpatient Medications Medication Instructions phentermine (ADIPEX-P) 37.5 mg, Oral, Daily before breakfast topiramate 50 mg, Oral, Daily ALLERGIES No Known Allergies PROBLEMS Active Ambulatory Problems Diagnosis Date Noted Major depressive disorder with single episode, in full remission ([facility]) 05/26/2023 Menstrual cramp 05/26/2023 Mixed hyperlipidemia ([facility]) 05/26/2023 Obesity (BMI 30-39.9) 05/26/2023 Strabismus 05/27/2023 Resolved Ambulatory Problems Diagnosis Date Noted Amenorrhea 05/26/2023 Frequency of urination 05/26/2023 Insulin resistance 05/26/2023 Other obesity due to excess calories 05/26/2023 Pain in female genitalia on intercourse 05/26/2023 Reactive depression ([facility]) 05/26/2023 Body mass index 40.0-44.9, adult ([facility]) 01/18/2019 Past Medical History: Diagnosis Date Allergic rhinitis 1989 BMI 37.0-37.9, adult Body mass index (BMI) of 40.1 to 44.9 in adult ([facility]) Breast cancer screening by mammogram 12/02/2022 Dyspareunia in female Pneumonia HISTORY PAST MEDICAL HISTORY SOCIAL HISTORY Past Medical History: Diagnosis Date Allergic rhinitis 1989 Amenorrhea BMI 37.0-37.9, adult Body mass index (BMI) of 40.1 to 44.9 in adult ([facility]) Breast cancer screening by mammogram 12/02/2022 neg Dyspareunia in female Frequency of urination Insulin resistance Major depressive disorder with single episode, in full remission ([facility]) Menstrual cramp Mixed hyperlipidemia ([facility]) Obesity (BMI 30-39.9) Other obesity due to excess calories Pneumonia Reactive depression (CMS/HCC) Social History Tobacco Use Smoking status: Former [...] nursing note reviewed. Exam conducted with a child welfare specialist present. Vitals: Estimated body mass index [...] laparotomy, possible BSO, possible cystoscopy on 09/07/2024. Surgicalconsents were signed, mmc was reviewed, and patient is to proceed to [facility] OR. Follow Up: Patient is to follow up at 1 & 6 weeks post operative to assess proper healing and recovery from procedure. Documented by Marcy Elliott LPN on behalf of: Kris Chan DO documented in this encounterRay County Memorial [id number] History of Present illness Narrative* Marcy Elliott LPN - 11/30/2023 3:10 PM EST Reason for Appointment: Patient ID: Jennifer Kendall is a 43 y.o. female who presents for Vaginitis/Bacterial Vaginosis Patient presents today via telephone call for a telehealth appointment. Patients Phone #: [phone] (mobile) Current Medications: has a current medication list which includes the following prescription(s): azithromycin, biotin, cetirizine, and phentermine. Medical History: Active Ambulatory Problems Diagnosis Date Noted Amenorrhea 05/26/2023 Frequency of urination 05/26/2023 Insulin resistance 05/26/2023 Major depressive disorder with single episode, in full remission ([facility]) 05/26/2023 Menstrual cramp 05/26/2023 Mixed hyperlipidemia ([facility]) 05/26/2023 Obesity (BMI 30-39.9) 05/26/2023 Other obesity due to excess calories 05/26/2023 Pain in female genitalia on intercourse 05/26/2023 Reactive depression ([facility]) 05/26/2023 Strabismus 05/27/2023 Body mass index 40.0-44.9, adult ([facility]) 01/18/2019 Resolved Ambulatory Problems Diagnosis Date Noted No Resolved Ambulatory Problems Past Medical History: Diagnosis Date Allergic rhinitis 1989 BMI 37.0-37.9, adult Body mass index (BMI) of 40.1 to 44.9 in adult ([facility]) Breast cancer screening by [...] by Marcy Elliott LPN on behalf of: Kris Chan DO documented in this encounterRay County Memorial [id number] Evaluation note* Encounter Date Diagnosis Assessment Notes Treatment Notes Treatment Clinical Notes February, Sore throat (ICD-10 - J02.9) February,cute nasopharyngitis (ICD-10 - J00)Rapid strep negative.Discussed with patient exam and history is consistent with viral infection. Discussed viral nature of illness and typical duration of 7 to 14 days. Advised antibiotics unfortunately do not treat viral illnesses. May use symptomatic treatment such as Cepacol throat sprays or throat lozenges, warm salt water gargles, continue Zyrtec which will help with any postnasal drip. May use Tylenol/ibuprofen for any pain/fever. Follow-up with PCP if not improving over the next 7 days, sooner if significantly worsening symptoms. [facility] Other 03-23-2023 Evaluation note* Encounter Date Diagnosis [...] symptoms persist follow up with PCP or [employer] [facility]. Immediate eval by ER if back or flank pain, fever, chills, N/V, or any other concerning symptoms arise. Patient verbalizes understanding and is agreeable to treatment plan [facility] Other 07-28-2022 Evaluation note* Encounter Date Diagnosis [...] understanding and is agreeable to treatment plan [facility] Other Evaluation note* Diagnosis Vaginal discharge Leukorrhea, not specified as infective Yeast infection documented in this encounter [facility] HealthcareEvaluation noteNo assessment information availableGeorgetown Behavioral Hospital Work Phone: Evaluation note* Diagnosis Onset Date Resolution Status Acute UTI (urinary tract infection) acuteFrequency of urinationnoneactive [facility] Work Phone: Evfsvation note* Diagnosis Pre-op examination Menorrhagia with regular cycle Pelvic pain in female Unspecified symptom associated with female genital organs Dyspareunia in female Dysmenorrhea documented in this encounter [facility] HealthcareEvaluation note* Diagnosis Otalgia of right ear- Primary Class 1 obesity due to excess calories without serious comorbidity with body mass index (BMI) of 33.0 to 33.9 in adult documented in this encounter [facility] HealthcareEvaluation note* Diagnosis Postoperative visit S/P hysterectomy Acquired absence of both cervix and uterus documented in this encounter [facility] HealthcareEvaluation note* Diagnosis Class 1 obesity due to excess calories without serious comorbidity with body mass index (BMI) of 33.0 to 33.9 in adult documented in this encounter [facility] HealthcareEvaluation note* Diagnosis Postoperative visit S/P hysterectomy Acquired absence of both cervix and uterus [facility] [facility]* Diagnosis Acute non-recurrent frontal sinusitis- Primary documented in this encounter [facility] HealthcareEvaluation note* Diagnosis Vaginal discharge Leukorrhea, not specified as infective Vaginal irritation Pruritus of genital organs Yeast infection documented in this encounter [facility] HealthcareEvaluation note* Diagnosis Class 1 obesity due to excess calories without serious comorbidity with body mass index (BMI) of 33.0 to 33.9 in adult documented in this encounter [facility] HealthcareEvaluation note* Diagnosis Acute cystitis with hematuria- Primary Flank pain Abdominal pain, unspecified site documented in this encounter [facility] HealthcareEvaluation note* Diagnosis Class 1 obesity due to excess calories without serious comorbidity with body mass index (BMI) of 33.0 to 33.9 in adult documented in this encounter [facility] HealthcareEvaluation note* Diagnosis Urination frequency Urinary frequency Hematuria, unspecified type Vaginal discomfort Vaginal discharge Leukorrhea, not specified as infective STD exposure documented in this encounter [facility] HealthcareEvaluation note* Diagnosis Class 1 obesity due to excess calories without serious comorbidity with body mass index (BMI) of 33.0 to 33.9 in adult documented in this encounter [facility] HealthcareEvaluation note* Diagnosis Acute cystitis without hematuria Urinary frequency documented in this encounter [facility] HealthcareEvaluation note* Diagnosis Well woman exam with routine gynecological exam Routine gynecological examination Breast cancer screening by mammogram Exposure to STD Vaginal discharge Leukorrhea, not specified as infective documented in this encounter [facility] HealthcareEvaluation note* Diagnosis Class 1 obesity due to excess calories without serious comorbidity with body mass index (BMI) of 33.0 to 33.9 in adult documented in this encounter [facility] HealthcareEvaluation note* Diagnosis Class 1 obesity due to excess calories without serious comorbidity with body mass index (BMI) of 33.0 to 33.9 in adult documented in this encounter [facility] HealthcareEvaluation note* Diagnosis Vaginal itching Pruritus of genital organs Vaginal discharge Leukorrhea, not specified as infective documented in this encounter [facility] Healthcare Summary Purpose Family History Relationship Condition Age at Onset Recorded Date/T alyse brother Unknown sisterDeceasedUnknown Advance Directives Advance Directive Response Recorded Date/ [...] section and content) DATE CREATED AUTHOR 04/19/2018 [facility] [place] DATE CREATED AUTHOR AUTHOR'S ORGANIZ ATION 10/31/2021 [facility] Pediatric Nurse Practitioner DATE CREATED AUTHOR AUTHOR'S ORGANIZ ATION 01/17/[address] [facility] DATE CREATED AUTHOR AUTHOR'S ORGANIZ ATION 09/13/2024 [facility] DATE CREATED AUTHOR AUTHOR'S ORGANIZ ATION 09/06/2025 [facility] EPIC REASON FOR VISIT (unrecogniz ed section and content) ReasonCommentsVaginitis/Bacterial VaginosisReasonCommentsPre-op VisitReason CommentsPost-op VisitPt present today for post operative visit. Pt had a hysterectomy on 09/07/2024.ReasonCommentsMed RefillReasonCommentsPost-op VisitPt present today for a 6 week post operative visit. Pt had a hysterectomy on 09/07/2024.ReasonCommentsVaginal DischargeReasonOnset DateCommentsMed Refill 01/29/2025ReasonCommentsUTIReasonCommentsvaginal issuesReasonCommentsWeight CheckReasonCommentsWell Women VisitReasonCommentsMed RefillReasonComments Follow-up Care Teams (unrecognized sec tion and content) Team MemberRelationshipSpecialtyStart DateEnd Date Henrry Anderson DO PCP - [facility]05/24/23 Team Status: Active Member Role Status Anya Anderson DO Primary Care Provider Active Team Status: Inactive Member Role Status Dates Maty Amaral APRN Attending Provider Active Start: February 14, 2024 End: February 14, 2024Zafar [facility] ProviderActiveStart: February 14, 2024 End: February 14, 2024 Team Status: Inactive Member Role Status Anya Anderson DO Primary Care Provider Active Start: February 14, 2024 End: February 14, 2024Angel Waters ProviderActiveStart: February 14, 2024 End: February 14, 2024Team MemberRelationshipSpecialtyStart DateEnd Date Henrry Anderson DO [address] [place] [address] PCP - [facility]05/24/23Team MemberRelationshipSpecialtyStart DateEnd Date Henrry Anderson DO [address] [place] [address] PCP - [facility]05/24/23Team MemberRelationshipSpecialtyStart DateEnd Date Henrry Anderson, DO [address] [place] [address] PCP - [facility]05/24/23Team MemberRelationshipSpecialtyStart DateEnd Date Henrry Anderson, DO [address] [place] [address] PCP - [facility]05/24/23 Team Status: Inactive Member Role Status Dates Henrry Anderson DO Primary Care Provider Active Start: September 07, 2024 End: September 07orekitty Chan DOAttending ProviderActiveStart: September 07, 2024 End: September 07, 2024Team MemberRelationshipSpecialtyStart DateEnd Date Henrry Anderson, DO [address] [place] [address] PCP - [facility]05/24/23Team MemberRelationshipSpecialtyStart DateEnd Date Henrry Anderson, DO [address] [place] [address] PCP - [facility]05/24/23Team MemberRelationshipSpecialtyStart DateEnd Date Henrry Anderson, DO [address] [place] [address] PCP - [facility]05/24/23Team MemberRelationshipSpecialtyStart DateEnd Date Henrry Anderson, DO [address] [place] [address] PCP - [facility]05/24/23Team MemberRelationshipSpecialtyStart DateEnd Date Henrry Anderson, DO [address] [place] [address] PCP - [facility]05/24/23am MemberRelationshipSpecialtyStart DateEnd Date Henrry Anderson, DO [address] [place] [address] PCP - [facility]05/24/23am MemberRelationshipSpecialtyStart DateEnd Date Henrry Anderson, DO [address] [place] [address] PCP - [facility]05/24/23Team MemberRelationshipSpecialtyStart DateEnd Date Henrry Anderson, DO [address] [place] [address] PCP - [facility]05/24/23Team MemberRelationshipSpecialtyStart DateEnd Date Henrry Anderson, DO [address] [place] [address] PCP - [facility]05/24/23Team MemberRelationshipSpecialtyStart DateEnd Date Henrry Anderson, DO [address] [place] [address] PCP - [facility]05/24/23Team MemberRelationshipSpecialtyStart DateEnd Date Henrry Anderson, DO [address] [place] [address] PCP - GeneralFamily Medicine05/24/23Team MemberRelationshipSpecialtyStart DateEnd Date Henrry Anderson DO [address] [place] [address] [facility]CP - [facility]05/[facility]/23 Goals (unrecognized section and content) Goals may [...] BE BASED ON THE PRIMARY CLINICAL RECORDS. [facility]. provides no warranty or guarantee of the accuracy or completeness of information in this document.
--- NOTE | 2025-09-25 17:50 | MM_ITS ---
Patient Name: JENNIFER KENDALL MR#: [id number] : 1980 Exam Date: 09/25/2025 Ordering Doctor: NEO MACK . RADIOLOGY REPORT PROCEDURE: MM TOMOSYNTHESIS SCREENING BI COMPARISON: MM TOMOSYNTHESIS SCREENING BI, 09/12/2024. MG MAMM SCREEN 3D OTONIEL CAD, 12/02/2022. INDICATIONS: Screening Calculator Name NCI Breast Cancer Risk Assessment Tool 5 Year Breast Cancer Risk 0.80% Lifetime Breast Cancer Risk 10.80% Personal Breast Cancer No Personal Ovarian Cancer No Treatments None Family Cancers None LOCATION: [facility] BREAST COMPOSITION: There are scattered areas of fibroglandular density. FINDINGS: RIGHT BREAST: No significant suspicious finding. LEFT BREAST: No significant suspicious finding. DIAGNOSTIC CATEGORY 1--NEGATIVE. NO CHANGE FROM COMPARISON ASSESSMENT. RECOMMENDATIONS: ROUTINE MAMMOGRAM AND CLINICAL EVALUATION IN 12 MONTHS. Dictated by: Og Alva MD on 09/26/2025 at 10:43 Approved by: Og Alva MD on 09/26/2025 at 10:44
== END 2025-09-25 17:15 | disposition home or self-care (01) ==
LOC: MAMMO 17:14
PROVIDERS: PCP Family Medicine; Visit Provider Physician Assistant
DX: Z12.31 Encounter for screening mammogram for malignant neoplasm of breast (principal)
CPT/HCPCS: 77063; 77067